=== PATIENT | male | born 1960 | race American Indian/Alaskan Native ===

== ENCOUNTER 2020-04-30 13:56 | Outpatient (REF) | payer MEDICARE, MEDICAID, SELFPAY ==
[2020-04-30 14:54] LABS: MANUAL DIFF FLAG NO
[2020-04-30 14:58] LABS: Basophils Absolute Auto 0.1 X10*3/uL (0.0-0.2); Basophils Percent Auto 0.7 % (0-2); Eosinophils Absolute Auto 0.1 X10*3/uL (0.0-0.4); Eosinophils Percent Auto 1.8 % (0-4); Hemoglobin 14.5 g/dl (14.0-18.0); Imm Gran Abs Auto 0.04 X10*3/uL (0.00-0.03); Imm Gran Pct Auto 0.6 % (0.0-0.4); Lymphocytes Absolute Auto 2.2 X10*3/uL (1.2-4.9); Lymphocytes Percent Auto 32.2 % (20-40); Mean Corpuscular HGB Conc 30.9 g/dl (31.0-36.0); Mean Corpuscular Hemoglobin 26.1 pg (27.0-33.0); Mean Corpuscular Volume 84.5 fL (80-98); Mean Platelet Volume 11.2 fL (9.4-12.4); Monocytes Absolute Auto 0.7 X10*3/uL (0.1-1.2); Monocytes Percent Auto 10.6 % (2-11); Neutrophils Absolute Auto 3.6 X10*3/uL (2.0-8.3); Neutrophils Percent Auto 54.1 % (45-73); Platelet Count 246 X10*3/uL (160-400); Red Blood Count 5.56 X10*6/uL (4.60-5.80); White Blood Count 6.7 X10*3/uL (4.8-10.8)
[2020-04-30 15:28] LABS: Alanine Aminotransferase 32 U/L (0-40); Albumin Level 3.9 g/dL (3.5-5.0); Alkaline Phosphatase 79 U/L (39-117); Anion Gap 10 (12-20); Aspartate Amino Transferase 22 U/L (5-37); Bilirubin Total 0.6 mg/dL (0.0-1.0); Blood Urea Nitrogen 12 mg/dL (9-16); Calcium 8.6 mg/dL (8.4-10.2); Carbon Dioxide 29 mmol/L (22-29); Chloride 106 mmol/L (96-108); Cholesterol 170 mg/dL; Estimated Glomerular Filt Rate > 60; Glucose Fasting 118 mg/dL (60-99); HDL Cholesterol 43 mg/dL; LDL Cholesterol Calculated 68 mg/dl; Potassium 4.2 mmol/L (3.3-5.1); Sodium 141 mmol/L (135-145); Total Protein 7.2 g/dL (6.5-8.0); Triglycerides 298 mg/dL
== END 2020-04-30 13:57 | disposition home or self-care (01) ==
LOC: HO.LAB 13:56
PROVIDERS: PCP Internal Medicine; Visit Provider Internal Medicine
DX: E78.1 Pure hyperglyceridemia (principal); I10 Essential (primary) hypertension
CPT/HCPCS: 36415; 80053; 80061; 85025

== ENCOUNTER → 2020-05-14 12:51 | Outpatient (BNV) | payer MEDICARE, MEDICAID, SELFPAY | PROVIDERS: PCP Internal Medicine; Visit Provider Internal Medicine Medical Oncology | DX: D75.1 Secondary polycythemia (principal) | CPT/HCPCS: 99213; 99214 ==

== ENCOUNTER 2020-08-15 15:15 | Outpatient (REF) | payer MEDICARE, MEDICAID, SELFPAY | END 2020-08-15 15:16 | disposition home or self-care (01) | LOC: HO.BBR 15:15 | PROVIDERS: Visit Provider Internal Medicine Medical Oncology | DX: D75.1 Secondary polycythemia (principal) | CPT/HCPCS: 36415; 85018; 99195 ==

== ENCOUNTER 2021-05-14 07:51 | Emergency (ER) | payer OTHER, MEDICARE, MEDICAID, SELFPAY ==
[2021-05-14 07:53] VITALS: BP 156/81; PULSE 100; RESP 16; TEMP 37.1; O2SAT 99; BMI 31.3
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
== END 2021-05-14 09:45 | disposition home or self-care (01) ==
PROVIDERS: Emergency Provider Emergency Medicine; PCP Internal Medicine
DX: S13.4XXA Sprain of ligaments of cervical spine, initial encounter (principal); S46.912A Strain of unspecified muscle, fascia and tendon at shoulder and upper arm level, left arm, initial encounter; S76.012A Strain of muscle, fascia and tendon of left hip, initial encounter; V43.52XA Car driver injured in collision with other type car in traffic accident, initial encounter; Y93.89 Activity, other specified; Y92.414 Local residential or business street as the place of occurrence of the external cause; Y99.9 Unspecified external cause status
CPT/HCPCS: 99283

== ENCOUNTER 2021-10-29 11:51 | Outpatient (REF) | payer MEDICARE, MEDICAID, SELFPAY ==
[2021-10-29 12:07] LABS: MANUAL DIFF FLAG NO
[2021-10-29 12:26] LABS: Basophils Percent Auto 0.5 % (0-2); Eosinophils Absolute Auto 0.2 X10*3/uL (0.0-0.4); Eosinophils Percent Auto 2.6 % (0-4); Hematocrit 47.2 % (42.0-52.0); Hemoglobin 15.8 g/dl (14.0-18.0); Imm Gran Abs Auto 0.03 X10*3/uL (0.00-0.03); Imm Gran Pct Auto 0.4 % (0.0-0.4); Lymphocytes Absolute Auto 2.4 X10*3/uL (1.2-4.9); Mean Corpuscular HGB Conc 33.5 g/dl (31.0-36.0); Mean Corpuscular Hemoglobin 29.6 pg (27.0-33.0); Mean Corpuscular Volume 88.4 fL (80.0-98.0); Mean Platelet Volume 11.3 fL (9.4-12.4); Monocytes Absolute Auto 0.8 X10*3/uL (0.1-1.2); Monocytes Percent Auto 10.2 % (2-11); Neutrophils Absolute Auto 3.9 x10*3/uL (2.0-8.3); Neutrophils Percent Auto 53.3 % (45-73); Platelet Count 237 X10*3/uL (160-400); Red Blood Count 5.34 X10*6/uL (4.60-5.80); Red Cell Distribution Width 17.2 % (11.0-16.0); White Blood Count 7.3 X10*3/uL (4.8-10.8)
[2021-10-29 12:58] LABS: Alanine Aminotransferase 44 U/L (0-40); Albumin Level 3.8 g/dL (3.5-5.0); Alkaline Phosphatase 84 U/L (39-117); Anion Gap 14 (12-20); Aspartate Amino Transferase 34 U/L (5-37); Bilirubin Total 0.5 mg/dL (0.0-1.0); Blood Urea Nitrogen 10 mg/dL (9-16); Calcium 8.6 mg/dL (8.4-10.2); Carbon Dioxide 28 mmol/L (22-29); Chloride 102 mmol/L (96-108); Cholesterol 157 mg/dL; Estimated Glomerular Filt Rate > 60; Glucose Random 124 mg/dL (60-115); HDL Cholesterol 39 mg/dL; LDL Cholesterol Calculated 83 mg/dl; Potassium 3.9 mmol/L (3.3-5.1); Sodium 140 mmol/L (135-145); Total Protein 7.3 g/dL (6.5-8.0); Triglycerides 176 mg/dL
[2021-10-29 13:19] LABS: Prostate Specific Antigen 1.06 ng/mL (<0.05-4.0)
== END 2021-10-29 11:52 | disposition home or self-care (01) ==
LOC: HO.LAB 11:51
PROVIDERS: PCP Internal Medicine; Visit Provider Internal Medicine
DX: Z12.5 Encounter for screening for malignant neoplasm of prostate (principal); D45 Polycythemia vera; E78.1 Pure hyperglyceridemia; I10 Essential (primary) hypertension; L40.8 Other psoriasis
CPT/HCPCS: 36415; 80053; 80061; 84153; 85025

== ENCOUNTER 2022-01-19 10:26 | Outpatient (REF) | payer MEDICARE, MEDICAID, SELFPAY | END 2022-01-19 10:27 | disposition home or self-care (01) | LOC: HO.BBR 10:26 | PROVIDERS: Visit Provider Internal Medicine Medical Oncology | DX: D75.1 Secondary polycythemia (principal) | CPT/HCPCS: 85018; 99195 ==

== ENCOUNTER 2022-05-06 11:30 | Outpatient (REF) | payer MEDICARE, MEDICAID, SELFPAY ==
[2022-05-06 11:44] LABS: MANUAL DIFF FLAG NO
[2022-05-06 11:59] LABS: Basophils Absolute Auto 0.1 X10*3/uL (0.0-0.2); Basophils Percent Auto 0.8 % (0-2); Eosinophils Absolute Auto 0.2 X10*3/uL (0.0-0.4); Eosinophils Percent Auto 1.9 % (0-4); Hematocrit 46.2 % (42.0-52.0); Imm Gran Abs Auto 0.04 X10*3/uL (0.00-0.03); Imm Gran Pct Auto 0.5 % (0.0-0.4); Lymphocytes Absolute Auto 1.9 X10*3/uL (1.2-4.9); Lymphocytes Percent Auto 23.6 % (20-40); Mean Corpuscular HGB Conc 32.5 g/dl (31.0-36.0); Mean Corpuscular Hemoglobin 27.9 pg (27.0-33.0); Mean Platelet Volume 11.4 fL (9.4-12.4); Monocytes Percent Auto 12.9 % (2-11); Neutrophils Absolute Auto 4.8 x10*3/uL (2.0-8.3); Neutrophils Percent Auto 60.3 % (45-73); Platelet Count 213 X10*3/uL (160-400); Red Blood Count 5.37 X10*6/uL (4.60-5.80)
[2022-05-06 12:14] LABS: Estimated Average Glucose 146 mg/dL; Hemoglobin A1c % 6.7 %
[2022-05-06 12:43] LABS: Alanine Aminotransferase 36 U/L (0-40); Albumin Level 3.7 g/dL (3.5-5.0); Alkaline Phosphatase 74 U/L (39-117); Anion Gap 12 (12-20); Aspartate Amino Transferase 32 U/L (5-37); Bilirubin Total 0.7 mg/dL (0.0-1.0); Blood Urea Nitrogen 13 mg/dL (9-16); Calcium 8.5 mg/dL (8.4-10.2); Carbon Dioxide 27 mmol/L (22-29); Chloride 107 mmol/L (96-108); Cholesterol 170 mg/dL; Estimated Glomerular Filt Rate > 60; Glucose Random 122 mg/dL (60-115); HDL Cholesterol 37 mg/dL; LDL Cholesterol Calculated 95 mg/dl; Potassium 3.8 mmol/L (3.3-5.1); Sodium 142 mmol/L (135-145); Total Protein 6.8 g/dL (6.5-8.0); Triglycerides 192 mg/dL
== END 2022-05-06 11:31 | disposition home or self-care (01) ==
LOC: HO.LAB 11:30
PROVIDERS: PCP Internal Medicine; Visit Provider Internal Medicine
DX: D45 Polycythemia vera (principal); E78.2 Mixed hyperlipidemia; I10 Essential (primary) hypertension; L40.8 Other psoriasis; R73.01 Impaired fasting glucose
CPT/HCPCS: 36415; 80053; 80061; 83036; 85025

== ENCOUNTER 2022-05-20 12:57 | Outpatient (REF) | payer MEDICARE, MEDICAID, SELFPAY | END 2022-05-20 12:58 | disposition home or self-care (01) | LOC: HO.BBR 12:57 | PROVIDERS: Visit Provider Internal Medicine Medical Oncology | DX: D75.1 Secondary polycythemia (principal) | CPT/HCPCS: 85018; 99195 ==

== ENCOUNTER 2022-08-13 09:10 | Outpatient (REF) | payer MEDICARE, SELFPAY ==
[2022-08-13 10:07] LABS: Estimated Average Glucose 143 mg/dL; Hemoglobin A1c % 6.6 %
[2022-08-13 10:32] LABS: Alanine Aminotransferase 35 U/L (0-40); Albumin Level 3.7 g/dL (3.5-5.0); Alkaline Phosphatase 87 U/L (39-117); Anion Gap 13 (12-20); Aspartate Amino Transferase 25 U/L (5-37); Bilirubin Total 0.7 mg/dL (0.0-1.0); Blood Urea Nitrogen 11 mg/dL (9-16); Calcium 8.8 mg/dL (8.4-10.2); Carbon Dioxide 25 mmol/L (22-29); Chloride 104 mmol/L (96-108); Cholesterol 154 mg/dL; Estimated Glomerular Filt Rate > 60; Glucose Random 132 mg/dL (60-115); HDL Cholesterol 32 mg/dL; LDL Cholesterol Calculated 79 mg/dl; Potassium 3.8 mmol/L (3.3-5.1); Sodium 138 mmol/L (135-145); Total Protein 7.3 g/dL (6.5-8.0); Triglycerides 219 mg/dL
[2022-08-13 11:52] LABS: Creatinine Urine 386.25 mg/dL; Microalbum/Creatinine Ratio Ur 5.4 ug/mg cr
== END 2022-08-13 09:11 | disposition home or self-care (01) ==
LOC: HO.LAB 09:10
PROVIDERS: PCP Internal Medicine; Visit Provider Internal Medicine
DX: E11.9 Type 2 diabetes mellitus without complications (principal); E78.2 Mixed hyperlipidemia; I10 Essential (primary) hypertension; L40.8 Other psoriasis
CPT/HCPCS: 36415; 80053; 80061; 82043; 83036

== ENCOUNTER 2022-10-18 21:50 | Emergency (ER) | payer OTHER, MEDICARE, MEDICAID, SELFPAY ==
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
[2022-10-18 22:11] VITALS: BP 131/87; BP 160/92; PULSE 101; PULSE 125; RESP 18; TEMP 36.9; O2SAT 95; BMI 66.2
--- NOTE | 2022-10-18 22:44 | PC.NURSE ---
DAUGHTER MOLINA HUGHES [phone]
[2022-10-18 23:42] VITALS: BP 116/74; PULSE 115; RESP 16; TEMP 36.4; O2SAT 92
--- NOTE | 2022-10-18 23:43 | MHC.EDTECH ---
This tech assumed care of pt at 2300. hourly rounds completed vitals taken and pt's heart rate is 115 and o2sat was 92%,provider Figueroa was made aware. Patient voided 400cc of urine in urinal. Call becerril within reach
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
--- NOTE | 2022-10-19 01:52 | PC.NURSE ---
patient in bed with eyes open patient showing no distress at this time patient have no complaints of pain at this time
== END 2022-10-19 02:45 | disposition home or self-care (01) ==
PROVIDERS: Emergency Provider Internal Medicine
DX: S09.90XA Unspecified injury of head, initial encounter (principal); S13.4XXA Sprain of ligaments of cervical spine, initial encounter; S69.92XA Unspecified injury of left wrist, hand and finger(s), initial encounter; M54.6 Pain in thoracic spine; M79.642 Pain in left hand; R10.2 Pelvic and perineal pain; V43.52XA Car driver injured in collision with other type car in traffic accident, initial encounter; Y93.9 Activity, unspecified; Y92.410 Unspecified street and highway as the place of occurrence of the external cause; Y99.9 Unspecified external cause status; Z79.899 Other long term (current) drug therapy
CPT/HCPCS: 70450; 71250; 72125; 73110; 73130; 73590; 74176; 99284

== ENCOUNTER 2022-12-30 11:00 | Outpatient (REF) | payer MEDICARE, SELFPAY ==
[2022-12-30 12:22] LABS: Estimated Average Glucose 131 mg/dL; Hemoglobin A1C 148.5269 umol/L; Hemoglobin A1c % 6.2 % (<6.0)
[2022-12-30 12:38] LABS: Alanine Aminotransferase 29 U/L (0-40); Alkaline Phosphatase 84 U/L (39-117); Anion Gap 15 (12-20); Aspartate Amino Transferase 25 U/L (5-37); Bilirubin Total 0.4 mg/dL (0.0-1.0); Blood Urea Nitrogen 13 mg/dL (9-16); Calcium 9.1 mg/dL (8.4-10.2); Carbon Dioxide 27 mmol/L (22-29); Chloride 104 mmol/L (96-108); Estimated Glomerular Filt Rate > 60; Glucose Random 111 mg/dL (60-115); Potassium 4.1 mmol/L (3.3-5.1); Sodium 142 mmol/L (135-145); Total Protein 7.9 g/dL (6.5-8.0)
== END 2022-12-30 11:01 | disposition home or self-care (01) ==
LOC: HO.LAB 11:00
PROVIDERS: PCP Internal Medicine; Visit Provider Internal Medicine
DX: E11.65 Type 2 diabetes mellitus with hyperglycemia (principal); I10 Essential (primary) hypertension; L40.8 Other psoriasis; M54.9 Dorsalgia, unspecified
CPT/HCPCS: 36415; 80053; 83036

== ENCOUNTER 2023-02-08 09:06 | Outpatient (REF) | payer MEDICARE, SELFPAY ==
--- NOTE | ~2023-02-08 | XR_ITS ---
EXAMINATION: XR KNEE, RIGHT XR KNEE STANDING, BILATERAL CLINICAL INFORMATION: Pain COMPARISON: None available. TECHNIQUE: Single view of the bilateral standing knees 2 views of the right knee FINDINGS: No acute visible fracture or dislocation. Mild narrowing of the bilateral medial femorotibial compartments. Right knee demonstrates narrowing at the lateral patellofemoral compartment. Enthesopathy at the quadriceps tendon insertion site. Joint spaces and alignment are otherwise maintained. Small right knee joint effusion. Soft tissues are unremarkable. XR/XR knee standing BI IMPRESSION: 1. No acute visible fracture or dislocation. 2. Mild bilateral multicompartment degenerative changes. 3. Small right knee joint effusion.
--- NOTE | ~2023-02-08 | XR_ITS ---
EXAMINATION: XR KNEE, RIGHT XR KNEE STANDING, BILATERAL CLINICAL INFORMATION: Pain COMPARISON: None available. TECHNIQUE: Single view of the bilateral standing knees 2 views of the right knee FINDINGS: No acute visible fracture or dislocation. Mild narrowing of the bilateral medial femorotibial compartments. Right knee demonstrates narrowing at the lateral patellofemoral compartment. Enthesopathy at the quadriceps tendon insertion site. Joint spaces and alignment are otherwise maintained. Small right knee joint effusion. Soft tissues are unremarkable. XR/XR knee RT 2V IMPRESSION: 1. No acute visible fracture or dislocation. 2. Mild bilateral multicompartment degenerative changes. 3. Small right knee joint effusion.
== END 2023-02-08 09:07 | disposition home or self-care (01) ==
LOC: HO.HOSX 09:06
PROVIDERS: Visit Provider Orthopaedic Surgery
DX: M23.91 Unspecified internal derangement of right knee (principal); E11.9 Type 2 diabetes mellitus without complications; Z98.890 Other specified postprocedural states
CPT/HCPCS: 20610; 73560; 73565; 99202; J0665; J1100

== ENCOUNTER 2023-02-08 10:50 | Outpatient (AMB) | payer MEDICARE, SELFPAY ==
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
== END 2023-02-08 12:08 | disposition home or self-care (01) ==
PROVIDERS: PCP Internal Medicine; Visit Provider Orthopaedic Surgery
DX: M23.91 Unspecified internal derangement of right knee (principal)
CPT/HCPCS: 20610; 99204

== ENCOUNTER 2023-04-18 11:20 | Inpatient (IN) | payer MEDICARE, MEDICAID, SELFPAY ==
[2023-04-18] VITALS (20 sets, daily range): BP systolic 78–128; BP diastolic 49–73; PULSE 81–144; RESP 17–49; TEMP 36.1–36.8; O2SAT 89–99; BMI 29.1; BMI 29.9
--- NOTE | ~2023-04-18 | XR_ITS ---
EXAMINATION: XR CHEST CLINICAL INFORMATION: Hypoxia. COMPARISON: Chest 04/18/2023. TECHNIQUE: Frontal view of the chest was obtained. FINDINGS: The lungs are hypoexpanded and clear. The heart size and pulmonary vascularity is normal. There is a right central venous catheter with its tip in the proximal SVC. Tip of enteric tube is in the stomach. There mild prominent small bowel loops in the upper abdomen. XR/XR chest 1V IMPRESSION: 1. Hypoexpanded lungs with no acute process seen. 2. Support lines and catheters are in satisfactory position.
--- NOTE | ~2023-04-18 | XR_ITS ---
EXAMINATION: XR CHEST CLINICAL INFORMATION: Increased work of breathing. COMPARISON: Chest 04/19/2023 TECHNIQUE: Frontal view of the chest was obtained. FINDINGS: The lungs are hypoexpanded with platelike atelectasis in the lingula and left lower lobe. Rest of lungs are expanded and clear. Heart size is enlarged. Pulmonary vascularity is normal. There is interval removal of enteric tube and right subclavian central line. XR/XR chest 1V IMPRESSION: Hypoexpanded lungs with lingular and left lower lobe atelectasis. Support lines and catheters have been removed since 04/19/2023 exam
--- NOTE | ~2023-04-18 | CT_ITS ---
EXAMINATION: CT ABDOMEN AND PELVIS WITHOUT CONTRAST CLINICAL INFORMATION: Diffuse abdominal pain COMPARISON: CT abdomen pelvis 10/19/2022. TECHNIQUE: Multidetector volumetric imaging was performed from the superior aspect of the liver through the pubic symphysis. Sagittal and coronal reformatted images were obtained on the technologist's workstation. This CT examination was performed using dose optimization techniques as appropriate, variously including the following: *Automated exposure control *Adjustment of mA and/or kV according to patient size (this includes techniques or standardized protocols for targeted exams where dose is matched to indication/reason for exam; i.e. extremities or head) *Use of iterative reconstruction technique DLP: 1308 mGy-cm FINDINGS: Evaluation of solid organs, vascular structures, and bowel wall limited in the absence of intravenous contrast. LUNG BASES: Coronary artery calcifications present. Left atrial ventricular enlargement. Dilated main pulmonary artery. Bibasilar atelectasis. LIVER AND BILIARY TREE: Redemonstrated hepatomegaly and diffuse hepatic steatosis with liver spanning 20.4 cm in craniocaudal dimension. GALLBLADDER: Unremarkable. PANCREAS: Unremarkable. SPLEEN: Unremarkable. ADRENAL GLANDS: Redemonstrated bilateral adrenal myelolipomas for which no follow-up imaging is recommended. KIDNEYS AND URETERS: Unremarkable. GASTROINTESTINAL TRACT: Scattered left colonic diverticulosis. Ill-defined thin fluid tracking approximately 9 cm along the anterior serosal surface of the proximal descending colon (series 4, image 270), and extending inferomedially (series 4, image 340), to insinuate around a group of small bowel loops in the left mid abdomen (series 6, image 43). Normal appendix VASCULAR: Mild aortoiliac calcific atherosclerosis again seen. LYMPH NODES: No lymphadenopathy. PERITONEUM: Large volume pneumoperitoneum with numerous small locules of gas throughout the left abdominal peritoneum and fat stranding centered most along the left paracolic gutter extending into the sigmoid mesocolon. BLADDER: Unremarkable. PELVIC VISCERA: Small pelvic free fluid with layering gradient density (series 3, image 82). ABDOMINAL AND PELVIC WALL: Unremarkable. OSSEOUS STRUCTURES: Mild multilevel degenerative thoracolumbar spondylosis again seen. Redemonstrated L5 pars defects bilaterally with grade 1 anterolisthesis of L5 on S1. CT/CT abdomen pelvis wo IV con IMPRESSION: 1. Perforated viscus with large volume pneumoperitoneum, favored to be secondary to perforated diverticulitis.. Numerous smaller locules of gas throughout the left peritoneal fat with ill-defined fluid tracking along the serosal surface of the descending colon and into the left mid abdomen, where it insinuates about a group of small bowel loops, altogether suboptimally delineated without intravenous contrast. 2. Small pelvic free fluid with layering gradient density, which likely represents a small component of layering blood product. Impression [address] Cortes by Major Mcnair MD on 04/18/2023 1:29 PM and it was ascertained that the content of the report was understood at the time of direct communication.
--- NOTE | ~2023-04-18 | XR_ITS ---
EXAMINATION: XR CHEST CLINICAL INFORMATION: Chest pain COMPARISON: Previous CT of the abdomen and pelvis from yesterday TECHNIQUE: Frontal view of the chest was obtained. FINDINGS: The cardiac and mediastinal contours are normal. The lung volumes are low. There is atelectasis at the lung bases, left greater than right. No significant pleural effusion. No new pneumothorax. Free intraperitoneal air. Distended bowel below the diaphragm. XR/XR chest 1V IMPRESSION: Low lung volumes and subsegmental atelectasis at the lung bases. Free intraperitoneal air, probably postoperative. Distended bowel below the diaphragm.
--- NOTE | ~2023-04-18 | XR_ITS ---
EXAMINATION: XR CHEST CLINICAL INFORMATION: TLC insertion. COMPARISON: Chest radiograph earlier today at 1:19 PM to 07/03/2023. TECHNIQUE: Frontal view of the chest was obtained. FINDINGS: Right-sided PICC line tip terminates at the level of the superior cavoatrial junction. Enteric tube courses into the abdomen and terminates at the level of the stomach. Stable prominence of the cardiomediastinal silhouette. Low lung volumes with diffuse bronchovascular crowding and mild bibasilar subsegmental atelectasis. No focal consolidation. No pleural effusion or pneumothorax. Pneumoperitoneum is less apparent/decreased compared to recent prior. No acute osseous findings. XR/XR chest 1V IMPRESSION: 1. Right-sided PICC line tip terminates at the level of the superior cavoatrial junction. 2. No pneumothorax. 3. Decreased pneumoperitoneum. 4. Low lung volumes with bronchovascular crowding and subsegmental atelectasis.
--- NOTE | 2023-04-18 11:22 | ECG_ITS ---
Test Reason : chest pain Blood Pressure : / mmHG Vent. Rate : 139 BPM Atrial Rate : 139 BPM P-R Int : 126 ms QRS Dur : 084 ms QT Int : 296 ms P-R-T Axes : 031 020 -13 degrees QTc Int : 450 ms Sinus tachycardia Possible Left atrial enlargement ST & T wave abnormality, consider inferior ischemia Abnormal ECG When compared to the previous EKG of 07 jul 2001 , increase in ventricular rate; non specific changes in inferior leads Referred By: Generic ED Physician Electronically Signed By:VIRAL VERAS
--- NOTE | 2023-04-18 11:55 | ED_ITS ---
HPI - Chest Pain General Chief Complaint: Chest Pain Stated Complaint: Chest pain Time Seen by Provider: 04/18/23 11:56 Source: patient Mode of arrival: ambulatory History of Present Illness HPI narrative: 62-year-old male with presentation of 3 days of what he initially describes as chest pain but then states he has had pain across his upper abdomen and reports shortness of breath and then states that today he experienced palpitations. Related Data Home Medications Medication Instructions Recorded Confirmed allopurinol 300 mg tablet 1 tab PO DAILY 05/14/20 04/18/23 ibuprofen 200 mg tablet 200 mg PO Q6H PRN Pain 05/14/20 04/18/23 atorvastatin 10 mg tablet 10 mg PO BEDTIME 01/19/23 04/18/23 doxepin 50 mg capsule 50 mg PO BEDTIME 01/19/23 04/18/23 metformin 1,000 mg tablet 1,000 mg PO BID 01/19/23 04/18/23 metoprolol succinate 50 mg 50 mg PO DAILY 01/19/23 04/18/23 tablet,extended release 24 hr omeprazole 20 mg capsule,delayed 20 mg PO DAILY 01/19/23 04/18/23 release lisinopril 20 1 tab PO DAILY 04/18/23 04/18/23 mg-hydrochlorothiazide 12.5 mg tablet Previous Rx's Medication Instructions Recorded naproxen 500 mg tablet 500 mg PO BID PRN pain #14 tabs 05/14/21 Allergies Allergy/AdvReac Type Severity Reaction Status Date / Time No Known Allergies Allergy Verified 04/18/23 13:40 Review of Systems 2 Review of Systems: Pertinent positives and negatives as stated in HPI PMFSH Past Medical History Source: nursing notes reviewed Medical History Diabetes mellitus Internal derangement of right knee Hx of polycythemia vera Surgical History No pertinent past surgical history Family History Family History Father History of head and neck cancer Mother Hx of cancer antigen 125 (CA-125) measurement Social History Social History Household Members: Family Housing: House Are you a primary managed care liaison to a significant other at home: Yes Do you presently have visiting nurse or other home services: No Unable to assess alcohol history related to: Unable to respond Alcohol intake: never Patient Tobacco Use Status: Never used Tobacco service: No Current occupational status: unemployed Physical Exam 2 Vital Signs: Vital Signs: Last Vital Signs Temp 97.8 F 04/20/23 08:00 Pulse 90 04/20/23 12:00 Resp 40 H 04/20/23 12:00 BP 151/81 H 04/20/23 12:00 Pulse Ox 93 04/20/23 12:00 O2 Del Method High Flow Nasal C annula 04/20/23 12:00 O2 Flow Rate 40 04/20/23 12:00 FiO2 65 04/20/23 12:00 BMI result Body Mass Index 29.1 VITAL SIGNS: Reviewed. GENERAL: Well developed, well nourished, in moderate distress. HEAD: Normocephalic/atraumatic EYES: PERRLA, EOMI EARS: Ext canals without abnormality NOSE: Nares patent bilateral OROPHARYNX: no oral lesions noted, posterior pharynx clear NECK: Supple, no adenopathy LUNGS: Normal breath sounds. No adventitious sounds or accessory muscle use. SpO2<95> CARDIOVASCULAR: Regular rate and rhythm without noted murmurs ABDOMEN: Distended, appears to be peritonitic MUSCULOSKELETAL: No tenderness, deformities, or effusions noted on gross inspection. EXTREMITIES: No cyanosis, clubbing or edema. SKIN: Inspection of the skin reveals no rashes NEUROLOGIC: Alert and oriented x 3. Strength and sensation to light touch were grossly intact x 4. Course Course Course Narrative: rme: 62-YEAR-OLD MALE PRESENTS TO ED FOR CHEST PAIN EPIGASTRIC PAIN AND TACHYCARDIA AND SHORTNESS OF BREATH FOR 3 DAYS. PATIENT IS TACHYCARDIC AND O2 SAT 93%. PATIENT CALLED TO BE BROUGHT TO THE ED IMMEDIATELY. EKG SINUS TACH LABS ORDERED. CHEST X-RAY ORDERED. Medications Administered Generic Name Dose Route Start Last Admin Trade Name Freq PRN Reason Stop Dose Admin Hydromorphone HCl 0.5 mg 04/18/23 13:13 04/20/23 08:41 Hydromorphone Hcl 0.5 Mg/0.5 Ml Syringe IVPUSH 0.5 mg Q3H PRN Administration Pain, Severe (Pain Scale 7-10) Protocol Piperacillin Sod/Tazobactam 100 mls @ 200 mls/hr 04/19/23 09:00 04/20/23 09:39 Sod 3.375 gm/ Sodium Chloride IV Infused Q6H SARTIA Infusion Amiodarone HCl 900 mg/ Sodium 518 mls @ 34.533 mls/hr 04/19/23 19:30 04/20/23 11:46 Chloride IVCONT Not Given .Q15H1M SARITA Protocol 1 MG/MIN Potassium Phosphate 15 mmol in 250 mls @ 62.5 mls/hr 04/20/23 06:15 04/20/23 11:12 Kphos IV 04/20/23 14:14 62.5 mls/hr Q4H SARITA Administration Acetaminophen 1,000 mg in 100 mls @ 400 mls/hr 04/20/23 10:15 04/20/23 11:04 Ofirmev IV Infused Q6H SARITA Infusion Insulin Human Lispro 0 unit 04/19/23 12:00 04/20/23 12:27 Insulin Lispro 100 Unit/Ml 3 Ml Vial SUBCUT Not Given Q6H SARITA Protocol Pantoprazole Sodium 40 mg 04/19/23 06:30 04/20/23 05:04 Pantoprazole Sodium 40 Mg/10 Ml Vial IVPUSH 40 mg DAILY@0630 SARITA Administration Discontinued Medications Generic Name Dose Route Start Last Admin Trade Name Freq PRN Reason Stop Dose Admin Calcium Chloride 1 gm 04/18/23 18:36 04/18/23 19:42 Calcium Chloride 1 Gm/10 Ml Syringe IVPUSH 04/18/23 18:37 1 gm STAT STA Administration Furosemide 40 mg 04/19/23 08:50 04/19/23 09:11 Furosemide 40 Mg/4 Ml Vial IVPUSH 04/19/23 08:51 40 mg ONCE ONE Administration Protocol Piperacillin Sod/Tazobactam 100 mls @ 200 mls/hr 04/18/23 12:20 04/18/23 13:51 Sod 4.5 gm/ Sodium Chloride IV 04/18/23 12:49 Infused ONCE ONE Infusion Sodium Chloride 1,000 mls @ 999 mls/hr 04/18/23 12:30 04/18/23 13:55 Ns IV 04/18/23 13:30 Infused .Q1H1M SARITA Infusion Metronidazole 500 mg in 100 mls @ 100 mls/hr 04/18/23 12:44 04/18/23 14:10 Flagyl IV 04/18/23 13:43 Infused ONCE ONE Infusion Sodium Chloride 2,451 mls @ 2,451 mls/hr 04/18/23 12:45 04/18/23 13:55 Ns 30 ml/kg infuse over 1 hr (2451 ml) 04/18/23 13:44 Infused IV Infusion .Q1H STA Cefotetan Disodium 2 gm/ 50 mls @ 100 mls/hr 04/18/23 13:13 04/18/23 17:18 Sodium Chloride IV 04/18/23 13:42 Not Given PREOP ONE Lactated Ringer's 1,000 mls @ 100 mls/hr 04/18/23 13:15 04/19/23 08:39 Lr IVCONT Infused .Q10H SARITA Infusion Norepinephrine Bitartrate 8 mg in 250 mls @ 0 mls/hr 04/18/23 15:00 04/19/23 13:59 Levophed IV Infused .Q0M SARITA Titration Protocol Per Protocol Piperacillin Sod/Tazobactam 100 mls @ 200 mls/hr 04/18/23 19:00 04/19/23 06:49 Sod 4.5 gm/ Sodium Chloride IV Infused Q12H SARITA Infusion Albumin Human 100 mls @ 100 mls/hr 04/18/23 19:00 04/18/23 22:09 Kedbumin 25 % IV 04/18/23 20:59 Not Given Q1H SARITA Albumin Human 50 mls @ 100 mls/hr 04/18/23 20:00 04/18/23 22:38 Kedbumin 25 % IV 04/18/23 21:59 Infused Q30M SARITA Infusion Albumin Human 50 mls @ 100 mls/hr 04/19/23 01:15 04/19/23 04:15 Kedbumin 25 % IV 04/19/23 04:44 Infused Q1H SARITA Infusion Piperacillin Sod/Tazobactam 100 mls @ 200 mls/hr 04/19/23 08:30 04/19/23 08:59 Sod 3.375 gm/ Sodium Chloride IV Not Given Q6H SARITA Albumin Human 100 mls @ 100 mls/hr 04/19/23 09:00 04/20/23 03:27 Kedbumin 25 % IV 04/20/23 03:59 Infused Q6H SARITA Infusion Diltiazem HCl 125 mg/ Sodium 125 mls @ 0 mls/hr 04/19/23 14:00 04/19/23 15:29 Chloride IVCONT Infused .Q0M SARITA Titration Protocol Per Protocol Esmolol HCl 2,500 mg in 250 mls @ 0 mls/hr 04/19/23 15:30 04/20/23 07:14 Brevibloc/Nacl IVCONT Infused .Q0M SARITA Titration Protocol Per Protocol Potassium Chloride 40 meq in 100 mls @ 100 mls/hr 04/19/23 16:00 04/19/23 18:25 Potassium Chloride/H20 IV 04/19/23 17:59 Infused Q1H SARITA Infusion Amiodarone HCl 150 mg in 100 mls @ 600 mls/hr 04/19/23 19:30 04/19/23 20:04 Nexterone IV 04/19/23 19:39 Infused ONCE ONE Infusion Dexmedetomidine HCl 400 mcg in 100 mls @ 0 mls/hr 04/19/23 19:30 04/20/23 08:50 Precedex IVCONT Infused .Q0M SARITA Titration Protocol Per Protocol Metoprolol Tartrate 5 mg 04/19/23 13:21 04/19/23 13:34 Metoprolol Tartrate 5 Mg/5 Ml Vial IVPUSH 04/19/23 13:22 5 mg ONCE ONE Administration Midazolam HCl 1 mg 04/19/23 18:47 04/19/23 18:53 Midazolam Hcl/Pf 2 Mg/2 Ml Vial IVPUSH 04/19/23 18:48 1 mg ONCE ONE Administration Medical Decision Making Medical Decision Making [facility] Narrative: 1206: 62-year-old male with history and clinical presentation, DDX: Bowel perforation, aortic pathology, lower clinical suspicion for ACS or pulmonary issue. Patient received IV fluids and antibiotics. I reviewed all investigations and hematologic indices significant for leukocytosis and patient will receive IV fluids/antibiotics but there is no evidence of anemia or thrombocytopenia. Coagulation studies mildly elevated. Chemistry indices significant for metabolic acidosis secondary to lactic acidosis-5.9, patient also has BINTA. Viral testing negative for COVID- 19/influenza. I immediately ordered noncontrast CT scan of abdomen pelvis for suspected perforation, my preliminary read of the imaging study demonstrates free air within the abdomen, patient remains tachycardic with soft pressures will continue to monitor. 1230: I discussed case with Dr. Haney, general surgery, who accepts patient and is on his way into the hospital. 1235: Additional nursing staff is here from the recovery room and will assist in preop the patient, will add typed and screen. Differential Diagnosis Differential Diagnoses: The differential diagnosis associated with the presentation includes Please see the discussion above Admission/Observation Consideration of admission/observation: Escalation of care including admission/observation considered Please see the discussion above Consult Healthcare Provider Management of the patient was discussed with: Property Consultant Please see the discussion above Lab Data MDM Lab Attestation statement: I reviewed the patient's lab results. Please see the discussion above 04/20/23 05:25 04/20/23 05:25 Labs: Lab Results 04/18/23 04/18/23 Range/Units 11:47 12:13 WBC 15.8 H (4.8-10.8) X10*3/uL RBC 5.62 (4.60-5.80) X10*6/uL Hgb 15.4 (14.0-18.0) g/dl Hct 47.9 (42.0-52.0) % MCV 85.2 (80.0-98.0) fL MCH 27.4 (27.0-33.0) pg MCHC 32.2 (31.0-36.0) g/dl RDW 19.9 H (11.0-16.0) % Plt Count 377 D (160-400) X10*3/uL MPV 11.1 (9.4-12.4) fL Immature Gran % (Auto) Cancelled Neut % (Auto) Cancelled Lymph % (Auto) Cancelled [place] % (Auto) Cancelled Eos % (Auto) Cancelled Baso % (Auto) Cancelled Lymph # (Auto) Cancelled [place] # (Auto) Cancelled Eos # (Auto) Cancelled Baso # (Auto) Cancelled Abs Immat Gran (auto) Cancelled Absolute Neuts (auto) Cancelled Absolute Nucleated RBC 0.000 (0.0-0.012) X10*3/uL Nucleated RBC % (auto) 0.0 (0.0-0.2) /100WBC Neutrophils % (Manual) 75 H (45-73) % Band Neutrophils % 9 H (3-5) % Lymphocytes % (Manual) 11 L (20-40) % Monocytes % (Manual) 4 (2-11) % Metamyelocytes % 1 % Abs Neuts (Manual) 13.3 H (2.0-8.3) X10*3/uL Lymphocytes # (Manual) 1.7 (1.2-4.9) X10*3/uL Monocytes # (Manual) 0.6 (0.1-1.2) X10*3/uL Metamyelocytes # 0.2 X10*3/uL Toxic Granulation PRESENT Dohle Bodies PRESENT Platelet Estimate NORMAL (NORMAL) Large Platelets PRESENT Plt Morphology Comment NOTED RBC Morphology NOTED Polychromasia 1+ (0-2) /OIF PT 15.8 H (11.1-13.3) SEC INR 1.3 H (0.9-1.1) APTT 34.3 (26.0-36.8) SEC Sodium 139 (135-145) mmol/L Potassium 3.9 (3.3-5.1) mmol/L Chloride 95 L (96-108) mmol/L Carbon Dioxide 20 L (22-29) mmol/L Anion Gap 28 H (12-20) BUN 55 H (9-16) mg/dL Creatinine 4.50 H* (0.5-1.4) mg/dL Estim Creat Clear Calc 17.0 Estimated GFR 13 Random Glucose 222 H (60-115) mg/dL Lactic Acid 5.9 H* (0.5-2.0) mmol/L Calcium 9.7 (8.4-10.2) mg/dL Total Bilirubin 3.3 H (0.0-1.0) mg/dL AST 19 (5-37) U/L ALT 18 (0-40) U/L Alkaline Phosphatase 90 (39-117) U/L Troponin I High Sens 5.9 (<3.5-35.0) ng/L B-Natriuretic Peptide 67 (<100) pg/mL Total Protein 8.3 H (6.5-8.0) g/dL Albumin 3.4 L (3.5-5.0) g/dL Lipase 15 (8-78) U/L COVID-19 (LAYNE) Negative (Negative) COVID-19 Clin Com See Note Influenza Type A (ANIA) Negative (Negative) Influenza Type B (ANIA) Negative (Negative) Influenza A & B Note See Note Independent Interpretation I performed an independent interpretation of an: EKG Interpretation: Sinus tachycardia, HR-139, no STEMI, NM/QRS/QTC is within normal limits. Radiology Impression Discussion of test interpretation with radiology: I have reviewed the radiologist's reading. Radiologist Impression: Please see the discussion above Chronic Conditions Patient?s care impacted by: Diabetes Critical Care Time Critical Care Time Critical Care Time: Yes Total Critical Care Time: 60 Attestation: I personally attest to this time spent taking care of the patient. Discharge Plan Discharge Clinical Impression: Bowel perforation, Severe sepsis Patient Disposition: Admitted As Inpatient Interventions: Admission Worksheet (ED) Last Done: 04/18/23 16:18 Discharge Date/Time: 04/18/23 14:00
[2023-04-18 11:57] LABS: Hematocrit 47.9 % (42.0-52.0); Hemoglobin 15.4 g/dl (14.0-18.0); Mean Corpuscular HGB Conc 32.2 g/dl (31.0-36.0); Mean Corpuscular Hemoglobin 27.4 pg (27.0-33.0); Mean Corpuscular Volume 85.2 fL (80.0-98.0); Mean Platelet Volume 11.1 fL (9.4-12.4); Platelet Count 377 X10*3/uL (160-400); Red Blood Count 5.62 X10*6/uL (4.60-5.80); Red Cell Distribution Width 19.9 % (11.0-16.0)
[2023-04-18 11:58] LABS: INTERNATIONAL NORM RATIO 1.3 (0.9-1.1); Prothrombin Time 15.8 SEC (11.1-13.3)
[2023-04-18 12:01] LABS: Partial Thromboplastin Time 34.3 SEC (26.0-36.8); WBC ABN SCTR FOR CBC 1; White Blood Count 15.8 X10*3/uL (4.8-10.8)
[2023-04-18 12:06] LABS: COVID-19 Test Negative (Negative); IDNOW Serial# 08D9AD1C
[2023-04-18 12:14] LABS: IDNOW Serial# 152EDE1D; Influenza A Negative (Negative); Influenza B2 Negative (Negative)
[2023-04-18 12:16] LABS: B Type Natriuretic Peptide 67 pg/mL (<100)
[2023-04-18 12:19] LABS: Troponin-I High Sensitivity 5.9 ng/L (<3.5-35.0)
[2023-04-18 12:20] LABS: Band Neutrophils Percent 9 % (3-5)
[2023-04-18 12:21] LABS: Alanine Aminotransferase 18 U/L (0-40); Albumin Level 3.4 g/dL (3.5-5.0); Alkaline Phosphatase 90 U/L (39-117); Anion Gap 28 (12-20); Aspartate Amino Transferase 19 U/L (5-37); Bilirubin Total 3.3 mg/dL (0.0-1.0); Blood Urea Nitrogen 55 mg/dL (9-16); Calcium 9.7 mg/dL (8.4-10.2); Carbon Dioxide 20 mmol/L (22-29); Chloride 95 mmol/L (96-108); Estimated Glomerular Filt Rate 13; Glucose Random 222 mg/dL (60-115); Lipase 15 U/L (8-78); Potassium 3.9 mmol/L (3.3-5.1); Sodium 139 mmol/L (135-145); Total Protein 8.3 g/dL (6.5-8.0)
[2023-04-18 12:28] LABS: Lymphocytes Absolute Manual 1.7 X10*3/uL (1.2-4.9); Lymphocytes Percent Manual 11 % (20-40); Metamyelocytes Absolute 0.2 X10*3/uL; Metamyelocytes Percent 1 %; Monocytes Absolute Manual 0.6 X10*3/uL (0.1-1.2); Monocytes Percent Manual 4 % (2-11); Neutrophils Absolute Manual 13.3 X10*3/uL (2.0-8.3); Neutrophils Percent Manual 75 % (45-73)
[2023-04-18 12:29] LABS: Dohle Bodies PRESENT; Large Platelet PRESENT; Platelet Estimate NORMAL (NORMAL); Platelet Morphology Comment NOTED; Polychromasia 1+ (0-2) /OIF; RBC Morphology NOTED; Toxic Granulation PRESENT
[2023-04-18 12:39] LABS: Lactic Acid 5.9 mmol/L (0.5-2.0)
[2023-04-18] MEDS: 0.9 % Sodium Chloride 1,000 ML 999 ML IV (12:49)
[2023-04-18] MEDS: Piperacillin Sodium/Tazobactam 4.5 GM in 0.9 % Sodium Chloride 100 ML IV ×2 (12:51→18:36)
[2023-04-18] MEDS: metroNIDAZOLE/NS 500 MG/100 ML PIGGYBACK 100 MG IV (13:11)
--- NOTE | 2023-04-18 13:16 | PM.HPGS ---
History of Present Illness History of Present Illness Date of Service: 04/18/23 Chief complaint: Chest pain Narrative: Rodrick Gaston is a 62 year old male presenting with complaints of 3 day history of chest and abdominal pain which increased in severity and became associated with shortness of breath and palpitations. Patient was subsequently brought to the emergency department further evaluation. In the emergency department was noted to be acutely tender throughout the abdomen. Laboratories revealed an elevated WBC of 15.8, glucose 222, and bilirubin of 3.3. A CT abdomen and pelvis revealed a large collection of free air in the upper abdomen suggestive of a perforated viscus. Surgical consultation was requested for management of the perforated viscus. He denies a prior history of peptic ulcer disease or diverticulitis. He denies previous abdominal surgeries. He does have a history of diabetes, on metformin and Januvia. Review of Systems Review of Systems: Yes Unobtainable due to mental condition PMFSH Past Medical History Medical History Diabetes mellitus Internal derangement of right knee Hx of polycythemia vera Family History Family History Father History of head and neck cancer Mother Hx of cancer antigen 125 (CA-125) measurement Surgical History Surgical History No pertinent past surgical history Social History Social History Household Members: Spouse Housing: House Are you a primary occasional caregiver to a significant other at home: Yes Do you presently have visiting nurse or other home services: No Alcohol intake: never Patient Tobacco Use Status: Never used Tobacco service: Yes Current occupational status: unemployed Meds Allergies Allergy/AdvReac Type Severity Reaction Status Date / Time No Known Allergies Allergy Verified 04/18/23 13:40 Active Medications: Current Medications Sodium Chloride (Ns) 1,000 mls @ 999 mls/hr IV .Q1H1M SARITA Stop: 04/18/23 13:30 Last Admin: 04/18/23 12:49 Dose: 999 mls/hr Metronidazole (Flagyl) 500 mg in 100 mls @ 100 mls/hr IV ONCE ONE Stop: 04/18/23 13:43 Last Admin: 04/18/23 13:11 Dose: 100 mls/hr Sodium Chloride (Ns) 2,451 mls @ 2,451 mls/hr 30 ml/kg infuse over 1 hr (2451 ml) IV .Q1H STA Stop: 04/18/23 13:44 Last Admin: 04/18/23 12:48 Dose: 2,451 mls/hr Home Medications Medication Instructions Recorded Confirmed Last Taken Type allopurinol 300 mg tablet 1 tab PO DAILY 05/14/20 04/18/23 Unknown History ibuprofen 200 mg tablet 200 mg PO Q6H PRN Pain 05/14/20 04/18/23 Unknown History atorvastatin 10 mg tablet 10 mg PO BEDTIME 01/19/23 04/18/23 Unknown History doxepin 50 mg capsule 50 mg PO BEDTIME 01/19/23 04/18/23 Unknown History metformin 1,000 mg tablet 1,000 mg PO BID 01/19/23 04/18/23 Unknown History metoprolol succinate 50 mg 50 mg PO DAILY 01/19/23 04/18/23 Unknown History tablet,extended release 24 hr omeprazole 20 mg capsule,delayed 20 mg PO DAILY 01/19/23 04/18/23 Unknown History release lisinopril 20 1 tab PO DAILY 04/18/23 04/18/23 Unknown History mg-hydrochlorothiazide 12.5 mg tablet Physical Exam Vital Signs: Vital Signs: Last Vital Signs Pulse 138 H 04/18/23 12:48 Resp 38 H 04/18/23 12:48 BP 109/59 L 04/18/23 12:48 Pulse Ox 90 L 04/18/23 12:48 O2 Del Method Room Air 04/18/23 12:48 BMI result Body Mass Index 29.1 Const: General: cooperative, acute distress, ill appearing and tired appearing Nutritional Appearance: well nourished Orientation/consciousness: patient oriented x3 Limitations: no limitations HEENT: Head: Yes normocephalic and Yes atraumatic Ears: hearing grossly normal bilaterally Resp: Effort & Inspection: no audible wheezes, no cough, no respiratory distress and tachypneic Auscultation: clear to auscultation bilaterally Cardio: Jugular venous distension: no JVD Rate: tachycardic GI: Inspection: Yes normal to inspection, Yes distended and No incision Palpation (GI): Firmness to palpation present (GI), Tenderness to palpation present (GI) in the LLQ, in the RLQ, in the LUQ, in the RUQ and with rebound tenderness, Guarding due to palpation present (GI), Rigid due to palpation and No hepatosplenomegaly present Percussion: Yes dullness to percussion Auscultation: Absent bowel sounds Rectal Exam - Male: Yes deferred Skin: Other: Warm, dry, no rash General skin exam: no erythema Neuro: General: patient oriented x3 Extrem: General: Yes capillary refill normal and Yes no clubbing, cyanosis or edema Results Results Labs: Short CBC 04/18/23 Range/Units 11:47 WBC 15.8 H (4.8-10.8) X10*3/uL Hgb 15.4 (14.0-18.0) g/dl Hct 47.9 (42.0-52.0) % Plt Count 377 D (160-400) X10*3/uL BMP 04/18/23 11:47 Sodium 139 Potassium 3.9 Chloride 95 L Carbon Dioxide 20 L BUN 55 H Creatinine 4.50 H* Calcium 9.7 Liver Function 04/18/23 Range/Units 11:47 Total Bilirubin 3.3 H (0.0-1.0) mg/dL AST 19 (5-37) U/L ALT 18 (0-40) U/L Alkaline Phosphatase 90 (39-117) U/L Albumin 3.4 L (3.5-5.0) g/dL Abdomen CT scan report/results: image reviewed (Large collection of free air under the diaphragm, no definite diverticulitis) Assessment and Plan (1) Free intraperitoneal air: Status: Acute Plan 62-year-old male patient with a 3 day history of abdominal pain extending into the chest found on workup to have an elevated WBC 15.[address] findings of free air under the diaphragm suggestive of a perforated viscus. Possibilities include perforated gastric ulcer verses perforated sigmoid colon. I reviewed the findings in detail with the patient and recommended an exploratory laparotomy. Surgical procedure would be based on operative findings but could include repair of a gastric ulcer ([place] patch, partial gastrectomy), sigmoid colectomy and colostomy (John procedure). After discussion of the procedure, risks, and alternatives, he consents to the exploratory laparotomy. He has been added on to the OR schedule. He was given a dose of antibiotics the ED, IV fluid boluses, and blood cultures obtained. A focused sepsis examination was performed as well. Quality Stroke Does the patient have a stroke diagnosis?: No VTE Prior VTE?: No VTE Risk Level:: Surgical - moderate VTE Device Contraindication: N/A - Device Ordered VTE Drug Contraindication: Treatment Not Indicated Procedures Date of Service Date of Service: 04/18/23
[2023-04-18 13:24] LABS: Appearance Urine Cloudy; Color Urine Orange; Glucose Urine UA Negative (Negative); Leukocyte Esterase Urine Negative (Negative); Specific Gravity - Urine >= 1.030 (1.005-1.025); UMIC TRIGGER UACC YES; Urine Blood Small (1+) (Negative); Urine Ketones Trace mg/dL (Negative)
--- NOTE | 2023-04-18 13:25 | HO.ANESPROP2 ---
HPI - Anesthesia Eval Consult details Narrative: Viscus perforation PMFSH Active Problems Active Problems: All Active Problems (Updated 04/18/23 @ 13:24 by Walter Haney MD) Free intraperitoneal air (Acute) Internal derangement of right knee (Acute) Diabetes mellitus (Acute) Severe sepsis (Acute) Bowel perforation (Acute) History of arthroscopy of right knee (Acute) Polycythemia (Acute) Past Medical History Medical History Diabetes mellitus Internal derangement of right knee Hx of polycythemia vera Family History Family History Father History of head and neck cancer Mother Hx of cancer antigen 125 (CA-125) measurement Family history of problems with anesthesia: No Surgical History Surgical History No pertinent past surgical history History of Problems with Anesthesia: No Social History Social History Household Members: Spouse Housing: House Are you a primary veterinarian laboratory animal care to a significant other at home: Yes Do you presently have visiting nurse or other home services: No Alcohol intake: never Patient Tobacco Use Status: Never used Tobacco Smoked in Last 30 Days: No Use of substances other than those prescribed or required for medical reasons: No Advance Directives: No Advance Directives Information Provided: Yes service: Yes Current occupational status: unemployed Meds Allergies Allergy/AdvReac Type Severity Reaction Status Date / Time No Known Allergies Allergy Verified 04/18/23 11:54 Active Medications: Current Medications Hydromorphone HCl (Hydromorphone Hcl 0.5 Mg/0.5 Ml Syringe) 0.5 mg IVPUSH Q3H PRN; Protocol PRN Reason: Pain, Severe (Pain Scale 7-10) Sodium Chloride (Ns) 1,000 mls @ 999 mls/hr IV .Q1H1M SARITA Stop: 04/18/23 13:30 Last Admin: 04/18/23 12:49 Dose: 999 mls/hr Metronidazole (Flagyl) 500 mg in 100 mls @ 100 mls/hr IV ONCE ONE Stop: 04/18/23 13:43 Last Admin: 04/18/23 13:11 Dose: 100 mls/hr Sodium Chloride (Ns) 2,451 mls @ 2,451 mls/hr 30 ml/kg infuse over 1 hr (2451 ml) IV .Q1H STA Stop: 04/18/23 13:44 Last Admin: 04/18/23 12:48 Dose: 2,451 mls/hr Cefotetan Disodium 2 gm/ (Sodium Chloride) 50 mls @ 100 mls/hr IV PREOP ONE Stop: 04/18/23 13:42 Lactated Ringer's (Lr) 1,000 mls @ 100 mls/hr IVCONT .Q10H SARITA Ondansetron HCl (Ondansetron Hcl 4 Mg/2 Ml Vial) 4 mg IVPUSH QID PRN PRN Reason: Nausea Home Medications Medication Instructions Recorded Confirmed Last Taken Type allopurinol 300 mg tablet 1 tab PO DAILY 05/14/20 01/19/23 Unknown History ibuprofen 200 mg tablet 200 mg PO Q6H PRN Pain 05/14/20 01/19/23 Unknown History atorvastatin 10 mg tablet 10 mg PO BEDTIME 01/19/23 01/19/23 Unknown History doxepin 50 mg capsule 50 mg PO BEDTIME 01/19/23 01/19/23 Unknown History metformin 1,000 mg tablet 1,000 mg PO BID 01/19/23 01/19/23 Unknown History metoprolol succinate 50 mg 50 mg PO DAILY 01/19/23 01/19/23 Unknown History tablet,extended release 24 hr omeprazole 20 mg capsule,delayed 20 mg PO DAILY 01/19/23 01/19/23 Unknown History release lisinopril 20 1 tab PO DAILY 04/18/23 04/18/23 Unknown History mg-hydrochlorothiazide 12.5 mg tablet Exam Height,Weight and Vital Signs: Height 5 ft 6 in Weight 81.7 kg Last Vital Signs Pulse 138 H 04/18/23 12:48 Resp 38 H 04/18/23 12:48 BP 109/59 L 04/18/23 12:48 Pulse Ox 90 L 04/18/23 12:48 O2 Del Method Room Air 04/18/23 12:48 Pertinent Lab Results Pertinent Lab Results: Laboratory Tests 04/18/23 04/18/23 11:47 12:13 WBC 15.8 H RBC 5.62 Hgb 15.4 Hct 47.9 MCV 85.2 MCH 27.4 MCHC 32.2 RDW 19.9 H Plt Count 377 D MPV 11.1 Immature Gran % (Auto) Cancelled Neut % (Auto) Cancelled Lymph % (Auto) Cancelled [place] % (Auto) Cancelled Eos % (Auto) Cancelled Baso % (Auto) Cancelled Lymph # (Auto) Cancelled [place] # (Auto) Cancelled Eos # (Auto) Cancelled Baso # (Auto) Cancelled Abs Immat Gran (auto) Cancelled Absolute Neuts (auto) Cancelled Absolute Nucleated RBC 0.000 Nucleated RBC % (auto) 0.0 Neutrophils % (Manual) 75 H Band Neutrophils % 9 H Lymphocytes % (Manual) 11 L Monocytes % (Manual) 4 Metamyelocytes % 1 Abs Neuts (Manual) 13.3 H Lymphocytes # (Manual) 1.7 Monocytes # (Manual) 0.6 Metamyelocytes # 0.2 Toxic Granulation PRESENT Dohle Bodies PRESENT Platelet Estimate NORMAL Large Platelets PRESENT Plt Morphology Comment NOTED RBC Morphology NOTED Polychromasia 1+ (0-2) PT 15.8 H INR 1.3 H APTT 34.3 Sodium 139 Potassium 3.9 Chloride 95 L Carbon Dioxide 20 L Anion Gap 28 H BUN 55 H Creatinine 4.50 H* Estim Creat Clear Calc 17.0 Estimated GFR 13 Random Glucose 222 H Lactic Acid 5.9 H* Calcium 9.7 Total Bilirubin 3.3 H AST 19 ALT 18 Alkaline Phosphatase 90 Troponin I High Sens 5.9 B-Natriuretic Peptide 67 Total Protein 8.3 H Albumin 3.4 L Lipase 15 COVID-19 (LAYNE) Negative COVID-19 Clin Com See Note Influenza Type A (ANIA) Negative Influenza Type B (ANIA) Negative Influenza A & B Note See Note Airway Mallampati Class: II TM Dist: >3cm Neck ROM: Full Loose/Missing/Broken Teeth: No Heart: RRR Lungs: CTA Assessment and Plan Assessment Anesthesia Assessment: Anesthesia Plan Discussed and Chart Reviewed Final Anesthetic Review Family History of Problems with Anesthesia: No History of Problems with Anesthesia: No NPO: No ASA Class: III and Emergency Final Preanesthetic Review: No Changes in Pt Med Stat, Meds/Allgs Chart Reviewed, Consent Obtained/Reviewed and Anes Risks/Benef Reviewed Patient Risk: High Procedure Risk: High Anesthetic Plan Anesthetic Plan: GA
--- NOTE | 2023-04-18 13:26 | PHA.MEDREC ---
Pharmacy Consult ? Medication Reconciliation Pharmacy has completed the medication reconciliation. spoke with patient to confirm medications. Reports that he is no longer taking januvia
[2023-04-18 13:31] LABS: Bacteria Urine Trace (None Seen); WBC Urine 0-5 /HPF (0-5)
[2023-04-18 13:32] LABS: Hyaline Casts Urine 0-2 /LPF (0-2)
[2023-04-18 14:15] LABS: Reflex Lactate? Lactic Acid Added
--- NOTE | 2023-04-18 14:25 | PC.NURSE ---
Patient alert and oriented x 3. luxembourgish and bangladeshi speaking patient. Patient c/o 8/10 abd pain. tele; sinus tachycardia 120-140's Patient has 2 iv's 20g in both antecubitals. farrell placed by this RN. Patient going for surgery soon for perforated bowel. Will continue with plan of care.
--- NOTE | 2023-04-18 14:59 | PM.EVENT ---
Event Note Date of Service: 04/18/23 Event Note: Patient is a 62 Y M with hypertension, diabetes mellitus, polycythemia vera, presenting with epigastric pain, found to have CT abdomen/pelvis c/f perforated diverticulitis c/b large volume pneumoperitoneum, severe sepsis, c/b acute renal insufficiency; case discussed with anesthesia for possible ICU admission following surgery; patient to be accepted to ICU post-operatively for further management w/ plan to continue empiric antibiotics, vasopressors as needed, and close monitoring of renal insufficiency Time Spent With Patient Time: Total time managing care of this patient today ____ minutes.
[2023-04-18] MEDS: Norepinephrine Bitartrate/D5W 8 MG/250 ML PLAST..BAG 7.87 MG IV (17:32)
[2023-04-18] MEDS: Lactated Ringers 1,000 ML 100 ML IVCONT ×2 (17:35→22:11)
--- NOTE | 2023-04-18 17:37 | W.PM.OPN ---
Operative Note Operative Note Date of Service: 04/18/23 Narrative: Preoperative diagnosis: Perforated viscus Postoperative diagnosis: Perforated sigmoid diverticulitis with abscess, phlegmon, peritonitis Procedure: Exploratory laparotomy, sigmoid colectomy, end colostomy (John procedure); placement of triple-lumen catheter right subclavian Surgeon: Walter Haney MD Radiotelegraph Operator: None Anesthesia: General ET Indications for procedure: 62-year-old male patient presenting with complaints of severe abdominal pain of several days' duration located in the epigastrium and into the chest. Patient was found to have free air under the diaphragm on x-ray and CT abdomen and pelvis confirmed a large amount of extraperitoneal air suggestive of a perforated viscus possibly perforated left colon. Operative findings: Small area of perforation located in the proximal sigmoid colon with surrounding phlegmon. Large intra-abdominal abscess involving multiple loops of bowel, pelvis, and left upper quadrant. Areas of peritonitis noted throughout the abdomen. Specimen: Sigmoid colon Estimated blood loss: 20 mL Complications: None Procedure details: Patient was brought to the OR and placed in a supine position. After administering general anesthesia the patient's abdomen was prepped with ChloraPrep and draped in a sterile fashion. A surgical time-out was called the consent confirmed. Patient received preoperative antibiotics and Venodyne boots were in place. A generous midline incision was created with a scalpel and carried out through subcutaneous tissue, through linea alba into the abdominal cavity. The abdominal cavity was explored and the above findings noted. A Bookwalter retractor was then placed. A nasogastric tube was also placed. A large abscess cavity noted throughout the abdomen and was drained. Wound cultures were obtained at this time. Once the interloop abscess collections were drained, attention was directed to the area of perforation in the proximal sigmoid colon. Left colon and sigmoid colon were then mobilized along the white line of Toldt using electrocautery. An area of the distal sigmoid colon was found to be of normal texture without inflammation. The mesentery was divided using a right inguinal clamp and a SIOMARA stapler used to divide bowel at this level. LigaSure was then used to divide the mesentery going proximally to mobilize the entire descending colon. An area of the distal descending colon was identified as having a normal texture without inflammation. The SIOMARA stapler was then used to divide the bowel at this level. The specimen was then passed off the table sent to pathology for further examination. The descending colon was further mobilized along the white line of Toldt to assure of length to allow colostomy formation in the right upper quadrant. The patient was noted to have a fairly thick pannus therefore a larger segment of colon was required. A circular incision was then made just lateral to the umbilicus and carried out through subcutaneous tissue down to the fascia. A cruciate incision was then made with electrocautery in the rectus muscle using a Tita clamp. The posterior fascia and peritoneum were there were then divided and the abdominal cavity entered. The segment of descending colon was then brought up through the incision and held in place with a [place] clamp. The abdomen was then thoroughly irrigated with IrriSept followed by saline solution. Midline incision was then closed using a running 0 PDS looped suture. It was sutured from top and bottom and tied in the center. Dermis and subcutaneous tissue was then reapproximated using interrupted 3-0 Polysorb sutures. Skin was closed using skin maximilian. The ostomy was then matured using interrupted 4-0 Polysorb suture to create a [place] at the colostomy site. Sterile dressings consisting of 4 x 4 gauze and Tegaderm were applied to the midline incision. An ostomy appliance was then applied. Finding completion of the procedure, at the request of the ICU team, a triple-lumen catheter was placed in the right subclavian vein. The skin was prepped with ChloraPrep and draped in a sterile fashion. Gown and gloves were used during the procedure. Local anesthesia was infiltrated in a subcostal location. The insertion needle was then directed superiorly and medially below the clavicle subclavian vein immediately accessed. Initially the wire would not thread correctly. The arm was then retracted downward which allowed easy passage of the wire. The needle was removed and a 11 blade used to create a small skin incision. This was then dilated with the plastic dilator. The triple-lumen catheter was then threaded over the guidewire and easily passed. This was but placed at approximately 20 cm. The 3 ports were then flushed with saline solution. Good flashback and flushing was noted. The catheter was then secured using a silk suture. Sterile dressings were then applied. Postprocedure chest x-ray confirmed good placement of the triple-lumen and no pneumothorax. The patient tolerated the procedure well was transferred to the ICU stable condition. Sponge, instrument, and needle counts reported as correct.
[2023-04-18 17:40] LABS: Mean Platelet Volume 11.2 fL (9.4-12.4)
[2023-04-18 17:41] LABS: Venous Blood Gas Refer to POC result
[2023-04-18 17:42] LABS: VBG HCO3 15 mmol/L (22-26); VBG pCO2 25 mmHg; VBG pH 7.37 (7.32-7.43); VBG pO2 80 mmHg
[2023-04-18 17:54] LABS: Lactic Acid 4.5 mmol/L (0.5-2.0)
[2023-04-18 17:57] LABS: Alanine Aminotransferase 15 U/L (0-40); Albumin Level 2.3 g/dL (3.5-5.0); Alkaline Phosphatase 59 U/L (39-117); Anion Gap 18 (12-20); Aspartate Amino Transferase 24 U/L (5-37); Bilirubin Total 2.6 mg/dL (0.0-1.0); Blood Urea Nitrogen 50 mg/dL (9-16); Calcium 7.6 mg/dL (8.4-10.2); Carbon Dioxide 18 mmol/L (22-29); Chloride 107 mmol/L (96-108); Creatinine Clr Calc Pharmacy 27.8; Estimated Glomerular Filt Rate 23; Glucose Random 142 mg/dL (60-115); Magnesium 1.7 mg/dL (1.6-2.6); Phosphorus 5.2 mg/dL (2.7-4.5); Sodium 139 mmol/L (135-145); Total Protein 5.8 g/dL (6.5-8.0)
[2023-04-18 18:08] LABS: Hematocrit 40.5 % (42.0-52.0); Hemoglobin 13.4 g/dl (14.0-18.0); Mean Corpuscular HGB Conc 33.1 g/dl (31.0-36.0); Mean Corpuscular Hemoglobin 28.2 pg (27.0-33.0); Mean Corpuscular Volume 85.1 fL (80.0-98.0); Platelet Count 271 X10*3/uL (160-400); Red Blood Count 4.76 X10*6/uL (4.60-5.80); Red Cell Distribution Width 19.4 % (11.0-16.0)
[2023-04-18 18:09] LABS: WBC ABN SCTR FOR CBC 1
[2023-04-18 18:10] LABS: White Blood Count 12.7 X10*3/uL (4.8-10.8)
[2023-04-18 18:21] LABS: Band Neutrophils Percent 13 % (3-5); Lymphocytes Absolute Manual 1.1 X10*3/uL (1.2-4.9); Lymphocytes Percent Manual 9 % (20-40); Metamyelocytes Absolute 0.5 X10*3/uL; Metamyelocytes Percent 4 %; Monocytes Absolute Manual 0.5 X10*3/uL (0.1-1.2); Monocytes Percent Manual 4 % (2-11); Neutrophils Absolute Manual 10.4 X10*3/uL (2.0-8.3); Neutrophils Percent Manual 69 % (45-73); Promyelocytes Absolute 0.1 X10*3/uL; Promyelocytes Percent 1 %
[2023-04-18 18:22] LABS: RBC Morphology NOTED
[2023-04-18 18:23] LABS: Acanthocytes 1+ (0-2) /OIF; Large Platelet PRESENT; Platelet Estimate NORMAL (NORMAL); Platelet Morphology Comment NOTED; Polychromasia 1+ (0-2) /OIF; Toxic Granulation PRESENT
[2023-04-18 18:24] LABS: Dohle Bodies PRESENT; Target Cells 1+ (5-14) /OIF
[2023-04-18 19:35] LABS: Reflex Lactate? Lactic Acid Added
[2023-04-18] MEDS: Calcium Chloride 1 GM/10 ML SYRINGE IVPUSH (19:42)
[2023-04-18] MEDS: Albumin Human 25 % 50 ML 100 ML IV ×4 (20:27→22:06)
[2023-04-18 20:44] LABS: ~Lactic Acid-LAB USE ONLY 3.7 mmol/L (0.5-2.0)
[2023-04-18 22:26] LABS: Reflex Lactate? 2 Y
[2023-04-18 23:46] LABS: ~Lactic Acid-LAB USE ONLY 2.8 mmol/L (0.5-2.0)
[2023-04-18 23:59] LABS: Hematocrit 36.4 % (42.0-52.0); Mean Corpuscular Hemoglobin 28.2 pg (27.0-33.0); Mean Corpuscular Volume 85.4 fL (80.0-98.0); Mean Platelet Volume 11.2 fL (9.4-12.4); Platelet Count 269 X10*3/uL (160-400); Red Blood Count 4.26 X10*6/uL (4.60-5.80); White Blood Count 12.3 X10*3/uL (4.8-10.8)
[2023-04-19] VITALS (42 sets, daily range): BP systolic 93–142; BP diastolic 60–92; PULSE 82–152; RESP 19–50; TEMP 36.5–37.3; O2SAT 89–98; BMI 32.7
[2023-04-19 00:13] LABS: Alanine Aminotransferase 15 U/L (0-40); Albumin Level 3.1 g/dL (3.5-5.0); Alkaline Phosphatase 52 U/L (39-117); Anion Gap 17 (12-20); Aspartate Amino Transferase 23 U/L (5-37); Bilirubin Total 3.5 mg/dL (0.0-1.0); Blood Urea Nitrogen 42 mg/dL (9-16); Calcium 8.1 mg/dL (8.4-10.2); Carbon Dioxide 22 mmol/L (22-29); Chloride 105 mmol/L (96-108); Creatinine Clr Calc Pharmacy 39.5; Estimated Glomerular Filt Rate 35; Glucose Random 187 mg/dL (60-115); Magnesium 1.8 mg/dL (1.6-2.6); Phosphorus 3.8 mg/dL (2.7-4.5); Potassium 3.6 mmol/L (3.3-5.1); Sodium 140 mmol/L (135-145); Total Protein 6.1 g/dL (6.5-8.0)
[2023-04-19] MEDS: Norepinephrine Bitartrate/D5W 8 MG/250 ML PLAST..BAG 18.88 MG IV (01:40)
[2023-04-19] MEDS: Albumin Human 25 % 50 ML 100 ML IV ×4 (01:45→03:45)
[2023-04-19] MEDS: HYDROmorphone HCl 0.5 MG/0.5 ML SYRINGE IVPUSH ×4 (02:01→19:04)
--- NOTE | 2023-04-19 03:47 | PC.NURSE ---
CARE ASSUMED 7PM...ALERT..ORIENTED X3...GARAY SPONTANEOUSLY AND TO COMMAND...COLOSTOMY STOMA PINK..NO DRAINAGE...ABDOMINAL DRESSING DRY/INTACT..ABDOMEN SILENT...NG-TUBE CLAMPED...ASPIRATED FOR SMALL AMOUNT BILIOUS DRAINAGE...RR 28-34...100% NRB REMAINED IN PLACE..ATTEMPTED TO WEAN O2 TO 6 L/M CANNULA BUT SAO2 89-90% AND C/O MILD SOB..RETURNED TO 100% NRB MASK WITH SAO2 97%....LEVOPHED DRIP TITRATED PER MAY...ALBUMEN INFUSED PER MAY AND LR 100 CC/HR...DICKENS >100 CC/HR...VERY FINE DIFFUSE CRACKLES PRESENT....ICU PA AWARE...TO TREND AM KIDNEY FUNCTION AND ASSESS IF ABLE TO AUTO-DIURESE...DENIED SOB...C/O ABDOMINAL/SURGICAL PAIN X1 OVERNIGHT...RELIEF WITH PRN DILAUDID...
[2023-04-19] MEDS: Pantoprazole Sodium 40 MG/10 ML VIAL IVPUSH (05:34)
[2023-04-19 05:36] LABS: Hematocrit 32.8 % (42.0-52.0); Mean Corpuscular HGB Conc 33.5 g/dl (31.0-36.0); Mean Corpuscular Hemoglobin 28.3 pg (27.0-33.0); Mean Corpuscular Volume 84.3 fL (80.0-98.0); Mean Platelet Volume 11.2 fL (9.4-12.4); Platelet Count 239 X10*3/uL (160-400); Red Blood Count 3.89 X10*6/uL (4.60-5.80); Red Cell Distribution Width 18.6 % (11.0-16.0); WBC ABN SCTR FOR CBC 1
[2023-04-19 05:39] LABS: White Blood Count 8.3 X10*3/uL (4.8-10.8)
[2023-04-19 05:49] LABS: Anion Gap 16 (12-20); Blood Urea Nitrogen 34 mg/dL (9-16); Calcium 8.5 mg/dL (8.4-10.2); Carbon Dioxide 23 mmol/L (22-29); Chloride 104 mmol/L (96-108); Creatinine Clr Calc Pharmacy 49.8; Estimated Glomerular Filt Rate 43; Glucose Random 163 mg/dL (60-115); Potassium 3.3 mmol/L (3.3-5.1); Sodium 140 mmol/L (135-145)
[2023-04-19 06:08] LABS: Atypical Lymph Absolute Manual 0.1 x10*3/uL; Atypical Lymphs Percent Manual 1 % (0-6); Band Neutrophils Percent 37 % (3-5); Eosinophils Absolute Manual 0.2 X10*3/uL (0.0-0.4); Eosinophils Percent Manual 2 % (0-4); Lymphocytes Percent Manual 12 % (20-40); Metamyelocytes Absolute 0.2 X10*3/uL; Metamyelocytes Percent 3 %; Monocytes Absolute Manual 0.7 X10*3/uL (0.1-1.2); Monocytes Percent Manual 9 % (2-11); Myelocytes Absolute 0.1 X10*/uL; Myelocytes Percent 1 %; Neutrophils Percent Manual 35 % (45-73)
[2023-04-19 06:09] LABS: Acanthocytes 1+ (0-2) /OIF; Basophilic Stippling 1+ (0-2) /OIF; Dohle Bodies PRESENT; Hypochromasia 1+ (5-14) /OIF; Platelet Estimate NORMAL (NORMAL); Platelet Morphology Comment NORMAL; Polychromasia 2+ (3-5) /OIF; RBC Morphology NORMAL; Target Cells 1+ (5-14) /OIF
[2023-04-19 06:10] LABS: Toxic Granulation PRESENT; Toxic Vacuolation PRESENT
[2023-04-19] MEDS: Piperacillin Sodium/Tazobactam 4.5 GM in 0.9 % Sodium Chloride 100 ML IV (06:18)
[2023-04-19] MEDS: Lactated Ringers 1,000 ML 100 ML IVCONT (07:23)
--- NOTE | 2023-04-19 08:11 | P.PNGS_ITS ---
Subjective Subjective Date of Service: 04/19/23 Interval history: Pod 1 following John procedure. Patient awake and alert reporting some incisional pain. Patient remains in the ICU on facemask. Physical Exam 2 Vital Signs: Vital Signs: Last Vital Signs Temp 98.0 F 04/19/23 06:00 Pulse 110 H 04/19/23 07:38 Resp 37 H 04/19/23 07:00 BP 142/68 H 04/19/23 07:38 Pulse Ox 97 04/19/23 07:00 O2 Del Method Non-Rebreather Ma sk 04/19/23 07:00 O2 Flow Rate 15 04/19/23 07:00 FiO2 100 04/18/23 22:00 BMI result Body Mass Index 32.7 Const: General: no acute distress Nutritional Appearance: well nourished Orientation/consciousness: patient oriented x3 Resp: Effort & Inspection: no audible wheezes, no cough and no respiratory distress GI: Other: Midline incision is clean, dry, and intact. Ostomy in the left upper quadrant is clean, pink and viable. Mainly serous fluid in ostomy bag. No stool or gas. Neuro: General: patient oriented x3 Extrem: General: Yes no clubbing, cyanosis or edema Objective Data Active Medications Hydromorphone HCl (Hydromorphone Hcl 0.5 Mg/0.5 Ml Syringe) 0.5 mg IVPUSH Q3H PRN; Protocol PRN Reason: Pain, Severe (Pain Scale 7-10) Last Admin: 04/19/23 06:09 Dose: 0.5 mg Documented By: KSENIA Lactated Ringer's (Lr) 1,000 mls @ 100 mls/hr IVCONT .Q10H ON LICENSE OF [facility] Last Admin: 04/19/23 07:23 Dose: Not Given Documented By: KORI Non-Admin Reason: IV Running Norepinephrine Bitartrate (Levophed) 8 mg in 250 mls @ 0 mls/hr IV .Q0M ON LICENSE OF [facility]; Protocol Last Titration: 04/19/23 07:38 Dose: 0.08 mcg/kg/min, 12.59 mls/hr Documented By: KORI Piperacillin Sod/Tazobactam (Sod 4.5 gm/ Sodium Chloride) 100 mls @ 200 mls/hr IV Q12H ON LICENSE OF [facility] Last Infusion: 04/19/23 06:49 Dose: Infused Documented By: KORI Ondansetron HCl (Ondansetron Hcl 4 Mg/2 Ml Vial) 4 mg IVPUSH QID PRN PRN Reason: Nausea Pantoprazole Sodium (Pantoprazole Sodium 40 Mg/10 Ml Vial) 40 mg IVPUSH DAILY@0630 ON LICENSE OF [facility] Last Admin: 04/19/23 05:34 Dose: 40 mg Documented By: KSENIA Labs 04/19/23 05:07 04/19/23 05:07 Labs: Laboratory Results - last 24 hr 04/18/23 04/18/23 04/18/23 11:47 12:13 13:14 MCV 85.2 MCH 27.4 MCHC 32.2 RDW 19.9 H Plt Count 377 D MPV 11.1 Immature Gran % (Auto) Cancelled Neut % (Auto) Cancelled Lymph % (Auto) Cancelled [place] % (Auto) Cancelled Eos % (Auto) Cancelled Baso % (Auto) Cancelled Lymph # (Auto) Cancelled [place] # (Auto) Cancelled Eos # (Auto) Cancelled Baso # (Auto) Cancelled Abs Immat Gran (auto) Cancelled Absolute Neuts (auto) Cancelled Absolute Nucleated RBC 0.000 Nucleated RBC % (auto) 0.0 Neutrophils % (Manual) 75 H Band Neutrophils % 9 H Lymphocytes % (Manual) 11 L Atypical Lymphs % (Man) Monocytes % (Manual) 4 Eosinophils % (Manual) Metamyelocytes % 1 Myelocytes % Promyelocytes % Abs Neuts (Manual) 13.3 H Lymphocytes # (Manual) 1.7 Atyp Lymphs # (Manual) Monocytes # (Manual) 0.6 Eosinophils # (Manual) Metamyelocytes # 0.2 Myelocytes # Promyelocytes # Toxic Granulation PRESENT Toxic Vacuolation Dohle Bodies PRESENT Platelet Estimate NORMAL Large Platelets PRESENT Plt Morphology Comment NOTED RBC Morphology NOTED Polychromasia 1+ (0-2) Hypochromasia Basophilic Stippling Target Cells Acanthocytes (Spur) PT 15.8 H INR 1.3 H APTT 34.3 VBG pH VBG pCO2 VBG pO2 VBG HCO3 VBG O2 Saturation VBG Base Excess Anion Gap 28 H Estim Creat Clear Calc 17.0 Estimated GFR 13 Random Glucose 222 H Lactic Acid 5.9 H* Lactic Acid F/U @ 2Hr Lactic Acid F/U @ 4Hr Calcium 9.7 Phosphorus Magnesium Total Bilirubin 3.3 H AST 19 ALT 18 Alkaline Phosphatase 90 B-Natriuretic Peptide 67 Total Protein 8.3 H Albumin 3.4 L Lipase 15 Urine Color Urine Appearance Urine pH Ur Specific [place] Urine Protein Urine Glucose (UA) Urine Ketones Urine Blood Urine Nitrite Ur Leukocyte Esterase Urine RBC Urine WBC Ur Squamous Epith Cells Urine Bacteria Hyaline Casts COVID-19 (LAYNE) Negative COVID-19 Clin Com See Note Influenza Type A (ANIA) Negative Influenza Type B (ANIA) Negative Influenza A & B Note See Note Blood Type O Positive Antibody Screen NEGATIVE 04/18/23 04/18/23 04/18/23 17:30 17:32 17:34 MCV 85.1 MCH 28.2 MCHC 33.1 RDW 19.4 H Plt Count 271 D MPV 11.2 Immature Gran % (Auto) Cancelled Neut % (Auto) Cancelled Lymph % (Auto) Cancelled [place] % (Auto) Cancelled Eos % (Auto) Cancelled Baso % (Auto) Cancelled Lymph # (Auto) Cancelled [place] # (Auto) Cancelled Eos # (Auto) Cancelled Baso # (Auto) Cancelled Abs Immat Gran (auto) Cancelled Absolute Neuts (auto) Cancelled Absolute Nucleated RBC 0.000 Nucleated RBC % (auto) 0.0 Neutrophils % (Manual) 69 Band Neutrophils % 13 H Lymphocytes % (Manual) 9 L Atypical Lymphs % (Man) Monocytes % (Manual) 4 Eosinophils % (Manual) Metamyelocytes % 4 Myelocytes % Promyelocytes % 1 Abs Neuts (Manual) 10.4 H Lymphocytes # (Manual) 1.1 L Atyp Lymphs # (Manual) Monocytes # (Manual) 0.5 Eosinophils # (Manual) Metamyelocytes # 0.5 Myelocytes # Promyelocytes # 0.1 Toxic Granulation PRESENT Toxic Vacuolation Dohle Bodies PRESENT Platelet Estimate NORMAL Large Platelets PRESENT Plt Morphology Comment NOTED RBC Morphology NOTED Polychromasia 1+ (0-2) Hypochromasia Basophilic Stippling Target Cells 1+ (5-14) Acanthocytes (Spur) 1+ (0-2) PT INR APTT VBG pH 7.37 VBG pCO2 25 VBG pO2 80 VBG HCO3 15 L VBG O2 Saturation 97.0 VBG Base Excess -8.0 Anion Gap 18 Estim Creat Clear Calc 27.8 Estimated GFR 23 Random Glucose 142 H Lactic Acid 4.5 H* Lactic Acid F/U @ 2Hr Lactic Acid F/U @ 4Hr Calcium 7.6 L D Phosphorus 5.2 H Magnesium 1.7 Total Bilirubin 2.6 H AST 24 ALT 15 Alkaline Phosphatase 59 B-Natriuretic Peptide Total Protein 5.8 L Albumin 2.3 L Lipase Urine Color Urine Appearance Urine pH Ur Specific [place] Urine Protein Urine Glucose (UA) Urine Ketones Urine Blood Urine Nitrite Ur Leukocyte Esterase Urine RBC Urine WBC Ur Squamous Epith Cells Urine Bacteria Hyaline Casts COVID-19 (LAYNE) COVID-19 Clin Com Influenza Type A (ANIA) Influenza Type B (ANIA) Influenza A & B Note Blood Type Antibody Screen 04/18/23 04/18/23 04/18/23 20:22 23:10 23:40 MCV 85.4 MCH 28.2 MCHC 33.0 RDW 19.0 H Plt Count 269 MPV 11.2 Immature Gran % (Auto) Neut % (Auto) Lymph % (Auto) [place] % (Auto) Eos % (Auto) Baso % (Auto) Lymph # (Auto) [place] # (Auto) Eos # (Auto) Baso # (Auto) Abs Immat Gran (auto) Absolute Neuts (auto) Absolute Nucleated RBC 0.000 Nucleated RBC % (auto) 0.0 Neutrophils % (Manual) Band Neutrophils % Lymphocytes % (Manual) Atypical Lymphs % (Man) Monocytes % (Manual) Eosinophils % (Manual) Metamyelocytes % Myelocytes % Promyelocytes % Abs Neuts (Manual) Lymphocytes # (Manual) Atyp Lymphs # (Manual) Monocytes # (Manual) Eosinophils # (Manual) Metamyelocytes # Myelocytes # Promyelocytes # Toxic Granulation Toxic Vacuolation Dohle Bodies Platelet Estimate Large Platelets Plt Morphology Comment RBC Morphology Polychromasia Hypochromasia Basophilic Stippling Target Cells Acanthocytes (Spur) PT INR APTT VBG pH VBG pCO2 VBG pO2 VBG HCO3 VBG O2 Saturation VBG Base Excess Anion Gap 17 Estim Creat Clear Calc 39.5 Estimated GFR 35 Random Glucose 187 H Lactic Acid Lactic Acid F/U @ 2Hr 3.7 H* Lactic Acid F/U @ 4Hr 2.8 H* Calcium 8.1 L D Phosphorus 3.8 Magnesium 1.8 Total Bilirubin 3.5 H AST 23 ALT 15 Alkaline Phosphatase 52 B-Natriuretic Peptide Total Protein 6.1 L Albumin 3.1 L Lipase Urine Color Urine Appearance Urine pH Ur Specific [place] Urine Protein Urine Glucose (UA) Urine Ketones Urine Blood Urine Nitrite Ur Leukocyte Esterase Urine RBC Urine WBC Ur Squamous Epith Cells Urine Bacteria Hyaline Casts COVID-19 (LAYNE) COVID-19 Clin Com Influenza Type A (ANIA) Influenza Type B (ANIA) Influenza A & B Note Blood Type Antibody Screen 04/18/23 04/19/23 Unknown 05:07 MCV 84.3 MCH 28.3 MCHC 33.5 RDW 18.6 H Plt Count 239 MPV 11.2 Immature Gran % (Auto) Cancelled Neut % (Auto) Cancelled Lymph % (Auto) Cancelled [place] % (Auto) Cancelled Eos % (Auto) Cancelled Baso % (Auto) Cancelled Lymph # (Auto) Cancelled [place] # (Auto) Cancelled Eos # (Auto) Cancelled Baso # (Auto) Cancelled Abs Immat Gran (auto) Cancelled Absolute Neuts (auto) Cancelled Absolute Nucleated RBC 0.000 Nucleated RBC % (auto) 0.0 Neutrophils % (Manual) 35 L Band Neutrophils % 37 H Lymphocytes % (Manual) 12 L Atypical Lymphs % (Man) 1 Monocytes % (Manual) 9 Eosinophils % (Manual) 2 Metamyelocytes % 3 Myelocytes % 1 Promyelocytes % Abs Neuts (Manual) 6.0 Lymphocytes # (Manual) 1.0 L Atyp Lymphs # (Manual) 0.1 Monocytes # (Manual) 0.7 Eosinophils # (Manual) 0.2 Metamyelocytes # 0.2 Myelocytes # 0.1 Promyelocytes # Toxic Granulation PRESENT Toxic Vacuolation PRESENT Dohle Bodies PRESENT Platelet Estimate NORMAL Large Platelets Plt Morphology Comment NORMAL RBC Morphology NORMAL Polychromasia 2+ (3-5) Hypochromasia 1+ (5-14) Basophilic Stippling 1+ (0-2) Target Cells 1+ (5-14) Acanthocytes (Spur) 1+ (0-2) PT INR APTT VBG pH VBG pCO2 VBG pO2 VBG HCO3 VBG O2 Saturation VBG Base Excess Anion Gap 16 Estim Creat Clear Calc 49.8 Estimated GFR 43 Random Glucose 163 H Lactic Acid Lactic Acid F/U @ 2Hr Lactic Acid F/U @ 4Hr Calcium 8.5 Phosphorus Magnesium Total Bilirubin AST ALT Alkaline Phosphatase B-Natriuretic Peptide Total Protein Albumin Lipase Urine Color [place] Urine Appearance Cloudy Urine pH 5.0 Ur Specific [place] >= 1.030 H Urine Protein See Note Urine Glucose (UA) Negative Urine Ketones Trace Urine Blood Small (1+) H Urine Nitrite See Note Ur Leukocyte Esterase Negative Urine RBC 3-5 H Urine WBC 0-5 Ur Squamous Epith Cells 3-5 Urine Bacteria Trace Hyaline Casts 0-2 COVID-19 (LAYNE) COVID-19 Clin Com Influenza Type A (ANIA) Influenza Type B (ANIA) Influenza A & B Note Blood Type Antibody Screen Microbiology Microbiology Results: Microbiology 04/18/23 Unknown Routine Culture - Preliminary Peritoneal Fluid Anaerobic Culture - Preliminary Culture in progress. Procedures Date of Service Date of Service: 04/19/23 Progress Note: A&P Assessment and plan (1) Bowel perforation: Status: Acute Plan 62-year-old male status post John procedure for perforated sigmoid colon pod 1. ICU care appreciated. Patient now making urine. Laboratories reveal improving WBC. Continue IV antibiotics for large intra-abdominal abscess. Renal function appears to be improving. Further care per ICU team. Time Spent With Patient Time: Total time managing care of this patient today ____ minutes. Quality Stroke Does the patient have a stroke diagnosis?: No VTE Prior VTE?: No VTE Risk Level:: Surgical - moderate VTE Device Contraindication: N/A - Device Ordered VTE Drug Contraindication: Treatment Not Indicated
[2023-04-19] MEDS: Furosemide 40 MG/4 ML VIAL IVPUSH (09:11)
[2023-04-19] MEDS: Albumin Human 25 % 100 ML IV ×3 (09:11→21:10)
--- NOTE | 2023-04-19 09:31 | PM.CCPN ---
Subjective Subjective Date of Service: 04/19/23 Interval History: 62-year-old gentleman with underlying history of diabetes mellitus and polycythemic admitted on 04/18/2023 with perforated sigmoid diverticulitis, now postop day 1 after sigmoid colectomy with end-colostomy further complicated by Gram-negative bacteremia, acute kidney injury, and acute hypoxic respiratory failure. No events overnight. Pressor requirements, urine output, and renal indices are improving. Critical Care Time (minutes): 60 Physical Exam Vital Signs: Vital Signs: Last Vital Signs Temp 98.0 F 04/19/23 08:00 Pulse 116 H 04/19/23 09:21 Resp 29 H 04/19/23 09:00 BP 119/74 04/19/23 09:21 Pulse Ox 92 04/19/23 09:00 O2 Del Method Nasal Cannula 04/19/23 09:00 O2 Flow Rate 9 04/19/23 09:00 FiO2 100 04/18/23 22:00 BMI result Body Mass Index 32.7 Const: General: no acute distress and alert Nutritional Appearance: not obese Orientation/consciousness: Other orientation findings ( oriented) HEENT: Head: Yes atraumatic Eyes: General: appearance normal, both eyes and all related structures Sclerae: sclerae normal EOM: EOMs intact bilaterally Neck: Neck: Yes supple Lymphatic: no lymphadenopathy noted Resp: Effort & Inspection: normal respiratory effort and no use of accessory muscles Auscultation: clear to auscultation bilaterally Cardio: Rate: tachycardic Rhythm: regular rhythm Heart sounds: no gallops, no murmurs and no rubs GI: Inspection: Yes other (Colostomy, surgical incision with no hematoma) Palpation (GI): Soft to palpation, Tenderness to palpation present (GI) (Mild diffuse), not rigid, No Rebound tenderness present and Other GI palpation findings present Auscultation: normal bowel sounds Skin: General skin exam: other ( warm) Extrem: General: No clubbing, No cyanosis and Yes edema (1+ bilateral) Objective Data Labs 04/19/23 05:07 04/19/23 05:07 Labs: Laboratory Results - last 24 hr 04/18/23 04/18/23 04/18/23 11:47 12:13 13:14 WBC 15.8 H RBC 5.62 Hgb 15.4 Hct 47.9 MCV 85.2 MCH 27.4 MCHC 32.2 RDW 19.9 H Plt Count 377 D MPV 11.1 Immature Gran % (Auto) Cancelled Neut % (Auto) Cancelled Lymph % (Auto) Cancelled [place] % (Auto) Cancelled Eos % (Auto) Cancelled Baso % (Auto) Cancelled Lymph # (Auto) Cancelled [place] # (Auto) Cancelled Eos # (Auto) Cancelled Baso # (Auto) Cancelled Abs Immat Gran (auto) Cancelled Absolute Neuts (auto) Cancelled Absolute Nucleated RBC 0.000 Nucleated RBC % (auto) 0.0 Neutrophils % (Manual) 75 H Band Neutrophils % 9 H Lymphocytes % (Manual) 11 L Atypical Lymphs % (Man) Monocytes % (Manual) 4 Eosinophils % (Manual) Metamyelocytes % 1 Myelocytes % Promyelocytes % Abs Neuts (Manual) 13.3 H Lymphocytes # (Manual) 1.7 Atyp Lymphs # (Manual) Monocytes # (Manual) 0.6 Eosinophils # (Manual) Metamyelocytes # 0.2 Myelocytes # Promyelocytes # Toxic Granulation PRESENT Toxic Vacuolation Dohle Bodies PRESENT Platelet Estimate NORMAL Large Platelets PRESENT Plt Morphology Comment NOTED RBC Morphology NOTED Polychromasia 1+ (0-2) Hypochromasia Basophilic Stippling Target Cells Acanthocytes (Spur) PT 15.8 H INR 1.3 H APTT 34.3 VBG pH VBG pCO2 VBG pO2 VBG HCO3 VBG O2 Saturation VBG Base Excess Sodium 139 Potassium 3.9 Chloride 95 L Carbon Dioxide 20 L Anion Gap 28 H BUN 55 H Creatinine 4.50 H* Estim Creat Clear Calc 17.0 Estimated GFR 13 Random Glucose 222 H Lactic Acid 5.9 H* Lactic Acid F/U @ 2Hr Lactic Acid F/U @ 4Hr Calcium 9.7 Phosphorus Magnesium Total Bilirubin 3.3 H AST 19 ALT 18 Alkaline Phosphatase 90 Troponin I High Sens 5.9 B-Natriuretic Peptide 67 Total Protein 8.3 H Albumin 3.4 L Lipase 15 Urine Color Urine Appearance Urine pH Ur Specific [place] Urine Protein Urine Glucose (UA) Urine Ketones Urine Blood Urine Nitrite Ur Leukocyte Esterase Urine RBC Urine WBC Ur Squamous Epith Cells Urine Bacteria Hyaline Casts COVID-19 (LAYNE) Negative COVID-19 Clin Com See Note Influenza Type A (ANIA) Negative Influenza Type B (ANIA) Negative Influenza A & B Note See Note Blood Type O Positive Antibody Screen NEGATIVE 04/18/23 04/18/23 04/18/23 17:30 17:32 17:34 WBC 12.7 H RBC 4.76 Hgb 13.4 L Hct 40.5 L MCV 85.1 MCH 28.2 MCHC 33.1 RDW 19.4 H Plt Count 271 D MPV 11.2 Immature Gran % (Auto) Cancelled Neut % (Auto) Cancelled Lymph % (Auto) Cancelled [place] % (Auto) Cancelled Eos % (Auto) Cancelled Baso % (Auto) Cancelled Lymph # (Auto) Cancelled [place] # (Auto) Cancelled Eos # (Auto) Cancelled Baso # (Auto) Cancelled Abs Immat Gran (auto) Cancelled Absolute Neuts (auto) Cancelled Absolute Nucleated RBC 0.000 Nucleated RBC % (auto) 0.0 Neutrophils % (Manual) 69 Band Neutrophils % 13 H Lymphocytes % (Manual) 9 L Atypical Lymphs % (Man) Monocytes % (Manual) 4 Eosinophils % (Manual) Metamyelocytes % 4 Myelocytes % Promyelocytes % 1 Abs Neuts (Manual) 10.4 H Lymphocytes # (Manual) 1.1 L Atyp Lymphs # (Manual) Monocytes # (Manual) 0.5 Eosinophils # (Manual) Metamyelocytes # 0.5 Myelocytes # Promyelocytes # 0.1 Toxic Granulation PRESENT Toxic Vacuolation Dohle Bodies PRESENT Platelet Estimate NORMAL Large Platelets PRESENT Plt Morphology Comment NOTED RBC Morphology NOTED Polychromasia 1+ (0-2) Hypochromasia Basophilic Stippling Target Cells 1+ (5-14) Acanthocytes (Spur) 1+ (0-2) PT INR APTT VBG pH 7.37 VBG pCO2 25 VBG pO2 80 VBG HCO3 15 L VBG O2 Saturation 97.0 VBG Base Excess -8.0 Sodium 139 Potassium 4.0 Chloride 107 Carbon Dioxide 18 L Anion Gap 18 BUN 50 H Creatinine 2.79 H Estim Creat Clear Calc 27.8 Estimated GFR 23 Random Glucose 142 H Lactic Acid 4.5 H* Lactic Acid F/U @ 2Hr Lactic Acid F/U @ 4Hr Calcium 7.6 L D Phosphorus 5.2 H Magnesium 1.7 Total Bilirubin 2.6 H AST 24 ALT 15 Alkaline Phosphatase 59 Troponin I High Sens B-Natriuretic Peptide Total Protein 5.8 L Albumin 2.3 L Lipase Urine Color Urine Appearance Urine pH Ur Specific [place] Urine Protein Urine Glucose (UA) Urine Ketones Urine Blood Urine Nitrite Ur Leukocyte Esterase Urine RBC Urine WBC Ur Squamous Epith Cells Urine Bacteria Hyaline Casts COVID-19 (LAYNE) COVID-19 Clin Com Influenza Type A (ANIA) Influenza Type B (ANIA) Influenza A & B Note Blood Type Antibody Screen 04/18/23 04/18/23 04/18/23 20:22 23:10 23:40 WBC 12.3 H RBC 4.26 L Hgb 12.0 L Hct 36.4 L MCV 85.4 MCH 28.2 MCHC 33.0 RDW 19.0 H Plt Count 269 MPV 11.2 Immature Gran % (Auto) Neut % (Auto) Lymph % (Auto) [place] % (Auto) Eos % (Auto) Baso % (Auto) Lymph # (Auto) [place] # (Auto) Eos # (Auto) Baso # (Auto) Abs Immat Gran (auto) Absolute Neuts (auto) Absolute Nucleated RBC 0.000 Nucleated RBC % (auto) 0.0 Neutrophils % (Manual) Band Neutrophils % Lymphocytes % (Manual) Atypical Lymphs % (Man) Monocytes % (Manual) Eosinophils % (Manual) Metamyelocytes % Myelocytes % Promyelocytes % Abs Neuts (Manual) Lymphocytes # (Manual) Atyp Lymphs # (Manual) Monocytes # (Manual) Eosinophils # (Manual) Metamyelocytes # Myelocytes # Promyelocytes # Toxic Granulation Toxic Vacuolation Dohle Bodies Platelet Estimate Large Platelets Plt Morphology Comment RBC Morphology Polychromasia Hypochromasia Basophilic Stippling Target Cells Acanthocytes (Spur) PT INR APTT VBG pH VBG pCO2 VBG pO2 VBG HCO3 VBG O2 Saturation VBG Base Excess Sodium 140 Potassium 3.6 Chloride 105 Carbon Dioxide 22 Anion Gap 17 BUN 42 H Creatinine 1.97 H Estim Creat Clear Calc 39.5 Estimated GFR 35 Random Glucose 187 H Lactic Acid Lactic Acid F/U @ 2Hr 3.7 H* Lactic Acid F/U @ 4Hr 2.8 H* Calcium 8.1 L D Phosphorus 3.8 Magnesium 1.8 Total Bilirubin 3.5 H AST 23 ALT 15 Alkaline Phosphatase 52 Troponin I High Sens B-Natriuretic Peptide Total Protein 6.1 L Albumin 3.1 L Lipase Urine Color Urine Appearance Urine pH Ur Specific [place] Urine Protein Urine Glucose (UA) Urine Ketones Urine Blood Urine Nitrite Ur Leukocyte Esterase Urine RBC Urine WBC Ur Squamous Epith Cells Urine Bacteria Hyaline Casts COVID-19 (LAYNE) COVID-19 Clin Com Influenza Type A (ANIA) Influenza Type B (ANIA) Influenza A & B Note Blood Type Antibody Screen 04/18/23 04/19/23 Unknown 05:07 WBC 8.3 RBC 3.89 L Hgb 11.0 L Hct 32.8 L MCV 84.3 MCH 28.3 MCHC 33.5 RDW 18.6 H Plt Count 239 MPV 11.2 Immature Gran % (Auto) Cancelled Neut % (Auto) Cancelled Lymph % (Auto) Cancelled [place] % (Auto) Cancelled Eos % (Auto) Cancelled Baso % (Auto) Cancelled Lymph # (Auto) Cancelled [place] # (Auto) Cancelled Eos # (Auto) Cancelled Baso # (Auto) Cancelled Abs Immat Gran (auto) Cancelled Absolute Neuts (auto) Cancelled Absolute Nucleated RBC 0.000 Nucleated RBC % (auto) 0.0 Neutrophils % (Manual) 35 L Band Neutrophils % 37 H Lymphocytes % (Manual) 12 L Atypical Lymphs % (Man) 1 Monocytes % (Manual) 9 Eosinophils % (Manual) 2 Metamyelocytes % 3 Myelocytes % 1 Promyelocytes % Abs Neuts (Manual) 6.0 Lymphocytes # (Manual) 1.0 L Atyp Lymphs # (Manual) 0.1 Monocytes # (Manual) 0.7 Eosinophils # (Manual) 0.2 Metamyelocytes # 0.2 Myelocytes # 0.1 Promyelocytes # Toxic Granulation PRESENT Toxic Vacuolation PRESENT Dohle Bodies PRESENT Platelet Estimate NORMAL Large Platelets Plt Morphology Comment NORMAL RBC Morphology NORMAL Polychromasia 2+ (3-5) Hypochromasia 1+ (5-14) Basophilic Stippling 1+ (0-2) Target Cells 1+ (5-14) Acanthocytes (Spur) 1+ (0-2) PT INR APTT VBG pH VBG pCO2 VBG pO2 VBG HCO3 VBG O2 Saturation VBG Base Excess Sodium 140 Potassium 3.3 Chloride 104 Carbon Dioxide 23 Anion Gap 16 BUN 34 H Creatinine 1.63 H Estim Creat Clear Calc 49.8 Estimated GFR 43 Random Glucose 163 H Lactic Acid Lactic Acid F/U @ 2Hr Lactic Acid F/U @ 4Hr Calcium 8.5 Phosphorus Magnesium Total Bilirubin AST ALT Alkaline Phosphatase Troponin I High Sens B-Natriuretic Peptide Total Protein Albumin Lipase Urine Color [place] Urine Appearance Cloudy Urine pH 5.0 Ur Specific [place] >= 1.030 H Urine Protein See Note Urine Glucose (UA) Negative Urine Ketones Trace Urine Blood Small (1+) H Urine Nitrite See Note Ur Leukocyte Esterase Negative Urine RBC 3-5 H Urine WBC 0-5 Ur Squamous Epith Cells 3-5 Urine Bacteria Trace Hyaline Casts 0-2 COVID-19 (LAYNE) COVID-19 Clin Com Influenza Type A (ANIA) Influenza Type B (ANIA) Influenza A & B Note Blood Type Antibody Screen Microbiology Microbiology Results: Microbiology 04/18/23 12:36 Blood - Venous Blood Culture - Preliminary Prelim: GNR Gram Stain only 04/18/23 Unknown Peritoneal Fluid Routine Culture - Preliminary 04/18/23 Unknown Peritoneal Fluid Anaerobic Culture - Preliminary Culture in progress. Progress Note: A&P Assessment and plan (1) Acute kidney injury: Status: Acute (2) Acute respiratory failure with hypoxia: Status: Acute (3) Gram-negative bacteremia: Status: Acute (4) Septic shock: Status: Acute (5) Bowel perforation: Status: Acute (6) Diabetes mellitus: Status: Acute Plan Assessment: 62-year-old gentleman admitted with perforated sigmoid diverticulitis, now postoperative day 1 after sigmoid colectomy with end colostomy further complicated by acute kidney injury, hypoxic respiratory failure, and Gram-negative bacteremia. Plan: Neuro: No acute issues. Cardiac: Septic shock, continue to titrate off pressors as tolerated. Pulmonary: Acute hypoxic respiratory failure secondary to IV fluid resuscitation of underlying septic shock, improving, continue to titrate off supplemental oxygen as tolerated. Renal: Acute kidney injury secondary to septic shock with sigmoid perforation, improving. Non oliguric. Continue to monitor renal indices and urine output. Endo: No acute issues. Underlying diabetes mellitus on sliding scale protocol. GI: Perforated sigmoid diverticulitis status post sigmoidectomy with end colostomy. General surgery service care appreciated. ID: Gram-negative bacteremia, continue on Zosyn. Heme/Onc: No acute issues. Psych: No acute issues. Miscellaneous: No acute issues. Prophylaxis: Heparin Diet: NPO Critical care time spent: 60 minutes Quality Stroke Does the patient have a stroke diagnosis?: No VTE Prior VTE?: No VTE Risk Level:: Surgical - moderate VTE Device Contraindication: N/A - Device Ordered VTE Drug Contraindication: Treatment Not Indicated
[2023-04-19 09:49] LABS: Glucose, Whole Blood 145 mg/dL (60-115)
--- NOTE | 2023-04-19 10:12 | P.CDIM_ITS ---
PROVIDER RESPONSE TEXT: To clarify, the appropriate diagnosis supported by the clinical indicators: Acute QUERY TEXT: PHYSICIAN'S DOCUMENTATION REQUEST Date of Query: 04/19/2023 09:58 AM EST Patient Name: Rodrick Alexander Admit Date: 04/18/2023 Dear Nils Morales, A review of the medical record indicates additional documentation may be needed. Please review below and update the documentation accordingly. Clinical Indicators: Ed 2/4 - Chemistry indices significant for metabolic acidosis secondary to lactic acidosis-5.9. Clarify which of the following accurately represents the acuity of the Lactic acidosis Acute Acute on chronic Other (explain) Clinically unable to determine (explain) Thank you, Shannon Zayas, CCS, CDIS Use of terms such as suspected, likely, concern for, or probable (associated with a specific diagnosi s that is being evaluated, monitored, or treated as if it exists) are acceptable and can be coded in the inpatient se tting, when documented at the time of discharge. Please use your independent medical judgment in providing your response. THIS QUERY IS PART OF THE PERMANENT MEDICAL RECORD
[2023-04-19 11:57] LABS: Glucose, Whole Blood 152 mg/dL (60-115)
[2023-04-19] MEDS: Insulin Lispro 100 UNIT/ML 3 ML VIAL SUBCUT (12:22)
--- NOTE | 2023-04-19 13:20 | ECG_ITS ---
Test Reason : TACHYCARDIA Blood Pressure : / mmHG Vent. Rate : 149 BPM Atrial Rate : 000 BPM P-R Int : 000 ms QRS Dur : 088 ms QT Int : 314 ms P-R-T Axes : 000 000 -45 degrees QTc Int : 494 ms Normal sinus rhythm with frequent PACs; can't exclude atrial fibrillation in some areas Possible Inferior infarct , age undetermined Abnormal ECG When compared to the previous EKG of 18 apr 2023, rhythm change Referred By: Nlis Morales Electronically Signed By:VIRAL VERAS
[2023-04-19] MEDS: Metoprolol Tartrate 5 MG/5 ML VIAL IVPUSH (13:34)
[2023-04-19] MEDS: dilTIAZem HCL 125 MG in 0.9 % Sodium Chloride 100 ML 10 MG IVCONT (14:08)
--- NOTE | 2023-04-19 14:19 | HO.POSTANES ---
Post Anesthesia Evaluation Post Anesthesia Evaluation Date of Service: 04/19/23 Vital Signs: Vital Signs Temp Pulse Resp BP Pulse Ox O2 Del Method O2 Flow Rate 04/19/23 13:59 147 H 122/92 H 04/19/23 13:00 152 H 48 H 116/77 91 L Nasal Cannula 9 04/19/23 12:00 123 H 42 H 112/73 93 Nasal Cannula 9 04/19/23 11:00 128 H 24 H 115/70 90 L Nasal Cannula 9 04/19/23 10:00 125 H 39 H 120/66 92 Nasal Cannula 9 04/19/23 09:21 116 H 119/74 04/19/23 09:13 108 H 133/74 04/19/23 09:00 112 H 29 H 138/78 92 Nasal Cannula 9 04/19/23 08:46 112 H 135/82 04/19/23 08:29 118 H 140/82 H 04/19/23 08:00 98.0 F 112 H 36 H 132/77 94 Non-Rebreather Mask 15 04/19/23 07:38 110 H 142/68 H 04/19/23 07:22 108 H 135/78 04/19/23 07:00 103 H 37 H 131/78 97 Non-Rebreather Mask 15 04/19/23 06:00 98.0 F 110 H 36 H 137/83 95 Non-Rebreather Mask 04/19/23 05:00 104 H 37 H 138/87 96 Non-Rebreather Mask 15 04/19/23 04:00 103 H 31 H 128/80 97 Non-Rebreather Mask 15 04/19/23 03:00 97.7 F 94 31 H 132/76 98 Non-Rebreather Mask 15 04/19/23 02:58 97.8 F Anesthesia: General Endotracheal-GETA Mental Status: Awake Pain Control: Satisfactory Nausea/Vomiting: Mild Hydration: Adequate Anesthesia-Related Issues: No Anes. Related Issues
[2023-04-19 14:32] LABS: Glucose, Whole Blood 141 mg/dL (60-115)
--- NOTE | 2023-04-19 15:12 | PC.NURSE ---
Addendum entered by Camryn Puckett RN 04/19/23 19:05: 1845 - patient restless, ripping off NRB saying I cant breath . Dr Morales and RT notified - Versed 1mg IVP ordered and administered. Patient switched back to High Flow 60% 40L by RT. HR maintaining 140, RR low 40's, 90% on High flow, MAP maintaining >65. Handoff given to Daniel JACKSON. Cari LOVELACE at bedside. Addendum entered by Camryn Puckett RN 04/19/23 18:31: Patient c/o of worsening respiratory distress on w/ NGT & high flow 60% 40L sating 90-91%, RR mid 40's, HR 140's. Patient switched to NRB 100% - patient reports feeling better with NRB sating 95%, RR down to mid 30's, HR maintaining 140's, BP 132/78. MD and RT notified. No new orders at this time. Handoff to be given to Daniel JACKSON. Addendum entered by Camryn Puckett RN 04/19/23 17:10: Maxed out on Esmolol gtt - HR maintaining 140's, MAP maintaining >65. MD aware. Patient have no complaints of pain. C/o of mild SOB, RR mid 20's - mid 40's w/ activity. O2 sat maintaining 90-91% on HF 60% 40L. K 3.0 - KCL 40meq IV x2 ordered and administering. No new orders at this time. Original Note: 1230 HR maintaining 140-160's - MD notified - EKG ordered and obtained confirming afib rvr - Dr Morales notified - Lopressor 5mg IVP ordered and administered with minimal effect - Cardizem gtt ordered and administered per EMAR. 1445 Increased O2 requirements, tachypnic high 30-mid 40's - Sat maintaining 88-90% on 15L Jj. MD at bedside. Abdomen round, firm, tender to touch, no output from colostomy, positive bowel sounds, not passing gas. NGT draining total 200cc bilious output since 0700. Patient c/o of palpitations and increased WOB. No complaints of pain at this time. RT at bedside to switch to highflow 60% 40 L . Labs ordered and obtained. >2L urine o/p after am lasix administration. Current vitals HR 153, RR 45, BP 121/74 MAP 87, 88%. Cardizem gtt to be switched to esmolol gtt per MD. Labs pending.
--- NOTE | 2023-04-19 15:20 | MHC.CM.PN ---
Met w/pt, dtr and spouse to discuss d/c planning: Pt is independent w/all care needs, has no services and uses a cane on occassion. Discussed new colostomy and need for assessments/teaching. Pt receptive to VNA and would like [facility] - referral made. Spouse will transport to home. IMM in chart, HCP declined. CM to follow for any changes.
[2023-04-19 15:26] LABS: Hematocrit 35.1 % (42.0-52.0); Hemoglobin 11.7 g/dl (14.0-18.0); Mean Corpuscular HGB Conc 33.3 g/dl (31.0-36.0); Mean Corpuscular Hemoglobin 27.8 pg (27.0-33.0); Mean Corpuscular Volume 83.4 fL (80.0-98.0); Mean Platelet Volume 10.4 fL (9.4-12.4); NRBC Pct Auto 0.2 /100WBC (0.0-0.2); Platelet Count 254 X10*3/uL (160-400); Red Blood Count 4.21 X10*6/uL (4.60-5.80); Red Cell Distribution Width 18.8 % (11.0-16.0)
[2023-04-19] MEDS: Esmolol HCl/NaCl Iso 2,500 MG/250 ML IV.SOLN 27.54 MG IVCONT (15:28)
[2023-04-19 15:30] LABS: WBC ABN SCTR FOR CBC 1
[2023-04-19 15:38] LABS: Anion Gap 19 (12-20); Blood Urea Nitrogen 28 mg/dL (9-16); Calcium 9.2 mg/dL (8.4-10.2); Carbon Dioxide 27 mmol/L (22-29); Chloride 102 mmol/L (96-108); Estimated Glomerular Filt Rate 51; Glucose Random 142 mg/dL (60-115); Sodium 145 mmol/L (135-145)
[2023-04-19 15:42] LABS: VBG Base Excess 5.9 mmol/L; VBG HCO3 29 mmol/L (22-26); VBG pCO2 39 mmHg; VBG pH 7.48 (7.32-7.43); VBG pO2 38 mmHg
[2023-04-19 15:54] LABS: Band Neutrophils Percent 0 % (3-5); Dohle Bodies PRESENT; Eosinophils Percent Manual 3 % (0-4); Lymphocytes Percent Manual 8 % (20-40); Macrocytosis 1+ (5-14) /OIF; Microcytosis 2+ (15-30) /OIF; Monocytes Percent Manual 7 % (2-11); Neutrophils Percent Manual 82 % (45-73); Platelet Estimate NORMAL (NORMAL); Platelet Morphology Comment NORMAL; Polychromasia 1+ (0-2) /OIF; RBC Morphology NOTED; Target Cells 1+ (5-14) /OIF; Toxic Vacuolation PRESENT
[2023-04-19 15:55] LABS: Eosinophils Absolute Manual 0.3 X10*3/uL (0.0-0.4); Lymphocytes Absolute Manual 0.8 X10*3/uL (1.2-4.9); Monocytes Absolute Manual 0.7 X10*3/uL (0.1-1.2); Neutrophils Absolute Manual 8.1 X10*3/uL (2.0-8.3); White Blood Count 9.9 X10*3/uL (4.8-10.8)
[2023-04-19] MEDS: Potassium Chloride/H20 40 MEQ/100 ML PIGGYBACK 100 MEQ IV ×2 (16:17→17:21)
[2023-04-19 17:12] LABS: Glucose, Whole Blood 133 mg/dL (60-115)
[2023-04-19 18:16] LABS: Venous Blood Gas Refer to POC result
[2023-04-19] MEDS: Esmolol HCl/NaCl Iso 2,500 MG/250 ML IV.SOLN 110.16 MG IVCONT (18:24)
[2023-04-19] MEDS: Midazolam HCl/PF 2 MG/2 ML VIAL 1 MG IVPUSH (18:53)
[2023-04-19] MEDS: dexmedeTOMIDidine HCL/NS 400 MCG/100 ML INFUS..BTL 18.36 MCG IVCONT (19:38)
[2023-04-19] MEDS: Amiodarone/Dextrose 150 MG/100 ML PLAST..BAG 600 MG IV (19:52)
[2023-04-19] MEDS: Amiodarone HCL 900 MG in 0.9 % Sodium Chloride 500 ML 34.53 MG IVCONT (20:02)
--- NOTE | 2023-04-19 20:50 | PC.NURSE ---
Addendum entered by Gumaro Baugh RN 04/20/23 05:33: NG-TUBE DRAINED 300ml BILIOUS DRAINAGE 6PM TO NOW..PRECIDEX WEANED OVERNIGHT TO 0.2 MCG/KG/HR..REMAINS RESTFUL/AWAKE AND CALM Addendum entered by Gumaro Baugh RN 04/19/23 22:42: CONVERTED TO NSR HR 80'S...RESPIRATIONS EASY AT PRESENT..DOZING Original Note: CARE ASSUMED 7PM...PATIENT AWAKE...SEVERELY ANXIOUS...DIAPHORETIC..RR 50-56 AND LABOURED...ATRIAL FIB HR 150'S..BP ELEVATED..LUNGS DIMINISHED WITH SOFT EXPIRATORY WHEEZES..SAO2 89-90%...HI-CATHERINE O2 TITRATED TO 95% AND MAINTAINED 40 L/M..PATIENT DOES NOT TOLERATE HIGHER FLOW RATE...ESMOLOL DRIP 200 MCG/KG/MIN..HR REMAINS 150'S AND SEVERELY ANXIOUS...STAT CXR DONE AND REVIEWED BY ICU POUNDMASTER PRESENT ON UNIT...PRECIDEX DRIP STARTED 0.8 MCG/KG/HR...ESMOLOL DRIP D/C'D PER POUNDMASTER...AMIODARONE 150MG IV BOLUS OVER 10 AND THEN AMIODARONE INFUSION 1 MG/MIN X6 HOURS STARTED AT 8PM...PLAN 2AM TO DECREASE DRIP TO 0.5 MG/MIN PER PROTOCOL...DILAUDID 0.5 MG IV APPROX 7PM FOR WORK OF BREATHING PER ICU POUNDMASTER......CURRENTLY ATRIAL FIB HR 120'S-130'S...RR 34-38 AND DECREASED WORK OF BREATHING..SAO2 96%...AWAKE..VAGUE RESPONSES BUT CALMER AT PRESENT AND MORE DIRECTABLE
[2023-04-19] MEDS: dexmedeTOMIDidine HCL/NS 400 MCG/100 ML INFUS..BTL 16.07 MCG IVCONT (22:54)
[2023-04-19 23:53] LABS: Glucose, Whole Blood 181 mg/dL (60-115)
[2023-04-20] VITALS (28 sets, daily range): BP systolic 97–151; BP diastolic 62–89; PULSE 80–95; RESP 18–45; TEMP 36–37.2; O2SAT 90–98; BMI 32.4
[2023-04-20] MEDS: Insulin Lispro 100 UNIT/ML 3 ML VIAL SUBCUT (00:07)
[2023-04-20] MEDS: Albumin Human 25 % 100 ML IV (02:24)
[2023-04-20] MEDS: HYDROmorphone HCl 0.5 MG/0.5 ML SYRINGE IVPUSH ×3 (02:33→15:40)
[2023-04-20] MEDS: Pantoprazole Sodium 40 MG/10 ML VIAL IVPUSH (05:04)
[2023-04-20 05:35] LABS: Hematocrit 29.3 % (42.0-52.0); Hemoglobin 9.8 g/dl (14.0-18.0); Mean Corpuscular HGB Conc 33.4 g/dl (31.0-36.0); Mean Corpuscular Volume 83.7 fL (80.0-98.0); Platelet Count 236 X10*3/uL (160-400); Red Cell Distribution Width 18.6 % (11.0-16.0); White Blood Count 9.5 X10*3/uL (4.8-10.8)
[2023-04-20 05:43] LABS: VBG Base Excess 8.6 mmol/L; VBG HCO3 32 mmol/L (22-26); VBG pCO2 41 mmHg; VBG pO2 45 mmHg
[2023-04-20 06:00] LABS: Alanine Aminotransferase 14 U/L (0-40); Alkaline Phosphatase 40 U/L (39-117); Anion Gap 16 (12-20); Aspartate Amino Transferase 23 U/L (5-37); Bilirubin Total 3.2 mg/dL (0.0-1.0); Blood Urea Nitrogen 37 mg/dL (9-16); Calcium 8.5 mg/dL (8.4-10.2); Carbon Dioxide 28 mmol/L (22-29); Chloride 107 mmol/L (96-108); Creatinine Clr Calc Pharmacy 62.3; Estimated Glomerular Filt Rate 56; Glucose Random 134 mg/dL (60-115); Magnesium 2.6 mg/dL (1.6-2.6); Phosphorus 1.6 mg/dL (2.7-4.5); Potassium 3.3 mmol/L (3.3-5.1); Sodium 148 mmol/L (135-145); Total Protein 6.7 g/dL (6.5-8.0)
[2023-04-20 06:02] LABS: Band Neutrophils Percent 15 % (3-5); Lymphocytes Absolute Manual 1.6 X10*3/uL (1.2-4.9); Lymphocytes Percent Manual 17 % (20-40); Monocytes Absolute Manual 0.6 X10*3/uL (0.1-1.2); Monocytes Percent Manual 6 % (2-11); Myelocytes Absolute 0.2 X10*/uL; Myelocytes Percent 2 %; Neutrophils Absolute Manual 7.1 X10*3/uL (2.0-8.3); Neutrophils Percent Manual 60 % (45-73)
[2023-04-20 06:03] LABS: Dohle Bodies PRESENT; RBC Morphology NOTED
[2023-04-20 06:04] LABS: Glucose, Whole Blood 143 mg/dL (60-115)
[2023-04-20 06:04] LABS: Large Platelet PRESENT; Platelet Estimate NORMAL (NORMAL); Toxic Granulation PRESENT; Toxic Vacuolation PRESENT
[2023-04-20 06:05] LABS: Hypochromasia 1+ (5-14) /OIF; Macrocytosis 1+ (5-14) /OIF; Microcytosis 1+ (5-14) /OIF; Polychromasia 1+ (0-2) /OIF; Target Cells 1+ (5-14) /OIF
[2023-04-20 06:07] LABS: Platelet Morphology Comment NOTE
[2023-04-20 06:31] LABS: Venous Blood Gas Refer to POC result
[2023-04-20] MEDS: Potassium Phosphate/NS 15 MMOL/250 ML PLAST..BAG 62.5 MMOL IV ×2 (06:43→11:12)
--- NOTE | 2023-04-20 07:38 | PM.PNGS ---
Subjective Subjective Date of Service: 04/20/23 Interval history: Overall patient feels improved but still has some abdominal discomfort. Ostomy producing gas but no stool. Patient requiring supplemental O2. Physical Exam Vital Signs: Vital Signs: Last Vital Signs Temp 98.8 F 04/20/23 03:00 Pulse 87 04/20/23 07:14 Resp 29 H 04/20/23 07:00 BP 116/69 04/20/23 07:14 Pulse Ox 95 04/20/23 07:00 O2 Del Method High Flow Nasal C annula 04/20/23 07:00 O2 Flow Rate 40 04/20/23 07:00 FiO2 100 04/20/23 07:00 BMI result Body Mass Index 32.4 Const: General: alert Nutritional Appearance: well nourished Orientation/consciousness: patient oriented x3 Resp: Other: On high-flow O2, breathing comfortably. GI: Other: Midline incision is clean, dry, and intact. Ostomy in the left upper quadrant is pink and viable. Small amount of gas within the bag. No stool noted. Minimal serous fluid. Skin: Other: Warm and dry. Neuro: General: patient oriented x3 Objective Data Active Medications Hydromorphone HCl (Hydromorphone Hcl 0.5 Mg/0.5 Ml Syringe) 0.5 mg IVPUSH Q3H PRN; Protocol PRN Reason: Pain, Severe (Pain Scale 7-10) Last Admin: 04/20/23 02:33 Dose: 0.5 mg Documented By: KSENIA Norepinephrine Bitartrate (Levophed) 8 mg in 250 mls @ 0 mls/hr IV .Q0M [facility]; Protocol Last Titration: 04/19/23 13:59 Dose: Infused Documented By: KORI Piperacillin Sod/Tazobactam (Sod 3.375 gm/ Sodium Chloride) 100 mls @ 200 mls/hr IV Q6H [facility] Last Infusion: 04/20/23 03:03 Dose: Infused Documented By: KSENIA Amiodarone HCl 900 mg/ Sodium (Chloride) 518 mls @ 34.533 mls/hr IVCONT .Q15H1M [facility]; Protocol Last Infusion: 04/20/23 02:10 Dose: 0.5 mg/min, 17.27 mls/hr Documented By: KSENIA Dexmedetomidine HCl (Precedex) 400 mcg in 100 mls @ 0 mls/hr IVCONT .Q0M [facility]; Protocol Last Titration: 04/20/23 05:30 Dose: 0.2 mcg/kg/hr, 4.59 mls/hr Documented By: KSENIA Potassium Phosphate (Kphos) 15 mmol in 250 mls @ 62.5 mls/hr IV Q4H [facility] Stop: 04/20/23 14:14 Last Admin: 04/20/23 06:43 Dose: 62.5 mls/hr Documented By: KSENIA Insulin Human Lispro (Insulin Lispro 100 Unit/Ml 3 Ml Vial) 0 unit SUBCUT Q6H [facility]; Protocol Last Admin: 04/20/23 06:29 Dose: Not Given Documented By: KSENIA Non-Admin Reason: No Insulin Coverage Ondansetron HCl (Ondansetron Hcl 4 Mg/2 Ml Vial) 4 mg IVPUSH QID PRN PRN Reason: Nausea Pantoprazole Sodium (Pantoprazole Sodium 40 Mg/10 Ml Vial) 40 mg IVPUSH DAILY@0630 [facility] Last Admin: 04/20/23 05:04 Dose: 40 mg Documented By: KSENIA Labs 04/20/23 05:25 04/20/23 05:25 Labs: Laboratory Results - last 24 hr 04/19/23 04/19/23 04/19/23 09:46 11:53 14:29 MCV MCH MCHC RDW Plt Count MPV Immature Gran % (Auto) Neut % (Auto) Lymph % (Auto) Mchenry % (Auto) Eos % (Auto) Baso % (Auto) Lymph # (Auto) Mchenry # (Auto) Eos # (Auto) Baso # (Auto) Abs Immat Gran (auto) Absolute Neuts (auto) Absolute Nucleated RBC Nucleated RBC % (auto) Neutrophils % (Manual) Band Neutrophils % Lymphocytes % (Manual) Monocytes % (Manual) Eosinophils % (Manual) Myelocytes % Abs Neuts (Manual) Lymphocytes # (Manual) Monocytes # (Manual) Eosinophils # (Manual) Myelocytes # Toxic Granulation Toxic Vacuolation Dohle Bodies Platelet Estimate Large Platelets Plt Morphology Comment RBC Morphology Polychromasia Hypochromasia Microcytosis Macrocytosis Target Cells VBG pH VBG pCO2 VBG pO2 VBG HCO3 VBG O2 Saturation VBG Base Excess Anion Gap Estim Creat Clear Calc Estimated GFR POC Glucose 145 H 152 H 141 H Random Glucose Calcium Phosphorus Magnesium Total Bilirubin AST ALT Alkaline Phosphatase Total Protein Albumin 04/19/23 04/19/23 04/19/23 15:19 15:35 17:00 MCV 83.4 MCH 27.8 MCHC 33.3 RDW 18.8 H Plt Count 254 MPV 10.4 Immature Gran % (Auto) Cancelled Neut % (Auto) Cancelled Lymph % (Auto) Cancelled Mchenry % (Auto) Cancelled Eos % (Auto) Cancelled Baso % (Auto) Cancelled Lymph # (Auto) Cancelled Mchenry # (Auto) Cancelled Eos # (Auto) Cancelled Baso # (Auto) Cancelled Abs Immat Gran (auto) Cancelled Absolute Neuts (auto) Cancelled Absolute Nucleated RBC 0.020 H Nucleated RBC % (auto) 0.2 Neutrophils % (Manual) 82 H Band Neutrophils % 0 L Lymphocytes % (Manual) 8 L Monocytes % (Manual) 7 Eosinophils % (Manual) 3 Myelocytes % Abs Neuts (Manual) 8.1 Lymphocytes # (Manual) 0.8 L Monocytes # (Manual) 0.7 Eosinophils # (Manual) 0.3 Myelocytes # Toxic Granulation Toxic Vacuolation PRESENT Dohle Bodies PRESENT Platelet Estimate NORMAL Large Platelets Plt Morphology Comment NORMAL RBC Morphology NOTED Polychromasia 1+ (0-2) Hypochromasia Microcytosis 2+ (15-30) Macrocytosis 1+ (5-14) Target Cells 1+ (5-14) VBG pH 7.48 H VBG pCO2 39 VBG pO2 38 VBG HCO3 29 H VBG O2 Saturation 65.0 VBG Base Excess 5.9 Anion Gap 19 Estim Creat Clear Calc 58.0 Estimated GFR 51 POC Glucose 133 H Random Glucose 142 H Calcium 9.2 D Phosphorus Magnesium Total Bilirubin AST ALT Alkaline Phosphatase Total Protein Albumin 04/19/23 04/20/23 04/20/23 23:47 05:25 05:25 MCV Cancelled 83.7 MCH Cancelled MCHC RDW Plt Count MPV Immature Gran % (Auto) Neut % (Auto) Lymph % (Auto) Mchenry % (Auto) Eos % (Auto) Baso % (Auto) Lymph # (Auto) Mchenry # (Auto) Eos # (Auto) Baso # (Auto) Abs Immat Gran (auto) Absolute Neuts (auto) Absolute Nucleated RBC Nucleated RBC % (auto) Neutrophils % (Manual) Band Neutrophils % Lymphocytes % (Manual) Monocytes % (Manual) Eosinophils % (Manual) Myelocytes % Abs Neuts (Manual) Lymphocytes # (Manual) Monocytes # (Manual) Eosinophils # (Manual) Myelocytes # Toxic Granulation Toxic Vacuolation Dohle Bodies Platelet Estimate Large Platelets Plt Morphology Comment RBC Morphology Polychromasia Hypochromasia Microcytosis Macrocytosis Target Cells VBG pH VBG pCO2 VBG pO2 VBG HCO3 VBG O2 Saturation VBG Base Excess Anion Gap Estim Creat Clear Calc Estimated GFR POC Glucose 181 H Random Glucose Calcium Phosphorus Magnesium Total Bilirubin AST ALT Alkaline Phosphatase Total Protein Albumin 04/20/23 04/20/23 04/20/23 05:25 05:25 05:25 MCV MCH 28.0 MCHC Cancelled 33.4 RDW Cancelled 18.6 H Plt Count Cancelled MPV Immature Gran % (Auto) Neut % (Auto) Lymph % (Auto) Mchenry % (Auto) Eos % (Auto) Baso % (Auto) Lymph # (Auto) Mchenry # (Auto) Eos # (Auto) Baso # (Auto) Abs Immat Gran (auto) Absolute Neuts (auto) Absolute Nucleated RBC Nucleated RBC % (auto) Neutrophils % (Manual) Band Neutrophils % Lymphocytes % (Manual) Monocytes % (Manual) Eosinophils % (Manual) Myelocytes % Abs Neuts (Manual) Lymphocytes # (Manual) Monocytes # (Manual) Eosinophils # (Manual) Myelocytes # Toxic Granulation Toxic Vacuolation Dohle Bodies Platelet Estimate Large Platelets Plt Morphology Comment RBC Morphology Polychromasia Hypochromasia Microcytosis Macrocytosis Target Cells VBG pH VBG pCO2 VBG pO2 VBG HCO3 VBG O2 Saturation VBG Base Excess Anion Gap Estim Creat Clear Calc Estimated GFR POC Glucose Random Glucose Calcium Phosphorus Magnesium Total Bilirubin AST ALT Alkaline Phosphatase Total Protein Albumin 04/20/23 04/20/23 04/20/23 05:25 05:25 05:25 MCV MCH MCHC RDW Plt Count 236 MPV Cancelled 11.0 Immature Gran % (Auto) Cancelled Cancelled Neut % (Auto) Cancelled Lymph % (Auto) Mchenry % (Auto) Eos % (Auto) Baso % (Auto) Lymph # (Auto) Mchenry # (Auto) Eos # (Auto) Baso # (Auto) Abs Immat Gran (auto) Absolute Neuts (auto) Absolute Nucleated RBC Nucleated RBC % (auto) Neutrophils % (Manual) Band Neutrophils % Lymphocytes % (Manual) Monocytes % (Manual) Eosinophils % (Manual) Myelocytes % Abs Neuts (Manual) Lymphocytes # (Manual) Monocytes # (Manual) Eosinophils # (Manual) Myelocytes # Toxic Granulation Toxic Vacuolation Dohle Bodies Platelet Estimate Large Platelets Plt Morphology Comment RBC Morphology Polychromasia Hypochromasia Microcytosis Macrocytosis Target Cells VBG pH VBG pCO2 VBG pO2 VBG HCO3 VBG O2 Saturation VBG Base Excess Anion Gap Estim Creat Clear Calc Estimated GFR POC Glucose Random Glucose Calcium Phosphorus Magnesium Total Bilirubin AST ALT Alkaline Phosphatase Total Protein Albumin 04/20/23 04/20/23 04/20/23 05:25 05:25 05:25 MCV MCH MCHC RDW Plt Count MPV Immature Gran % (Auto) Neut % (Auto) Cancelled Lymph % (Auto) Cancelled Cancelled Mchenry % (Auto) Cancelled Cancelled Eos % (Auto) Cancelled Baso % (Auto) Lymph # (Auto) Mchenry # (Auto) Eos # (Auto) Baso # (Auto) Abs Immat Gran (auto) Absolute Neuts (auto) Absolute Nucleated RBC Nucleated RBC % (auto) Neutrophils % (Manual) Band Neutrophils % Lymphocytes % (Manual) Monocytes % (Manual) Eosinophils % (Manual) Myelocytes % Abs Neuts (Manual) Lymphocytes # (Manual) Monocytes # (Manual) Eosinophils # (Manual) Myelocytes # Toxic Granulation Toxic Vacuolation Dohle Bodies Platelet Estimate Large Platelets Plt Morphology Comment RBC Morphology Polychromasia Hypochromasia Microcytosis Macrocytosis Target Cells VBG pH VBG pCO2 VBG pO2 VBG HCO3 VBG O2 Saturation VBG Base Excess Anion Gap Estim Creat Clear Calc Estimated GFR POC Glucose Random Glucose Calcium Phosphorus Magnesium Total Bilirubin AST ALT Alkaline Phosphatase Total Protein Albumin 04/20/23 04/20/23 04/20/23 05:25 05:25 05:25 MCV MCH MCHC RDW Plt Count MPV Immature Gran % (Auto) Neut % (Auto) Lymph % (Auto) Mchenry % (Auto) Eos % (Auto) Cancelled Baso % (Auto) Cancelled Cancelled Lymph # (Auto) Cancelled Cancelled Mchenry # (Auto) Cancelled Eos # (Auto) Baso # (Auto) Abs Immat Gran (auto) Absolute Neuts (auto) Absolute Nucleated RBC Nucleated RBC % (auto) Neutrophils % (Manual) Band Neutrophils % Lymphocytes % (Manual) Monocytes % (Manual) Eosinophils % (Manual) Myelocytes % Abs Neuts (Manual) Lymphocytes # (Manual) Monocytes # (Manual) Eosinophils # (Manual) Myelocytes # Toxic Granulation Toxic Vacuolation Dohle Bodies Platelet Estimate Large Platelets Plt Morphology Comment RBC Morphology Polychromasia Hypochromasia Microcytosis Macrocytosis Target Cells VBG pH VBG pCO2 VBG pO2 VBG HCO3 VBG O2 Saturation VBG Base Excess Anion Gap Estim Creat Clear Calc Estimated GFR POC Glucose Random Glucose Calcium Phosphorus Magnesium Total Bilirubin AST ALT Alkaline Phosphatase Total Protein Albumin 04/20/23 04/20/23 04/20/23 05:25 05:25 05:25 MCV MCH MCHC RDW Plt Count MPV Immature Gran % (Auto) Neut % (Auto) Lymph % (Auto) Mchenry % (Auto) Eos % (Auto) Baso % (Auto) Lymph # (Auto) Mchenry # (Auto) Cancelled Eos # (Auto) Cancelled Cancelled Baso # (Auto) Cancelled Cancelled Abs Immat Gran (auto) Cancelled Absolute Neuts (auto) Absolute Nucleated RBC Nucleated RBC % (auto) Neutrophils % (Manual) Band Neutrophils % Lymphocytes % (Manual) Monocytes % (Manual) Eosinophils % (Manual) Myelocytes % Abs Neuts (Manual) Lymphocytes # (Manual) Monocytes # (Manual) Eosinophils # (Manual) Myelocytes # Toxic Granulation Toxic Vacuolation Dohle Bodies Platelet Estimate Large Platelets Plt Morphology Comment RBC Morphology Polychromasia Hypochromasia Microcytosis Macrocytosis Target Cells VBG pH VBG pCO2 VBG pO2 VBG HCO3 VBG O2 Saturation VBG Base Excess Anion Gap Estim Creat Clear Calc Estimated GFR POC Glucose Random Glucose Calcium Phosphorus Magnesium Total Bilirubin AST ALT Alkaline Phosphatase Total Protein Albumin 04/20/23 04/20/23 04/20/23 05:25 05:25 05:25 MCV MCH MCHC RDW Plt Count MPV Immature Gran % (Auto) Neut % (Auto) Lymph % (Auto) Mchenry % (Auto) Eos % (Auto) Baso % (Auto) Lymph # (Auto) Mchenry # (Auto) Eos # (Auto) Baso # (Auto) Abs Immat Gran (auto) Cancelled Absolute Neuts (auto) Cancelled Cancelled Absolute Nucleated RBC Cancelled 0.000 Nucleated RBC % (auto) Cancelled Neutrophils % (Manual) Band Neutrophils % Lymphocytes % (Manual) Monocytes % (Manual) Eosinophils % (Manual) Myelocytes % Abs Neuts (Manual) Lymphocytes # (Manual) Monocytes # (Manual) Eosinophils # (Manual) Myelocytes # Toxic Granulation Toxic Vacuolation Dohle Bodies Platelet Estimate Large Platelets Plt Morphology Comment RBC Morphology Polychromasia Hypochromasia Microcytosis Macrocytosis Target Cells VBG pH VBG pCO2 VBG pO2 VBG HCO3 VBG O2 Saturation VBG Base Excess Anion Gap Estim Creat Clear Calc Estimated GFR POC Glucose Random Glucose Calcium Phosphorus Magnesium Total Bilirubin AST ALT Alkaline Phosphatase Total Protein Albumin 04/20/23 04/20/23 04/20/23 05:25 05:36 05:59 MCV MCH MCHC RDW Plt Count MPV Immature Gran % (Auto) Neut % (Auto) Lymph % (Auto) Mchenry % (Auto) Eos % (Auto) Baso % (Auto) Lymph # (Auto) Mchenry # (Auto) Eos # (Auto) Baso # (Auto) Abs Immat Gran (auto) Absolute Neuts (auto) Absolute Nucleated RBC Nucleated RBC % (auto) 0.0 Neutrophils % (Manual) 60 Band Neutrophils % 15 H Lymphocytes % (Manual) 17 L Monocytes % (Manual) 6 Eosinophils % (Manual) Myelocytes % 2 Abs Neuts (Manual) 7.1 Lymphocytes # (Manual) 1.6 Monocytes # (Manual) 0.6 Eosinophils # (Manual) Myelocytes # 0.2 Toxic Granulation PRESENT Toxic Vacuolation PRESENT Dohle Bodies PRESENT Platelet Estimate NORMAL Large Platelets PRESENT Plt Morphology Comment NOTE RBC Morphology NOTED Polychromasia 1+ (0-2) Hypochromasia 1+ (5-14) Microcytosis 1+ (5-14) Macrocytosis 1+ (5-14) Target Cells 1+ (5-14) VBG pH 7.50 H VBG pCO2 41 VBG pO2 45 VBG HCO3 32 H VBG O2 Saturation 76.0 VBG Base Excess 8.6 Anion Gap 16 Estim Creat Clear Calc 62.3 Estimated GFR 56 POC Glucose 143 H Random Glucose 134 H Calcium 8.5 D Phosphorus 1.6 L Magnesium 2.6 Total Bilirubin 3.2 H AST 23 ALT 14 Alkaline Phosphatase 40 Total Protein 6.7 Albumin 4.0 Microbiology Microbiology Results: Microbiology 04/18/23 12:44 Blood Culture - Preliminary Blood - Venous No growth after 24 hours. 04/18/23 Unknown Gram Stain - Final Peritoneal Fluid Anaerobic Culture - Preliminary Culture in progress. 04/18/23 12:36 Blood Culture - Preliminary Blood - Venous Prelim: GNR Gram Stain only Procedures Date of Service Date of Service: 04/20/23 Progress Note: A&P Assessment and plan (1) Bowel perforation: Status: Acute Plan Pod 2 following exploratory laparotomy, John procedure with drainage of abscess. Overall the patient is improving with improved renal function. Continues to require high O2. Incisions are clean and intact. Ostomy patent but no stool. NG tube with minimal output. Will do a clamping trial today, if tolerated will DC NG tube. Time Spent With Patient Time: Total time managing care of this patient today ____ minutes. Quality Stroke Does the patient have a stroke diagnosis?: No VTE Prior VTE?: No VTE Risk Level:: Surgical - moderate VTE Device Contraindication: N/A - Device Ordered VTE Drug Contraindication: Treatment Not Indicated
--- NOTE | 2023-04-20 09:34 | MHC.CM.PN ---
Pt POD 2 s/p John procedure: new colostomy: continues on High flow O2: NGT to be clamped today. D/C plan is for a return to home w/family and new [facility] support. Spouse to transport. CM to follow for any changes to d/c plan.
[2023-04-20] MEDS: Acetaminophen 1,000 MG/100 ML PIGGYBACK 400 MG IV ×3 (10:20→22:05)
--- NOTE | 2023-04-20 11:04 | P.CDIM_ITS ---
PROVIDER RESPONSE TEXT: To clarify, the appropriate diagnosis supported by the clinical indicators: Hypernatremia QUERY TEXT: PHYSICIAN'S DOCUMENTATION REQUEST Date of Query: 04/20/2023 10:11 AM EST Patient Name: Rodrick Alexander Admit Date: 04/18/2023 Dear Nils Morales, A review of the medical record indicates additional documentation may be needed. Please review below and update the documentation accordingly. Clinical Indicators: LAB FINDINGS: sodium 148 H Based on the above, is there a diagnosis that correlates with these lab findings: Hypernatremia Labs indicate a diagnosis of (please specify) Other (explain) Clinically unable to determine (explain) Thank you, Shannon Zayas, CCS, CDIS Use of terms such as suspected, likely, concern for, or probable (associated with a specific diagnosi s that is being evaluated, monitored, or treated as if it exists) are acceptable and can be coded in the inpatient se tting, when documented at the time of discharge. Please use your independent medical judgment in providing your response. THIS QUERY IS PART OF THE PERMANENT MEDICAL RECORD
--- NOTE | 2023-04-20 11:08 | PM.CCPN ---
Subjective Subjective Date of Service: 04/20/23 Interval History: 62-year-old gentleman with underlying history of diabetes mellitus and polycythemic admitted on 04/18/2023 with perforated sigmoid diverticulitis, now postop day 1 after sigmoid colectomy with end-colostomy further complicated by Gram-negative bacteremia, acute kidney injury, and acute hypoxic respiratory failure. Patient with development of AFib with RVR on 04/19/2023 requiring amiodarone drip, now rate controlled. No events overnight. Critical Care Time (minutes): 0 Physical Exam Vital Signs: Vital Signs: Last Vital Signs Temp 97.8 F 04/20/23 08:00 Pulse 94 04/20/23 11:00 Resp 43 H 04/20/23 11:00 BP 145/82 H 04/20/23 11:00 Pulse Ox 94 04/20/23 11:00 O2 Del Method High Flow Nasal C annula 04/20/23 11:00 O2 Flow Rate 40 04/20/23 11:00 FiO2 75 04/20/23 11:00 BMI result Body Mass Index 32.4 Const: General: no acute distress, alert and awake Eyes: Sclerae: sclerae normal EOM: EOMs intact bilaterally Neck: Neck: Yes no lymphadenopathy, Yes trachea midline and Yes supple Resp: Effort & Inspection: normal respiratory effort and no respiratory distress Auscultation: clear to auscultation bilaterally Cardio: Rate: regular rate Rhythm: regular rhythm Heart sounds: no gallops, no murmurs and no rubs GI: Inspection: Yes other (Colostomy with serous output) Palpation (GI): Soft to palpation, not rigid and Other GI palpation findings present (Mild general tenderness) Auscultation: normal bowel sounds Extrem: General: Yes no pedal edema, No clubbing and No cyanosis Objective Data Labs 04/20/23 05:25 04/20/23 05:25 Labs: Laboratory Results - last 24 hr 04/19/23 04/19/23 04/19/23 11:53 14:29 15:19 WBC 9.9 RBC 4.21 L Hgb 11.7 L Hct 35.1 L MCV 83.4 MCH 27.8 MCHC 33.3 RDW 18.8 H Plt Count 254 MPV 10.4 Immature Gran % (Auto) Cancelled Neut % (Auto) Cancelled Lymph % (Auto) Cancelled Mccreary % (Auto) Cancelled Eos % (Auto) Cancelled Baso % (Auto) Cancelled Lymph # (Auto) Cancelled Mccreary # (Auto) Cancelled Eos # (Auto) Cancelled Baso # (Auto) Cancelled Abs Immat Gran (auto) Cancelled Absolute Neuts (auto) Cancelled Absolute Nucleated RBC 0.020 H Nucleated RBC % (auto) 0.2 Neutrophils % (Manual) 82 H Band Neutrophils % 0 L Lymphocytes % (Manual) 8 L Monocytes % (Manual) 7 Eosinophils % (Manual) 3 Myelocytes % Abs Neuts (Manual) 8.1 Lymphocytes # (Manual) 0.8 L Monocytes # (Manual) 0.7 Eosinophils # (Manual) 0.3 Myelocytes # Toxic Granulation Toxic Vacuolation PRESENT Dohle Bodies PRESENT Platelet Estimate NORMAL Large Platelets Plt Morphology Comment NORMAL RBC Morphology NOTED Polychromasia 1+ (0-2) Hypochromasia Microcytosis 2+ (15-30) Macrocytosis 1+ (5-14) Target Cells 1+ (5-14) VBG pH VBG pCO2 VBG pO2 VBG HCO3 VBG O2 Saturation VBG Base Excess Sodium 145 Potassium 3.0 L Chloride 102 Carbon Dioxide 27 Anion Gap 19 BUN 28 H Creatinine 1.40 Estim Creat Clear Calc 58.0 Estimated GFR 51 POC Glucose 152 H 141 H Random Glucose 142 H Calcium 9.2 D Phosphorus Magnesium Total Bilirubin AST ALT Alkaline Phosphatase Total Protein Albumin 04/19/23 04/19/23 04/19/23 15:35 17:00 23:47 WBC RBC Hgb Hct MCV MCH MCHC RDW Plt Count MPV Immature Gran % (Auto) Neut % (Auto) Lymph % (Auto) Mccreary % (Auto) Eos % (Auto) Baso % (Auto) Lymph # (Auto) Mccreary # (Auto) Eos # (Auto) Baso # (Auto) Abs Immat Gran (auto) Absolute Neuts (auto) Absolute Nucleated RBC Nucleated RBC % (auto) Neutrophils % (Manual) Band Neutrophils % Lymphocytes % (Manual) Monocytes % (Manual) Eosinophils % (Manual) Myelocytes % Abs Neuts (Manual) Lymphocytes # (Manual) Monocytes # (Manual) Eosinophils # (Manual) Myelocytes # Toxic Granulation Toxic Vacuolation Dohle Bodies Platelet Estimate Large Platelets Plt Morphology Comment RBC Morphology Polychromasia Hypochromasia Microcytosis Macrocytosis Target Cells VBG pH 7.48 H VBG pCO2 39 VBG pO2 38 VBG HCO3 29 H VBG O2 Saturation 65.0 VBG Base Excess 5.9 Sodium Potassium Chloride Carbon Dioxide Anion Gap BUN Creatinine Estim Creat Clear Calc Estimated GFR POC Glucose 133 H 181 H Random Glucose Calcium Phosphorus Magnesium Total Bilirubin AST ALT Alkaline Phosphatase Total Protein Albumin 04/20/23 04/20/23 04/20/23 05:25 05:25 05:25 WBC Cancelled 9.5 RBC Cancelled 3.50 L Hgb Cancelled Hct MCV MCH MCHC RDW Plt Count MPV Immature Gran % (Auto) Neut % (Auto) Lymph % (Auto) Mccreary % (Auto) Eos % (Auto) Baso % (Auto) Lymph # (Auto) Mccreary # (Auto) Eos # (Auto) Baso # (Auto) Abs Immat Gran (auto) Absolute Neuts (auto) Absolute Nucleated RBC Nucleated RBC % (auto) Neutrophils % (Manual) Band Neutrophils % Lymphocytes % (Manual) Monocytes % (Manual) Eosinophils % (Manual) Myelocytes % Abs Neuts (Manual) Lymphocytes # (Manual) Monocytes # (Manual) Eosinophils # (Manual) Myelocytes # Toxic Granulation Toxic Vacuolation Dohle Bodies Platelet Estimate Large Platelets Plt Morphology Comment RBC Morphology Polychromasia Hypochromasia Microcytosis Macrocytosis Target Cells VBG pH VBG pCO2 VBG pO2 VBG HCO3 VBG O2 Saturation VBG Base Excess Sodium Potassium Chloride Carbon Dioxide Anion Gap BUN Creatinine Estim Creat Clear Calc Estimated GFR POC Glucose Random Glucose Calcium Phosphorus Magnesium Total Bilirubin AST ALT Alkaline Phosphatase Total Protein Albumin 04/20/23 04/20/23 04/20/23 05:25 05:25 05:25 WBC RBC Hgb 9.8 L Hct Cancelled 29.3 L MCV Cancelled 83.7 MCH Cancelled MCHC RDW Plt Count MPV Immature Gran % (Auto) Neut % (Auto) Lymph % (Auto) Mccreary % (Auto) Eos % (Auto) Baso % (Auto) Lymph # (Auto) Mccreary # (Auto) Eos # (Auto) Baso # (Auto) Abs Immat Gran (auto) Absolute Neuts (auto) Absolute Nucleated RBC Nucleated RBC % (auto) Neutrophils % (Manual) Band Neutrophils % Lymphocytes % (Manual) Monocytes % (Manual) Eosinophils % (Manual) Myelocytes % Abs Neuts (Manual) Lymphocytes # (Manual) Monocytes # (Manual) Eosinophils # (Manual) Myelocytes # Toxic Granulation Toxic Vacuolation Dohle Bodies Platelet Estimate Large Platelets Plt Morphology Comment RBC Morphology Polychromasia Hypochromasia Microcytosis Macrocytosis Target Cells VBG pH VBG pCO2 VBG pO2 VBG HCO3 VBG O2 Saturation VBG Base Excess Sodium Potassium Chloride Carbon Dioxide Anion Gap BUN Creatinine Estim Creat Clear Calc Estimated GFR POC Glucose Random Glucose Calcium Phosphorus Magnesium Total Bilirubin AST ALT Alkaline Phosphatase Total Protein Albumin 04/20/23 04/20/23 04/20/23 05:25 05:25 05:25 WBC RBC Hgb Hct MCV MCH 28.0 MCHC Cancelled 33.4 RDW Cancelled 18.6 H Plt Count Cancelled MPV Immature Gran % (Auto) Neut % (Auto) Lymph % (Auto) Mccreary % (Auto) Eos % (Auto) Baso % (Auto) Lymph # (Auto) Mccreary # (Auto) Eos # (Auto) Baso # (Auto) Abs Immat Gran (auto) Absolute Neuts (auto) Absolute Nucleated RBC Nucleated RBC % (auto) Neutrophils % (Manual) Band Neutrophils % Lymphocytes % (Manual) Monocytes % (Manual) Eosinophils % (Manual) Myelocytes % Abs Neuts (Manual) Lymphocytes # (Manual) Monocytes # (Manual) Eosinophils # (Manual) Myelocytes # Toxic Granulation Toxic Vacuolation Dohle Bodies Platelet Estimate Large Platelets Plt Morphology Comment RBC Morphology Polychromasia Hypochromasia Microcytosis Macrocytosis Target Cells VBG pH VBG pCO2 VBG pO2 VBG HCO3 VBG O2 Saturation VBG Base Excess Sodium Potassium Chloride Carbon Dioxide Anion Gap BUN Creatinine Estim Creat Clear Calc Estimated GFR POC Glucose Random Glucose Calcium Phosphorus Magnesium Total Bilirubin AST ALT Alkaline Phosphatase Total Protein Albumin 04/20/23 04/20/23 04/20/23 05:25 05:25 05:25 WBC RBC Hgb Hct MCV MCH MCHC RDW Plt Count 236 MPV Cancelled 11.0 Immature Gran % (Auto) Cancelled Cancelled Neut % (Auto) Cancelled Lymph % (Auto) Mccreary % (Auto) Eos % (Auto) Baso % (Auto) Lymph # (Auto) Mccreary # (Auto) Eos # (Auto) Baso # (Auto) Abs Immat Gran (auto) Absolute Neuts (auto) Absolute Nucleated RBC Nucleated RBC % (auto) Neutrophils % (Manual) Band Neutrophils % Lymphocytes % (Manual) Monocytes % (Manual) Eosinophils % (Manual) Myelocytes % Abs Neuts (Manual) Lymphocytes # (Manual) Monocytes # (Manual) Eosinophils # (Manual) Myelocytes # Toxic Granulation Toxic Vacuolation Dohle Bodies Platelet Estimate Large Platelets Plt Morphology Comment RBC Morphology Polychromasia Hypochromasia Microcytosis Macrocytosis Target Cells VBG pH VBG pCO2 VBG pO2 VBG HCO3 VBG O2 Saturation VBG Base Excess Sodium Potassium Chloride Carbon Dioxide Anion Gap BUN Creatinine Estim Creat Clear Calc Estimated GFR POC Glucose Random Glucose Calcium Phosphorus Magnesium Total Bilirubin AST ALT Alkaline Phosphatase Total Protein Albumin 04/20/23 04/20/23 04/20/23 05:25 05:25 05:25 WBC RBC Hgb Hct MCV MCH MCHC RDW Plt Count MPV Immature Gran % (Auto) Neut % (Auto) Cancelled Lymph % (Auto) Cancelled Cancelled Mccreary % (Auto) Cancelled Cancelled Eos % (Auto) Cancelled Baso % (Auto) Lymph # (Auto) Mccreary # (Auto) Eos # (Auto) Baso # (Auto) Abs Immat Gran (auto) Absolute Neuts (auto) Absolute Nucleated RBC Nucleated RBC % (auto) Neutrophils % (Manual) Band Neutrophils % Lymphocytes % (Manual) Monocytes % (Manual) Eosinophils % (Manual) Myelocytes % Abs Neuts (Manual) Lymphocytes # (Manual) Monocytes # (Manual) Eosinophils # (Manual) Myelocytes # Toxic Granulation Toxic Vacuolation Dohle Bodies Platelet Estimate Large Platelets Plt Morphology Comment RBC Morphology Polychromasia Hypochromasia Microcytosis Macrocytosis Target Cells VBG pH VBG pCO2 VBG pO2 VBG HCO3 VBG O2 Saturation VBG Base Excess Sodium Potassium Chloride Carbon Dioxide Anion Gap BUN Creatinine Estim Creat Clear Calc Estimated GFR POC Glucose Random Glucose Calcium Phosphorus Magnesium Total Bilirubin AST ALT Alkaline Phosphatase Total Protein Albumin 04/20/23 04/20/23 04/20/23 05:25 05:25 05:25 WBC RBC Hgb Hct MCV MCH MCHC RDW Plt Count MPV Immature Gran % (Auto) Neut % (Auto) Lymph % (Auto) Mccreary % (Auto) Eos % (Auto) Cancelled Baso % (Auto) Cancelled Cancelled Lymph # (Auto) Cancelled Cancelled Mccreary # (Auto) Cancelled Eos # (Auto) Baso # (Auto) Abs Immat Gran (auto) Absolute Neuts (auto) Absolute Nucleated RBC Nucleated RBC % (auto) Neutrophils % (Manual) Band Neutrophils % Lymphocytes % (Manual) Monocytes % (Manual) Eosinophils % (Manual) Myelocytes % Abs Neuts (Manual) Lymphocytes # (Manual) Monocytes # (Manual) Eosinophils # (Manual) Myelocytes # Toxic Granulation Toxic Vacuolation Dohle Bodies Platelet Estimate Large Platelets Plt Morphology Comment RBC Morphology Polychromasia Hypochromasia Microcytosis Macrocytosis Target Cells VBG pH VBG pCO2 VBG pO2 VBG HCO3 VBG O2 Saturation VBG Base Excess Sodium Potassium Chloride Carbon Dioxide Anion Gap BUN Creatinine Estim Creat Clear Calc Estimated GFR POC Glucose Random Glucose Calcium Phosphorus Magnesium Total Bilirubin AST ALT Alkaline Phosphatase Total Protein Albumin 04/20/23 04/20/23 04/20/23 05:25 05:25 05:25 WBC RBC Hgb Hct MCV MCH MCHC RDW Plt Count MPV Immature Gran % (Auto) Neut % (Auto) Lymph % (Auto) Mccreary % (Auto) Eos % (Auto) Baso % (Auto) Lymph # (Auto) Mccreary # (Auto) Cancelled Eos # (Auto) Cancelled Cancelled Baso # (Auto) Cancelled Cancelled Abs Immat Gran (auto) Cancelled Absolute Neuts (auto) Absolute Nucleated RBC Nucleated RBC % (auto) Neutrophils % (Manual) Band Neutrophils % Lymphocytes % (Manual) Monocytes % (Manual) Eosinophils % (Manual) Myelocytes % Abs Neuts (Manual) Lymphocytes # (Manual) Monocytes # (Manual) Eosinophils # (Manual) Myelocytes # Toxic Granulation Toxic Vacuolation Dohle Bodies Platelet Estimate Large Platelets Plt Morphology Comment RBC Morphology Polychromasia Hypochromasia Microcytosis Macrocytosis Target Cells VBG pH VBG pCO2 VBG pO2 VBG HCO3 VBG O2 Saturation VBG Base Excess Sodium Potassium Chloride Carbon Dioxide Anion Gap BUN Creatinine Estim Creat Clear Calc Estimated GFR POC Glucose Random Glucose Calcium Phosphorus Magnesium Total Bilirubin AST ALT Alkaline Phosphatase Total Protein Albumin 04/20/23 04/20/23 04/20/23 05:25 05:25 05:25 WBC RBC Hgb Hct MCV MCH MCHC RDW Plt Count MPV Immature Gran % (Auto) Neut % (Auto) Lymph % (Auto) Mccreary % (Auto) Eos % (Auto) Baso % (Auto) Lymph # (Auto) Mccreary # (Auto) Eos # (Auto) Baso # (Auto) Abs Immat Gran (auto) Cancelled Absolute Neuts (auto) Cancelled Cancelled Absolute Nucleated RBC Cancelled 0.000 Nucleated RBC % (auto) Cancelled Neutrophils % (Manual) Band Neutrophils % Lymphocytes % (Manual) Monocytes % (Manual) Eosinophils % (Manual) Myelocytes % Abs Neuts (Manual) Lymphocytes # (Manual) Monocytes # (Manual) Eosinophils # (Manual) Myelocytes # Toxic Granulation Toxic Vacuolation Dohle Bodies Platelet Estimate Large Platelets Plt Morphology Comment RBC Morphology Polychromasia Hypochromasia Microcytosis Macrocytosis Target Cells VBG pH VBG pCO2 VBG pO2 VBG HCO3 VBG O2 Saturation VBG Base Excess Sodium Potassium Chloride Carbon Dioxide Anion Gap BUN Creatinine Estim Creat Clear Calc Estimated GFR POC Glucose Random Glucose Calcium Phosphorus Magnesium Total Bilirubin AST ALT Alkaline Phosphatase Total Protein Albumin 04/20/23 04/20/23 04/20/23 05:25 05:36 05:59 WBC RBC Hgb Hct MCV MCH MCHC RDW Plt Count MPV Immature Gran % (Auto) Neut % (Auto) Lymph % (Auto) Mccreary % (Auto) Eos % (Auto) Baso % (Auto) Lymph # (Auto) Mccreary # (Auto) Eos # (Auto) Baso # (Auto) Abs Immat Gran (auto) Absolute Neuts (auto) Absolute Nucleated RBC Nucleated RBC % (auto) 0.0 Neutrophils % (Manual) 60 Band Neutrophils % 15 H Lymphocytes % (Manual) 17 L Monocytes % (Manual) 6 Eosinophils % (Manual) Myelocytes % 2 Abs Neuts (Manual) 7.1 Lymphocytes # (Manual) 1.6 Monocytes # (Manual) 0.6 Eosinophils # (Manual) Myelocytes # 0.2 Toxic Granulation PRESENT Toxic Vacuolation PRESENT Dohle Bodies PRESENT Platelet Estimate NORMAL Large Platelets PRESENT Plt Morphology Comment NOTE RBC Morphology NOTED Polychromasia 1+ (0-2) Hypochromasia 1+ (5-14) Microcytosis 1+ (5-14) Macrocytosis 1+ (5-14) Target Cells 1+ (5-14) VBG pH 7.50 H VBG pCO2 41 VBG pO2 45 VBG HCO3 32 H VBG O2 Saturation 76.0 VBG Base Excess 8.6 Sodium 148 H Potassium 3.3 Chloride 107 Carbon Dioxide 28 Anion Gap 16 BUN 37 H Creatinine 1.30 Estim Creat Clear Calc 62.3 Estimated GFR 56 POC Glucose 143 H Random Glucose 134 H Calcium 8.5 D Phosphorus 1.6 L Magnesium 2.6 Total Bilirubin 3.2 H AST 23 ALT 14 Alkaline Phosphatase 40 Total Protein 6.7 Albumin 4.0 Microbiology Microbiology Results: Microbiology 04/18/23 Unknown Peritoneal Fluid Gram Stain - Final 04/18/23 Unknown Peritoneal Fluid Routine Culture - Preliminary Gram negative mario 04/18/23 Unknown Peritoneal Fluid Anaerobic Culture - Preliminary Culture in progress. 04/18/23 12:36 Blood - Venous Blood Culture - Preliminary Gram negative mario 04/18/23 12:44 Blood - Venous Blood Culture - Preliminary No growth after 24 hours. Progress Note: A&P Assessment and plan (1) Afib: Status: Acute (2) Acute respiratory failure with hypoxia: Status: Acute (3) Acute kidney injury: Status: Acute (4) Bowel perforation: Status: Acute (5) Diabetes mellitus: Status: Acute Plan Assessment: 62-year-old gentleman admitted with perforated sigmoid diverticulitis, now postoperative day 1 after sigmoid colectomy with end colostomy further complicated by acute kidney injury, hypoxic respiratory failure, and Gram-negative bacteremia. Plan: Neuro: No acute issues. Cardiac: Septic shock, resolved, titrated off pressors as tolerated. AFib with RVR, controlled with amiodarone, continue on the drip until able to take p.o.. Pulmonary: Acute hypoxic respiratory failure secondary to IV fluid resuscitation of underlying septic shock, improving, continue to titrate off supplemental oxygen as tolerated. Renal: Acute kidney injury secondary to septic shock with sigmoid perforation, improving. Non oliguric. Continue to monitor renal indices and urine output. Endo: No acute issues. Underlying diabetes mellitus on sliding scale protocol. GI: Perforated sigmoid diverticulitis status post sigmoidectomy with end colostomy. General surgery service care appreciated. ID: Gram-negative bacteremia, continue on Zosyn. Heme/Onc: No acute issues. Psych: No acute issues. Miscellaneous: No acute issues. Prophylaxis: Heparin Diet: NPO Quality Stroke Does the patient have a stroke diagnosis?: No VTE Prior VTE?: No VTE Risk Level:: Surgical - moderate VTE Device Contraindication: N/A - Device Ordered VTE Drug Contraindication: Treatment Not Indicated
[2023-04-20 12:15] LABS: Glucose, Whole Blood 119 mg/dL (60-115)
[2023-04-20 15:47] LABS: Glucose, Whole Blood 125 mg/dL (60-115)
--- NOTE | 2023-04-20 17:03 | P.EN_ITS ---
Event Note Date of Service: 04/20/23 Event Note: 62-year-old gentleman with underlying history of diabetes mellitus and polycythemia vera admitted on 04/18/2023 with perforated sigmoid diverticulitis, now postop day 1 after sigmoid colectomy with end-colostomy further complicated by Gram-negative bacteremia, acute kidney injury, and acute hypoxic respiratory failure. Patient with development of AFib with RVR on 04/19/2023 requiring amiodarone drip, now rate controlled. Transferred to [facility] [place] Complaining of abdominal discomfort Alert oriented x3 Abdomen Ostomy left upper quadrant with no stool 62-year-old gentleman admitted with perforated sigmoid diverticulitis, now postoperative day 1 after sigmoid colectomy with end colostomy further complicated by acute kidney injury, hypoxic respiratory failure, Gram-negative bacteremia and AFib with RVR. Perforated sigmoid diverticulitis status post sigmoidectomy with end colostomy pod #2 Being managed by General surgery Continue IV Protonix Gram-negative bacteremia, continue iv Zosyn, peritoneal fluid culture positive for Gram-negative mario. Normal CBC follow final blood cultures AFib with RVR, controlled with iv amiodarone drip , will obtain echocardiogram, cardiology consult Acute hypoxic respiratory failure secondary to IV fluid resuscitation of underlying septic shock, improving, continue to titrate off supplemental oxygen as tolerated. Acute kidney injury secondary to septic shock with sigmoid perforation, improving. Non oliguric. Continue to monitor bmp and urine output. Hold lisinopril/hydrochlorothiazide, hold NSAIDs, follow BMP. Diabetes mellitus type 2 NPO, on sliding scale protocol. Hold home dose of metformin. History of gout on allopurinol 300 mg daily currently on hold Hyperlipidemia will hold Lipitor patient NPO Hypertension lisinopril/hydrochlorothiazide and metoprolol on hold. DVT prophylaxis compression therapy Time Spent With Patient Time: Total time managing care of this patient today ____ minutes.
[2023-04-20] MEDS: KCl 20 mEq in 5 % Dex/Lact Rin 20 MEQ/1,000 ML IV.SOLN 80 MEQ IVCONT (18:22)
[2023-04-20] MEDS: Amiodarone HCL 900 MG in 0.9 % Sodium Chloride 500 ML 17.27 MG IVCONT (21:30)
[2023-04-21] VITALS (15 sets, daily range): BP systolic 129–144; BP diastolic 72–86; PULSE 71–85; RESP 18–24; TEMP 36.1–37.7; O2SAT 93–96
[2023-04-21 00:18] LABS: Glucose, Whole Blood 136 mg/dL (60-115)
[2023-04-21] MEDS: diphenhydrAMINE HCL 50 MG/ML VIAL 12.5 MG IVPUSH (00:57)
[2023-04-21] MEDS: Acetaminophen 1,000 MG/100 ML PIGGYBACK 400 MG IV ×3 (05:09→20:32)
[2023-04-21 06:37] LABS: Glucose, Whole Blood 110 mg/dL (60-115)
--- NOTE | 2023-04-21 07:00 | CA_ITS ---
Transthoracic Echocardiogram Patient (Last, First, Middle): Rodrick Alexander, Gender: Male Date of : 1960 Age: 62 Procedure Date: 04/21/2023 Procedure Type: Transthoracic Echocardiogram Location: [facility] [place] Height: 167.64 cm Weight: 91.17 kg BSA: 2.00 m2 Heart Rate: bpm BP: 139 / 96 mmHg House Nurse: Referring MD: Brennan Mccloud MD Symptoms: afib Study Quality: Fair ECG Rhythm: Sinus with extra beats Conclusions: - The left ventricular systolic function is normal. The calculated ejection fraction is 66% by biplane method. - No obvious valvular pathology seen on this study. Findings Procedure Information Contrast agent, definity, is being given per protocol without apparent complications. Left Ventricle Normal left ventricular cavity size. There is moderately increased left ventricular wall thickness. The left ventricular systolic function is normal. The calculated ejection fraction is 66% by biplane method. There is no evidence of regional wall motion abnormalities. Diastolic function is normal for age. Right Ventricle Normal right ventricular cavity size and systolic function. Atria The left atrium is mildly dilated. The right atrium is normal in size. Aortic Valve There is mild calcification of the aortic valve. There is no aortic valve stenosis. There is no aortic valve regurgitation. Mitral Valve The mitral valve appears normal. There is no mitral valve regurgitation. There is no mitral valve stenosis. Pulmonic Valve The pulmonic valve is likely normal. Tricuspid Valve Normal tricuspid valve structure. There is trace tricuspid valve regurgitation. There is no evidence of pulmonary hypertension. Great Vessels The aorta was not well visualized. Venous The inferior vena cava is normal in size and collapses greater than 50% with inspiration. Pericardium/Pleural There is no evidence of pericardial effusion. Prior Study Comparison No significant change compared to prior study dated: 05/30/2018. Recommendations, Care & Conclusions No obvious valvular pathology seen on this study. Measurements 2D Linear Measurements IVSd: 1.41 0.6-0.9/0.6-1.0 cm LVIDd: 2.99 3.9-5.3/4.2-5.9 cm LVIDd Index: 1.50 2.4-3.2/2.2-3.1 cm/m2 LVIDs: 1.95 2.0-3.6 cm LVPWd: 1.44 0.7-1.1 cm Ao Root: 3.40 2.1-3.5 cm LA Diam: 4.20 2.7-3.8/3.0-4.0 cm LAIDs Index: 2.10 1.5-2.3 cm/m2 LV Mass: 179.34 67-162/88-224 g LV Mass Index: 89.67 43-95/49-115 g/m2 LVOT Diam: 2.20 3.0+(-)1.3 cm 2D Systolic Function EF 4C: 62.10 >55% EF 2C: 70.30 >55% EF BiP: 66.10 >55% Mitral Valve MV Pk E: 0.78 MV PK A: 0.65 MV Decel Time: 174.00 E/A: 1.20 E'Lateral: 12.40 E'Medial: 7.07 E/E' Med: 11.00 E/E' Lat: 6.30 PHT: 51.00 MVA PHT: 4.31 Decel [place]: 4.45 Aortic Valve AoV Pk Dewayne: 1.59 AoV Mn Dewayne: 1.11 AoV VTI: 0.31 AoV Pk Grad: 10.00 Aov Mn Grad: 6.00 OTF Cont.VTI: 3.76 LVOT LVOT Pk Dewayne: 1.47 LVOT Mn Dewayne: 1.00 LVOT VTI: 0.31 LVOT Pk Grad: 9.00 LVOT Mn Grad: 5.00 LVOT Diam: 2.20 LVOT Area: 3.80 Diastolic Function MV Pk E: 0.78 MV Pk A: 0.65 E/A: 1.20 E'Medial: 7.07 E/E' Med: 11.00 E' Laterial: 12.40 E/E' Lat: 6.30 Right Ventricle TAPSE (mm): 24.00 TVS' Dewayne: 8.00 Tricuspid Valve TR Pk Dewayne: 2.25 TR Pk Grad: 20.00 RA Press: 3.00 RVSP: 23.00 Great Vessels Aorta Ao Root-2D: 3.40 2.0-3.7 cm Pulmonary Valve PV Pk Dewayne: 1.39 Peak PV Grad: 8.00 Updated in Other Vendor System with Status of Final Mika Lea MD electronically signed on 04/21/2023 10:09:24 AM with status of Final
[2023-04-21 07:27] LABS: Hematocrit 31.5 % (42.0-52.0); Hemoglobin 10.6 g/dl (14.0-18.0); Mean Corpuscular HGB Conc 33.7 g/dl (31.0-36.0); Mean Corpuscular Hemoglobin 28.3 pg (27.0-33.0); Mean Platelet Volume 11.5 fL (9.4-12.4); Platelet Count 295 X10*3/uL (160-400); Red Blood Count 3.75 X10*6/uL (4.60-5.80); Red Cell Distribution Width 19.1 % (11.0-16.0); White Blood Count 14.6 X10*3/uL (4.8-10.8)
[2023-04-21] MEDS: Pantoprazole Sodium 40 MG/10 ML VIAL IVPUSH (07:41)
[2023-04-21 07:43] LABS: Alanine Aminotransferase 18 U/L (0-40); Albumin Level 3.7 g/dL (3.5-5.0); Alkaline Phosphatase 57 U/L (39-117); Anion Gap 15 (12-20); Aspartate Amino Transferase 35 U/L (5-37); Bilirubin Total 2.5 mg/dL (0.0-1.0); Blood Urea Nitrogen 28 mg/dL (9-16); Calcium 8.5 mg/dL (8.4-10.2); Carbon Dioxide 25 mmol/L (22-29); Chloride 114 mmol/L (96-108); Creatinine Clr Calc Pharmacy 81.8; Estimated Glomerular Filt Rate > 60; Glucose Random 122 mg/dL (60-115); Magnesium 2.7 mg/dL (1.6-2.6); Potassium 3.4 mmol/L (3.3-5.1); Sodium 151 mmol/L (135-145); Total Protein 6.8 g/dL (6.5-8.0)
--- NOTE | 2023-04-21 08:18 | PM.PNGS ---
Subjective Subjective Date of Service: 04/21/23 Interval history: Transferred to med/tele from ICU yesterday. Feeling better, less abdominal pain. Wants the NGT out and to drink. Passing flatus via ostomy. Denies bloating. Has not been OOB yet. Physical Exam Vital Signs: Vital Signs: Last Vital Signs Temp 97.1 F 04/21/23 07:36 Pulse 79 04/21/23 07:36 Resp 18 04/21/23 07:59 BP 141/82 H 04/21/23 07:36 Pulse Ox 95 04/21/23 07:36 O2 Del Method High Flow Nasal C annula 04/21/23 07:36 O2 Flow Rate 40 04/21/23 07:36 FiO2 65 04/21/23 07:36 BMI result Body Mass Index 32.4 Const: General: comfortable, no acute distress and alert Orientation/consciousness: patient oriented x3 Resp: Effort & Inspection: able to speak in complete sentences and no respiratory distress GI: Other: incision clean ostomy pink, viable appearing, gas in appliance Inspection: Yes distended (mildly, abd protuberant at baseline ) Palpation (GI): Soft to palpation, Tenderness to palpation present (GI) (mild incisional), no guarding and not rigid Skin: General skin exam: no rashes or lesions noted Neuro: General: patient oriented x3 and moves all extremities Objective Data Active Medications Hydromorphone HCl (Hydromorphone Hcl 0.5 Mg/0.5 Ml Syringe) 0.5 mg IVPUSH Q3H PRN; Protocol PRN Reason: Pain, Severe (Pain Scale 7-10) Last Admin: 04/20/23 15:40 Dose: 0.5 mg Documented By: BRAD Piperacillin Sod/Tazobactam (Sod 3.375 gm/ Sodium Chloride) 100 mls @ 200 mls/hr IV Q6H [facility] Last Infusion: 04/21/23 05:16 Dose: Infused Documented By: BRAD Amiodarone HCl 900 mg/ Sodium (Chloride) 518 mls @ 34.533 mls/hr IVCONT .Q15H1M [facility]; Protocol Last Admin: 04/20/23 21:30 Dose: 0.5 mg/min, 17.27 mls/hr Documented By: RAGHUDEJori Acetaminophen (Ofirmev) 1,000 mg in 100 mls @ 400 mls/hr IV Q6H [facility] Last Infusion: 04/21/23 05:49 Dose: Infused Documented By: BRAD Potassium Cl/Dextrose/Lact Ringer's (Kcl 20 Meq In 5 % Dex/Lact Rin) 20 meq in 1,000 mls @ 80 mls/hr IVCONT .[id number] [facility] Last Infusion: 04/21/23 07:43 Dose: 80 mls/hr Documented By: BRAD Insulin Human Lispro (Insulin Lispro 100 Unit/Ml 3 Ml Vial) 0 unit SUBCUT Q6H [facility]; Protocol Last Admin: 04/21/23 06:42 Dose: Not Given Documented By: BRAD Non-Admin Reason: No Insulin Coverage Ondansetron HCl (Ondansetron Hcl 4 Mg/2 Ml Vial) 4 mg IVPUSH QID PRN PRN Reason: Nausea Pantoprazole Sodium (Pantoprazole Sodium 40 Mg/10 Ml Vial) 40 mg IVPUSH DAILY@0630 [facility] Last Admin: 04/21/23 07:41 Dose: 40 mg Documented By: BRAD Labs 04/21/23 07:09 04/21/23 07:09 Labs: Laboratory Results - last 24 hr 04/20/23 04/20/23 04/21/23 12:10 15:41 00:14 MCV MCH MCHC RDW Plt Count MPV Immature Gran % (Auto) Neut % (Auto) Lymph % (Auto) [place] % (Auto) Eos % (Auto) Baso % (Auto) Lymph # (Auto) [place] # (Auto) Eos # (Auto) Baso # (Auto) Abs Immat Gran (auto) Absolute Neuts (auto) Absolute Nucleated RBC Nucleated RBC % (auto) Anion Gap Estim Creat Clear Calc Estimated GFR POC Glucose 119 H 125 H 136 H Random Glucose Calcium Phosphorus Magnesium Total Bilirubin AST ALT Alkaline Phosphatase Total Protein Albumin 04/21/23 04/21/23 04/21/23 06:32 07:09 07:09 MCV 84.0 Cancelled MCH 28.3 MCHC RDW Plt Count MPV Immature Gran % (Auto) Neut % (Auto) Lymph % (Auto) [place] % (Auto) Eos % (Auto) Baso % (Auto) Lymph # (Auto) [place] # (Auto) Eos # (Auto) Baso # (Auto) Abs Immat Gran (auto) Absolute Neuts (auto) Absolute Nucleated RBC Nucleated RBC % (auto) Anion Gap Estim Creat Clear Calc Estimated GFR POC Glucose 110 Random Glucose Calcium Phosphorus Magnesium Total Bilirubin AST ALT Alkaline Phosphatase Total Protein Albumin 04/21/23 04/21/23 04/21/23 07:09 07:09 07:09 MCV MCH Cancelled MCHC 33.7 Cancelled RDW 19.1 H Cancelled Plt Count 295 MPV Immature Gran % (Auto) Neut % (Auto) Lymph % (Auto) [place] % (Auto) Eos % (Auto) Baso % (Auto) Lymph # (Auto) [place] # (Auto) Eos # (Auto) Baso # (Auto) Abs Immat Gran (auto) Absolute Neuts (auto) Absolute Nucleated RBC Nucleated RBC % (auto) Anion Gap Estim Creat Clear Calc Estimated GFR POC Glucose Random Glucose Calcium Phosphorus Magnesium Total Bilirubin AST ALT Alkaline Phosphatase Total Protein Albumin 04/21/23 04/21/23 04/21/23 07:09 07:09 07:09 MCV MCH MCHC RDW Plt Count Cancelled MPV 11.5 Cancelled Immature Gran % (Auto) Cancelled Cancelled Neut % (Auto) Cancelled Lymph % (Auto) [place] % (Auto) Eos % (Auto) Baso % (Auto) Lymph # (Auto) [place] # (Auto) Eos # (Auto) Baso # (Auto) Abs Immat Gran (auto) Absolute Neuts (auto) Absolute Nucleated RBC Nucleated RBC % (auto) Anion Gap Estim Creat Clear Calc Estimated GFR POC Glucose Random Glucose Calcium Phosphorus Magnesium Total Bilirubin AST ALT Alkaline Phosphatase Total Protein Albumin 04/21/23 04/21/23 04/21/23 07:09 07:09 07:09 MCV MCH MCHC RDW Plt Count MPV Immature Gran % (Auto) Neut % (Auto) Cancelled Lymph % (Auto) Cancelled Cancelled [place] % (Auto) Cancelled Cancelled Eos % (Auto) Cancelled Baso % (Auto) Lymph # (Auto) [place] # (Auto) Eos # (Auto) Baso # (Auto) Abs Immat Gran (auto) Absolute Neuts (auto) Absolute Nucleated RBC Nucleated RBC % (auto) Anion Gap Estim Creat Clear Calc Estimated GFR POC Glucose Random Glucose Calcium Phosphorus Magnesium Total Bilirubin AST ALT Alkaline Phosphatase Total Protein Albumin 04/21/23 04/21/23 04/21/23 07:09 07:09 07:09 MCV MCH MCHC RDW Plt Count MPV Immature Gran % (Auto) Neut % (Auto) Lymph % (Auto) [place] % (Auto) Eos % (Auto) Cancelled Baso % (Auto) Cancelled Cancelled Lymph # (Auto) Cancelled Cancelled [place] # (Auto) Cancelled Eos # (Auto) Baso # (Auto) Abs Immat Gran (auto) Absolute Neuts (auto) Absolute Nucleated RBC Nucleated RBC % (auto) Anion Gap Estim Creat Clear Calc Estimated GFR POC Glucose Random Glucose Calcium Phosphorus Magnesium Total Bilirubin AST ALT Alkaline Phosphatase Total Protein Albumin 04/21/23 04/21/23 04/21/23 07:09 07:09 07:09 MCV MCH MCHC RDW Plt Count MPV Immature Gran % (Auto) Neut % (Auto) Lymph % (Auto) [place] % (Auto) Eos % (Auto) Baso % (Auto) Lymph # (Auto) [place] # (Auto) Cancelled Eos # (Auto) Cancelled Cancelled Baso # (Auto) Cancelled Cancelled Abs Immat Gran (auto) Cancelled Absolute Neuts (auto) Absolute Nucleated RBC Nucleated RBC % (auto) Anion Gap Estim Creat Clear Calc Estimated GFR POC Glucose Random Glucose Calcium Phosphorus Magnesium Total Bilirubin AST ALT Alkaline Phosphatase Total Protein Albumin 04/21/23 04/21/23 04/21/23 07:09 07:09 07:09 MCV MCH MCHC RDW Plt Count MPV Immature Gran % (Auto) Neut % (Auto) Lymph % (Auto) [place] % (Auto) Eos % (Auto) Baso % (Auto) Lymph # (Auto) [place] # (Auto) Eos # (Auto) Baso # (Auto) Abs Immat Gran (auto) Cancelled Absolute Neuts (auto) Cancelled Cancelled Absolute Nucleated RBC 0.000 Cancelled Nucleated RBC % (auto) 0.0 Anion Gap Estim Creat Clear Calc Estimated GFR POC Glucose Random Glucose Calcium Phosphorus Magnesium Total Bilirubin AST ALT Alkaline Phosphatase Total Protein Albumin 04/21/23 07:09 MCV MCH MCHC RDW Plt Count MPV Immature Gran % (Auto) Neut % (Auto) Lymph % (Auto) [place] % (Auto) Eos % (Auto) Baso % (Auto) Lymph # (Auto) [place] # (Auto) Eos # (Auto) Baso # (Auto) Abs Immat Gran (auto) Absolute Neuts (auto) Absolute Nucleated RBC Nucleated RBC % (auto) Cancelled Anion Gap 15 Estim Creat Clear Calc 81.8 Estimated GFR > 60 POC Glucose Random Glucose 122 H Calcium 8.5 Phosphorus 2.0 L Magnesium 2.7 H Total Bilirubin 2.5 H AST 35 ALT 18 Alkaline Phosphatase 57 Total Protein 6.8 Albumin 3.7 Microbiology Microbiology Results: Microbiology 04/18/23 Unknown Gram Stain - Final Peritoneal Fluid Routine Culture - Final Proteus mirabilis Anaerobic Culture - Preliminary Culture in progress. 04/18/23 12:36 Blood Culture - Final Blood - Venous Proteus mirabilis 04/18/23 12:44 Blood Culture - Preliminary Blood - Venous No growth after 48 hours. Procedures Date of Service Date of Service: 04/21/23 Progress Note: A&P Assessment and plan (1) Afib: Status: Acute (2) Gram-negative bacteremia: Status: Acute (3) Acute respiratory failure with hypoxia: Status: Acute (4) Acute kidney injury: Status: Acute (5) Perforation of sigmoid colon due to diverticulitis: Status: Acute Plan POD #3 following exploratory laparotomy, John procedure with drainage of abscess. Patient continues to improve overall from surgical and medical standpoint. Abd benign, incision is clean. Ostomy with flatus but no stool output. Dc NGT, begin clears. Cont IV abx. PT consult, OOB/ambulation and IS use encouraged. Hospitalists following for management of medical comorbidities. Time Spent With Patient Time: Total time managing care of this patient today ____ minutes. Quality Stroke Does the patient have a stroke diagnosis?: No VTE Prior VTE?: No VTE Risk Level:: Surgical - moderate VTE Device Contraindication: N/A - Device Ordered VTE Drug Contraindication: Treatment Not Indicated
[2023-04-21 08:21] LABS: Atypical Lymph Absolute Manual 0.3 x10*3/uL; Atypical Lymphs Percent Manual 2 % (0-6); Band Neutrophils Percent 5 % (3-5); Eosinophils Absolute Manual 0.3 X10*3/uL (0.0-0.4); Eosinophils Percent Manual 2 % (0-4); Lymphocytes Absolute Manual 1.2 X10*3/uL (1.2-4.9); Lymphocytes Percent Manual 8 % (20-40); Metamyelocytes Absolute 0.1 X10*3/uL; Metamyelocytes Percent 1 %; Monocytes Absolute Manual 0.1 X10*3/uL (0.1-1.2); Monocytes Percent Manual 1 % (2-11); Myelocytes Absolute 0.1 X10*/uL; Myelocytes Percent 1 %; Neutrophils Absolute Manual 12.3 X10*3/uL (2.0-8.3); Neutrophils Percent Manual 79 % (45-73); Promyelocytes Absolute 0.1 X10*3/uL; Promyelocytes Percent 1 %
[2023-04-21 08:24] LABS: Hypochromasia 1+ (5-14) /OIF; Platelet Estimate NORMAL (NORMAL); Platelet Morphology Comment NORMAL; RBC Morphology NOTED; Target Cells 1+ (5-14) /OIF
--- NOTE | 2023-04-21 08:52 | PC.NURSE ---
Per order, NG tube discontinued at 0850. Patient tolerated procedure well
[2023-04-21 09:57] LABS: VBG Base Excess 2.4 mmol/L; VBG HCO3 25 mmol/L (22-26); VBG pCO2 34 mmHg; VBG pH 7.47 (7.32-7.43); VBG pO2 88 mmHg
[2023-04-21] MEDS: HYDROmorphone HCl 0.5 MG/0.5 ML SYRINGE IVPUSH ×2 (09:58→20:31)
[2023-04-21 10:20] LABS: Venous Blood Gas Refer to POC result
--- NOTE | 2023-04-21 10:38 | PM.CNCAR ---
History of Present Illness History of Present Illness Date of Service: 04/21/23 Chief complaint: Chest pain Narrative: This is a cardiology consultation regarding atrial flutter. Per notes, it seems that patient has history of diabetes and polycythemia. It was admitted for perforated sigmoid diverticulitis. It seems that he underwent sigmoid colectomy, end colostomy. That was complicated by Gram-negative bacteremia. He also had renal failure as well as hypoxic respiratory failure. Then it seems he developed atrial flutter with rapid rate. He was put on amiodarone in ICU. Subsequently, converted back to sinus rhythm. Then transferred back to the floor. Currently, we are asked to see him. Patient denies any prior history of cardiac issues although he is somewhat vague in his description. Currently, not having any clear-cut chest pains or in fact any cardiac symptoms. Review of Systems Review of Systems: Yes all other systems are reviewed and are negative Constitutional: Constitutional: Reports as per HPI and Reports no additional constitutional complaints Eyes: Eyes: Reports as per HPI and Denies no additional eye complaints ENT: Denies system reviewed and no additional complaints, except as documented and Reports as per HPI Cardiovascular: Cardiovascular: Reports as per HPI, Reports no additional cardiovascular complaints, Denies acrocyanosis, Denies cool extremities, Denies chest pain, Denies leg edema, Denies lightheadedness, Denies palpitations and Denies dyspnea Respiratory: Respiratory: Reports as per HPI, Denies no additional respiratory complaints and Denies dyspnea Gastrointestinal: Gastrointestinal: Reports as per HPI and Denies no additional gastrointestinal complaints Genitourinary: Genitourinary: Reports no additional male genitourinary complaints and Reports as per HPI Musculoskeletal: Musculoskeletal: Reports no additional musculoskeletal complaints and Reports as per HPI Integumentary/Breasts: Skin/Breast: Reports system reviewed and no additional complaints, except as docu Neurologic: Reports system reviewed and no additional complaints, except as documented and Reports as per HPI Psychiatric: Psychiatric: Reports no additional psychiatric complaints and Reports as per HPI Endocrine: Endocrine: Reports no additional endocrine complaints, Reports as per HPI and Denies palpitations Hematologic/Lymphatic: Hematologic/Lymphatic: Reports no additional hematologic/lymphatic complaints and Reports as per HPI Allergic/Immunologic: Allergic/Immunologic: Reports no additional allergic/immunologic complaints and Reports as per HPI [facility] Past Medical History Medical History Diabetes mellitus Internal derangement of right knee Hx of polycythemia vera Family History Family History Father History of head and neck cancer Mother Hx of cancer antigen 125 (CA-125) measurement Surgical History Surgical History No pertinent past surgical history Social History Social History Household Members: Family Housing: House Are you a primary managed care liaison to a significant other at home: Yes Do you presently have visiting nurse or other home services: No Unable to assess alcohol history related to: Unable to respond Alcohol intake: never Patient Tobacco Use Status: Never used Tobacco service: No Current occupational status: unemployed Meds Allergies Allergy/AdvReac Type Severity Reaction Status Date / Time No Known Allergies Allergy Verified 04/18/23 13:40 Active Medications: Current Medications Hydromorphone HCl (Hydromorphone Hcl 0.5 Mg/0.5 Ml Syringe) 0.5 mg IVPUSH Q3H PRN; Protocol PRN Reason: Pain, Severe (Pain Scale 7-10) Last Admin: 04/21/23 09:58 Dose: 0.5 mg Piperacillin Sod/Tazobactam (Sod 3.375 gm/ Sodium Chloride) 100 mls @ 200 mls/hr IV Q6H SARITA Last Infusion: 04/21/23 05:16 Dose: Infused Amiodarone HCl 900 mg/ Sodium (Chloride) 518 mls @ 34.533 mls/hr IVCONT .Q15H1M SARITA; Protocol Last Infusion: 04/21/23 09:13 Dose: 0 mg/min, 0 mls/hr Acetaminophen (Ofirmev) 1,000 mg in 100 mls @ 400 mls/hr IV Q6H SARITA Last Infusion: 04/21/23 05:49 Dose: Infused Potassium Chloride/Dextrose (Kcl 20 Meq In 5 % Dextrose) 20 meq in 1,000 mls @ 100 mls/hr IVCONT .Q10H SARITA Insulin Human Lispro (Insulin Lispro 100 Unit/Ml 3 Ml Vial) 0 unit SUBCUT Q6H SARITA; Protocol Last Admin: 04/21/23 06:42 Dose: Not Given Ondansetron HCl (Ondansetron Hcl 4 Mg/2 Ml Vial) 4 mg IVPUSH QID PRN PRN Reason: Nausea Pantoprazole Sodium (Pantoprazole Sodium 40 Mg/10 Ml Vial) 40 mg IVPUSH DAILY@0630 [facility] Last Admin: 04/21/23 07:41 Dose: 40 mg Home Medications Medication Instructions Recorded Confirmed Last Taken Type allopurinol 300 mg tablet 1 tab PO DAILY 05/14/20 04/18/23 Unknown History ibuprofen 200 mg tablet 200 mg PO Q6H PRN Pain 05/14/20 04/18/23 Unknown History atorvastatin 10 mg tablet 10 mg PO BEDTIME 01/19/23 04/18/23 Unknown History doxepin 50 mg capsule 50 mg PO BEDTIME 01/19/23 04/18/23 Unknown History metformin 1,000 mg tablet 1,000 mg PO BID 01/19/23 04/18/23 Unknown History metoprolol succinate 50 mg 50 mg PO DAILY 01/19/23 04/18/23 Unknown History tablet,extended release 24 hr omeprazole 20 mg capsule,delayed 20 mg PO DAILY 01/19/23 04/18/23 Unknown History release lisinopril 20 1 tab PO DAILY 04/18/23 04/18/23 Unknown History mg-hydrochlorothiazide 12.5 mg tablet Physical Exam Vital Signs: Vital Signs: Last Vital Signs Temp 97.1 F 04/21/23 07:36 Pulse 79 04/21/23 09:57 Resp 18 04/21/23 07:59 BP 141/82 H 04/21/23 09:57 Pulse Ox 95 04/21/23 09:57 O2 Del Method High Flow Nasal C annula 04/21/23 07:36 O2 Flow Rate 40 04/21/23 07:36 FiO2 65 04/21/23 07:36 BMI result Body Mass Index 32.4 Const: General: comfortable and no acute distress Orientation/consciousness: patient oriented x3 HEENT: Other: Unremarkable Head: Yes normal to inspection Neck: Neck: Yes normal visual inspection Chest: Chest palpation & inspection: normal inspection of the chest Resp: Auscultation: clear to auscultation bilaterally Cardio: Palpation: normal PMI Heart sounds: S1 normal heart sound present, S2 normal heart sound present, no gallops, no murmurs and no rubs GI: Palpation (GI): Soft to palpation Back/Spine/Pelvis: Other: unremarkable Skin: General skin exam: no rashes or lesions noted Neuro: General: patient oriented x3 Extrem: General: Yes normal to inspection Psych: Mental Status: mental status grossly normal Objective Labs and Meds 04/21/23 07:09 04/21/23 07:09 Lab results: Laboratory Results - last 24 hr 04/20/23 04/20/23 04/21/23 12:10 15:41 00:14 WBC RBC Hgb Hct MCV MCH MCHC RDW Plt Count MPV Immature Gran % (Auto) Neut % (Auto) Lymph % (Auto) Mcpherson % (Auto) Eos % (Auto) Baso % (Auto) Lymph # (Auto) Mcpherson # (Auto) Eos # (Auto) Baso # (Auto) Abs Immat Gran (auto) Absolute Neuts (auto) Absolute Nucleated RBC Nucleated RBC % (auto) Neutrophils % (Manual) Band Neutrophils % Lymphocytes % (Manual) Atypical Lymphs % (Man) Monocytes % (Manual) Eosinophils % (Manual) Metamyelocytes % Myelocytes % Promyelocytes % Abs Neuts (Manual) Lymphocytes # (Manual) Atyp Lymphs # (Manual) Monocytes # (Manual) Eosinophils # (Manual) Metamyelocytes # Myelocytes # Promyelocytes # Platelet Estimate Plt Morphology Comment RBC Morphology Hypochromasia Target Cells VBG pH VBG pCO2 VBG pO2 VBG HCO3 VBG O2 Saturation VBG Base Excess Sodium Potassium Chloride Carbon Dioxide Anion Gap BUN Creatinine Estim Creat Clear Calc Estimated GFR POC Glucose 119 H 125 H 136 H Random Glucose Calcium Phosphorus Magnesium Total Bilirubin AST ALT Alkaline Phosphatase Total Protein Albumin 04/21/23 04/21/23 04/21/23 06:32 07:09 07:09 WBC 14.6 H Cancelled RBC 3.75 L Hgb Hct MCV MCH MCHC RDW Plt Count MPV Immature Gran % (Auto) Neut % (Auto) Lymph % (Auto) Mcpherson % (Auto) Eos % (Auto) Baso % (Auto) Lymph # (Auto) Mcpherson # (Auto) Eos # (Auto) Baso # (Auto) Abs Immat Gran (auto) Absolute Neuts (auto) Absolute Nucleated RBC Nucleated RBC % (auto) Neutrophils % (Manual) Band Neutrophils % Lymphocytes % (Manual) Atypical Lymphs % (Man) Monocytes % (Manual) Eosinophils % (Manual) Metamyelocytes % Myelocytes % Promyelocytes % Abs Neuts (Manual) Lymphocytes # (Manual) Atyp Lymphs # (Manual) Monocytes # (Manual) Eosinophils # (Manual) Metamyelocytes # Myelocytes # Promyelocytes # Platelet Estimate Plt Morphology Comment RBC Morphology Hypochromasia Target Cells VBG pH VBG pCO2 VBG pO2 VBG HCO3 VBG O2 Saturation VBG Base Excess Sodium Potassium Chloride Carbon Dioxide Anion Gap BUN Creatinine Estim Creat Clear Calc Estimated GFR POC Glucose 110 Random Glucose Calcium Phosphorus Magnesium Total Bilirubin AST ALT Alkaline Phosphatase Total Protein Albumin 04/21/23 04/21/23 04/21/23 07:09 07:09 07:09 WBC RBC Cancelled Hgb 10.6 L Cancelled Hct 31.5 L Cancelled MCV 84.0 MCH MCHC RDW Plt Count MPV Immature Gran % (Auto) Neut % (Auto) Lymph % (Auto) Mcpherson % (Auto) Eos % (Auto) Baso % (Auto) Lymph # (Auto) Mcpherson # (Auto) Eos # (Auto) Baso # (Auto) Abs Immat Gran (auto) Absolute Neuts (auto) Absolute Nucleated RBC Nucleated RBC % (auto) Neutrophils % (Manual) Band Neutrophils % Lymphocytes % (Manual) Atypical Lymphs % (Man) Monocytes % (Manual) Eosinophils % (Manual) Metamyelocytes % Myelocytes % Promyelocytes % Abs Neuts (Manual) Lymphocytes # (Manual) Atyp Lymphs # (Manual) Monocytes # (Manual) Eosinophils # (Manual) Metamyelocytes # Myelocytes # Promyelocytes # Platelet Estimate Plt Morphology Comment RBC Morphology Hypochromasia Target Cells VBG pH VBG pCO2 VBG pO2 VBG HCO3 VBG O2 Saturation VBG Base Excess Sodium Potassium Chloride Carbon Dioxide Anion Gap BUN Creatinine Estim Creat Clear Calc Estimated GFR POC Glucose Random Glucose Calcium Phosphorus Magnesium Total Bilirubin AST ALT Alkaline Phosphatase Total Protein Albumin 04/21/23 04/21/23 04/21/23 07:09 07:09 07:09 WBC RBC Hgb Hct MCV Cancelled MCH 28.3 Cancelled MCHC 33.7 Cancelled RDW 19.1 H Plt Count MPV Immature Gran % (Auto) Neut % (Auto) Lymph % (Auto) Mcpherson % (Auto) Eos % (Auto) Baso % (Auto) Lymph # (Auto) Mcpherson # (Auto) Eos # (Auto) Baso # (Auto) Abs Immat Gran (auto) Absolute Neuts (auto) Absolute Nucleated RBC Nucleated RBC % (auto) Neutrophils % (Manual) Band Neutrophils % Lymphocytes % (Manual) Atypical Lymphs % (Man) Monocytes % (Manual) Eosinophils % (Manual) Metamyelocytes % Myelocytes % Promyelocytes % Abs Neuts (Manual) Lymphocytes # (Manual) Atyp Lymphs # (Manual) Monocytes # (Manual) Eosinophils # (Manual) Metamyelocytes # Myelocytes # Promyelocytes # Platelet Estimate Plt Morphology Comment RBC Morphology Hypochromasia Target Cells VBG pH VBG pCO2 VBG pO2 VBG HCO3 VBG O2 Saturation VBG Base Excess Sodium Potassium Chloride Carbon Dioxide Anion Gap BUN Creatinine Estim Creat Clear Calc Estimated GFR POC Glucose Random Glucose Calcium Phosphorus Magnesium Total Bilirubin AST ALT Alkaline Phosphatase Total Protein Albumin 04/21/23 04/21/23 04/21/23 07:09 07:09 07:09 WBC RBC Hgb Hct MCV MCH MCHC RDW Cancelled Plt Count 295 Cancelled MPV 11.5 Cancelled Immature Gran % (Auto) Cancelled Neut % (Auto) Lymph % (Auto) Mcpherson % (Auto) Eos % (Auto) Baso % (Auto) Lymph # (Auto) Mcpherson # (Auto) Eos # (Auto) Baso # (Auto) Abs Immat Gran (auto) Absolute Neuts (auto) Absolute Nucleated RBC Nucleated RBC % (auto) Neutrophils % (Manual) Band Neutrophils % Lymphocytes % (Manual) Atypical Lymphs % (Man) Monocytes % (Manual) Eosinophils % (Manual) Metamyelocytes % Myelocytes % Promyelocytes % Abs Neuts (Manual) Lymphocytes # (Manual) Atyp Lymphs # (Manual) Monocytes # (Manual) Eosinophils # (Manual) Metamyelocytes # Myelocytes # Promyelocytes # Platelet Estimate Plt Morphology Comment RBC Morphology Hypochromasia Target Cells VBG pH VBG pCO2 VBG pO2 VBG HCO3 VBG O2 Saturation VBG Base Excess Sodium Potassium Chloride Carbon Dioxide Anion Gap BUN Creatinine Estim Creat Clear Calc Estimated GFR POC Glucose Random Glucose Calcium Phosphorus Magnesium Total Bilirubin AST ALT Alkaline Phosphatase Total Protein Albumin 04/21/23 04/21/23 04/21/23 07:09 07:09 07:09 WBC RBC Hgb Hct MCV MCH MCHC RDW Plt Count MPV Immature Gran % (Auto) Cancelled Neut % (Auto) Cancelled Cancelled Lymph % (Auto) Cancelled Cancelled Mcpherson % (Auto) Cancelled Eos % (Auto) Baso % (Auto) Lymph # (Auto) Mcpherson # (Auto) Eos # (Auto) Baso # (Auto) Abs Immat Gran (auto) Absolute Neuts (auto) Absolute Nucleated RBC Nucleated RBC % (auto) Neutrophils % (Manual) Band Neutrophils % Lymphocytes % (Manual) Atypical Lymphs % (Man) Monocytes % (Manual) Eosinophils % (Manual) Metamyelocytes % Myelocytes % Promyelocytes % Abs Neuts (Manual) Lymphocytes # (Manual) Atyp Lymphs # (Manual) Monocytes # (Manual) Eosinophils # (Manual) Metamyelocytes # Myelocytes # Promyelocytes # Platelet Estimate Plt Morphology Comment RBC Morphology Hypochromasia Target Cells VBG pH VBG pCO2 VBG pO2 VBG HCO3 VBG O2 Saturation VBG Base Excess Sodium Potassium Chloride Carbon Dioxide Anion Gap BUN Creatinine Estim Creat Clear Calc Estimated GFR POC Glucose Random Glucose Calcium Phosphorus Magnesium Total Bilirubin AST ALT Alkaline Phosphatase Total Protein Albumin 04/21/23 04/21/23 04/21/23 07:09 07:09 07:09 WBC RBC Hgb Hct MCV MCH MCHC RDW Plt Count MPV Immature Gran % (Auto) Neut % (Auto) Lymph % (Auto) Mcpherson % (Auto) Cancelled Eos % (Auto) Cancelled Cancelled Baso % (Auto) Cancelled Cancelled Lymph # (Auto) Cancelled Mcpherson # (Auto) Eos # (Auto) Baso # (Auto) Abs Immat Gran (auto) Absolute Neuts (auto) Absolute Nucleated RBC Nucleated RBC % (auto) Neutrophils % (Manual) Band Neutrophils % Lymphocytes % (Manual) Atypical Lymphs % (Man) Monocytes % (Manual) Eosinophils % (Manual) Metamyelocytes % Myelocytes % Promyelocytes % Abs Neuts (Manual) Lymphocytes # (Manual) Atyp Lymphs # (Manual) Monocytes # (Manual) Eosinophils # (Manual) Metamyelocytes # Myelocytes # Promyelocytes # Platelet Estimate Plt Morphology Comment RBC Morphology Hypochromasia Target Cells VBG pH VBG pCO2 VBG pO2 VBG HCO3 VBG O2 Saturation VBG Base Excess Sodium Potassium Chloride Carbon Dioxide Anion Gap BUN Creatinine Estim Creat Clear Calc Estimated GFR POC Glucose Random Glucose Calcium Phosphorus Magnesium Total Bilirubin AST ALT Alkaline Phosphatase Total Protein Albumin 04/21/23 04/21/23 04/21/23 07:09 07:09 07:09 WBC RBC Hgb Hct MCV MCH MCHC RDW Plt Count MPV Immature Gran % (Auto) Neut % (Auto) Lymph % (Auto) Mcpherson % (Auto) Eos % (Auto) Baso % (Auto) Lymph # (Auto) Cancelled Mcpherson # (Auto) Cancelled Cancelled Eos # (Auto) Cancelled Cancelled Baso # (Auto) Cancelled Abs Immat Gran (auto) Absolute Neuts (auto) Absolute Nucleated RBC Nucleated RBC % (auto) Neutrophils % (Manual) Band Neutrophils % Lymphocytes % (Manual) Atypical Lymphs % (Man) Monocytes % (Manual) Eosinophils % (Manual) Metamyelocytes % Myelocytes % Promyelocytes % Abs Neuts (Manual) Lymphocytes # (Manual) Atyp Lymphs # (Manual) Monocytes # (Manual) Eosinophils # (Manual) Metamyelocytes # Myelocytes # Promyelocytes # Platelet Estimate Plt Morphology Comment RBC Morphology Hypochromasia Target Cells VBG pH VBG pCO2 VBG pO2 VBG HCO3 VBG O2 Saturation VBG Base Excess Sodium Potassium Chloride Carbon Dioxide Anion Gap BUN Creatinine Estim Creat Clear Calc Estimated GFR POC Glucose Random Glucose Calcium Phosphorus Magnesium Total Bilirubin AST ALT Alkaline Phosphatase Total Protein Albumin 04/21/23 04/21/23 04/21/23 07:09 07:09 07:09 WBC RBC Hgb Hct MCV MCH MCHC RDW Plt Count MPV Immature Gran % (Auto) Neut % (Auto) Lymph % (Auto) Mcpherson % (Auto) Eos % (Auto) Baso % (Auto) Lymph # (Auto) Mcpherson # (Auto) Eos # (Auto) Baso # (Auto) Cancelled Abs Immat Gran (auto) Cancelled Cancelled Absolute Neuts (auto) Cancelled Cancelled Absolute Nucleated RBC 0.000 Nucleated RBC % (auto) Neutrophils % (Manual) Band Neutrophils % Lymphocytes % (Manual) Atypical Lymphs % (Man) Monocytes % (Manual) Eosinophils % (Manual) Metamyelocytes % Myelocytes % Promyelocytes % Abs Neuts (Manual) Lymphocytes # (Manual) Atyp Lymphs # (Manual) Monocytes # (Manual) Eosinophils # (Manual) Metamyelocytes # Myelocytes # Promyelocytes # Platelet Estimate Plt Morphology Comment RBC Morphology Hypochromasia Target Cells VBG pH VBG pCO2 VBG pO2 VBG HCO3 VBG O2 Saturation VBG Base Excess Sodium Potassium Chloride Carbon Dioxide Anion Gap BUN Creatinine Estim Creat Clear Calc Estimated GFR POC Glucose Random Glucose Calcium Phosphorus Magnesium Total Bilirubin AST ALT Alkaline Phosphatase Total Protein Albumin 04/21/23 04/21/23 04/21/23 07:09 07:09 09:51 WBC RBC Hgb Hct MCV MCH MCHC RDW Plt Count MPV Immature Gran % (Auto) Neut % (Auto) Lymph % (Auto) Mcpherson % (Auto) Eos % (Auto) Baso % (Auto) Lymph # (Auto) Mcpherson # (Auto) Eos # (Auto) Baso # (Auto) Abs Immat Gran (auto) Absolute Neuts (auto) Absolute Nucleated RBC Cancelled Nucleated RBC % (auto) 0.0 Cancelled Neutrophils % (Manual) 79 H Band Neutrophils % 5 Lymphocytes % (Manual) 8 L Atypical Lymphs % (Man) 2 Monocytes % (Manual) 1 L Eosinophils % (Manual) 2 Metamyelocytes % 1 Myelocytes % 1 Promyelocytes % 1 Abs Neuts (Manual) 12.3 H Lymphocytes # (Manual) 1.2 Atyp Lymphs # (Manual) 0.3 Monocytes # (Manual) 0.1 Eosinophils # (Manual) 0.3 Metamyelocytes # 0.1 Myelocytes # 0.1 Promyelocytes # 0.1 Platelet Estimate NORMAL Plt Morphology Comment NORMAL RBC Morphology NOTED Hypochromasia 1+ (5-14) Target Cells 1+ (5-14) VBG pH 7.47 H VBG pCO2 34 VBG pO2 88 VBG HCO3 25 VBG O2 Saturation 97.0 VBG Base Excess 2.4 Sodium 151 H Potassium 3.4 Chloride 114 H Carbon Dioxide 25 Anion Gap 15 BUN 28 H Creatinine 0.99 Estim Creat Clear Calc 81.8 Estimated GFR > 60 POC Glucose Random Glucose 122 H Calcium 8.5 Phosphorus 2.0 L Magnesium 2.7 H Total Bilirubin 2.5 H AST 35 ALT 18 Alkaline Phosphatase 57 Total Protein 6.8 Albumin 3.7 ECG Interpretation: In the EKG from 19 of April, part of the EKGs sinus rhythm and elsewhere it is either frequent PACs plus/minus atrial flutter/fibrillation. On telemetry, there is clear evidence of atrial flutter with rapid rate. Total duration is about 9 hours. Assessment and Plan (1) Atrial flutter with rapid ventricular response: Status: Acute (2) Gram-negative bacteremia: Status: Acute (3) Septic shock: Status: Acute Plan Troponin level was within normal limits. Total duration of atrial flutter was around 9 hours. However, he was quite ill in the ICU at that time. He is currently on amiodarone drip and we can stop that. Use amiodarone 400 mg b.i.d. for a short time. Actual duration to be decided, possibly 3-4 weeks. Resume his home dose of beta-blockers. No absolute any anticoagulation at this time. Obtain echocardiogram. Check TSH. Will follow-up with you. Discussed with Dr. Paredes. Procedures Date of Service Date of Service: 04/21/23
[2023-04-21] MEDS: KCl 20 mEq in 5 % Dextrose 20 MEQ/1,000 ML IV.SOLN 100 MEQ IVCONT ×2 (11:29→20:28)
[2023-04-21 11:51] LABS: Glucose, Whole Blood 173 mg/dL (60-115)
[2023-04-21] MEDS: Metoprolol Succinate ER 50 MG TAB.ER.24H PO (13:10)
[2023-04-21] MEDS: Insulin Lispro 100 UNIT/ML 3 ML VIAL SUBCUT (13:13)
--- NOTE | 2023-04-21 15:11 | MHC.CM.PN ---
EMR REVIEWED, PT ICU STEPDOWN S/P ARGUETA PROCEDURE, P.T. RECOMMENDING STR, CM TO MEET W/PT TO DISCUSS PREFERENCES, NO PLAN FOR DC AT THIS TIME, CM WILL CONT TO FOLLOW DC NEEDS.
[2023-04-21 16:25] LABS: Glucose, Whole Blood 149 mg/dL (60-115)
--- NOTE | 2023-04-21 16:52 | P.PNIM_ITS ---
Subjective Subjective Date of Service: 04/21/23 Interval History: Complaining of abdominal pain, shortness on breath with transfers, NG tube removed this morning passing flatus via ostomy, denies fever, no chills, on high-flow oxygen. Review of Systems All other system reviewed and negative Physical Exam 2 Vital Signs: Vital Signs: Last Vital Signs Temp 98.1 F 04/21/23 15:27 Pulse 77 04/21/23 15:27 Resp 18 04/21/23 15:51 BP 140/86 H 04/21/23 15:27 Pulse Ox 94 04/21/23 15:27 O2 Del Method High Flow Nasal C annula 04/21/23 15:27 O2 Flow Rate 40 04/21/23 15:27 FiO2 51.5 04/21/23 15:27 BMI result Body Mass Index 32.4 Const: Other: General awake alert x3, in mild distress due to pain and shortness of breath Neck supple no JVD. CVS regular rate rhythm, Respiratory lungs clear to auscultation, no respiratory distress, no wheeze, no rhonchi. Gastrointestinal abdomen mildly distended, bowel sounds audible, ostomy pink, gas and appliance ,no guarding , no rigidity. Extremities no edema. Neuro nonfocal Skin no rash Psych appropriate affect Objective Data Active Medications Amiodarone HCl (Amiodarone Hcl 200 Mg Tablet) 400 mg PO BID [facility] Hydromorphone HCl (Hydromorphone Hcl 0.5 Mg/0.5 Ml Syringe) 0.5 mg IVPUSH Q3H PRN; Protocol PRN Reason: Pain, Severe (Pain Scale 7-10) Last Admin: 04/21/23 09:58 Dose: 0.5 mg Documented By: BRAD Piperacillin Sod/Tazobactam (Sod 3.375 gm/ Sodium Chloride) 100 mls @ 200 mls/hr IV Q6H [facility] Last Infusion: 04/21/23 16:18 Dose: Infused Documented By: SANCHEZ Acetaminophen (Ofirmev) 1,000 mg in 100 mls @ 400 mls/hr IV Q6H [facility] Last Admin: 04/21/23 16:44 Dose: Not Given Documented By: SANCHEZ Non-Admin Reason: Patient Refused Potassium Chloride/Dextrose (Kcl 20 Meq In 5 % Dextrose) 20 meq in 1,000 mls @ 100 mls/hr IVCONT .Q10H [facility] Last Admin: 04/21/23 11:29 Dose: 100 mls/hr Documented By: BRAD Insulin Human Lispro (Insulin Lispro 100 Unit/Ml 3 Ml Vial) 0 unit SUBCUT Q6H [facility]; Protocol Last Admin: 04/21/23 16:43 Dose: Not Given Documented By: SANCHEZ Non-Admin Reason: No Insulin Coverage Metoprolol Succinate (Metoprolol Succinate Er 50 Mg Tab.Er.24h) 50 mg PO DAILY [facility]; Protocol Last Admin: 04/21/23 13:10 Dose: 50 mg Documented By: BRAD Ondansetron HCl (Ondansetron Hcl 4 Mg/2 Ml Vial) 4 mg IVPUSH QID PRN PRN Reason: Nausea Pantoprazole Sodium (Pantoprazole Sodium 40 Mg/10 Ml Vial) 40 mg IVPUSH DAILY@0630 [facility] Last Admin: 04/21/23 07:41 Dose: 40 mg Documented By: BRAD Labs 04/21/23 07:09 04/21/23 07:09 Labs: Laboratory Results - last 24 hr 04/21/23 04/21/23 04/21/23 00:14 06:32 07:09 MCV 84.0 MCH MCHC RDW Plt Count MPV Immature Gran % (Auto) Neut % (Auto) Lymph % (Auto) [place] % (Auto) Eos % (Auto) Baso % (Auto) Lymph # (Auto) [place] # (Auto) Eos # (Auto) Baso # (Auto) Abs Immat Gran (auto) Absolute Neuts (auto) Absolute Nucleated RBC Nucleated RBC % (auto) Neutrophils % (Manual) Band Neutrophils % Lymphocytes % (Manual) Atypical Lymphs % (Man) Monocytes % (Manual) Eosinophils % (Manual) Metamyelocytes % Myelocytes % Promyelocytes % Abs Neuts (Manual) Lymphocytes # (Manual) Atyp Lymphs # (Manual) Monocytes # (Manual) Eosinophils # (Manual) Metamyelocytes # Myelocytes # Promyelocytes # Platelet Estimate Plt Morphology Comment RBC Morphology Hypochromasia Target Cells VBG pH VBG pCO2 VBG pO2 VBG HCO3 VBG O2 Saturation VBG Base Excess Anion Gap Estim Creat Clear Calc Estimated GFR POC Glucose 136 H 110 Random Glucose Calcium Phosphorus Magnesium Total Bilirubin AST ALT Alkaline Phosphatase Total Protein Albumin 04/21/23 04/21/23 04/21/23 07:09 07:09 07:09 MCV Cancelled MCH 28.3 Cancelled MCHC 33.7 Cancelled RDW 19.1 H Plt Count MPV Immature Gran % (Auto) Neut % (Auto) Lymph % (Auto) [place] % (Auto) Eos % (Auto) Baso % (Auto) Lymph # (Auto) [place] # (Auto) Eos # (Auto) Baso # (Auto) Abs Immat Gran (auto) Absolute Neuts (auto) Absolute Nucleated RBC Nucleated RBC % (auto) Neutrophils % (Manual) Band Neutrophils % Lymphocytes % (Manual) Atypical Lymphs % (Man) Monocytes % (Manual) Eosinophils % (Manual) Metamyelocytes % Myelocytes % Promyelocytes % Abs Neuts (Manual) Lymphocytes # (Manual) Atyp Lymphs # (Manual) Monocytes # (Manual) Eosinophils # (Manual) Metamyelocytes # Myelocytes # Promyelocytes # Platelet Estimate Plt Morphology Comment RBC Morphology Hypochromasia Target Cells VBG pH VBG pCO2 VBG pO2 VBG HCO3 VBG O2 Saturation VBG Base Excess Anion Gap Estim Creat Clear Calc Estimated GFR POC Glucose Random Glucose Calcium Phosphorus Magnesium Total Bilirubin AST ALT Alkaline Phosphatase Total Protein Albumin 04/21/23 04/21/23 04/21/23 07:09 07:09 07:09 MCV MCH MCHC RDW Cancelled Plt Count 295 Cancelled MPV 11.5 Cancelled Immature Gran % (Auto) Cancelled Neut % (Auto) Lymph % (Auto) [place] % (Auto) Eos % (Auto) Baso % (Auto) Lymph # (Auto) [place] # (Auto) Eos # (Auto) Baso # (Auto) Abs Immat Gran (auto) Absolute Neuts (auto) Absolute Nucleated RBC Nucleated RBC % (auto) Neutrophils % (Manual) Band Neutrophils % Lymphocytes % (Manual) Atypical Lymphs % (Man) Monocytes % (Manual) Eosinophils % (Manual) Metamyelocytes % Myelocytes % Promyelocytes % Abs Neuts (Manual) Lymphocytes # (Manual) Atyp Lymphs # (Manual) Monocytes # (Manual) Eosinophils # (Manual) Metamyelocytes # Myelocytes # Promyelocytes # Platelet Estimate Plt Morphology Comment RBC Morphology Hypochromasia Target Cells VBG pH VBG pCO2 VBG pO2 VBG HCO3 VBG O2 Saturation VBG Base Excess Anion Gap Estim Creat Clear Calc Estimated GFR POC Glucose Random Glucose Calcium Phosphorus Magnesium Total Bilirubin AST ALT Alkaline Phosphatase Total Protein Albumin 04/21/23 04/21/23 04/21/23 07:09 07:09 07:09 MCV MCH MCHC RDW Plt Count MPV Immature Gran % (Auto) Cancelled Neut % (Auto) Cancelled Cancelled Lymph % (Auto) Cancelled Cancelled [place] % (Auto) Cancelled Eos % (Auto) Baso % (Auto) Lymph # (Auto) [place] # (Auto) Eos # (Auto) Baso # (Auto) Abs Immat Gran (auto) Absolute Neuts (auto) Absolute Nucleated RBC Nucleated RBC % (auto) Neutrophils % (Manual) Band Neutrophils % Lymphocytes % (Manual) Atypical Lymphs % (Man) Monocytes % (Manual) Eosinophils % (Manual) Metamyelocytes % Myelocytes % Promyelocytes % Abs Neuts (Manual) Lymphocytes # (Manual) Atyp Lymphs # (Manual) Monocytes # (Manual) Eosinophils # (Manual) Metamyelocytes # Myelocytes # Promyelocytes # Platelet Estimate Plt Morphology Comment RBC Morphology Hypochromasia Target Cells VBG pH VBG pCO2 VBG pO2 VBG HCO3 VBG O2 Saturation VBG Base Excess Anion Gap Estim Creat Clear Calc Estimated GFR POC Glucose Random Glucose Calcium Phosphorus Magnesium Total Bilirubin AST ALT Alkaline Phosphatase Total Protein Albumin 04/21/23 04/21/23 04/21/23 07:09 07:09 07:09 MCV MCH MCHC RDW Plt Count MPV Immature Gran % (Auto) Neut % (Auto) Lymph % (Auto) [place] % (Auto) Cancelled Eos % (Auto) Cancelled Cancelled Baso % (Auto) Cancelled Cancelled Lymph # (Auto) Cancelled [place] # (Auto) Eos # (Auto) Baso # (Auto) Abs Immat Gran (auto) Absolute Neuts (auto) Absolute Nucleated RBC Nucleated RBC % (auto) Neutrophils % (Manual) Band Neutrophils % Lymphocytes % (Manual) Atypical Lymphs % (Man) Monocytes % (Manual) Eosinophils % (Manual) Metamyelocytes % Myelocytes % Promyelocytes % Abs Neuts (Manual) Lymphocytes # (Manual) Atyp Lymphs # (Manual) Monocytes # (Manual) Eosinophils # (Manual) Metamyelocytes # Myelocytes # Promyelocytes # Platelet Estimate Plt Morphology Comment RBC Morphology Hypochromasia Target Cells VBG pH VBG pCO2 VBG pO2 VBG HCO3 VBG O2 Saturation VBG Base Excess Anion Gap Estim Creat Clear Calc Estimated GFR POC Glucose Random Glucose Calcium Phosphorus Magnesium Total Bilirubin AST ALT Alkaline Phosphatase Total Protein Albumin 04/21/23 04/21/23 04/21/23 07:09 07:09 07:09 MCV MCH MCHC RDW Plt Count MPV Immature Gran % (Auto) Neut % (Auto) Lymph % (Auto) [place] % (Auto) Eos % (Auto) Baso % (Auto) Lymph # (Auto) Cancelled [place] # (Auto) Cancelled Cancelled Eos # (Auto) Cancelled Cancelled Baso # (Auto) Cancelled Abs Immat Gran (auto) Absolute Neuts (auto) Absolute Nucleated RBC Nucleated RBC % (auto) Neutrophils % (Manual) Band Neutrophils % Lymphocytes % (Manual) Atypical Lymphs % (Man) Monocytes % (Manual) Eosinophils % (Manual) Metamyelocytes % Myelocytes % Promyelocytes % Abs Neuts (Manual) Lymphocytes # (Manual) Atyp Lymphs # (Manual) Monocytes # (Manual) Eosinophils # (Manual) Metamyelocytes # Myelocytes # Promyelocytes # Platelet Estimate Plt Morphology Comment RBC Morphology Hypochromasia Target Cells VBG pH VBG pCO2 VBG pO2 VBG HCO3 VBG O2 Saturation VBG Base Excess Anion Gap Estim Creat Clear Calc Estimated GFR POC Glucose Random Glucose Calcium Phosphorus Magnesium Total Bilirubin AST ALT Alkaline Phosphatase Total Protein Albumin 04/21/23 04/21/23 04/21/23 07:09 07:09 07:09 MCV MCH MCHC RDW Plt Count MPV Immature Gran % (Auto) Neut % (Auto) Lymph % (Auto) [place] % (Auto) Eos % (Auto) Baso % (Auto) Lymph # (Auto) [place] # (Auto) Eos # (Auto) Baso # (Auto) Cancelled Abs Immat Gran (auto) Cancelled Cancelled Absolute Neuts (auto) Cancelled Cancelled Absolute Nucleated RBC 0.000 Nucleated RBC % (auto) Neutrophils % (Manual) Band Neutrophils % Lymphocytes % (Manual) Atypical Lymphs % (Man) Monocytes % (Manual) Eosinophils % (Manual) Metamyelocytes % Myelocytes % Promyelocytes % Abs Neuts (Manual) Lymphocytes # (Manual) Atyp Lymphs # (Manual) Monocytes # (Manual) Eosinophils # (Manual) Metamyelocytes # Myelocytes # Promyelocytes # Platelet Estimate Plt Morphology Comment RBC Morphology Hypochromasia Target Cells VBG pH VBG pCO2 VBG pO2 VBG HCO3 VBG O2 Saturation VBG Base Excess Anion Gap Estim Creat Clear Calc Estimated GFR POC Glucose Random Glucose Calcium Phosphorus Magnesium Total Bilirubin AST ALT Alkaline Phosphatase Total Protein Albumin 04/21/23 04/21/23 04/21/23 07:09 07:09 09:51 MCV MCH MCHC RDW Plt Count MPV Immature Gran % (Auto) Neut % (Auto) Lymph % (Auto) [place] % (Auto) Eos % (Auto) Baso % (Auto) Lymph # (Auto) [place] # (Auto) Eos # (Auto) Baso # (Auto) Abs Immat Gran (auto) Absolute Neuts (auto) Absolute Nucleated RBC Cancelled Nucleated RBC % (auto) 0.0 Cancelled Neutrophils % (Manual) 79 H Band Neutrophils % 5 Lymphocytes % (Manual) 8 L Atypical Lymphs % (Man) 2 Monocytes % (Manual) 1 L Eosinophils % (Manual) 2 Metamyelocytes % 1 Myelocytes % 1 Promyelocytes % 1 Abs Neuts (Manual) 12.3 H Lymphocytes # (Manual) 1.2 Atyp Lymphs # (Manual) 0.3 Monocytes # (Manual) 0.1 Eosinophils # (Manual) 0.3 Metamyelocytes # 0.1 Myelocytes # 0.1 Promyelocytes # 0.1 Platelet Estimate NORMAL Plt Morphology Comment NORMAL RBC Morphology NOTED Hypochromasia 1+ (5-14) Target Cells 1+ (5-14) VBG pH 7.47 H VBG pCO2 34 VBG pO2 88 VBG HCO3 25 VBG O2 Saturation 97.0 VBG Base Excess 2.4 Anion Gap 15 Estim Creat Clear Calc 81.8 Estimated GFR > 60 POC Glucose Random Glucose 122 H Calcium 8.5 Phosphorus 2.0 L Magnesium 2.7 H Total Bilirubin 2.5 H AST 35 ALT 18 Alkaline Phosphatase 57 Total Protein 6.8 Albumin 3.7 04/21/23 04/21/23 11:48 16:17 MCV MCH MCHC RDW Plt Count MPV Immature Gran % (Auto) Neut % (Auto) Lymph % (Auto) [place] % (Auto) Eos % (Auto) Baso % (Auto) Lymph # (Auto) [place] # (Auto) Eos # (Auto) Baso # (Auto) Abs Immat Gran (auto) Absolute Neuts (auto) Absolute Nucleated RBC Nucleated RBC % (auto) Neutrophils % (Manual) Band Neutrophils % Lymphocytes % (Manual) Atypical Lymphs % (Man) Monocytes % (Manual) Eosinophils % (Manual) Metamyelocytes % Myelocytes % Promyelocytes % Abs Neuts (Manual) Lymphocytes # (Manual) Atyp Lymphs # (Manual) Monocytes # (Manual) Eosinophils # (Manual) Metamyelocytes # Myelocytes # Promyelocytes # Platelet Estimate Plt Morphology Comment RBC Morphology Hypochromasia Target Cells VBG pH VBG pCO2 VBG pO2 VBG HCO3 VBG O2 Saturation VBG Base Excess Anion Gap Estim Creat Clear Calc Estimated GFR POC Glucose 173 H 149 H Random Glucose Calcium Phosphorus Magnesium Total Bilirubin AST ALT Alkaline Phosphatase Total Protein Albumin Microbiology Microbiology Results: Microbiology 04/18/23 Unknown Gram Stain - Final Peritoneal Fluid Routine Culture - Final Proteus mirabilis Anaerobic Culture - Preliminary Culture in progress. 04/18/23 12:36 Blood Culture - Final Blood - Venous Proteus mirabilis 04/18/23 12:44 Blood Culture - Preliminary Blood - Venous No growth after 48 hours. Assessment and Plan (1) Atrial flutter with rapid ventricular response: Status: Acute (2) Perforation of sigmoid colon due to diverticulitis: Status: Acute (3) Gram-negative bacteremia: Status: Acute (4) Acute respiratory failure with hypoxia: Status: Acute Plan 62-year-old gentleman with underlying history of diabetes mellitus and polycythemia vera admitted on 04/18/2023 with perforated sigmoid diverticulitis, now postop day 1 after sigmoid colectomy with end-colostomy further complicated by Gram-negative bacteremia, acute kidney injury, and acute hypoxic respiratory failure.developed AFib with RVR on 04/19/2023 requiring amiodarone drip, now rate controlled. Transferred to [facility] 04/[place]/23 Perforated sigmoid diverticulitis status post sigmoidectomy with end colostomy pod #3 Being managed by General surgery Continue IV Protonix Gram-negative bacteremia Blood culture and peritoneal fluid culture grew Proteus mirabilis, continue iv Zosyn, Elevated WBC, afebrile, follow clinical course. Acute hypernatremia will place on D5W follow BMP AFib with RVR, converted to normal sinus rhythm case discussed with Cardiology will DC iv amiodarone drip , transitioned to by mouth amiodarone 400 mg b.i.d. Follow echocardiogram, check TSH, resume beta-blockers, due to brief duration of atrial fibrillation cardio recommends to hold anticoagulation. Acute hypoxic respiratory failure Likely due to fluid overload, atelectasis, on high-flow oxygen, encourage incentive spirometry, gradually wean oxygen Acute kidney injury secondary to septic shock with sigmoid perforation, improving. Non oliguric. Continue to monitor bmp and urine output. Hold lisinopril/hydrochlorothiazide, hold NSAIDs, follow BMP. Diabetes mellitus type 2 started on clear liquid diet, stable blood sugars, continue insulin sliding scale protocol, Hold home dose of metformin. History of gout on allopurinol 300 mg daily, currently on hold. Hyperlipidemia will hold Lipitor Hypertension BP trending up resume metoprolol, continue to hold lisinopril/hydrochlorothiazide. DVT prophylaxis compression therapy Disposition as per surgery Quality Stroke Does the patient have a stroke diagnosis?: No VTE Prior VTE?: No VTE Risk Level:: Surgical - moderate VTE Device Contraindication: N/A - Device Ordered VTE Drug Contraindication: Treatment Not Indicated
[2023-04-21] MEDS: Amiodarone HCL 200 MG TABLET 400 MG PO (20:36)
[2023-04-22] VITALS (10 sets, daily range): BP systolic 105–164; BP diastolic 66–100; PULSE 61–87; RESP 18–26; TEMP 36–36.3; O2SAT 92–98
[2023-04-22 00:04] LABS: Glucose, Whole Blood 115 mg/dL (60-115)
[2023-04-22] MEDS: Acetaminophen 1,000 MG/100 ML PIGGYBACK 400 MG IV ×4 (04:46→23:52)
[2023-04-22] MEDS: Pantoprazole Sodium 40 MG/10 ML VIAL IVPUSH (05:06)
[2023-04-22 05:55] LABS: Glucose, Whole Blood 114 mg/dL (60-115)
[2023-04-22] MEDS: KCl 20 mEq in 5 % Dextrose 20 MEQ/1,000 ML IV.SOLN 100 MEQ IVCONT (06:53)
[2023-04-22] MEDS: Amiodarone HCL 200 MG TABLET 400 MG PO ×2 (08:52→20:31)
[2023-04-22] MEDS: Metoprolol Succinate ER 50 MG TAB.ER.24H PO (08:53)
[2023-04-22] MEDS: HYDROmorphone HCl 0.5 MG/0.5 ML SYRINGE IVPUSH (09:16)
[2023-04-22 09:26] LABS: Anion Gap 12 (12-20); Blood Urea Nitrogen 17 mg/dL (9-16); Calcium 8.5 mg/dL (8.4-10.2); Carbon Dioxide 27 mmol/L (22-29); Chloride 107 mmol/L (96-108); Creatinine Clr Calc Pharmacy 94.1; Estimated Glomerular Filt Rate > 60; Glucose Random 134 mg/dL (60-115); Potassium 3.5 mmol/L (3.3-5.1); Sodium 142 mmol/L (135-145)
[2023-04-22 09:28] LABS: Hemoglobin 11.9 g/dl (14.0-18.0); Mean Corpuscular HGB Conc 33.1 g/dl (31.0-36.0); Mean Corpuscular Hemoglobin 27.9 pg (27.0-33.0); Mean Corpuscular Volume 84.5 fL (80.0-98.0); Mean Platelet Volume 11.8 fL (9.4-12.4); NRBC Pct Auto 0.1 /100WBC (0.0-0.2); Platelet Count 367 X10*3/uL (160-400); Red Blood Count 4.26 X10*6/uL (4.60-5.80); Red Cell Distribution Width 19.8 % (11.0-16.0); White Blood Count 18.3 X10*3/uL (4.8-10.8)
[2023-04-22 09:42] LABS: Thyroid Stimulating Hormone 1.44 uIU/mL (0.32-4.0)
[2023-04-22 09:54] LABS: Atypical Lymph Absolute Manual 0.2 x10*3/uL; Atypical Lymphs Percent Manual 1 % (0-6); Band Neutrophils Percent 10 % (3-5); Eosinophils Absolute Manual 0.5 X10*3/uL (0.0-0.4); Eosinophils Percent Manual 3 % (0-4); Lymphocytes Absolute Manual 1.8 X10*3/uL (1.2-4.9); Lymphocytes Percent Manual 10 % (20-40); Monocytes Absolute Manual 0.5 X10*3/uL (0.1-1.2); Monocytes Percent Manual 3 % (2-11); Myelocytes Absolute 0.2 X10*/uL; Myelocytes Percent 1 %; Neutrophils Percent Manual 72 % (45-73)
[2023-04-22 09:58] LABS: Hypochromasia 1+ (5-14) /OIF; Platelet Estimate NORMAL (NORMAL); Platelet Morphology Comment NORMAL; RBC Morphology NOTED; Target Cells 1+ (5-14) /OIF
--- NOTE | 2023-04-22 11:26 | P.PNGS_ITS ---
Subjective Subjective Date of Service: 04/22/23 <Sarah Bill PA-C - Last Filed: 04/22/23 11:29> 04/22/23 <Walter Haney MD - Last Filed: 04/22/23 13:11> Interval history: Feels better this morning. Tolerating clear liquids. Continues to pass flatus via ostomy but no output yet. Was OOB to recliner yesterday and ambulated a few steps with PT. <Sarah Bill PA-C - Last Filed: 04/22/23 11:29> Physical Exam 2 Vital Signs: Vital Signs: Last Vital Signs Temp 97.1 F 04/22/23 07:08 Pulse 70 04/22/23 07:08 Resp 20 04/22/23 07:08 BP 126/72 04/22/23 07:08 Pulse Ox 97 04/22/23 07:08 O2 Del Method High Flow Nasal C annula 04/22/23 07:08 O2 Flow Rate 40 04/22/23 07:08 FiO2 42 04/22/23 07:08 BMI result Body Mass Index 32.4 <Sarah Bill PA-C - Last Filed: 04/22/23 11:29> Const: General: comfortable and alert <LONNIE Martins Last Filed: 04/22/23 11:29> Orientation/consciousness: patient oriented x3 <Sarah Bill PA-C - Last Filed: 04/22/23 11:29> GI: Other: ostomy pink, no output in appliance <Sarah Bill PA-C - Last Filed: 04/22/23 11:29> Inspection: Yes incision (clean) <Sarah Bill PA-C - Last Filed: 04/22/23 11:29> Palpation (GI): Soft to palpation, Tenderness to palpation present (GI) (very mild incisional ), no guarding and not rigid <LONNIE Martins Last Filed: 04/22/23 11:29> Percussion: Yes normal to percussion <Sarah Bill PA-C - Last Filed: 04/22/23 11:29> Skin: General skin exam: no rashes or lesions noted <Sarah Bill PA-C - Last Filed: 04/22/23 11:29> Neuro: General: patient oriented x3 and moves all extremities <Sarah Bill PA-C - Last Filed: 04/22/23 11:29> Objective Data Active Medications Amiodarone HCl (Amiodarone Hcl 200 Mg Tablet) 400 mg PO BID [facility] Last Admin: 04/22/23 08:52 Dose: 400 mg Documented By: LEW Hydromorphone HCl (Hydromorphone Hcl 0.5 Mg/0.5 Ml Syringe) 0.5 mg IVPUSH Q3H PRN; Protocol PRN Reason: Pain, Severe (Pain Scale 7-10) Last Admin: 04/22/23 09:16 Dose: 0.5 mg Documented By: LEW Piperacillin Sod/Tazobactam (Sod 3.375 gm/ Sodium Chloride) 100 mls @ 200 mls/hr IV Q6H [facility] Last Infusion: 04/22/23 09:30 Dose: Infused Documented By: LEW Acetaminophen (Ofirmev) 1,000 mg in 100 mls @ 400 mls/hr IV Q6H [facility] Last Infusion: 04/22/23 11:09 Dose: Infused Documented By: LEW Potassium Chloride/Dextrose (Kcl 20 Meq In 5 % Dextrose) 20 meq in 1,000 mls @ 100 mls/hr IVCONT .Q10H [facility] Last Admin: 04/22/23 06:53 Dose: 100 mls/hr Documented By: BECKI Insulin Human Lispro (Insulin Lispro 100 Unit/Ml 3 Ml Vial) 0 unit SUBCUT Q6H [facility]; Protocol Last Admin: 04/22/23 06:00 Dose: Not Given Documented By: BECKI Non-Admin Reason: No Insulin Coverage Comments: POC 114 Metoprolol Succinate (Metoprolol Succinate Er 50 Mg Tab.Er.24h) 50 mg PO DAILY [facility]; Protocol Last Admin: 04/22/23 08:53 Dose: 50 mg Documented By: LEW Ondansetron HCl (Ondansetron Hcl 4 Mg/2 Ml Vial) 4 mg IVPUSH QID PRN PRN Reason: Nausea Pantoprazole Sodium (Pantoprazole Sodium 40 Mg/10 Ml Vial) 40 mg IVPUSH DAILY@0630 [facility] Last Admin: 04/22/23 05:06 Dose: 40 mg Documented By: BECKI <Sarah Bill PA-C - Last Filed: 04/22/23 11:29> Labs CBC & Chem 7: 04/22/23 08:56 04/22/23 08:56 <Sarah Bill PA-C - Last Filed: 04/22/23 11:29> Labs: Laboratory Results - last 24 hr 04/21/23 04/21/23 04/21/23 11:48 16:17 23:52 MCV MCH MCHC RDW Plt Count MPV Immature Gran % (Auto) Neut % (Auto) Lymph % (Auto) [place] % (Auto) Eos % (Auto) Baso % (Auto) Lymph # (Auto) [place] # (Auto) Eos # (Auto) Baso # (Auto) Abs Immat Gran (auto) Absolute Neuts (auto) Absolute Nucleated RBC Nucleated RBC % (auto) Neutrophils % (Manual) Band Neutrophils % Lymphocytes % (Manual) Atypical Lymphs % (Man) Monocytes % (Manual) Eosinophils % (Manual) Myelocytes % Abs Neuts (Manual) Lymphocytes # (Manual) Atyp Lymphs # (Manual) Monocytes # (Manual) Eosinophils # (Manual) Myelocytes # Platelet Estimate Plt Morphology Comment RBC Morphology Hypochromasia Target Cells Anion Gap Estim Creat Clear Calc Estimated GFR POC Glucose 173 H 149 H 115 Random Glucose Calcium TSH 04/22/23 04/22/23 05:49 08:56 MCV 84.5 MCH 27.9 MCHC 33.1 RDW 19.8 H Plt Count 367 MPV 11.8 Immature Gran % (Auto) Cancelled Neut % (Auto) Cancelled Lymph % (Auto) Cancelled [place] % (Auto) Cancelled Eos % (Auto) Cancelled Baso % (Auto) Cancelled Lymph # (Auto) Cancelled [place] # (Auto) Cancelled Eos # (Auto) Cancelled Baso # (Auto) Cancelled Abs Immat Gran (auto) Cancelled Absolute Neuts (auto) Cancelled Absolute Nucleated RBC 0.020 H Nucleated RBC % (auto) 0.1 Neutrophils % (Manual) 72 Band Neutrophils % 10 H Lymphocytes % (Manual) 10 L Atypical Lymphs % (Man) 1 Monocytes % (Manual) 3 Eosinophils % (Manual) 3 Myelocytes % 1 Abs Neuts (Manual) 15.0 H Lymphocytes # (Manual) 1.8 Atyp Lymphs # (Manual) 0.2 Monocytes # (Manual) 0.5 Eosinophils # (Manual) 0.5 H Myelocytes # 0.2 Platelet Estimate NORMAL Plt Morphology Comment NORMAL RBC Morphology NOTED Hypochromasia 1+ (5-14) Target Cells 1+ (5-14) Anion Gap 12 Estim Creat Clear Calc 94.1 Estimated GFR > 60 POC Glucose 114 Random Glucose 134 H Calcium 8.5 TSH 1.44 <Sarah Bill PA-C - Last Filed: 04/22/23 11:29> Microbiology Microbiology Results: Microbiology 04/18/23 Unknown Gram Stain - Final Peritoneal Fluid Routine Culture - Final Proteus mirabilis Anaerobic Culture - Preliminary Culture in progress. 04/18/23 12:36 Blood Culture - Final Blood - Venous Proteus mirabilis <LONNIE Martins Last Filed: 04/22/23 11:29> Procedures Date of Service Date of Service: 04/22/23 <Sarah Bill PA-C - Last Filed: 04/22/23 11:29> 04/22/23 <Walter Haney MD - Last Filed: 04/22/23 13:11> Progress Note: A&P Assessment and plan (1) Perforation of sigmoid colon due to diverticulitis: Status: Acute <Sarah Bill PA-C - Last Filed: 04/22/23 11:29> Assessment and Plan: POD #4 following exploratory laparotomy, John procedure with drainage of abscess. Patient continues to improve overall from surgical and medical standpoint. Abd benign, incision is clean. Ostomy remains viable appearing without stool output. Can advance to solid diet. Cont IV abx. PT consult, OOB/ambulation and IS use encouraged. Hospitalists following for management of medical comorbidities. <Sarah Bill PA-C - Last Filed: 04/22/23 11:29> POD #4 following exploratory laparotomy, John procedure with drainage of abscess. Patient continues to improve overall from surgical and medical standpoint. Abd benign, incision is clean. Ostomy remains viable appearing without stool output. Can advance to solid diet. Cont IV abx. PT consult, OOB/ambulation and IS use encouraged. Hospitalists following for management of medical comorbidities. Agree with the above assessment and plan. Overall the patient is much improved. Awaiting return of bowel function. Encouraged out of bed and IS. <Walter Haney MD - Last Filed: 04/22/23 13:11> Time Spent With Patient Time: Total time managing care of this patient today ____ minutes. <Sarah Bill PA-C - Last Filed: 04/22/23 11:29> Quality Stroke Does the patient have a stroke diagnosis?: No <Sarah Bill PA-C - Last Filed: 04/22/23 11:29> VTE Prior VTE?: No <Sarah Bill PA-C - Last Filed: 04/22/23 11:29> VTE Risk Level:: Surgical - moderate <Sarah Bill PA-C - Last Filed: 04/22/23 11:29> VTE Device Contraindication: N/A - Device Ordered <Sarah Bill PA-C - Last Filed: 04/22/23 11:29> VTE Drug Contraindication: Treatment Not Indicated <Sarah Bill PA-C - Last Filed: 04/22/23 11:29>
[2023-04-22 11:48] LABS: Glucose, Whole Blood 140 mg/dL (60-115)
--- NOTE | 2023-04-22 14:51 | MHC.CM.PN ---
CM MET W/PT TO DISCUSS DISPO, PT AGREEABLE TO STR AND REPORTS HE DOEN'T HAVE ANY PREFERENCES BUT WOULD LIKE FACILITY CLOSE TO HOME, REF TO BE PLACED TO LOCAL SNF'S TO START, CM WILL CONT TO FOLLOW DC NEEDS.
--- NOTE | 2023-04-22 15:46 | P.PNIM_ITS ---
Subjective Subjective Date of Service: 04/22/23 Interval History: Feeling better this morning sitting on recliner, less abdominal pain, tolerating clear liquid diet, denies nausea vomiting, no fevers, no chills, denies shortness of breath, no other acute issues overnight. Review of Systems All other system reviewed and negative. Physical Exam 2 Vital Signs: Vital Signs: Last Vital Signs Temp 97.4 F 04/22/23 11:30 Pulse 66 04/22/23 11:30 Resp 18 04/22/23 11:36 BP 120/80 04/22/23 11:30 Pulse Ox 98 04/22/23 11:30 O2 Del Method High Flow Nasal C annula 04/22/23 11:30 O2 Flow Rate 40 04/22/23 11:30 FiO2 42 04/22/23 11:30 BMI result Body Mass Index 32.4 Const: Other: General awake alert x3, in no acute distress Neck supple no JVD. CVS regular rate rhythm, Respiratory lungs clear to auscultation, no respiratory distress, no wheeze, no rhonchi. Gastrointestinal abdomen mild incisional tenderness, bowel sounds audible, ostomy pink, no stools in back ,no guarding , no rigidity. Extremities no edema. Neuro non focal Skin no rash Psych appropriate affect Objective Data Active Medications Amiodarone HCl (Amiodarone Hcl 200 Mg Tablet) 400 mg PO BID [facility] Last Admin: 04/22/23 08:52 Dose: 400 mg Documented By: LEW Hydromorphone HCl (Hydromorphone Hcl 0.5 Mg/0.5 Ml Syringe) 0.5 mg IVPUSH Q3H PRN; Protocol PRN Reason: Pain, Severe (Pain Scale 7-10) Last Admin: 04/22/23 09:16 Dose: 0.5 mg Documented By: LEW Piperacillin Sod/Tazobactam (Sod 3.375 gm/ Sodium Chloride) 100 mls @ 200 mls/hr IV Q6H [facility] Last Admin: 04/22/23 15:14 Dose: 200 mls/hr Documented By: LEW Acetaminophen (Ofirmev) 1,000 mg in 100 mls @ 400 mls/hr IV Q6H [facility] Last Infusion: 04/22/23 11:09 Dose: Infused Documented By: LEW Potassium Chloride/Dextrose (Kcl 20 Meq In 5 % Dextrose) 20 meq in 1,000 mls @ 100 mls/hr IVCONT .Q10H [facility] Last Admin: 04/22/23 06:53 Dose: 100 mls/hr Documented By: BECKI Insulin Human Lispro (Insulin Lispro 100 Unit/Ml 3 Ml Vial) 0 unit SUBCUT Q6H [facility]; Protocol Last Admin: 04/22/23 11:40 Dose: Not Given Documented By: LEW Non-Admin Reason: No Insulin Coverage Metoprolol Succinate (Metoprolol Succinate Er 50 Mg Tab.Er.24h) 50 mg PO DAILY [facility]; Protocol Last Admin: 04/22/23 08:53 Dose: 50 mg Documented By: LEW Ondansetron HCl (Ondansetron Hcl 4 Mg/2 Ml Vial) 4 mg IVPUSH QID PRN PRN Reason: Nausea Pantoprazole Sodium (Pantoprazole Sodium 40 Mg/10 Ml Vial) 40 mg IVPUSH DAILY@0630 [facility] Last Admin: 04/22/23 05:06 Dose: 40 mg Documented By: BECKI Labs 04/22/23 08:56 04/22/23 08:56 Labs: Laboratory Results - last 24 hr 04/21/23 04/21/23 04/22/23 16:17 23:52 05:49 MCV MCH MCHC RDW Plt Count MPV Immature Gran % (Auto) Neut % (Auto) Lymph % (Auto) [place] % (Auto) Eos % (Auto) Baso % (Auto) Lymph # (Auto) [place] # (Auto) Eos # (Auto) Baso # (Auto) Abs Immat Gran (auto) Absolute Neuts (auto) Absolute Nucleated RBC Nucleated RBC % (auto) Neutrophils % (Manual) Band Neutrophils % Lymphocytes % (Manual) Atypical Lymphs % (Man) Monocytes % (Manual) Eosinophils % (Manual) Myelocytes % Abs Neuts (Manual) Lymphocytes # (Manual) Atyp Lymphs # (Manual) Monocytes # (Manual) Eosinophils # (Manual) Myelocytes # Platelet Estimate Plt Morphology Comment RBC Morphology Hypochromasia Target Cells Anion Gap Estim Creat Clear Calc Estimated GFR POC Glucose 149 H 115 114 Random Glucose Calcium TSH 04/22/23 04/22/23 08:56 11:29 MCV 84.5 MCH 27.9 MCHC 33.1 RDW 19.8 H Plt Count 367 MPV 11.8 Immature Gran % (Auto) Cancelled Neut % (Auto) Cancelled Lymph % (Auto) Cancelled [place] % (Auto) Cancelled Eos % (Auto) Cancelled Baso % (Auto) Cancelled Lymph # (Auto) Cancelled [place] # (Auto) Cancelled Eos # (Auto) Cancelled Baso # (Auto) Cancelled Abs Immat Gran (auto) Cancelled Absolute Neuts (auto) Cancelled Absolute Nucleated RBC 0.020 H Nucleated RBC % (auto) 0.1 Neutrophils % (Manual) 72 Band Neutrophils % 10 H Lymphocytes % (Manual) 10 L Atypical Lymphs % (Man) 1 Monocytes % (Manual) 3 Eosinophils % (Manual) 3 Myelocytes % 1 Abs Neuts (Manual) 15.0 H Lymphocytes # (Manual) 1.8 Atyp Lymphs # (Manual) 0.2 Monocytes # (Manual) 0.5 Eosinophils # (Manual) 0.5 H Myelocytes # 0.2 Platelet Estimate NORMAL Plt Morphology Comment NORMAL RBC Morphology NOTED Hypochromasia 1+ (5-14) Target Cells 1+ (5-14) Anion Gap 12 Estim Creat Clear Calc 94.1 Estimated GFR > 60 POC Glucose 140 H Random Glucose 134 H Calcium 8.5 TSH 1.44 Assessment and Plan (1) Atrial flutter with rapid ventricular response: Status: Acute (2) Perforation of sigmoid colon due to diverticulitis: Status: Acute (3) Gram-negative bacteremia: Status: Acute (4) Acute respiratory failure with hypoxia: Status: Acute Plan 62-year-old gentleman with underlying history of diabetes mellitus and polycythemia vera admitted on 04/18/2023 with perforated sigmoid diverticulitis, now postop day 1 after sigmoid colectomy with end-colostomy further complicated by Gram-negative bacteremia, acute kidney injury, and acute hypoxic respiratory failure.developed AFib with RVR on 04/19/2023 requiring amiodarone drip, now rate controlled. Transferred to [facility] on 04/20/23 Perforated sigmoid diverticulitis status post sigmoidectomy with end colostomy pod #4 Being managed by General surgery on IV Protonix , will transition to by mouth PPI Encourage incentive spirometry Continue PT Proteus mirabilis bacteremia Blood culture and peritoneal fluid culture grew Proteus mirabilis, continue iv Zosyn since 04/19,need total 14 days Elevated WBC likely reactive, afebrile, follow clinical course. Acute hypernatremia resolved , will DC IV fluids AFib with RVR, converted to normal sinus rhythm case discussed with Cardiology s/p iv amiodarone drip , transitioned to by mouth amiodarone 400 mg b.i.d.on 04/21 echocardiogram showed EF 66%, no obvious valvular pathology, diastolic function is normal, TSH 1.44, cont. Continue beta-blockers, due to brief duration of atrial fibrillation cardio recommends to hold anticoagulation. Acute hypoxic respiratory failure Likely due to fluid overload, atelectasis, on high-flow oxygen, encourage incentive spirometry, gradually wean oxygen . Acute kidney injury secondary to septic shock with sigmoid perforation, improving. Non oliguric. Continue to monitor bmp and urine output. Hold lisinopril/hydrochlorothiazide, hold NSAIDs, follow BMP. Diabetes mellitus type 2 place on diabetic diet, stable blood sugars, continue insulin sliding scale , Hold home dose of metformin. History of gout on allopurinol 300 mg daily, currently on hold. Hyperlipidemia Lipitor on hold Hypertension continue metoprolol, continue to hold lisinopril/hydrochlorothiazide and follow BP. DVT prophylaxis compression therapy Disposition as per surgery Quality Stroke Does the patient have a stroke diagnosis?: No VTE Prior VTE?: No VTE Risk Level:: Surgical - moderate VTE Device Contraindication: N/A - Device Ordered VTE Drug Contraindication: Treatment Not Indicated
[2023-04-22 16:15] LABS: Glucose, Whole Blood 108 mg/dL (60-115)
[2023-04-22 20:43] LABS: Glucose, Whole Blood 112 mg/dL (60-115)
[2023-04-22] MEDS: Piperacillin Sodium/Tazobactam 3.375 GM in 0.9 % Sodium Chloride 50 ML IV (20:54)
[2023-04-22] MEDS: methylPREDNISolone Sod Succ 125 MG/2 ML VIAL 80 MG IVPUSH (21:16)
[2023-04-22] MEDS: levalbuterol HCL 1.25 MG/3 ML VIAL.NEB INHALE (21:24)
[2023-04-23] VITALS (7 sets, daily range): BP systolic 138–163; BP diastolic 79–96; PULSE 67–70; RESP 17–20; TEMP 36.1–36.5; O2SAT 94–98
[2023-04-23] MEDS: Piperacillin Sodium/Tazobactam 3.375 GM in 0.9 % Sodium Chloride 50 ML IV ×4 (04:27→20:28)
[2023-04-23] MEDS: Acetaminophen 1,000 MG/100 ML PIGGYBACK 400 MG IV (04:30)
[2023-04-23] MEDS: Omeprazole 40 MG CAPSULE.DR PO (06:41)
[2023-04-23 07:41] LABS: Glucose, Whole Blood 164 mg/dL (60-115)
--- NOTE | 2023-04-23 08:19 | P.PNGS_ITS ---
Subjective Subjective Date of Service: 04/23/23 Interval history: Patient feels well, tolerating diet without nausea or vomiting. No BM per ostomy noted. Patient weaned down to 1.5 L nasal cannula. Physical Exam 2 Vital Signs: Vital Signs: Last Vital Signs Temp 97.7 F 04/23/23 07:30 Pulse 69 04/23/23 07:30 Resp 20 04/23/23 07:30 BP 139/80 04/23/23 07:30 Pulse Ox 98 04/23/23 07:30 O2 Del Method Nasal Cannula 04/23/23 07:30 O2 Flow Rate 1.5 04/23/23 07:30 FiO2 42 04/22/23 11:30 BMI result Body Mass Index 32.4 Const: General: no acute distress Nutritional Appearance: well nourished Orientation/consciousness: patient oriented x3 Resp: Effort & Inspection: normal respiratory effort, no cough and no respiratory distress GI: Other: Midline incision is clean, dry, and intact. Ostomy pink and patent but no stool identified. Neuro: General: patient oriented x3 Objective Data Active Medications Amiodarone HCl (Amiodarone Hcl 200 Mg Tablet) 400 mg PO BID [facility] Last Admin: 04/22/23 20:31 Dose: 400 mg Documented By: KELLEE Hydromorphone HCl (Hydromorphone Hcl 0.5 Mg/0.5 Ml Syringe) 0.5 mg IVPUSH Q3H PRN; Protocol PRN Reason: Pain, Severe (Pain Scale 7-10) Last Admin: 04/22/23 09:16 Dose: 0.5 mg Documented By: LEW Acetaminophen (Ofirmev) 1,000 mg in 100 mls @ 400 mls/hr IV Q6H [facility] Last Infusion: 04/23/23 05:09 Dose: Infused Documented By: KELLEE Piperacillin Sod/Tazobactam (Sod 3.375 gm/ Sodium Chloride) 50 mls @ 100 mls/hr IV Q6H [facility] Last Infusion: 04/23/23 05:00 Dose: Infused Documented By: KELLEE Insulin Human Lispro (Insulin Lispro 100 Unit/Ml 3 Ml Vial) 0 unit SUBCUT QIDACHS [facility]; Protocol Last Admin: 04/22/23 20:32 Dose: Not Given Documented By: KELLEE Non-Admin Reason: No Insulin Coverage Levalbuterol HCl (Levalbuterol Hcl 1.25 Mg/3 Ml Vial.eTvin) 1.25 mg INHALE Q4H PRN PRN Reason: Shortness of Breath/Wheezing Last Admin: 04/22/23 21:24 Dose: 1.25 mg Documented By: ROBERT Metoprolol Succinate (Metoprolol Succinate Er 50 Mg Tab.Er.24h) 50 mg PO DAILY [facility]; Protocol Last Admin: 04/22/23 08:53 Dose: 50 mg Documented By: LEW Omeprazole (Omeprazole 40 Mg Capsule.Dr) 40 mg PO DAILY@0630 [facility] Last Admin: 04/23/23 06:41 Dose: 40 mg Documented By: KELLEE Ondansetron HCl (Ondansetron Hcl 4 Mg/2 Ml Vial) 4 mg IVPUSH QID PRN PRN Reason: Nausea Labs 04/22/23 08:56 04/22/23 08:56 Labs: Laboratory Results - last 24 hr 04/22/23 04/22/23 04/22/23 08:56 11:29 16:11 MCV 84.5 MCH 27.9 MCHC 33.1 RDW 19.8 H Plt Count 367 MPV 11.8 Immature Gran % (Auto) Cancelled Neut % (Auto) Cancelled Lymph % (Auto) Cancelled [place] % (Auto) Cancelled Eos % (Auto) Cancelled Baso % (Auto) Cancelled Lymph # (Auto) Cancelled [place] # (Auto) Cancelled Eos # (Auto) Cancelled Baso # (Auto) Cancelled Abs Immat Gran (auto) Cancelled Absolute Neuts (auto) Cancelled Absolute Nucleated RBC 0.020 H Nucleated RBC % (auto) 0.1 Neutrophils % (Manual) 72 Band Neutrophils % 10 H Lymphocytes % (Manual) 10 L Atypical Lymphs % (Man) 1 Monocytes % (Manual) 3 Eosinophils % (Manual) 3 Myelocytes % 1 Abs Neuts (Manual) 15.0 H Lymphocytes # (Manual) 1.8 Atyp Lymphs # (Manual) 0.2 Monocytes # (Manual) 0.5 Eosinophils # (Manual) 0.5 H Myelocytes # 0.2 Platelet Estimate NORMAL Plt Morphology Comment NORMAL RBC Morphology NOTED Hypochromasia 1+ (5-14) Target Cells 1+ (5-14) Anion Gap 12 Estim Creat Clear Calc 94.1 Estimated GFR > 60 POC Glucose 140 H 108 Random Glucose 134 H Calcium 8.5 TSH 1.44 04/22/23 04/23/23 20:24 07:33 MCV MCH MCHC RDW Plt Count MPV Immature Gran % (Auto) Neut % (Auto) Lymph % (Auto) [place] % (Auto) Eos % (Auto) Baso % (Auto) Lymph # (Auto) [place] # (Auto) Eos # (Auto) Baso # (Auto) Abs Immat Gran (auto) Absolute Neuts (auto) Absolute Nucleated RBC Nucleated RBC % (auto) Neutrophils % (Manual) Band Neutrophils % Lymphocytes % (Manual) Atypical Lymphs % (Man) Monocytes % (Manual) Eosinophils % (Manual) Myelocytes % Abs Neuts (Manual) Lymphocytes # (Manual) Atyp Lymphs # (Manual) Monocytes # (Manual) Eosinophils # (Manual) Myelocytes # Platelet Estimate Plt Morphology Comment RBC Morphology Hypochromasia Target Cells Anion Gap Estim Creat Clear Calc Estimated GFR POC Glucose 112 164 H Random Glucose Calcium TSH Microbiology Microbiology Results: Microbiology 04/18/23 Unknown Gram Stain - Final Peritoneal Fluid Routine Culture - Final Proteus mirabilis Anaerobic Culture - Preliminary Culture in progress. Procedures Date of Service Date of Service: 04/23/23 Progress Note: A&P Assessment and plan (1) Perforation of sigmoid colon due to diverticulitis: Status: Acute Plan Pod 5 following John procedure for perforated sigmoid diverticulitis. Patient is wounds are clean and intact. Ostomy is pink and patent but no stool noted. Will await return of bowel function. Encouraged out of bed and ambulation. Time Spent With Patient Time: Total time managing care of this patient today ____ minutes. Quality Stroke Does the patient have a stroke diagnosis?: No VTE Prior VTE?: No VTE Risk Level:: Surgical - moderate VTE Device Contraindication: N/A - Device Ordered VTE Drug Contraindication: Treatment Not Indicated
[2023-04-23] MEDS: Amiodarone HCL 200 MG TABLET 400 MG PO ×2 (08:43→20:38)
[2023-04-23] MEDS: Metoprolol Succinate ER 50 MG TAB.ER.24H PO (08:43)
[2023-04-23] MEDS: Insulin Lispro 100 UNIT/ML 3 ML VIAL SUBCUT ×2 (08:43→11:51)
[2023-04-23 10:15] LABS: Hematocrit 37.8 % (42.0-52.0); Hemoglobin 12.5 g/dl (14.0-18.0); Mean Corpuscular HGB Conc 33.1 g/dl (31.0-36.0); Mean Corpuscular Volume 84.8 fL (80.0-98.0); Mean Platelet Volume 11.9 fL (9.4-12.4); NRBC Pct Auto 0.1 /100WBC (0.0-0.2); Platelet Count 454 X10*3/uL (160-400); Red Blood Count 4.46 X10*6/uL (4.60-5.80); Red Cell Distribution Width 19.9 % (11.0-16.0)
[2023-04-23 10:30] LABS: Anion Gap 16 (12-20); Blood Urea Nitrogen 20 mg/dL (9-16); Calcium 8.8 mg/dL (8.4-10.2); Carbon Dioxide 25 mmol/L (22-29); Chloride 105 mmol/L (96-108); Creatinine Clr Calc Pharmacy 103.8; Estimated Glomerular Filt Rate > 60; Glucose Random 180 mg/dL (60-115); Potassium 4.7 mmol/L (3.3-5.1); Sodium 141 mmol/L (135-145)
[2023-04-23 10:51] LABS: Band Neutrophils Percent 1 % (3-5); Lymphocytes Absolute Manual 1.3 X10*3/uL (1.2-4.9); Lymphocytes Percent Manual 8 % (20-40); Monocytes Absolute Manual 0.3 X10*3/uL (0.1-1.2); Monocytes Percent Manual 2 % (2-11); Neutrophils Absolute Manual 14.4 X10*3/uL (2.0-8.3); Neutrophils Percent Manual 89 % (45-73)
[2023-04-23 10:54] LABS: Hypochromasia 1+ (5-14) /OIF; Platelet Estimate SLIGHTLY INCREASED (NORMAL); RBC Morphology NOTED; Target Cells 1+ (5-14) /OIF
[2023-04-23 10:55] LABS: Polychromasia 1+ (0-2) /OIF
[2023-04-23 11:20] LABS: Glucose, Whole Blood 173 mg/dL (60-115)
[2023-04-23] MEDS: Acetaminophen 1,000 MG/100 ML PIGGYBACK 100 MG IV ×2 (11:51→16:52)
--- NOTE | 2023-04-23 12:22 | MHC.CM.PN ---
Addendum entered by Chata Gaona RN 04/23/23 12:50: [facility] FOLLOWING Original Note: EMR REVIEWED, PER SURGICAL PT STILL AWAITING RETURN OF BOWEL FXM PER HOSPITALIST PT W/BACTEREMIA AND WILL ALSO NEED 14DAYS IV ABX VIA MIDLINE ON DC, SNF REFERRAL UPDATED AND SENT TO LOCAL SNF'S PER PT PREFERENCE, ANTIC PT WILL BE READY FOR DC BY EARLY NEXT WEEK, CM WILL CONT TO FOLLOW DC NEEDS.
[2023-04-23 12:45] LABS: Platelet Morphology Comment NORMAL
[2023-04-23 16:15] LABS: Glucose, Whole Blood 134 mg/dL (60-115)
--- NOTE | 2023-04-23 16:48 | P.PNIM_ITS ---
Subjective Subjective Date of Service: 04/23/23 Interval History: seen and examined this morning follow up for medical consultation s/p John procedure for perforated sigmoid diverticulitis sitting up in recliner, pain controlled. no specific complaints Review of Systems Review of Systems: Yes all other systems are reviewed and are negative Constitutional Constitutional: Denies chills and Denies fever(s) Cardiovascular Cardiovascular: Denies chest pain, Denies palpitations and Denies dyspnea Respiratory Respiratory: Denies cough and Denies dyspnea Endocrine Endocrine: Denies palpitations Physical Exam 2 Vital Signs: Vital Signs: Last Vital Signs Temp 97.3 F 04/23/23 16:00 Pulse 68 04/23/23 16:00 Resp 17 04/23/23 16:00 BP 161/96 H 04/23/23 16:00 Pulse Ox 96 04/23/23 16:00 O2 Del Method Room Air 04/23/23 16:00 O2 Flow Rate 1.5 04/23/23 07:30 FiO2 42 04/22/23 11:30 BMI result Body Mass Index 32.4 Const: General: cooperative, comfortable, no acute distress, alert and awake Nutritional Appearance: average body habitus Orientation/consciousness: p atient oriented x3 Resp: Effort & Inspection: normal respiratory effort, able to speak in complete sentences, no respiratory distress and no use of accessory muscles Cardio: Rate: regular rate GI: Other: midline incision clean; ostomy no output at this time Palpation (GI): Soft to palpation Neuro: General: patient oriented x3, moves all extremities and CN's II-XI intact bilaterally Extrem: General: Yes no pedal edema Objective Data Active Medications Amiodarone HCl (Amiodarone Hcl 200 Mg Tablet) 400 mg PO BID [facility] Last Admin: 04/23/23 08:43 Dose: 400 mg Documented By: LAKHWINDER Hydromorphone HCl (Hydromorphone Hcl 0.5 Mg/0.5 Ml Syringe) 0.5 mg IVPUSH Q3H PRN; Protocol PRN Reason: Pain, Severe (Pain Scale 7-10) Last Admin: 04/22/23 09:16 Dose: 0.5 mg Documented By: LEW Acetaminophen (Ofirmev) 1,000 mg in 100 mls @ 400 mls/hr IV Q6H [facility] Last Infusion: 04/23/23 13:03 Dose: Infused Documented By: LAKHWINDER Piperacillin Sod/Tazobactam (Sod 3.375 gm/ Sodium Chloride) 50 mls @ 100 mls/hr IV Q6H [facility] Last Infusion: 04/23/23 15:05 Dose: Infused Documented By: LAKHWINDER Insulin Human Lispro (Insulin Lispro 100 Unit/Ml 3 Ml Vial) 0 unit SUBCUT QIDACHS [facility]; Protocol Last Admin: 04/23/23 16:21 Dose: Not Given Documented By: LAKHWINDER Non-Admin Reason: No Insulin Coverage Levalbuterol HCl (Levalbuterol Hcl 1.25 Mg/3 Ml Vial.Neb) 1.25 mg INHALE Q4H PRN PRN Reason: Shortness of Breath/Wheezing Last Admin: 04/22/23 21:24 Dose: 1.25 mg Documented By: ROBERT Metoprolol Succinate (Metoprolol Succinate Er 50 Mg Tab.Er.24h) 50 mg PO DAILY [facility]; Protocol Last Admin: 04/23/23 08:43 Dose: 50 mg Documented By: LAKHWINDER Omeprazole (Omeprazole 40 Mg Capsule.Dr) 40 mg PO DAILY@0630 [facility] Last Admin: 04/23/23 06:41 Dose: 40 mg Documented By: KELLEE Ondansetron HCl (Ondansetron Hcl 4 Mg/2 Ml Vial) 4 mg IVPUSH QID PRN PRN Reason: Nausea Labs 04/23/23 09:27 04/23/23 09:27 Labs: Laboratory Results - last 24 hr 04/22/23 04/23/23 04/23/23 20:24 07:33 09:27 MCV 84.8 MCH 28.0 MCHC 33.1 RDW 19.9 H Plt Count 454 H MPV 11.9 Immature Gran % (Auto) Cancelled Neut % (Auto) Cancelled Lymph % (Auto) Cancelled [place] % (Auto) Cancelled Eos % (Auto) Cancelled Baso % (Auto) Cancelled Lymph # (Auto) Cancelled [place] # (Auto) Cancelled Eos # (Auto) Cancelled Baso # (Auto) Cancelled Abs Immat Gran (auto) Cancelled Absolute Neuts (auto) Cancelled Absolute Nucleated RBC 0.020 H Nucleated RBC % (auto) 0.1 Neutrophils % (Manual) 89 H Band Neutrophils % 1 L Lymphocytes % (Manual) 8 L Monocytes % (Manual) 2 Abs Neuts (Manual) 14.4 H Lymphocytes # (Manual) 1.3 Monocytes # (Manual) 0.3 Platelet Estimate SLIGHTLY INCREASED Plt Morphology Comment NORMAL RBC Morphology NOTED Polychromasia 1+ (0-2) Hypochromasia 1+ (5-14) Target Cells 1+ (5-14) Anion Gap 16 Estim Creat Clear Calc 103.8 Estimated GFR > 60 POC Glucose 112 164 H Random Glucose 180 H Calcium 8.8 04/23/23 04/23/23 11:16 16:08 MCV MCH MCHC RDW Plt Count MPV Immature Gran % (Auto) Neut % (Auto) Lymph % (Auto) [place] % (Auto) Eos % (Auto) Baso % (Auto) Lymph # (Auto) [place] # (Auto) Eos # (Auto) Baso # (Auto) Abs Immat Gran (auto) Absolute Neuts (auto) Absolute Nucleated RBC Nucleated RBC % (auto) Neutrophils % (Manual) Band Neutrophils % Lymphocytes % (Manual) Monocytes % (Manual) Abs Neuts (Manual) Lymphocytes # (Manual) Monocytes # (Manual) Platelet Estimate Plt Morphology Comment RBC Morphology Polychromasia Hypochromasia Target Cells Anion Gap Estim Creat Clear Calc Estimated GFR POC Glucose 173 H 134 H Random Glucose Calcium Microbiology Microbiology Results: Microbiology 04/18/23 12:44 Blood Culture - Final Blood - Venous No growth after 5 days. 04/18/23 Unknown Gram Stain - Final Peritoneal Fluid Routine Culture - Final Proteus mirabilis Anaerobic Culture - Preliminary Streptococcus group c Assessment and Plan (1) Gram-negative bacteremia: Status: Acute Plan 62-year-old gentleman with underlying history of diabetes mellitus and polycythemia vera admitted on 04/18/2023 with perforated sigmoid diverticulitis s/p sigmoid colectomy with end-colostomy further complicated by Gram-negative bacteremia, acute kidney injury, and acute hypoxic respiratory failure.developed AFib with RVR on 04/19/2023 requiring amiodarone drip, now rate controlled. [place] [facility] [place]23 Perforated sigmoid diverticulitis status post sigmoidectomy with end colostomy pod #5 management per General surgery Encourage incentive spirometry Continue PT Proteus mirabilis bacteremia Blood culture and peritoneal fluid culture grew Proteus mirabilis, and peritoneal fluid also growing group c strep; continue iv Zosyn since 04/19,need total 14 days, can transition to po ceftin on discharge to complete course Acute hypernatremia resolved AFib with RVR, converted to normal sinus rhythm case discussed with Cardiology s/p iv amiodarone drip , transitioned to by mouth amiodarone 400 mg b.i.d.on 04/21 - duration TBD per cardiology echocardiogram showed EF 66%, no obvious valvular pathology, diastolic function is normal, TSH 1.44, cont. cardio recommends to hold anticoagulation. Acute hypoxic respiratory failure Likely due to fluid overload, atelectasis now on room air Acute kidney injury secondary to septic shock with sigmoid perforation. Resolved, renal function back to baseline Hold hydrochlorothiazide, hold NSAIDs Diabetes mellitus type 2 diabetic diet, stable blood sugars continue insulin sliding scale, Hold home dose of metformin. History of gout on allopurinol 300 mg daily, currently on hold. Hyperlipidemia Lipitor on hold Hypertension continue metoprolol lisinopril/hydrochlorothiazide has been on hold bp starting to trend up, will start low dose lisinopril and titrate prn DVT prophylaxis compression therapy Disposition as per surgery Quality Stroke Does the patient have a stroke diagnosis?: No VTE Prior VTE?: No VTE Risk Level:: Surgical - moderate VTE Device Contraindication: N/A - Device Ordered VTE Drug Contraindication: Treatment Not Indicated
[2023-04-23] MEDS: HYDROmorphone HCl 0.5 MG/0.5 ML SYRINGE IVPUSH (20:29)
[2023-04-23 20:52] LABS: Glucose, Whole Blood 132 mg/dL (60-115)
[2023-04-24] MEDS: Piperacillin Sodium/Tazobactam 3.375 GM in 0.9 % Sodium Chloride 50 ML IV ×4 (02:54→21:15)
[2023-04-24 03:04] VITALS: BP 146/80; PULSE 65; RESP 20; TEMP 36; O2SAT 95
[2023-04-24] MEDS: Acetaminophen 1,000 MG/100 ML PIGGYBACK 100 MG IV (03:10)
[2023-04-24] MEDS: Omeprazole 40 MG CAPSULE.DR PO (05:37)
[2023-04-24 06:36] LABS: Hemoglobin 11.8 g/dl (14.0-18.0); Mean Corpuscular HGB Conc 32.8 g/dl (31.0-36.0); Mean Corpuscular Hemoglobin 27.8 pg (27.0-33.0); Mean Corpuscular Volume 84.9 fL (80.0-98.0); Platelet Count 443 X10*3/uL (160-400); Red Blood Count 4.24 X10*6/uL (4.60-5.80); White Blood Count 16.9 X10*3/uL (4.8-10.8)
[2023-04-24 06:49] LABS: Anion Gap 13 (12-20); Blood Urea Nitrogen 22 mg/dL (9-16); Calcium 8.7 mg/dL (8.4-10.2); Carbon Dioxide 24 mmol/L (22-29); Chloride 107 mmol/L (96-108); Creatinine Clr Calc Pharmacy 94.1; Estimated Glomerular Filt Rate > 60; Glucose Random 112 mg/dL (60-115); Potassium 4.3 mmol/L (3.3-5.1); Sodium 140 mmol/L (135-145)
[2023-04-24 07:12] LABS: Band Neutrophils Percent 2 % (3-5); Eosinophils Absolute Manual 0.5 X10*3/uL (0.0-0.4); Eosinophils Percent Manual 3 % (0-4); Lymphocytes Percent Manual 18 % (20-40); Metamyelocytes Absolute 0.3 X10*3/uL; Metamyelocytes Percent 2 %; Monocytes Absolute Manual 0.3 X10*3/uL (0.1-1.2); Monocytes Percent Manual 2 % (2-11); Neutrophils Absolute Manual 12.7 X10*3/uL (2.0-8.3); Neutrophils Percent Manual 73 % (45-73)
[2023-04-24 07:15] LABS: Hypochromasia 1+ (5-14) /OIF; Polychromasia 1+ (0-2) /OIF; RBC Morphology NOTED; Target Cells 1+ (5-14) /OIF
[2023-04-24 07:16] LABS: Large Platelet PRESENT; Platelet Estimate SLIGHTLY INCREASED (NORMAL); Platelet Morphology Comment NOTED
[2023-04-24 07:17] VITALS: BP 156/80; PULSE 69; RESP 20; TEMP 36.1; O2SAT 97
[2023-04-24 07:26] LABS: Glucose, Whole Blood 107 mg/dL (60-115)
[2023-04-24] MEDS: lisinopriL 5 MG TABLET PO (08:34)
[2023-04-24] MEDS: Amiodarone HCL 200 MG TABLET 400 MG PO ×2 (08:34→21:14)
[2023-04-24] MEDS: Metoprolol Succinate ER 50 MG TAB.ER.24H PO (08:34)
[2023-04-24] MEDS: Acetaminophen 1,000 MG/100 ML PIGGYBACK 400 MG IV ×3 (10:39→22:18)
[2023-04-24 11:06] VITALS: BP 135/72; PULSE 61; RESP 20; TEMP 36.1; O2SAT 98
[2023-04-24 11:11] LABS: Glucose, Whole Blood 128 mg/dL (60-115)
--- NOTE | 2023-04-24 14:52 | HO.PM.IMPN ---
Subjective Subjective Date of Service: 04/24/23 Interval History: seen and examined this morning follow up for medical consultation; perforated sigmoid colon due to diverticulitis no significant abdominal pain, some stool output, tolerating diet no sob, on room air no complaints Review of Systems Review of Systems: Yes all other systems are reviewed and are negative Constitutional Constitutional: Denies chills and Denies fever(s) Cardiovascular Cardiovascular: Denies chest pain and Denies dyspnea Respiratory Respiratory: Denies cough and Denies dyspnea Gastrointestinal Gastrointestinal: Denies abdominal pain Physical Exam Vital Signs: Vital Signs: Last Vital Signs Temp 97.0 F 04/24/23 11:06 Pulse 61 04/24/23 11:06 Resp 20 04/24/23 11:06 BP 135/72 04/24/23 11:06 Pulse Ox 98 04/24/23 11:06 O2 Del Method Room Air 04/24/23 11:06 O2 Flow Rate 1.5 04/23/23 07:30 FiO2 42 04/22/23 11:30 BMI result Body Mass Index 32.4 Const: General: cooperative, comfortable, no acute distress, alert and awake Nutritional Appearance: average body habitus Orientation/consciousness: patient oriented x3 Resp: Effort & Inspection: normal respiratory effort, able to speak in complete sentences, no respiratory distress and no use of accessory muscles Cardio: Rate: regular rate GI: Other: midline incision clean; ostomy with small amount of brown stool abdomen softly distended, +BS Palpation (GI): Soft to palpation Neuro: General: patient oriented x3, moves all extremities and CN's II-XI intact bilaterally Extrem: General: Yes no pedal edema Objective Data Active Medications Amiodarone HCl (Amiodarone Hcl 200 Mg Tablet) 400 mg PO BID [facility] Last Admin: 04/24/23 08:34 Dose: 400 mg Documented By: SHAHEED Hydromorphone HCl (Hydromorphone Hcl 0.5 Mg/0.5 Ml Syringe) 0.5 mg IVPUSH Q3H PRN; Protocol PRN Reason: Pain, Severe (Pain Scale 7-10) Last Admin: 04/23/23 20:29 Dose: 0.5 mg Documented By: YUMI Acetaminophen (Ofirmev) 1,000 mg in 100 mls @ 400 mls/hr IV Q6H [facility] Last Infusion: 04/24/23 10:59 Dose: Infused Documented By: SHAHEED Piperacillin Sod/Tazobactam (Sod 3.375 gm/ Sodium Chloride) 50 mls @ 100 mls/hr IV Q6H [facility] Last Infusion: 04/24/23 09:17 Dose: Infused Documented By: SHAHEED Insulin Human Lispro (Insulin Lispro 100 Unit/Ml 3 Ml Vial) 0 unit SUBCUT QIDACHS [facility]; Protocol Last Admin: 04/24/23 11:13 Dose: Not Given Documented By: SHAHEED Non-Admin Reason: No Insulin Coverage Comments: per sliding scale Levalbuterol HCl (Levalbuterol Hcl 1.25 Mg/3 Ml Vial.Neb) 1.25 mg INHALE Q4H PRN PRN Reason: Shortness of Breath/Wheezing Last Admin: 04/22/23 21:24 Dose: 1.25 mg Documented By: ROBERT Lisinopril (Lisinopril 5 Mg Tablet) 5 mg PO DAILY [facility]; Protocol Last Admin: 04/24/23 08:34 Dose: 5 mg Documented By: SHAHEED Metoprolol Succinate (Metoprolol Succinate Er 50 Mg Tab.Er.24h) 50 mg PO DAILY [facility]; Protocol Last Admin: 04/24/23 08:34 Dose: 50 mg Documented By: SHAHEED Omeprazole (Omeprazole 40 Mg Capsule.Dr) 40 mg PO DAILY@0630 [facility] Last Admin: 04/24/23 05:37 Dose: 40 mg Documented By: YUMI Ondansetron HCl (Ondansetron Hcl 4 Mg/2 Ml Vial) 4 mg IVPUSH QID PRN PRN Reason: Nausea Labs 04/24/23 05:25 04/24/23 05:25 Labs: Laboratory Results - last 24 hr 04/23/23 04/23/23 04/24/23 16:08 20:46 05:25 MCV 84.9 MCH 27.8 MCHC 32.8 RDW 20.0 H Plt Count 443 H MPV 12.0 Immature Gran % (Auto) Cancelled Neut % (Auto) Cancelled Lymph % (Auto) Cancelled [place] % (Auto) Cancelled Eos % (Auto) Cancelled Baso % (Auto) Cancelled Lymph # (Auto) Cancelled [place] # (Auto) Cancelled Eos # (Auto) Cancelled Baso # (Auto) Cancelled Abs Immat Gran (auto) Cancelled Absolute Neuts (auto) Cancelled Absolute Nucleated RBC 0.000 Nucleated RBC % (auto) 0.0 Neutrophils % (Manual) 73 Band Neutrophils % 2 L Lymphocytes % (Manual) 18 L Monocytes % (Manual) 2 Eosinophils % (Manual) 3 Metamyelocytes % 2 Abs Neuts (Manual) 12.7 H Lymphocytes # (Manual) 3.0 Monocytes # (Manual) 0.3 Eosinophils # (Manual) 0.5 H Metamyelocytes # 0.3 Platelet Estimate SLIGHTLY INCREASED Large Platelets PRESENT Plt Morphology Comment NOTED RBC Morphology NOTED Polychromasia 1+ (0-2) Hypochromasia 1+ (5-14) Target Cells 1+ (5-14) Anion Gap 13 Estim Creat Clear Calc 94.1 Estimated GFR > 60 POC Glucose 134 H 132 H Random Glucose 112 Calcium 8.7 04/24/23 04/24/23 07:18 11:08 MCV MCH MCHC RDW Plt Count MPV Immature Gran % (Auto) Neut % (Auto) Lymph % (Auto) [place] % (Auto) Eos % (Auto) Baso % (Auto) Lymph # (Auto) [place] # (Auto) Eos # (Auto) Baso # (Auto) Abs Immat Gran (auto) Absolute Neuts (auto) Absolute Nucleated RBC Nucleated RBC % (auto) Neutrophils % (Manual) Band Neutrophils % Lymphocytes % (Manual) Monocytes % (Manual) Eosinophils % (Manual) Metamyelocytes % Abs Neuts (Manual) Lymphocytes # (Manual) Monocytes # (Manual) Eosinophils # (Manual) Metamyelocytes # Platelet Estimate Large Platelets Plt Morphology Comment RBC Morphology Polychromasia Hypochromasia Target Cells Anion Gap Estim Creat Clear Calc Estimated GFR POC Glucose 107 128 H Random Glucose Calcium Microbiology Microbiology Results: Microbiology 04/18/23 Unknown Gram Stain - Final Peritoneal Fluid Routine Culture - Final Proteus mirabilis Anaerobic Culture - Preliminary Culture in progress. 04/18/23 12:44 Blood Culture - Final Blood - Venous No growth after 5 days. Assessment and Plan (1) Atrial flutter with rapid ventricular response: Status: Acute (2) Gram-negative bacteremia: Status: Acute Plan 62-year-old gentleman with underlying history of diabetes mellitus and polycythemia vera admitted on 04/18/2023 with perforated sigmoid diverticulitis s/p sigmoid colectomy with end-colostomy further complicated by Gram-negative bacteremia, acute kidney injury, and acute hypoxic respiratory failure.developed AFib with RVR on 04/19/2023 requiring amiodarone drip, now rate controlled. [place] [facility] [place] Perforated sigmoid diverticulitis status post sigmoidectomy with end colostomy pod #6 management per General surgery Encourage incentive spirometry Continue PT Proteus mirabilis bacteremia Blood culture and peritoneal fluid culture grew Proteus mirabilis, and peritoneal fluid also growing group c strep; continue iv Zosyn since 04/19, need total 14 days, can transition to po ceftin on discharge to complete course Acute hypernatremia resolved AFib with RVR, converted to normal sinus rhythm case discussed with Cardiology s/p iv amiodarone drip , transitioned to by mouth amiodarone 400 mg b.i.d.on 04/21 - duration TBD per cardiology echocardiogram showed EF 66%, no obvious valvular pathology, diastolic function is normal, TSH 1.44, cont. cardio recommends to hold anticoagulation. Acute hypoxic respiratory failure Likely due to fluid overload, atelectasis now on room air Acute kidney injury secondary to septic shock with sigmoid perforation. Resolved, renal function back to baseline Hold hydrochlorothiazide, hold NSAIDs Diabetes mellitus type 2 diabetic diet, stable blood sugars continue insulin sliding scale, Hold home dose of metformin. History of gout on allopurinol 300 mg daily, currently on hold. Hyperlipidemia Lipitor on hold Hypertension continue metoprolol lisinopril/hydrochlorothiazide has been on hold bp starting to trend up, will start low dose lisinopril and titrate prn DVT prophylaxis compression therapy Disposition as per surgery Quality Stroke Does the patient have a stroke diagnosis?: No VTE Prior VTE?: No VTE Risk Level:: Surgical - moderate VTE Device Contraindication: N/A - Device Ordered VTE Drug Contraindication: Treatment Not Indicated
[2023-04-24 16:00] VITALS: BP 176/86; PULSE 62; RESP 18; TEMP 36.3; O2SAT 98
[2023-04-24 16:45] LABS: Glucose, Whole Blood 112 mg/dL (60-115)
[2023-04-24 17:12] VITALS: BP 163/83; PULSE 61; RESP 18; TEMP 36.8; O2SAT 98
[2023-04-24 19:39] VITALS: BP 162/75; PULSE 61; RESP 16; TEMP 36.8; O2SAT 99
--- NOTE | 2023-04-24 20:06 | P.PNGS_ITS ---
Subjective Subjective Date of Service: 04/24/23 Interval history: pt feeling well, eating fine and having bowel movements into ostomy bag Physical Exam 2 Vital Signs: Vital Signs: Last Vital Signs Temp 98.2 F 04/24/23 19:39 Pulse 61 04/24/23 19:39 Resp 16 04/24/23 19:39 BP 162/75 H 04/24/23 19:39 Pulse Ox 99 04/24/23 19:39 O2 Del Method Room Air 04/24/23 19:39 O2 Flow Rate 1.5 04/23/23 07:30 FiO2 42 04/22/23 11:30 BMI result Body Mass Index 32.4 GI: Other: abdomen soft nontender and ostomy bag working with gas and much stool Objective Data Active Medications Amiodarone HCl (Amiodarone Hcl 200 Mg Tablet) 400 mg PO BID [facility] Last Admin: 04/24/23 08:34 Dose: 400 mg Documented By: SHAHEED Hydromorphone HCl (Hydromorphone Hcl 0.5 Mg/0.5 Ml Syringe) 0.5 mg IVPUSH Q3H PRN; Protocol PRN Reason: Pain, Severe (Pain Scale 7-10) Last Admin: 04/23/23 20:29 Dose: 0.5 mg Documented By: YUMI Acetaminophen (Ofirmev) 1,000 mg in 100 mls @ 400 mls/hr IV Q6H [facility] Last Infusion: 04/24/23 17:51 Dose: Infused Documented By: SHAHEED Piperacillin Sod/Tazobactam (Sod 3.375 gm/ Sodium Chloride) 50 mls @ 100 mls/hr IV Q6H [facility] Last Infusion: 04/24/23 15:52 Dose: Infused Documented By: SHAHEED Insulin Human Lispro (Insulin Lispro 100 Unit/Ml 3 Ml Vial) 0 unit SUBCUT QIDACHS [facility]; Protocol Last Admin: 04/24/23 16:54 Dose: Not Given Documented By: SHAHEED Non-Admin Reason: No Insulin Coverage Comments: per sliding scale Levalbuterol HCl (Levalbuterol Hcl 1.25 Mg/3 Ml Vial.Neb) 1.25 mg INHALE Q4H PRN PRN Reason: Shortness of Breath/Wheezing Last Admin: 04/22/23 21:24 Dose: 1.25 mg Documented By: ROBERT Lisinopril (Lisinopril 5 Mg Tablet) 5 mg PO DAILY [facility]; Protocol Last Admin: 04/24/23 08:34 Dose: 5 mg Documented By: SHAHEED Metoprolol Succinate (Metoprolol Succinate Er 50 Mg Tab.Er.24h) 50 mg PO DAILY [facility]; Protocol Last Admin: 04/24/23 08:34 Dose: 50 mg Documented By: SHAHEED Omeprazole (Omeprazole 40 Mg Capsule.Dr) 40 mg PO DAILY@0630 [facility] Last Admin: 04/24/23 05:37 Dose: 40 mg Documented By: YUMI Ondansetron HCl (Ondansetron Hcl 4 Mg/2 Ml Vial) 4 mg IVPUSH QID PRN PRN Reason: Nausea Labs 04/24/23 05:25 04/24/23 05:25 Labs: Laboratory Results - last 24 hr 04/23/23 04/24/23 04/24/23 20:46 05:25 07:18 MCV 84.9 MCH 27.8 MCHC 32.8 RDW 20.0 H Plt Count 443 H MPV 12.0 Immature Gran % (Auto) Cancelled Neut % (Auto) Cancelled Lymph % (Auto) Cancelled [place] % (Auto) Cancelled Eos % (Auto) Cancelled Baso % (Auto) Cancelled Lymph # (Auto) Cancelled [place] # (Auto) Cancelled Eos # (Auto) Cancelled Baso # (Auto) Cancelled Abs Immat Gran (auto) Cancelled Absolute Neuts (auto) Cancelled Absolute Nucleated RBC 0.000 Nucleated RBC % (auto) 0.0 Neutrophils % (Manual) 73 Band Neutrophils % 2 L Lymphocytes % (Manual) 18 L Monocytes % (Manual) 2 Eosinophils % (Manual) 3 Metamyelocytes % 2 Abs Neuts (Manual) 12.7 H Lymphocytes # (Manual) 3.0 Monocytes # (Manual) 0.3 Eosinophils # (Manual) 0.5 H Metamyelocytes # 0.3 Platelet Estimate SLIGHTLY INCREASED Large Platelets PRESENT Plt Morphology Comment NOTED RBC Morphology NOTED Polychromasia 1+ (0-2) Hypochromasia 1+ (5-14) Target Cells 1+ (5-14) Anion Gap 13 Estim Creat Clear Calc 94.1 Estimated GFR > 60 POC Glucose 132 H 107 Random Glucose 112 Calcium 8.7 04/24/23 04/24/23 11:08 16:34 MCV MCH MCHC RDW Plt Count MPV Immature Gran % (Auto) Neut % (Auto) Lymph % (Auto) [place] % (Auto) Eos % (Auto) Baso % (Auto) Lymph # (Auto) [place] # (Auto) Eos # (Auto) Baso # (Auto) Abs Immat Gran (auto) Absolute Neuts (auto) Absolute Nucleated RBC Nucleated RBC % (auto) Neutrophils % (Manual) Band Neutrophils % Lymphocytes % (Manual) Monocytes % (Manual) Eosinophils % (Manual) Metamyelocytes % Abs Neuts (Manual) Lymphocytes # (Manual) Monocytes # (Manual) Eosinophils # (Manual) Metamyelocytes # Platelet Estimate Large Platelets Plt Morphology Comment RBC Morphology Polychromasia Hypochromasia Target Cells Anion Gap Estim Creat Clear Calc Estimated GFR POC Glucose 128 H 112 Random Glucose Calcium Microbiology Microbiology Results: Microbiology 04/18/23 Unknown Gram Stain - Final Peritoneal Fluid Routine Culture - Final Proteus mirabilis Anaerobic Culture - Preliminary Culture in progress. Procedures Date of Service Date of Service: 04/24/23 Progress Note: A&P Assessment and plan (1) Perforation of sigmoid colon due to diverticulitis: Status: Acute Assessment and Plan: ptPOD#6 sp John procedure for perf sig tic - doing very well with stool output today and moving around and tolerating po well will plan dc home tomorrow Time Spent With Patient Time: Total time managing care of this patient today ____ minutes. Quality Stroke Does the patient have a stroke diagnosis?: No VTE Prior VTE?: No VTE Risk Level:: Surgical - moderate VTE Device Contraindication: N/A - Device Ordered VTE Drug Contraindication: Treatment Not Indicated
[2023-04-24 20:44] LABS: Glucose, Whole Blood 114 mg/dL (60-115)
[2023-04-24] MEDS: HYDROmorphone HCl 0.5 MG/0.5 ML SYRINGE IVPUSH (21:17)
[2023-04-25 02:00] VITALS: BP 165/70; PULSE 60; RESP 14; TEMP 36.6; O2SAT 97
[2023-04-25] MEDS: Piperacillin Sodium/Tazobactam 3.375 GM in 0.9 % Sodium Chloride 50 ML IV ×2 (03:13→07:59)
[2023-04-25 04:00] VITALS: BP 157/83; PULSE 58; RESP 16; TEMP 36.9; O2SAT 96
[2023-04-25] MEDS: Omeprazole 40 MG CAPSULE.DR PO (05:21)
[2023-04-25 06:26] LABS: Hematocrit 35.6 % (42.0-52.0); Hemoglobin 11.9 g/dl (14.0-18.0); Mean Corpuscular HGB Conc 33.4 g/dl (31.0-36.0); Mean Corpuscular Hemoglobin 28.3 pg (27.0-33.0); Mean Corpuscular Volume 84.6 fL (80.0-98.0); Mean Platelet Volume 11.8 fL (9.4-12.4); Platelet Count 488 X10*3/uL (160-400); Red Blood Count 4.21 X10*6/uL (4.60-5.80); Red Cell Distribution Width 20.3 % (11.0-16.0)
[2023-04-25 06:35] LABS: Anion Gap 14 (12-20); Blood Urea Nitrogen 17 mg/dL (9-16); Calcium 8.4 mg/dL (8.4-10.2); Carbon Dioxide 22 mmol/L (22-29); Chloride 108 mmol/L (96-108); Creatinine Clr Calc Pharmacy 101.2; Estimated Glomerular Filt Rate > 60; Glucose Random 98 mg/dL (60-115); Potassium 3.7 mmol/L (3.3-5.1); Sodium 140 mmol/L (135-145)
[2023-04-25 07:16] LABS: Band Neutrophils Percent 2 % (3-5); Eosinophils Absolute Manual 0.3 X10*3/uL (0.0-0.4); Eosinophils Percent Manual 2 % (0-4); Lymphocytes Percent Manual 14 % (20-40); Metamyelocytes Absolute 0.1 X10*3/uL; Metamyelocytes Percent 1 %; Monocytes Absolute Manual 0.3 X10*3/uL (0.1-1.2); Monocytes Percent Manual 2 % (2-11); Neutrophils Absolute Manual 11.3 X10*3/uL (2.0-8.3); Neutrophils Percent Manual 79 % (45-73); RBC Morphology NOTED
[2023-04-25 07:17] LABS: Large Platelet PRESENT; Platelet Estimate SLIGHTLY INCREASED (NORMAL); Platelet Morphology Comment NOTED
[2023-04-25 07:18] LABS: Polychromasia 1+ (0-2) /OIF; Target Cells 1+ (5-14) /OIF
[2023-04-25 07:55] VITALS: BP 158/81; PULSE 65; RESP 20; TEMP 36.1; O2SAT 98
[2023-04-25 08:02] LABS: Glucose, Whole Blood 101 mg/dL (60-115)
[2023-04-25] MEDS: lisinopriL 5 MG TABLET PO ×2 (08:04→11:06)
[2023-04-25] MEDS: Amiodarone HCL 200 MG TABLET 400 MG PO (08:04)
[2023-04-25] MEDS: Metoprolol Succinate ER 50 MG TAB.ER.24H PO (08:04)
--- NOTE | 2023-04-25 10:25 | HO.PM.IMPN ---
Subjective Subjective Date of Service: 04/25/23 Interval History: seen and examined this morning follow up for medical consultation no overnight events doing well, no abdominal pain, output in ostomy. tolerating diet. no sob Review of Systems Review of Systems: Yes all other systems are reviewed and are negative Constitutional Constitutional: Denies chills and Denies fever(s) Cardiovascular Cardiovascular: Denies chest pain, Denies palpitations and Denies dyspnea Respiratory Respiratory: Denies cough and Denies dyspnea Endocrine Endocrine: Denies palpitations Physical Exam Vital Signs: Vital Signs: Last Vital Signs Temp 97.0 F 04/25/23 07:55 Pulse 65 04/25/23 07:55 Resp 20 04/25/23 07:55 BP 158/81 H 04/25/23 07:55 Pulse Ox 98 04/25/23 07:55 O2 Del Method Room Air 04/25/23 07:55 O2 Flow Rate 1.5 04/23/23 07:30 FiO2 42 04/22/23 11:30 BMI result Body Mass Index 32.4 Const: General: cooperative, comfortable, no acute distress, alert and awake Nutritional Appearance: average body habitus Orientation/consciousness: patient oriented x3 Resp: Effort & Inspection: normal respiratory effort, able to speak in complete sentences, no respiratory distress and no use of accessory muscles Auscultation: clear to auscultation bilaterally Cardio: Rate: regular rate GI: Other: midline incision clean; ostomy with brown stool abdomen softly distended, +BS Palpation (GI): Soft to palpation Neuro: General: patient oriented x3, moves all extremities and CN's II-XI intact bilaterally Extrem: General: Yes no pedal edema Objective Data Active Medications Hydromorphone HCl (Hydromorphone Hcl 0.5 Mg/0.5 Ml Syringe) 0.5 mg IVPUSH Q3H PRN; Protocol PRN Reason: Pain, Severe (Pain Scale 7-10) Last Admin: 04/24/23 21:17 Dose: 0.5 mg Documented By: YUMI Acetaminophen (Ofirmev) 1,000 mg in 100 mls @ 400 mls/hr IV Q6H [facility] Last Admin: 04/25/23 04:10 Dose: Not Given Documented By: YUMI Non-Admin Reason: pt. refused Piperacillin Sod/Tazobactam (Sod 3.375 gm/ Sodium Chloride) 50 mls @ 100 mls/hr IV Q6H [facility] Last Infusion: 04/25/23 08:52 Dose: Infused Documented By: SHAHEED Insulin Human Lispro (Insulin Lispro 100 Unit/Ml 3 Ml Vial) 0 unit SUBCUT QIDACHS [facility]; Protocol Last Admin: 04/25/23 08:08 Dose: Not Given Documented By: SHAHEED Non-Admin Reason: No Insulin Coverage Comments: per sliding scale Levalbuterol HCl (Levalbuterol Hcl 1.25 Mg/3 Ml Vial.Neb) 1.25 mg INHALE Q4H PRN PRN Reason: Shortness of Breath/Wheezing Last Admin: 04/22/23 21:24 Dose: 1.25 mg Documented By: ROBERT Lisinopril (Lisinopril 5 Mg Tablet) 5 mg PO DAILY [facility]; Protocol Last Admin: 04/25/23 08:04 Dose: 5 mg Documented By: SHAHEED Metoprolol Succinate (Metoprolol Succinate Er 50 Mg Tab.Er.24h) 50 mg PO DAILY [facility]; Protocol Last Admin: 04/25/23 08:04 Dose: 50 mg Documented By: SHAHEED Omeprazole (Omeprazole 40 Mg Capsule.Dr) 40 mg PO DAILY@0630 [facility] Last Admin: 04/25/23 05:21 Dose: 40 mg Documented By: YUMI Ondansetron HCl (Ondansetron Hcl 4 Mg/2 Ml Vial) 4 mg IVPUSH QID PRN PRN Reason: Nausea Labs 04/25/23 05:37 04/25/23 05:37 Labs: Laboratory Results - last 24 hr 04/24/23 04/24/23 04/24/23 11:08 16:34 20:12 MCV MCH MCHC RDW Plt Count MPV Immature Gran % (Auto) Neut % (Auto) Lymph % (Auto) [place] % (Auto) Eos % (Auto) Baso % (Auto) Lymph # (Auto) [place] # (Auto) Eos # (Auto) Baso # (Auto) Abs Immat Gran (auto) Absolute Neuts (auto) Absolute Nucleated RBC Nucleated RBC % (auto) Neutrophils % (Manual) Band Neutrophils % Lymphocytes % (Manual) Monocytes % (Manual) Eosinophils % (Manual) Metamyelocytes % Abs Neuts (Manual) Lymphocytes # (Manual) Monocytes # (Manual) Eosinophils # (Manual) Metamyelocytes # Platelet Estimate Large Platelets Plt Morphology Comment RBC Morphology Polychromasia Target Cells Anion Gap Estim Creat Clear Calc Estimated GFR POC Glucose 128 H 112 114 Random Glucose Calcium 04/25/23 04/25/23 05:37 07:58 MCV 84.6 MCH 28.3 MCHC 33.4 RDW 20.3 H Plt Count 488 H MPV 11.8 Immature Gran % (Auto) Cancelled Neut % (Auto) Cancelled Lymph % (Auto) Cancelled [place] % (Auto) Cancelled Eos % (Auto) Cancelled Baso % (Auto) Cancelled Lymph # (Auto) Cancelled [place] # (Auto) Cancelled Eos # (Auto) Cancelled Baso # (Auto) Cancelled Abs Immat Gran (auto) Cancelled Absolute Neuts (auto) Cancelled Absolute Nucleated RBC 0.000 Nucleated RBC % (auto) 0.0 Neutrophils % (Manual) 79 H Band Neutrophils % 2 L Lymphocytes % (Manual) 14 L Monocytes % (Manual) 2 Eosinophils % (Manual) 2 Metamyelocytes % 1 Abs Neuts (Manual) 11.3 H Lymphocytes # (Manual) 2.0 Monocytes # (Manual) 0.3 Eosinophils # (Manual) 0.3 Metamyelocytes # 0.1 Platelet Estimate SLIGHTLY INCREASED Large Platelets PRESENT Plt Morphology Comment NOTED RBC Morphology NOTED Polychromasia 1+ (0-2) Target Cells 1+ (5-14) Anion Gap 14 Estim Creat Clear Calc 101.2 Estimated GFR > 60 POC Glucose 101 Random Glucose 98 Calcium 8.4 Microbiology Microbiology Results: Microbiology 04/18/23 Unknown Gram Stain - Final Peritoneal Fluid Routine Culture - Final Proteus mirabilis Anaerobic Culture - Preliminary Culture in progress. Assessment and Plan (1) Atrial flutter with rapid ventricular response: Status: Acute (2) Perforation of sigmoid colon due to diverticulitis: Status: Acute (3) Gram-negative bacteremia: Status: Acute Plan 62-year-old gentleman with underlying history of diabetes mellitus and polycythemia vera admitted on 04/18/2023 with perforated sigmoid diverticulitis s/p sigmoid colectomy with end-colostomy further complicated by Gram-negative bacteremia, acute kidney injury, and acute hypoxic respiratory failure.developed AFib with RVR on 04/19/2023 requiring amiodarone drip, now rate controlled. Transferred to [facility] [place] on 04/20/23 Perforated sigmoid diverticulitis status post sigmoidectomy with end colostomy pod #7 management per General surgery Encourage incentive spirometry PT following, rec STR Proteus mirabilis bacteremia Blood culture and peritoneal fluid culture grew Proteus mirabilis, and peritoneal fluid also growing group c strep; continue iv Zosyn since 04/19, need total 14 days, can transition to po ceftin 500 BID on discharge to complete course, end date 04/28 Acute hypernatremia resolved [place] AFib with RVR converted to normal sinus rhythm case discussed with Cardiology s/p iv amiodarone drip, transitioned to by mouth amiodarone 400 mg b.i.d.on 04/21. Discussed with cardiology, due to short duration of afib during acute illness, plan to d/c amiodorone continue baseline dose of metoprolol no need for anticoagulation echocardiogram showed EF 66%, no obvious valvular pathology, diastolic function is normal, TSH 1.44, cont. outpatient follow up with cardiology Acute hypoxic respiratory failure Likely due to fluid overload, atelectasis now on room air Acute kidney injury secondary to septic shock with sigmoid perforation. Resolved, renal function back to baseline Hold hydrochlorothiazide, hold NSAIDs Diabetes mellitus type 2 diabetic diet, stable blood sugars continue insulin sliding scale, Hold home dose of metformin, can resume upon discharge History of gout on allopurinol 300 mg daily, currently on hold. Hyperlipidemia Lipitor on hold Hypertension continue metoprolol lisinopril/hydrochlorothiazide has been on hold- lisinopril resumed at lower dose, can likely resume home dose on discharge DVT prophylaxis compression therapy Disposition as per surgery Quality Stroke Does the patient have a stroke diagnosis?: No VTE Prior VTE?: No VTE Risk Level:: Surgical - moderate VTE Device Contraindication: N/A - Device Ordered VTE Drug Contraindication: Treatment Not Indicated
--- NOTE | 2023-04-25 10:28 | P.PNCA_ITS ---
Subjective Subjective Date of Service: 04/25/23 Interval history: He states he feels fine. No cardiac symptoms. Review of Systems Review of Systems Yes all other systems are reviewed and are negative Constitutional: Reports as per HPI and Reports no additional constitutional complaints Eyes: Reports as per HPI and Denies no additional eye complaints Denies system reviewed and no additional complaints, except as documented and Reports as per HPI Cardiovascular: Reports as per HPI, Reports no additional cardiovascular complaints, Denies acrocyanosis, Denies cool extremities, Denies chest pain, Denies leg edema, Denies lightheadedness, Denies palpitations and Denies dyspnea Respiratory: Reports as per HPI, Denies no additional respiratory complaints and Denies dyspnea Gastrointestinal: Reports as per HPI and Denies no additional gastrointestinal complaints Genitourinary: Reports no additional male genitourinary complaints and Reports as per HPI Musculoskeletal: Reports no additional musculoskeletal complaints and Reports as per HPI Skin/Breast: Reports system reviewed and no additional complaints, except as docu Reports system reviewed and no additional complaints, except as documented and Reports as per HPI Psychiatric: Reports no additional psychiatric complaints and Reports as per HPI Endocrine: Reports no additional endocrine complaints, Reports as per HPI and Denies palpitations Hematologic/Lymphatic: Reports no additional hematologic/lymphatic complaints and Reports as per HPI Allergic/Immunologic: Reports no additional allergic/immunologic complaints and Reports as per HPI Physical Exam Vital Signs: Last Vital Signs Temp 97.0 F 04/25/23 07:55 Pulse 65 04/25/23 07:55 Resp 20 04/25/23 07:55 BP 158/81 H 04/25/23 07:55 Pulse Ox 98 04/25/23 07:55 O2 Del Method Room Air 04/25/23 07:55 O2 Flow Rate 1.5 04/23/23 07:30 FiO2 42 04/22/23 11:30 BMI result Body Mass Index 32.4 Const General: comfortable and no acute distress Orientation/consciousness: patient oriented x3 HEENT Other: Unremarkable Head: Yes normal to inspection Neck Neck: Yes normal visual inspection Chest Chest palpation & inspection: normal inspection of the chest Resp Auscultation: clear to auscultation bilaterally Cardio Palpation: normal PMI Heart sounds: S1 normal heart sound present, S2 normal heart sound present, no gallops, no murmurs and no rubs GI Palpation (GI): Soft to palpation Back/Spine/Pelvis Other: unremarkable Skin General skin exam: no rashes or lesions noted Neuro General: patient oriented x3 Extrem General: Yes normal to inspection Psych Mental Status: mental status grossly normal Objective Labs and Meds 04/25/23 05:37 04/25/23 05:37 Lab results: Laboratory Results - last 24 hr 04/24/23 04/24/23 04/24/23 11:08 16:34 20:12 WBC RBC Hgb Hct MCV MCH MCHC RDW Plt Count MPV Immature Gran % (Auto) Neut % (Auto) Lymph % (Auto) White % (Auto) Eos % (Auto) Baso % (Auto) Lymph # (Auto) White # (Auto) Eos # (Auto) Baso # (Auto) Abs Immat Gran (auto) Absolute Neuts (auto) Absolute Nucleated RBC Nucleated RBC % (auto) Neutrophils % (Manual) Band Neutrophils % Lymphocytes % (Manual) Monocytes % (Manual) Eosinophils % (Manual) Metamyelocytes % Abs Neuts (Manual) Lymphocytes # (Manual) Monocytes # (Manual) Eosinophils # (Manual) Metamyelocytes # Platelet Estimate Large Platelets Plt Morphology Comment RBC Morphology Polychromasia Target Cells Sodium Potassium Chloride Carbon Dioxide Anion Gap BUN Creatinine Estim Creat Clear Calc Estimated GFR POC Glucose 128 H 112 114 Random Glucose Calcium 04/25/23 04/25/23 05:37 07:58 WBC 14.0 H RBC 4.21 L Hgb 11.9 L Hct 35.6 L MCV 84.6 MCH 28.3 MCHC 33.4 RDW 20.3 H Plt Count 488 H MPV 11.8 Immature Gran % (Auto) Cancelled Neut % (Auto) Cancelled Lymph % (Auto) Cancelled White % (Auto) Cancelled Eos % (Auto) Cancelled Baso % (Auto) Cancelled Lymph # (Auto) Cancelled White # (Auto) Cancelled Eos # (Auto) Cancelled Baso # (Auto) Cancelled Abs Immat Gran (auto) Cancelled Absolute Neuts (auto) Cancelled Absolute Nucleated RBC 0.000 Nucleated RBC % (auto) 0.0 Neutrophils % (Manual) 79 H Band Neutrophils % 2 L Lymphocytes % (Manual) 14 L Monocytes % (Manual) 2 Eosinophils % (Manual) 2 Metamyelocytes % 1 Abs Neuts (Manual) 11.3 H Lymphocytes # (Manual) 2.0 Monocytes # (Manual) 0.3 Eosinophils # (Manual) 0.3 Metamyelocytes # 0.1 Platelet Estimate SLIGHTLY INCREASED Large Platelets PRESENT Plt Morphology Comment NOTED RBC Morphology NOTED Polychromasia 1+ (0-2) Target Cells 1+ (5-14) Sodium 140 Potassium 3.7 Chloride 108 Carbon Dioxide 22 Anion Gap 14 BUN 17 H Creatinine 0.80 Estim Creat Clear Calc 101.2 Estimated GFR > 60 POC Glucose 101 Random Glucose 98 Calcium 8.4 Progress Note: A&P Assessment and plan (1) Atrial flutter with rapid ventricular response: Status: Acute (2) Gram-negative bacteremia: Status: Acute (3) Septic shock: Status: Acute Plan Troponin level was within normal limits. Echocardiogram with LVEF of 66%. No wall motion abnormalities and otherwise unremarkable. Total duration of atrial flutter was around 9 hours. However, he was quite ill in the ICU at that time. He is off the amiodarone drip and is on p.o. amiodarone. As there is no further evidence of atrial flutter fibrillation, we can stop amiodarone completely. Maintain home dose of beta-blockers. No clear indication for anticoagulation at this time. Can arrange follow-up in the clinic. Discussed with Vero Viera. Time Spent With Patient Time: Total time managing care of this patient today ____ minutes. Progress Note: Quality Stroke Does the patient have a stroke diagnosis?: No Procedures Date of Service Date of Service: 04/25/23
--- NOTE | 2023-04-25 10:49 | MHC.CM.PN ---
Second IMM given 04/25. Pt is medically cleared for D/C home with new [facility]. This CM met with pt to discuss and he no longer wants to go to [facility]. Pts will transport him home.
[2023-04-25 10:58] LABS: Glucose, Whole Blood 153 mg/dL (60-115)
[2023-04-25] MEDS: Acetaminophen 1,000 MG/100 ML PIGGYBACK 400 MG IV (11:06)
[2023-04-25 11:14] VITALS: BP 156/76; PULSE 62; RESP 20; TEMP 36.6; O2SAT 98
[2023-04-25] MEDS: Insulin Lispro 100 UNIT/ML 3 ML VIAL SUBCUT (11:45)
--- NOTE | 2023-04-25 12:24 | W.MHC.F2F ---
Service Date Service Date: 04/25/23 Encounter Date of encounter: 04/25/23 Reasons for Services Signs and symptoms assessed: new ostomy, ambulation, blood pressure monitoring Reason for care home: wound care Reason for physical therapy: home safety and mobility and therapeutic exercises Overseeing Care: Pia Avila Homebound: Leaving the home is medically contraindicated at this time without the asist of a device and/or another person due th the listed conditions above and below. Reason homebound: unsteady gait / fall risk and weakness related to hospital stay Certification: Based on the above findings, I certify that this patient is confined to the home and needs intermittent care home care, physical therapy and/or speech therapy, or continues to need occupational therapy. The patient is under my care, and I have initiated the establishment of the plan of care. The patient will be followed by a physician who will periodically review the plan of care. Time Spent With Patient Time: Total time managing care of this patient today ____ minutes.
--- NOTE | 2023-04-26 11:22 | PM.DS ---
DS: Providers Provider Date of Service: 04/25/23 Date of admission: 04/18/23 13:13 Date of discharge: 04/25/23 Primary care physician: Pia Avila MD Admitting clinician: Walter Haney Consults: 04/20/23 12:21 Consult to Hospitalist Routine Comment: Consulting Provider: Hospitalist Reason For Exam: Comanagement with surgical team 04/20/23 15:38 Consult to Cardiology Routine [place] [facility] [place] [facility] [facility] Reason for consultation: New AFIB Has provider been notified: Yes Attending physician on discharge: Va Alaniz DS: Diagnosis Discharge Diagnosis (1) Atrial flutter with rapid ventricular response: Start date: 04/17/23 Status: Acute (2) Perforation of sigmoid colon due to diverticulitis: Status: Acute (3) Gram-negative bacteremia: Start date: 04/25/23 Status: Acute (4) Septic shock: Status: Acute DS: Summary Hospital Course Hospital Course: The patient is a 62-year-old male who presented to the emergency room with abdominal pain and workup revealed significant free air. Patient was diagnosed with perforated diverticulitis and underwent Tyler procedure on 04/18 2023 and postoperatively did well. By the time of discharge on 04/25 23 he was tolerating p.o. diet has colostomy was working pain was controlled with p.o. pain meds and his vitals were all fine. Plan will be to discharge him home on p.o. Augmentin and follow up in the office later this week Status at Discharge Functional status at discharge: independent ambulation Overall status at discharge: patient is progressing back to baseline Time Attestation Discharge coordination time: Less than 30 minutes Quality: Safe Use of Opioids Does Pt have an Active Cancer Diagnosis on the Problem List?: No Quality: Stroke Does the patient have a stroke diagnosis?: No Physical Exam Vital Signs: Vital Signs: Last Vital Signs Temp 98 F 04/25/23 11:14 Pulse 62 04/25/23 11:14 Resp 20 04/25/23 11:14 BP 156/76 H 04/25/23 11:14 Pulse Ox 98 04/25/23 11:14 O2 Del Method Room Air 04/25/23 11:14 O2 Flow Rate 1.5 04/23/23 07:30 FiO2 42 04/22/23 11:30 BMI result Body Mass Index 32.4 Const: General: cooperative, healthy appearing, comfortable and no acute distress Orientation/consciousness: patient oriented x3 GI: Other: Abdomen is soft nondistended nontender. Midline incision looks well healed. Colostomy is working and there is stool in his bag as well as gas. Neuro: General: patient oriented x3 Extrem: General: Yes normal to inspection Psych: Appearance: grossly normal Mental Status: mental status grossly normal Speech and movement: Normal speech and movement present Affect: normal affect Attitude: cooperative Thought process: Normal thought process present Thought content: Normal thought content present DS: Data Data Completed and Pending Completed studies during hospitalization [Text1]: Pending at discharge 04/18/23 15:56 Surgical [PTH] Routine Discharge Plan Discharge Anticipated Discharge Date/Time: 04/25/23 16:25 Patient Disposition: Home Health Service Discharge Diagnosis: perforated diverticulitis, bacteremia Referrals: Tommy WARREN [Outside] - 1 Week Pia Avila MD [Primary Care Provider] - 1 Week Walter Haney MD [Physician] - 1 Week Discharge Medications: New cefuroxime axetil 500 mg tablet 500 mg PO BID Qty: 10 0RF Continued ibuprofen 200 mg Tablet 200 mg PO Q6H PRN (Reason: Pain) allopurinol 300 mg tablet 1 tab PO DAILY doxepin 50 mg capsule 50 mg PO BEDTIME atorvastatin 10 mg tablet 10 mg PO BEDTIME metoprolol succinate 50 mg tablet extended release 24 hr 50 mg PO DAILY metformin 1,000 mg tablet 1,000 mg PO BID omeprazole 20 mg capsule,delayed release(DR/EC) 20 mg PO DAILY naproxen 500 mg tablet 500 mg PO BID PRN (Reason: pain) Qty: 14 0RF lisinopril-hydrochlorothiazide 20-12.5 mg tablet 1 tab PO DAILY Discharge Orders: Discharge Order (Routine); Ordered 04/25/23 Ordered By: Va Alaniz Diet: Advance to usual diet Activity on Discharge: No heavy lifting Stand Alone Forms: Patient Portal Discharge page Activity Restrictions/Additional Instructions: If the incision area is tender, you may apply an ice pack for short intervals (No more than 20 minutes on, followed by at least 20 minutes off). Do not apply heat. Do not use creams, lotions, or topical antibiotics. These can cause infection or allergic reaction. Ok to shower. You have maximilian closing your incision and these will be removed approximately 10-14 days after surgery. NO HEAVY LIFTING (>10lbs) or strenuous activity. Follow up in office. ([phone]) Coloplast #[id number]: apply to ostomy q3-4 days and as needed. Call Your Doctor If: -Your temperature exceeds 101.5? F -You experience excessive pain or swelling -You have an unexpected reaction to medication -You have excessive bleeding -You experience continued vomiting/nausea -Your incision begins to separate -Your incision shows signs of infection such as increased redness, swelling, excessive pain, drainage (light blood or clear fluid is normal) or heat Care Plan Goals: Return to baseline health and resume normal activities following recovery period. Health Concerns: Perforated diverticulitis bacteremia acute respiratory failure Plan of Treatment: s/p tyler procedure, drainage of intraabdominal abscess IV transitioned to PO abx VNA services for colostomy care Assessment: Improved Discharge Date/Time: 04/25/23 14:00
== END 2023-04-25 14:00 | disposition home or self-care (01) | DRG 853 ==
LOC: HO.ED 12:43 → HO.SSS 13:08 → HO.S3 13:40 → HO.ICU 14:48 → HO.IMC 04-20 13:49
PROVIDERS: Internal Medicine Critical Care Medicine; Internal Medicine Pulmonary Disease; Physician Assistant; Physician Assistant Medical; Admitting Provider Surgery; Emergency Provider Student in an Organized Health Care Education/Training Program; PCP Internal Medicine; Visit Provider Surgery
PROC: 0D1M0Z4 Bypass Descending Colon to Cutaneous, Open Approach (ICD-10-PCS; CPT 49000; principal; 2023-04-18 14:00)
DX: A41.9 Sepsis, unspecified organism (principal); J96.01 Acute respiratory failure with hypoxia; K65.0 Generalized (acute) peritonitis; R65.21 Severe sepsis with septic shock; E87.0 Hyperosmolality and hypernatremia; K57.20 Diverticulitis of large intestine with perforation and abscess without bleeding; E87.21 Acute metabolic acidosis; N17.9 Acute kidney failure, unspecified; I48.92 Unspecified atrial flutter; I48.91 Unspecified atrial fibrillation; G89.18 Other acute postprocedural pain; E78.5 Hyperlipidemia, unspecified; M10.9 Gout, unspecified; B96.4 Proteus (mirabilis) (morganii) as the cause of diseases classified elsewhere; K66.8 Other specified disorders of peritoneum; I10 Essential (primary) hypertension; E11.9 Type 2 diabetes mellitus without complications; Z20.822 Contact with and (suspected) exposure to COVID-19; Z79.84 Long term (current) use of oral hypoglycemic drugs; Z79.899 Other long term (current) drug therapy
CPT/HCPCS: 36415; 71045; 74176; 80048; 80053; 81001; 82803; 82947; 83605; 83690; 83735; 83880; 84100; 84443; 84484; 85007; 85025; 85027; 85610; 85730; 86850; 86900; 86901; 87040; 87070; 87073; 87076; 87077; 87185; 87186; 87205; 87502; 87635; 88305; 88307; 93005; 93306; 94640; 97110; 97116; 97162; 99285; C1758; C9113; J0131; J0282; J0283; J0330; J0665; J1170; J1200; J1805; J1940; J2250; J2371; J2405; J2543; J2704; J2795; J2930; J3480; J7120; P9047; Q9957

== ENCOUNTER → 2023-04-18 11:22 | Outpatient (BNV) | payer MEDICARE, MEDICAID, SELFPAY | PROVIDERS: Admitting Provider Surgery; Emergency Provider Student in an Organized Health Care Education/Training Program; PCP Internal Medicine; Visit Provider Internal Medicine | DX: R07.9 Chest pain, unspecified (principal); R00.0 Tachycardia, unspecified | CPT/HCPCS: 93010 ==

== ENCOUNTER 2023-04-18 13:13 | Outpatient (BNV) | payer MEDICARE, MEDICAID, SELFPAY | END 2023-04-21 07:00 | PROVIDERS: Admitting Provider Surgery; Emergency Provider Student in an Organized Health Care Education/Training Program; PCP Internal Medicine; Visit Provider Internal Medicine | DX: I35.8 Other nonrheumatic aortic valve disorders (principal); I48.91 Unspecified atrial fibrillation | CPT/HCPCS: 93306 ==

== ENCOUNTER 2023-04-18 13:13 | Outpatient (BNV) | payer MEDICARE, MEDICAID, SELFPAY | END 2023-04-19 13:20 | PROVIDERS: Admitting Provider Surgery; Emergency Provider Student in an Organized Health Care Education/Training Program; PCP Internal Medicine; Visit Provider Internal Medicine | DX: R00.0 Tachycardia, unspecified (principal) | CPT/HCPCS: 93010 ==

== ENCOUNTER → 2023-04-18 13:13 | Outpatient (BNV) | payer MEDICARE, MEDICAID, SELFPAY | PROVIDERS: Admitting Provider Surgery; Emergency Provider Student in an Organized Health Care Education/Training Program; PCP Internal Medicine; Visit Provider Internal Medicine | DX: I48.92 Unspecified atrial flutter (principal); R78.81 Bacteremia; A41.9 Sepsis, unspecified organism; R65.21 Severe sepsis with septic shock | CPT/HCPCS: 99223; 99232 ==

== ENCOUNTER → 2023-04-18 13:13 | Outpatient (BNV) | payer MEDICARE, SELFPAY | PROVIDERS: Admitting Provider Surgery; Emergency Provider Student in an Organized Health Care Education/Training Program; PCP Internal Medicine; Visit Provider Surgery | DX: I48.92 Unspecified atrial flutter (principal); K57.20 Diverticulitis of large intestine with perforation and abscess without bleeding; R78.81 Bacteremia; A41.9 Sepsis, unspecified organism; R65.21 Severe sepsis with septic shock | CPT/HCPCS: 36556; 36558; 44143; 99024; 99212; 99222; G0180 ==

== ENCOUNTER → 2023-04-18 13:13 | Outpatient (BNV) | payer MEDICARE, MEDICAID, SELFPAY | PROVIDERS: Admitting Provider Surgery; Emergency Provider Student in an Organized Health Care Education/Training Program; PCP Internal Medicine; Visit Provider Hospitalist | DX: I48.92 Unspecified atrial flutter (principal); K57.20 Diverticulitis of large intestine with perforation and abscess without bleeding; R78.81 Bacteremia; E11.65 Type 2 diabetes mellitus with hyperglycemia | CPT/HCPCS: 99232; 99233; 99499 ==

== ENCOUNTER → 2023-04-18 13:13 | Outpatient (BNV) | payer MEDICARE, SELFPAY | PROVIDERS: Admitting Provider Surgery; Emergency Provider Student in an Organized Health Care Education/Training Program; PCP Internal Medicine; Visit Provider Internal Medicine Pulmonary Disease | DX: J96.01 Acute respiratory failure with hypoxia (principal); K63.1 Perforation of intestine (nontraumatic); I48.91 Unspecified atrial fibrillation; N17.9 Acute kidney failure, unspecified; E11.9 Type 2 diabetes mellitus without complications | CPT/HCPCS: 99233; 99291 ==

== ENCOUNTER 2023-04-27 19:48 | Emergency (ER) | payer MEDICARE, MEDICAID, SELFPAY ==
--- NOTE | ~2023-04-27 | XR_ITS ---
EXAMINATION: XR CHEST CLINICAL INFORMATION: Cough. COMPARISON: 04/22/2023. TECHNIQUE: 2 views of the chest were obtained. FINDINGS: The cardiomediastinal silhouette is within normal limits and stable. There is no focal lung consolidation or pleural effusion. The bony structures and soft tissues are unremarkable. XR/XR chest 2V IMPRESSION: No acute cardiopulmonary process.
[2023-04-27 19:53] VITALS: BP 132/61; PULSE 81; RESP 18; TEMP 37.3; O2SAT 97; BMI 29.9
[2023-04-27 20:26] LABS: Hematocrit 39.9 % (42.0-52.0); Hemoglobin 13.5 g/dl (14.0-18.0); Mean Corpuscular HGB Conc 33.8 g/dl (31.0-36.0); Mean Corpuscular Hemoglobin 28.7 pg (27.0-33.0); Mean Corpuscular Volume 84.7 fL (80.0-98.0); Mean Platelet Volume 10.9 fL (9.4-12.4); Platelet Count 623 X10*3/uL (160-400); Red Blood Count 4.71 X10*6/uL (4.60-5.80); Red Cell Distribution Width 20.8 % (11.0-16.0); White Blood Count 15.1 X10*3/uL (4.8-10.8)
[2023-04-27 20:39] LABS: Alanine Aminotransferase 30 U/L (0-40); Albumin Level 3.8 g/dL (3.5-5.0); Alkaline Phosphatase 119 U/L (39-117); Anion Gap 14 (12-20); Aspartate Amino Transferase 29 U/L (5-37); Bilirubin Total 0.8 mg/dL (0.0-1.0); Blood Urea Nitrogen 16 mg/dL (9-16); Calcium 8.9 mg/dL (8.4-10.2); Carbon Dioxide 24 mmol/L (22-29); Chloride 102 mmol/L (96-108); Estimated Glomerular Filt Rate > 60; Glucose Random 112 mg/dL (60-115); Potassium 4.3 mmol/L (3.3-5.1); Sodium 136 mmol/L (135-145); Total Protein 7.6 g/dL (6.5-8.0)
[2023-04-27 21:23] LABS: Atypical Lymph Absolute Manual 0.2 x10*3/uL; Atypical Lymphs Percent Manual 1 % (0-6); Band Neutrophils Percent 0 % (3-5); Lymphocytes Absolute Manual 1.4 X10*3/uL (1.2-4.9); Lymphocytes Percent Manual 9 % (20-40); Monocytes Absolute Manual 1.1 X10*3/uL (0.1-1.2); Monocytes Percent Manual 7 % (2-11); Myelocytes Absolute 0.6 X10*/uL; Myelocytes Percent 4 %; Neutrophils Absolute Manual 11.9 X10*3/uL (2.0-8.3); Neutrophils Percent Manual 79 % (45-73)
[2023-04-27 21:24] LABS: Large Platelet PRESENT; Macrocytosis 1+ (5-14) /OIF; Microcytosis 2+ (15-30) /OIF; Platelet Estimate INCREASED (NORMAL); Platelet Morphology Comment NORMAL; Polychromasia 1+ (0-2) /OIF; RBC Morphology NOTED; Smudge Cells PRESENT; Spherocytes 1+ (0-2) /OIF; Toxic Granulation PRESENT; Toxic Vacuolation PRESENT
[2023-04-27 23:57] VITALS: BP 115/70; PULSE 82; RESP 18; TEMP 36.6; O2SAT 97
[2023-04-28 01:43] VITALS: BP 125/71; PULSE 78; RESP 24; TEMP 37.3; O2SAT 96
--- NOTE | 2023-04-28 01:47 | PC.NURSE ---
Pt aox4 resting with family at the bedside. No apparent distress noted. Pt had John procedure done on 04/18 2023 and reports having an oral temp of 101.4F. earlier in the day. Pt then took Tylenol around 1800 with relief. Pt was advised to come into the ED to be evaluated for an infection following a surgical procedure. Oral temp at this time is 99.4F Pt denies chest pain, sob, N/V/D. Colostomy bag in place. Stoma WNL. No sign of infection or dehiscence at the surgical site. Protem in place. Pending physician evaluation. Pt placed on the nuclear monitoring technician, NSR HR 80's. Call becerril placed within reach.
--- NOTE | 2023-04-28 02:43 | MHC.EDTECH ---
Covid,and Flu swabs obtained and sent to lab.
[2023-04-28 03:00] LABS: IDNOW Serial# 9DB6401D; Influenza A Positive (Negative); Influenza B2 Negative (Negative)
[2023-04-28 03:00] LABS: COVID-19 Test Negative (Negative); IDNOW Serial# 6674DD1D
--- NOTE | 2023-04-28 03:01 | ED.FEVER ---
HPI - Fever General Chief Complaint: Abdominal Pain Stated Complaint: abcess Time Seen by Provider: 04/28/23 02:15 Source: patient and family Mode of arrival: ambulatory History of Present Illness HPI Narrative: 62-year-old male who presents with fevers, cough and increased sputum production but otherwise denies any nausea/vomiting/abdominal pain patient is noted to be postop day 10 Related Data Home Medications Medication Instructions Recorded Confirmed allopurinol 300 mg tablet 1 tab PO DAILY 05/14/20 04/18/23 ibuprofen 200 mg tablet 200 mg PO Q6H PRN Pain 05/14/20 04/18/23 atorvastatin 10 mg tablet 10 mg PO BEDTIME 01/19/23 04/18/23 doxepin 50 mg capsule 50 mg PO BEDTIME 01/19/23 04/18/23 metformin 1,000 mg tablet 1,000 mg PO BID 01/19/23 04/18/23 metoprolol succinate 50 mg 50 mg PO DAILY 01/19/23 04/18/23 tablet,extended release 24 hr omeprazole 20 mg capsule,delayed 20 mg PO DAILY 01/19/23 04/18/23 release lisinopril 20 1 tab PO DAILY 04/18/23 04/18/23 mg-hydrochlorothiazide 12.5 mg tablet Previous Rx's Medication Instructions Recorded naproxen 500 mg tablet 500 mg PO BID PRN pain #14 tabs 05/14/21 cefuroxime axetil 500 mg tablet 500 mg PO BID #10 tabs 04/25/23 oseltamivir 75 mg capsule (Tamiflu) 75 mg PO Q12H 5 days #10 caps 04/28/23 Allergies Allergy/AdvReac Type Severity Reaction Status Date / Time No Known Allergies Allergy Verified 04/27/23 19:57 Review of Systems Review of Systems: Pertinent positives and negatives as stated in HPI PMFSH Past Medical History Source: nursing notes reviewed Medical History Diabetes mellitus Internal derangement of right knee Hx of polycythemia vera Surgical History No pertinent past surgical history Family History Family History Father History of head and neck cancer Mother Hx of cancer antigen 125 (CA-125) measurement Social History Social History Household Members: Family Housing: House Are you a primary post acute care nurse to a significant other at home: Yes Do you presently have visiting nurse or other home services: No Unable to assess alcohol history related to: Unable to respond Alcohol intake: never Patient Tobacco Use Status: Never used Tobacco Advance Directives: No Advance Directives Information Provided: No service: No Current occupational status: unemployed Physical Exam Vital Signs: Vital Signs: Last Vital Signs Temp 98.8 F 04/28/23 04:13 Pulse 77 04/28/23 04:13 Resp 20 04/28/23 04:13 BP 129/79 04/28/23 04:13 Pulse Ox 96 04/28/23 04:13 O2 Del Method Room Air 04/28/23 04:13 BMI result Body Mass Index 29.9 VITAL SIGNS: Reviewed. GENERAL: Well developed, well nourished, in no acute distress. HEAD: Normocephalic/atraumatic EYES: PERRLA, EOMI EARS: Ext canals without abnormality, TMs non-bulging and non-erythematous NOSE: Nares patent bilateral OROPHARYNX: no oral lesions noted, posterior pharynx clear and non-erythematous without noted tonsillar enlargement/erythema/exudates NECK: Supple, no adenopathy LUNGS: Normal breath sounds. No adventitious sounds or accessory muscle use. SpO2<96> CARDIOVASCULAR: Regular rate and rhythm without noted murmurs ABDOMEN: Soft, non-tender, non-distended with bowel sounds. Midline incision is well approximated, there is no significant erythema/induration, typical postop changes noted, ostomy is producing gas and soft brown stool MUSCULOSKELETAL: No tenderness, deformities, or effusions noted on gross inspection. EXTREMITIES: No cyanosis, clubbing or edema. SKIN: Inspection of the skin reveals no rashes NEUROLOGIC: Alert and oriented x 4. Strength and sensation to light touch were grossly intact x 4. Medications Administered Discontinued Medications Generic Name Dose Route Start Last Admin Trade Name Freq PRN Reason Stop Dose Admin Ibuprofen 400 mg 04/28/23 03:03 04/28/23 03:24 Ibuprofen 400 Mg Tablet PO 04/28/23 03:04 400 mg ONCE ONE Administration Medical Decision Making Medical Decision Making MDM Narrative: 62-year-old male with history and clinical presentation, DDX: Viral illness, possibly pneumonia but otherwise no clinical suspicion for intra-abdominal infection or complication at this time. I reviewed all investigations and hematologic indices does demonstrate a leukocytosis although feel that this is likely secondary to recent postop, there is a stable normocytic anemia and a slight increase in thrombocytopenia. Patient's abdomen is a benign exam, no obvious areas femur induration noted and patient's viral testing is significant for influenza a positivity. Chemistry indices are grossly within normal limits and there is no evidence of BINTA or electrolyte/liver enzyme derangements. Chest x-ray negative for infiltrate or evidence of venous congestion. Differential Diagnosis Differential Diagnoses: The differential diagnosis associated with the presentation includes Please see the discussion above Admission/Observation Consideration of admission/observation: Escalation of care including admission/observation considered Please see the discussion above Lab Data MDM Lab Attestation statement: I reviewed the patient's lab results. Please see the discussion above 04/27/23 20:15 04/27/23 20:15 Labs: Lab Results 04/27/23 04/28/23 04/28/23 Range/Units 20:15 02:40 02:41 WBC 15.1 H (4.8-10.8) X10*3/uL RBC 4.71 (4.60-5.80) X10*6/uL Hgb 13.5 L (14.0-18.0) g/dl Hct 39.9 L (42.0-52.0) % MCV 84.7 (80.0-98.0) fL MCH 28.7 (27.0-33.0) pg MCHC 33.8 (31.0-36.0) g/dl RDW 20.8 H (11.0-16.0) % Plt Count 623 H D (160-400) X10*3/uL MPV 10.9 (9.4-12.4) fL Immature Gran % (Auto) Cancelled Neut % (Auto) Cancelled Lymph % (Auto) Cancelled [place] % (Auto) Cancelled Eos % (Auto) Cancelled Baso % (Auto) Cancelled Lymph # (Auto) Cancelled [place] # (Auto) Cancelled Eos # (Auto) Cancelled Baso # (Auto) Cancelled Abs Immat Gran (auto) Cancelled Absolute Neuts (auto) Cancelled Absolute Nucleated RBC 0.000 (0.0-0.012) X10*3/uL Nucleated RBC % (auto) 0.0 (0.0-0.2) /100WBC Neutrophils % (Manual) 79 H (45-73) % Band Neutrophils % 0 L (3-5) % Lymphocytes % (Manual) 9 L (20-40) % Atypical Lymphs % (Man) 1 (0-6) % Monocytes % (Manual) 7 (2-11) % Myelocytes % 4 % Abs Neuts (Manual) 11.9 H (2.0-8.3) X10*3/uL Lymphocytes # (Manual) 1.4 (1.2-4.9) X10*3/uL Atyp Lymphs # (Manual) 0.2 x10*3/uL Monocytes # (Manual) 1.1 (0.1-1.2) X10*3/uL Myelocytes # 0.6 X10*/uL Smudge Cells PRESENT Toxic Granulation PRESENT Toxic Vacuolation PRESENT Platelet Estimate INCREASED (NORMAL) Large Platelets PRESENT Plt Morphology Comment NORMAL RBC Morphology NOTED Polychromasia 1+ (0-2) /OIF Microcytosis 2+ (15-30) /OIF Macrocytosis 1+ (5-14) /OIF Spherocytes 1+ (0-2) /OIF Sodium 136 (135-145) mmol/L Potassium 4.3 (3.3-5.1) mmol/L Chloride 102 (96-108) mmol/L Carbon Dioxide 24 (22-29) mmol/L Anion Gap 14 (12-20) BUN 16 (9-16) mg/dL Creatinine 1.01 (0.5-1.4) mg/dL Estim Creat Clear Calc 77.0 Estimated GFR > 60 Random Glucose 112 (60-115) mg/dL Calcium 8.9 (8.4-10.2) mg/dL Total Bilirubin 0.8 (0.0-1.0) mg/dL AST 29 (5-37) U/L ALT 30 (0-40) U/L Alkaline Phosphatase 119 H (39-117) U/L Total Protein 7.6 (6.5-8.0) g/dL Albumin 3.8 (3.5-5.0) g/dL COVID-19 (LAYNE) Negative (Negative) COVID-19 Clin Com See Note Influenza Type A (ANIA) Positive A (Negative) Influenza Type B (ANIA) Negative (Negative) Influenza A & B Note See Note Radiology Impression Discussion of test interpretation with radiology: I have reviewed the radiologist's reading. Radiologist Impression: Please see the discussion above External Record Review External record reviewed: Outpatient record, Prior outpatient labs and Prior outpatient radiology Critical Care Time Critical Care Time Critical Care Time: Yes Total Critical Care Time: 45 Attestation: I personally attest to this time spent taking care of the patient. Discharge Plan Discharge Clinical Impression: Viral syndrome, Influenza A Patient Disposition: Home, Self-Care Instructions: Influenza (ED), Viral Syndrome (ED) Additional Instructions: 1. Recomendar la continuaci?n de los antibi?ticos y todos los dem?s medicamentos caseros. 2. Le iniciar? el tratamiento con medicamentos para la gripe. 3. Oscar un seguimiento con clarke m?dico de atenci?n primaria en los pr?ximos 1 o 2 d?as y comun?quese con clarke cirujano. Regrese a la jeremias de emergencias si los s?ntomas empeoran. 1. Recommend continuation of antibiotics and all other home medications. 2. Will start you on medication for the flu. 3. Please follow-up with your primary care doctor in the next 1-2 days as well as reaching out to your surgeon. Return to the ER for any worsening symptoms. Prescriptions: New oseltamivir [Tamiflu] 75 mg capsule 75 mg PO Q12H 5 Days Qty: 10 0RF No Action ibuprofen 200 mg Tablet 200 mg PO Q6H PRN (Reason: Pain) allopurinol 300 mg tablet 1 tab PO DAILY doxepin 50 mg capsule 50 mg PO BEDTIME atorvastatin 10 mg tablet 10 mg PO BEDTIME metoprolol succinate 50 mg tablet extended release 24 hr 50 mg PO DAILY metformin 1,000 mg tablet 1,000 mg PO BID omeprazole 20 mg capsule,delayed release(DR/EC) 20 mg PO DAILY naproxen 500 mg tablet 500 mg PO BID PRN (Reason: pain) Qty: 14 0RF lisinopril-hydrochlorothiazide 20-12.5 mg tablet 1 tab PO DAILY cefuroxime axetil 500 mg tablet 500 mg PO BID Qty: 10 0RF Referrals: Adlakha,Pia, MD [Primary Care Provider] - Walter Haney MD [Physician] - Print Language: Sammarinese
[2023-04-28] MEDS: Ibuprofen 400 MG TABLET PO (03:24)
[2023-04-28 04:13] VITALS: BP 129/79; PULSE 77; RESP 20; TEMP 37.1; O2SAT 96
--- NOTE | 2023-04-28 04:14 | MHC.EDTECH ---
Hourly rounds and vitals completed,patient is resting at this time,family at bedside and call becerril in reach
[2023-04-28] MEDS: Oseltamivir Phosphate 75 MG CAPSULE PO (04:38)
== END 2023-04-28 04:46 | disposition home or self-care (01) ==
PROVIDERS: Emergency Provider Student in an Organized Health Care Education/Training Program; PCP Internal Medicine
DX: B34.9 Viral infection, unspecified (principal); J10.1 Influenza due to other identified influenza virus with other respiratory manifestations; R05.9 Cough, unspecified; Z11.52 Encounter for screening for COVID-19; Z79.899 Other long term (current) drug therapy
CPT/HCPCS: 36415; 71046; 80053; 85007; 85027; 87502; 87635; 99284

== ENCOUNTER → 2023-05-04 11:14 | Outpatient (BNVA) | payer MEDICARE, MEDICAID, SELFPAY | PROVIDERS: PCP Internal Medicine; Visit Provider Surgery | DX: K57.20 Diverticulitis of large intestine with perforation and abscess without bleeding (principal) | CPT/HCPCS: 99212 ==

== ENCOUNTER 2023-05-04 11:17 | Outpatient (AMB) | payer MEDICARE, MEDICAID, SELFPAY ==
--- NOTE | 2023-05-04 11:21 | A.OFFVIS_ITS ---
Intake Vital Signs 3 05/04/23 11:28 Height 5 ft 6 in Weight 167 lb BMI 27.0 BP 124/77 Blood Pressure Location Rt brachial Position Sitting Pulse 86 Intake Visit Reasons: S/P colectomy/colostomy Intake Note: This patient presents for a post-op assessment status post Exploratory laparotomy, sigmoid colectomy, end colostomy (John procedure). Patient c/o; reports pain surgical site. 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 Accompanied by: Other Relationship Allergies No Known Allergies Allergy (Verified 05/04/23 11:30) Medication List - Last Reconciled 05/04/23 by Walter Haney MD allopurinol 1 tab PO DAILY atorvastatin 10 mg PO BEDTIME cefuroxime axetil 500 mg PO BID doxepin 50 mg PO BEDTIME ibuprofen 200 mg PO Q6H PRN lisinopril-hydrochlorothiazide 20-12.5 mg 1 tab PO DAILY metformin 1,000 mg PO BID metoprolol succinate ER 50 mg PO DAILY naproxen 500 mg PO BID PRN omeprazole 20 mg PO DAILY oseltamivir (Tamiflu) 75 mg PO Q12H 5 days HPI HPI Comments 2 History of Present Illness0 Details 62-year-old male patient returning following recent hospitalization for perforated sigmoid diverticulitis. He underwent a John's procedure on 04/18/2023 and was noted to have a large abscess with surrounding phlegmon upon exploration. He returns today following discharge from the hospital for wound check, staple removal. He reports some pain in the left lower quadrant. He did have a fever last week and was evaluated in the emergency department. This was determined to be due to a flu. This has improved and today he denies fever or chills. He is tolerating the ostomy well and is able to manage the appliance. His family member did note some blood yesterday but this did not continue. [facility] Medical History Diabetes mellitus Internal derangement of right knee Hx of polycythemia vera Surgical History H/O exploratory laparotomy (04/18/23) Family History Father History of head and neck cancer Mother Hx of cancer antigen 125 (CA-125) measurement Social History Household Members: Family Housing: House Are you a primary animal daycare provider to a significant other at home: Yes Do you presently have visiting nurse or other home services: No Unable to assess alcohol history related to: Unable to respond Alcohol intake: never Patient Tobacco Use Status: Never used Tobacco service: No Current occupational status: unemployed Physical Exam Const General: no acute distress Nutritional Appearance: well nourished Orientation/consciousness: patient oriented x3 Limitations: no limitations HEENT Head: Yes normocephalic and Yes atraumatic Resp Effort & Inspection: normal respiratory effort, no audible wheezes, no cough and no respiratory distress GI Other: Soft, nondistended, nontender except the left lower quadrant without rebound, guarding or rigidity. Ostomy is pink and viable with stool in the bag. Midline incision is clean and intact without erythema. Jose removed and wounds found to be well healed. No hernia noted with Valsalva maneuvers. Abdomen image: 2 1. Ostomy left abdomen Skin General skin exam: no rashes or lesions noted Neuro General: patient oriented x3 Assessment & Plan Assessment & Plan (1) Perforation of sigmoid colon due to diverticulitis: Code(s): K57.20 - Diverticulitis of large intestine with perforation and abscess without bleeding Plan 62-year-old male patient returning following a recent discharge from the hospital after a John procedure. His wounds are clean, dry, and intact. [place] were removed and wounds well healed. He should continue to avoid lifting greater than 10 lb and return in 1 month for follow-up examination. I recommended waiting approximately 3 months for closure of colostomy. Coding Level of Care Code Global (40981) Diagnoses Perforation of sigmoid colon due to diverticulitis K57.20
[2023-05-04 11:28] VITALS: BP 124/77; PULSE 86; BMI 27.0
== END 2023-05-04 11:40 | disposition home or self-care (01) ==
PROVIDERS: PCP Internal Medicine; Visit Provider Surgery
DX: K57.20 Diverticulitis of large intestine with perforation and abscess without bleeding (principal)
CPT/HCPCS: 99024

== ENCOUNTER 2023-05-25 13:05 | Outpatient (AMB) | payer MEDICARE, MEDICAID, SELFPAY ==
--- NOTE | 2023-05-25 13:07 | A.OFFVIS_ITS ---
Intake Vital Signs 05/25/23 13:08 Height 5 ft 6 in Weight 155 lb 3.287 oz BMI 25.0 BP 110/70 Blood Pressure Location Lt brachial Pulse 82 Intake Visit Reasons: 4 wk f/up HS Intake Note: follow up PT feels good Allergies No Known Allergies Allergy (Verified 05/04/23 11:30) Medication List - Last Reconciled 05/25/23 by Juliana De La Torre NP allopurinol 1 tab PO DAILY atorvastatin 10 mg PO BEDTIME doxepin 50 mg PO BEDTIME ibuprofen 200 mg PO Q6H PRN lisinopril-hydrochlorothiazide 20-12.5 mg 1 tab PO DAILY metformin 1,000 mg PO BID metoprolol succinate ER 50 mg PO DAILY omeprazole 20 mg PO DAILY oseltamivir (Tamiflu) 75 mg PO Q12H HPI HPI Comments History of Present Illness Details 62-year-old male presents today for a fo llow-up. He was admitted into the hospital related to GI issues. He was found to be in atrial fibrillation with RVR. He denies chest pain, shortness of breath, or dizziness. He reports some palpitations mostly at night and feels like his heart is racing. [facility] Medical History Palpitations Diabetes mellitus Internal derangement of right knee Hx of polycythemia vera Surgical History H/O exploratory laparotomy (04/18/23) Family History Father History of head and neck cancer Mother Hx of cancer antigen 125 (CA-125) measurement Social History Household Members: Family Housing: House Are you a primary pharmacy customer care specialist to a significant other at home: Yes Do you presently have visiting nurse or other home services: No Unable to assess alcohol history related to: Unable to respond Alcohol intake: never Patient Tobacco Use Status: Never used Tobacco service: No Current occupational status: unemployed Review of Systems Const Denies weakness ENT Denies dizziness Card Denies chest pain, Denies chest pain with activity, Denies syncope, Denies rapid heart rate, Denies pedal edema, Denies edema, Denies leg edema, Denies lightheadedness, Denies palpitations, Denies dyspnea, Denies dyspnea on exertion and Denies orthopnea Resp Denies cough, Denies dyspnea and Denies dyspnea on exertion GI Denies hematochezia and Denies change in stool character Musc Denies abnormal gait, Denies muscle cramps, Denies muscle weakness, Denies numbness, Denies radiating pain into limb and Denies tingling Neuro Denies abnormal gait, Denies dizziness, Denies syncope, Denies numbness, Denies tingling and Denies weakness Endo Denies palpitations Physical Exam Vital Signs: Last Vital Signs Pulse 82 05/25/23 13:08 BP 110/70 05/25/23 13:08 BMI result Body Mass Index 25.0 Const General: healthy appearing and no acute distress Orientation/consciousness: patient oriented x3 HEENT Head: Yes normal to inspection Eyes General: appearance normal, both eyes and all related structures Neck Neck: Yes normal visual inspection Chest Chest palpation & inspection: normal inspection of the chest Resp Effort & Inspection: normal respiratory effort Auscultation: clear to auscultation bilaterally Cardio Jugular venous distension: no JVD Palpation: normal PMI Rate: regular rate Rhythm: regular rhythm Heart sounds: S1 normal heart sound present, S2 normal heart sound present, no click, no gallops, no murmurs and no rubs GI Inspection: Yes normal to inspection Palpation (GI): Soft to palpation Skin General skin exam: no rashes or lesions noted Neuro General: patient oriented x3 Extrem General: Yes normal to inspection Psych Appearance: grossly normal Assessment & Plan Assessment & Plan (1) Afib: Code(s): I48.91 - Unspecified atrial fibrillation (2) Palpitations: Code(s): R00.2 - Palpitations Plan One episode atrial fibrillation about 9 hours while in the ICU. He received amiodarone while in the hospital then maintained on metoprolol succinate 50mg QD. No indication for anticoagulation. Sinus rhythm by auscultation. Will have him get holter to evalate rhythm and rate. Orders: Orders ECG 3 day holter monitor 05/25/23 I48.91 - Unspecified atrial fibrillation, R00.2 - Palpitations Coding Level of Care Code Est Pt Level 3 (93447) Diagnoses Afib I48.91 Palpitations R00.2
[2023-05-25 13:08] VITALS: BP 110/70; PULSE 82; BMI 25.0
== END 2023-05-25 13:47 | disposition home or self-care (01) ==
PROVIDERS: PCP Internal Medicine; Visit Provider Nurse Practitioner
DX: I48.91 Unspecified atrial fibrillation (principal); R00.2 Palpitations
CPT/HCPCS: 99213

== ENCOUNTER → 2023-05-25 13:05 | Outpatient (BNVA) | payer MEDICARE, MEDICAID, SELFPAY | PROVIDERS: PCP Internal Medicine; Visit Provider Nurse Practitioner | DX: I48.91 Unspecified atrial fibrillation (principal); R00.2 Palpitations | CPT/HCPCS: 99212 ==

== ENCOUNTER → 2023-06-02 12:50 | Outpatient (REF) | payer MEDICARE, MEDICAID, SELFPAY ==
--- NOTE | 2023-06-02 12:54 | HM_ITS ---
Conclusion: 1. Patient was monitored for total period of 3 days 2. Baseline was normal sinus rhythm with average heart of 78 beats per minute 3. No significant pauses or arrhythmias noted 4. Patient reported 1 symptom of heart racing correlated with sinus rhythm MTDD
== END ==
LOC: HO.CARD 12:50
PROVIDERS: PCP Internal Medicine; Visit Provider Nurse Practitioner
DX: R00.2 Palpitations (principal); I48.91 Unspecified atrial fibrillation
CPT/HCPCS: 93242

== ENCOUNTER → 2023-06-02 12:54 | Outpatient (BNV) | payer MEDICARE, MEDICAID, SELFPAY | PROVIDERS: PCP Internal Medicine; Visit Provider Internal Medicine Cardiovascular Disease | DX: I48.91 Unspecified atrial fibrillation (principal) | CPT/HCPCS: 93244 ==

== ENCOUNTER 2023-06-03 12:44 | Outpatient (AMB) | payer MEDICARE, MEDICAID, SELFPAY ==
--- NOTE | 2023-06-03 13:15 | MHC.OFFVIS ---
Intake Vital Signs 06/03/23 13:18 Height 5 ft 6 in Weight 165 lb 6 oz BMI 26.7 BP 105/52 L Blood Pressure Location Lt brachial Position Sitting Pulse 77 Intake Visit Reasons: 1 mth follow up S/P colectomy/colostomy Intake Note: Patient is seen in office for one month follow up visit, post colectomy/colostomy. 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 Accompanied by: Family/Other Allergies No Known Allergies Allergy (Verified 06/03/23 13:17) Medication List - Last Reconciled 06/03/23 by Walter Hanye MD allopurinol 1 tab PO DAILY atorvastatin 10 mg PO BEDTIME doxepin 50 mg PO BEDTIME ibuprofen 200 mg PO Q6H PRN lisinopril-hydrochlorothiazide 20-12.5 mg 1 tab PO DAILY metformin 1,000 mg PO BID metoprolol succinate ER 50 mg PO DAILY omeprazole 20 mg PO DAILY oseltamivir (Tamiflu) 75 mg PO Q12H HPI HPI Comments History of Present Illness Details 62-year-old male patient returning following recent hospitalization for perforated sigmoid diverticulitis. He underwent a John's procedure on 04/18/2023 and was noted to have a large abscess with surrounding phlegmon upon exploration. He returns today following discharge from the hospital for wound check, staple removal. He reports some pain in the upper abdomen. He denies nausea, vomiting, fever or chills. Ostomy is working well with no further bleeding. He does occasionally have loose stool per ostomy. He currently has a Holter monitor in place which will be removed later this week. [facility] Medical History Palpitations Diabetes mellitus Internal derangement of right knee Hx of polycythemia vera Surgical History H/O exploratory laparotomy (04/18/23) Family History Father History of head and neck cancer Mother Hx of cancer antigen 125 (CA-125) measurement Social History Household Members: Family Housing: House Are you a primary career and guidance counselor to a significant other at home: Yes Do you presently have visiting nurse or other home services: No Unable to assess alcohol history related to: Unable to respond Alcohol intake: never Patient Tobacco Use Status: Never used Tobacco service: No Current occupational status: unemployed Review of Systems Const All systems reviewed & are unremarkable except as noted in HPI and below Physical Exam Const General: no acute distress Nutritional Appearance: well nourished Orientation/consciousness: patient oriented x3 Limitations: no limitations HEENT Head: Yes normocephalic and Yes atraumatic Resp Effort & Inspection: normal respiratory effort, no audible wheezes, no cough and no respiratory distress GI Other: Soft, nondistended, nontender except the left lower quadrant without rebound, guarding or rigidity. Ostomy is pink and viable with stool in the bag. Midline incision is clean and intact without erythema. No hernia noted with Valsalva maneuvers. Abdomen image: 1. 2. Ostomy left lower quadrant Skin General skin exam: no rashes or lesions noted Neuro General: patient oriented x3 Assessment & Plan Assessment & Plan (1) Perforation of sigmoid colon due to diverticulitis: Code(s): K57.20 - Diverticulitis of large intestine with perforation and abscess without bleeding Plan 62-year-old male patient with a previous history of perforated sigmoid diverticulitis status post John procedure proximally 1 month ago. His wounds are well healed and he may resume normal activity. I recommended she return the office in 1 month. If he continues to improve, arrangements will be made for closure of colostomy after 07/19/2023. He expressed understanding and agrees with the plan. Coding Level of Care Code Global (81707) Diagnoses Perforation of sigmoid colon due to diverticulitis K57.20
[2023-06-03 13:18] VITALS: BP 105/52; PULSE 77; BMI 26.7
== END 2023-06-03 13:29 | disposition home or self-care (01) ==
PROVIDERS: PCP Internal Medicine; Visit Provider Surgery
DX: K57.20 Diverticulitis of large intestine with perforation and abscess without bleeding (principal)
CPT/HCPCS: 99024

== ENCOUNTER → 2023-06-03 12:44 | Outpatient (BNVA) | payer MEDICARE, MEDICAID, SELFPAY | PROVIDERS: PCP Internal Medicine; Visit Provider Surgery | DX: K57.20 Diverticulitis of large intestine with perforation and abscess without bleeding (principal) | CPT/HCPCS: 99212 ==

== ENCOUNTER 2023-06-17 15:51 | Outpatient (AMB) | payer MEDICARE, MEDICAID, SELFPAY ==
--- NOTE | 2023-06-17 15:53 | MHC.OFFVIS ---
Intake Vital Signs 06/17/23 15:57 Height 5 ft 6 in Weight 164 lb 2 oz BMI 26.5 BP 108/54 L Blood Pressure Location Lt brachial Position Sitting Pulse 83 Intake Visit Reasons: abdominal pain at incision 10/10 scale Intake Note: pain since last visit worse for the past 2 days, cramps, unable to eat, pain opening of the stomach, denies n/v/d/c Promotions Officer Required: No Accompanied by: Family/Other Allergies No Known Allergies Allergy (Verified 06/17/23 15:57) HPI HPI Comments History of Present Illness Details Patient reports cramping abdominal pain mainly in the upper abdomen and around the ostomy for the last 2 days. The previously reported similar pain but not as severe. He denied any nausea or vomiting. Bowels are moving into the colostomy but not as much as previously. He is afraid to eat for fear of increasing the abdominal pain. He denies any fever or chills. [facility] Medical History Palpitations Diabetes mellitus Internal derangement of right knee Hx of polycythemia vera Surgical History H/O exploratory laparotomy (04/18/23) Family History Father History of head and neck cancer Mother Hx of cancer antigen 125 (CA-125) measurement Social History Household Members: Family Housing: House Are you a primary health care / medical job titles to a significant other at home: Yes Do you presently have visiting nurse or other home services: No Unable to assess alcohol history related to: Unable to respond Alcohol intake: never Patient Tobacco Use Status: Never used Tobacco service: No Current occupational status: unemployed Physical Exam Const General: no acute distress Nutritional Appearance: well nourished Orientation/consciousness: patient oriented x3 Limitations: no limitations HEENT Head: Yes normocephalic and Yes atraumatic Resp Effort & Inspection: normal respiratory effort, no audible wheezes, no cough and no respiratory distress GI Other: Soft, nondistended, nontender except the left lower quadrant without rebound, guarding or rigidity. Ostomy is pink and viable with stool in the bag. Midline incision is clean and intact without erythema. No hernia noted in the midline incision with Valsalva maneuvers, however increased fullness is noted around the ostomy suggestive of a parastomal hernia. Skin General skin exam: no rashes or lesions noted Neuro General: patient oriented x3 Assessment & Plan Assessment & Plan (1) Abdominal pain: Code(s): R10.9 - Unspecified abdominal pain Qualifiers: Abdominal location: epigastric Qualified Code(s): R10.13 - Epigastric pain Plan 62-year-old male patient status post John procedure for perforated sigmoid diverticulitis with free air returning now with complaints of epigastric and parastomal abdominal pain/cramping. Examination does reveal no evidence of a parastomal hernia. No incisional hernias identified. I recommended further evaluation with CT abdomen and pelvis to further define the hernia and evaluate for evidence of obstruction. He expressed understanding and agrees with the plan. Orders: Orders CT abdomen pelvis wo IV con Today R10.9 - Unspecified abdominal pain Coding Level of Care Code Global (40668) Diagnoses Epigastric pain R10.13 Abdominal location: epigastric
[2023-06-17 15:57] VITALS: BP 108/54; PULSE 83; BMI 26.5
== END 2023-06-17 16:03 | disposition home or self-care (01) ==
LOC: HO.HGS 15:51
PROVIDERS: PCP Internal Medicine; Visit Provider Surgery
DX: R10.13 Epigastric pain (principal)
CPT/HCPCS: 99024

== ENCOUNTER → 2023-06-17 15:51 | Outpatient (BNVA) | payer MEDICARE, MEDICAID, SELFPAY | PROVIDERS: PCP Internal Medicine; Visit Provider Surgery | DX: R10.13 Epigastric pain (principal) | CPT/HCPCS: 99212 ==

== ENCOUNTER 2023-06-22 14:13 | Outpatient (REF) | payer MEDICARE, MEDICAID, SELFPAY ==
--- NOTE | ~2023-06-22 | CT_ITS ---
EXAMINATION: CT ABDOMEN AND PELVIS WITHOUT IV CONTRAST CLINICAL INFORMATION: History of perforated diverticulitis and John procedure. Increased abdominal pain. Palpable parastomal hernia. COMPARISON: CT abdomen and pelvis from 04/18/2023. TECHNIQUE: Multidetector volumetric imaging was performed from the superior aspect of the liver through the pubic symphysis. Sagittal and coronal reformatted images were obtained on the technologist's workstation. Oral contrast was given. This CT examination was performed using dose optimization techniques as appropriate, variously including the following: *Automated exposure control *Adjustment of mA and/or kV according to patient size (this includes techniques or standardized protocols for targeted exams where dose is matched to indication/reason for exam; i.e. extremities or head) *Use of iterative reconstruction technique DLP: 503 mGy-cm FINDINGS: LUNG BASES: No pulmonary consolidation or pleural effusion. There are old calcified granulomas within the visualized bases. There is atherosclerotic calcification of the left anterior descending coronary artery. HEPATOBILIARY: Liver has normal size, shape, and attenuation. Gallbladder has a normal appearance. No dilated bile ducts. PANCREAS: No edema, pancreatic ductal dilatation or mass. SPLEEN: Spleen is normal in size and has a few calcified granulomas. ADRENAL GLANDS: Normal. KIDNEYS AND URETERS: Kidneys have normal size and cortical thickness. No perinephric fluid collection, urolithiasis or hydroureteronephrosis. BLADDER: Normal. BOWEL AND PERITONEUM: No dilated loops of bowel. The appendix is normal. No edematous thickening of bowel gonzalez. No abdominal free fluid or free air. Multiple diverticula of the colon. There is a descending colostomy of the left abdominal wall and Nieto's pouch within the pelvis. ABDOMINAL WALL: The mild prominence of the fat within the subcutaneous compartment of the left abdominal wall at the site of descending colostomy likely represents minimal herniation of omental fat. There is no herniation of bowel into the ostomy site. The mild haziness of the fat around the colostomy could represent some residual haziness from the mesenteric inflammation seen on 04/18/2023. There is no parastomal fluid collection. VASCULATURE: Abdominal aorta is normal in caliber. LYMPH NODES: No pathologic sized lymph nodes in the abdomen or pelvis. No inguinal lymphadenopathy. PELVIC VISCERA: Prostate gland is unremarkable. No pelvic free fluid. MUSCULOSKELETAL: Chronic bilateral pars defects of L5, moderate disc degenerative change at L5-S1 and grade 1 [address]hesis at L5-S1. CT/CT abdomen pelvis wo IV con IMPRESSION: * No evidence of abdominal fluid collection, status post partial colectomy and Nieto's procedure. * The mild haziness of the fat in the abdominal wall at the site of the descending colostomy might represent some residual inflammation after surgery and/or from the prior inflammatory changes seen on 04/18/2023. There is no significant hernia or fluid collection at the ostomy site.
[2023-06-22] MEDS: Barium Sulfate Oral (Mocha) 450 ML ORAL.SUSP 900 ML PO (16:27)
== END 2023-06-22 14:14 | disposition home or self-care (01) ==
LOC: HO.CT 14:13
PROVIDERS: PCP Internal Medicine; Visit Provider Surgery
DX: R10.9 Unspecified abdominal pain (principal)
CPT/HCPCS: 74176

== ENCOUNTER 2023-06-25 10:23 | Outpatient (REF) | payer MEDICARE, SELFPAY ==
[2023-06-25 10:36] LABS: MANUAL DIFF FLAG NO
[2023-06-25 11:03] LABS: Basophils Absolute Auto 0.1 X10*3/uL (0.0-0.2); Basophils Percent Auto 0.7 % (0-2); Eosinophils Absolute Auto 0.3 X10*3/uL (0.0-0.4); Eosinophils Percent Auto 3.3 % (0-4); Hematocrit 44.3 % (42.0-52.0); Hemoglobin 14.7 g/dl (14.0-18.0); Imm Gran Abs Auto 0.05 X10*3/uL (0.00-0.03); Imm Gran Pct Auto 0.7 % (0.0-0.4); Lymphocytes Absolute Auto 2.3 X10*3/uL (1.2-4.9); Lymphocytes Percent Auto 30.6 % (20-40); Mean Corpuscular HGB Conc 33.2 g/dl (31.0-36.0); Mean Corpuscular Hemoglobin 28.9 pg (27.0-33.0); Mean Platelet Volume 11.8 fL (9.4-12.4); Monocytes Absolute Auto 0.7 X10*3/uL (0.1-1.2); Monocytes Percent Auto 8.8 % (2-11); Neutrophils Absolute Auto 4.2 x10*3/uL (2.0-8.3); Neutrophils Percent Auto 55.9 % (45-73); Platelet Count 219 X10*3/uL (160-400); Red Blood Count 5.09 X10*6/uL (4.60-5.80); Red Cell Distribution Width 17.5 % (11.0-16.0); White Blood Count 7.5 X10*3/uL (4.8-10.8)
[2023-06-25 12:06] LABS: Prostate Specific Antigen Scr 0.71 ng/mL (<0.05-4.0)
[2023-06-25 12:43] LABS: Alanine Aminotransferase 22 U/L (0-40); Albumin Level 3.8 g/dL (3.5-5.0); Alkaline Phosphatase 74 U/L (39-117); Anion Gap 15 (12-20); Aspartate Amino Transferase 22 U/L (5-37); Bilirubin Total 0.4 mg/dL (0.0-1.0); Blood Urea Nitrogen 11 mg/dL (9-16); Calcium 9.1 mg/dL (8.4-10.2); Carbon Dioxide 24 mmol/L (22-29); Chloride 106 mmol/L (96-108); Cholesterol 113 mg/dL (<200); Estimated Glomerular Filt Rate > 60; Glucose Random 99 mg/dL (60-115); HDL Cholesterol 40 mg/dL (>40); LDL Cholesterol Calculated 51 mg/dL (<100); Potassium 3.6 mmol/L (3.3-5.1); Sodium 141 mmol/L (135-145); Total Protein 7.9 g/dL (6.5-8.0); Triglycerides 114 mg/dL (<150)
[2023-06-25 13:03] LABS: Creatinine Urine 347.64 mg/dL; Microalbum/Creatinine Ratio Ur 5.7 ug/mg cr (<30)
== END 2023-06-25 10:24 | disposition home or self-care (01) ==
LOC: HO.LAB 10:23
PROVIDERS: PCP Internal Medicine; Visit Provider Internal Medicine
DX: E11.9 Type 2 diabetes mellitus without complications (principal); E78.00 Pure hypercholesterolemia, unspecified; K63.1 Perforation of intestine (nontraumatic); N17.9 Acute kidney failure, unspecified; N40.0 Benign prostatic hyperplasia without lower urinary tract symptoms; Z12.5 Encounter for screening for malignant neoplasm of prostate
CPT/HCPCS: 36415; 80053; 80061; 82043; 82570; 84153; 85025

== ENCOUNTER 2023-07-06 14:00 | Outpatient (AMB) | payer MEDICARE, MEDICAID, SELFPAY ==
--- NOTE | 2023-07-06 14:27 | A.OFFVIS_ITS ---
Vital Signs 07/06/23 14:29 Height 5 ft 6 in Weight 163 lb BMI 26.3 BP 104/68 Blood Pressure Location Lt brachial Position Sitting Pulse 78 Pulse Source Pulse Oximeter Pulse Oximetry (%) 99 Oxygen Delivery Method Room Air Intake Visit Reasons: 6 wk s/p holter Intake Note: 6 week after holter Allergies No Known Allergies Allergy (Verified 06/17/23 15:57) HPI Comments Details: 62-year-old male presents today for a follow-up. He was admitted into the hospital related to GI issues. He was found to be in atrial fibrillation with RVR. He denies chest pain, shortness of breath, or dizziness. He reports an occational palpitation. No chest pains, dizziness, shortness of breath, or edema. He has been getting some blood pressures at home with readings 88-110s systolic. [facility] Medical History Palpitations Diabetes mellitus Internal derangement of right knee Hx of polycythemia vera Surgical History H/O exploratory laparotomy (04/18/23) Family History Father History of head and neck cancer Mother Hx of cancer antigen 125 (CA-125) measurement Social History Household Members: Family Housing: House Are you a primary nursing care partner to a significant other at home: Yes Do you presently have visiting nurse or other home services: No Unable to assess alcohol history related to: Unable to respond Alcohol intake: never Patient Tobacco Use Status: Never used Tobacco service: No Current occupational status: unemployed Review of Systems Const Denies weakness ENT Denies dizziness Card Denies chest pain, Denies chest pain with activity, Denies syncope, Denies rapid heart rate, Denies pedal edema, Denies edema, Denies leg edema, Denies lightheadedness, Denies palpitations, Denies dyspnea, Denies dyspnea on exertion and Denies orthopnea Resp Denies cough, Denies dyspnea and Denies dyspnea on exertion GI Denies hematochezia and Denies change in stool character Musc Denies abnormal gait, Denies muscle cramps, Denies muscle weakness, Denies numbness, Denies radiating pain into limb and Denies tingling Neuro Denies abnormal gait, Denies dizziness, Denies syncope, Denies numbness, Denies tingling and Denies weakness Endo Denies palpitations Physical Exam Vital Signs: Last Vital Signs Pulse 78 07/06/23 14:29 BP 104/68 07/06/23 14:29 Pulse Ox 99 07/06/23 14:29 Oxygen Delivery Method Room Air 07/06/23 14:29 BMI result Body Mass Index 26.3 Const General: healthy appearing and no acute distress Orientation/consciousness: patient oriented x3 HEENT Head: Yes normal to inspection Eyes General: appearance normal, both eyes and all related structures Neck Neck: Yes normal visual inspection Chest Chest palpation & inspection: normal inspection of the chest Resp Effort & Inspection: normal respiratory effort Auscultation: clear to auscultation bilaterally Cardio Jugular venous distension: no JVD Palpation: normal PMI Rate: regular rate Rhythm: regular rhythm Heart sounds: S1 normal heart sound present, S2 normal heart sound present, no click, no gallops, no murmurs and no rubs GI Inspection: Yes normal to inspection Palpation (GI): Soft to palpation Skin General skin exam: no rashes or lesions noted Neuro General: patient oriented x3 Extrem General: Yes normal to inspection Psych Appearance: grossly normal Results Reviewed Results Reviewed: Holter Conclusion: 1. Patient was monitored for total period of 3 days 2. Baseline was normal sinus rhythm with average heart of 78 beats per minute 3. No significant pauses or arrhythmias noted 4. Patient reported 1 symptom of heart racing correlated with sinus rhythm Assessment & Plan Assessment & Plan (1) Afib: Code(s): I48.91 - Unspecified atrial fibrillation Category: Medical Plan One episode atrial fibrillation about 9 hours while in the ICU. He received amiodarone while in the hospital then maintained on metoprolol succinate 50mg QD. No indication for anticoagulation. Sinus rhythm by auscultation. Holter showed sinus rhythm. Will have him stop the combination antihypertnesive and try just lisinopril to assist with blood pressures. Asked to bring blood pressure cuff and log to next visit. Medications: New lisinopril 20 mg PO DAILY 30 tabs 1RF Coding Level of Care Code Est Pt Level 3 (69730) Diagnoses Afib I48.91
[2023-07-06 14:29] VITALS: BP 104/68; PULSE 78; O2SAT 99; BMI 26.3
== END 2023-07-06 15:06 | disposition home or self-care (01) ==
PROVIDERS: PCP Internal Medicine; Referring Provider Internal Medicine; Visit Provider Nurse Practitioner
DX: I48.91 Unspecified atrial fibrillation (principal)
CPT/HCPCS: 99213

== ENCOUNTER → 2023-07-06 14:00 | Outpatient (BNVA) | payer MEDICARE, MEDICAID, SELFPAY | PROVIDERS: PCP Internal Medicine; Visit Provider Nurse Practitioner | DX: I48.91 Unspecified atrial fibrillation (principal) | CPT/HCPCS: 99212 ==

== ENCOUNTER 2023-08-05 14:47 | Outpatient (AMB) | payer MEDICARE, MEDICAID, SELFPAY ==
--- NOTE | 2023-08-05 14:55 | A.OFFVIS_ITS ---
Vital Signs 08/05/23 14:59 Height 5 ft 6 in Weight 170 lb BMI 27.4 BP 116/71 Blood Pressure Location Rt brachial Position Sitting Pulse 88 Intake Visit Reasons: one month post colectomy/colostomy Intake Note: Patient is seen in office for one month follow up visit, post colectomy/colostomy. Reports incisions healing well. Pt c/o: Denies concerns. No VNA services at the moment. Recent change w/ lisinopril, just lower mg. 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 Accompanied by: spouse, daughter Allergies No Known Allergies Allergy (Verified 08/05/23 15:00) Medication List - Last Reconciled 08/05/23 by Walter Haney MD allopurinol 1 tab PO DAILY atorvastatin 10 mg PO BEDTIME doxepin 50 mg PO BEDTIME erythromycin 1 g (2 x 500 mg) PO TID ibuprofen 200 mg PO Q6H PRN lisinopril 20 mg PO DAILY metoprolol succinate ER 50 mg PO DAILY neomycin 1 g (2 x 500 mg) PO TID 3 doses omeprazole 20 mg PO DAILY oseltamivir (Tamiflu) 75 mg PO Q12H polyethylene glycol 3350 (Miralax) 17 grams PO DAILY HPI Comments Details: 62-year-old male patient returning following recent hospitalization for perforated sigmoid diverticulitis. He underwent a John's procedure on 04/18/2023 and was noted to have a large abscess with surrounding phlegmon upon exploration. Ostomy is working well with no further bleeding. He is eating well without nausea or vomiting and feels he is gained some weight since his last visit. He denies any abdominal pain. A recent CT abdomen and pelvis revealed no evidence of infection or parastomal hernia. He presents today to discuss closure of his colostomy. [facility] Medical History Palpitations Diabetes mellitus Internal derangement of right knee Hx of polycythemia vera Surgical History H/O exploratory laparotomy (04/18/23) Family History Father History of head and neck cancer Mother Hx of cancer antigen 125 (CA-125) measurement Social History Household Members: Family Housing: House Are you a primary personal care attendant to a significant other at home: Yes Do you presently have visiting nurse or other home services: No Unable to assess alcohol history related to: Unable to respond Alcohol intake: never Patient Tobacco Use Status: Never used Tobacco service: No Current occupational status: unemployed Review of Systems Const All systems reviewed & are unremarkable except as noted in HPI and below Physical Exam Vital Signs: Last Vital Signs Pulse 88 08/05/23 14:59 BP 116/71 08/05/23 14:59 BMI result Body Mass Index 27.4 Const General: no acute distress Nutritional Appearance: well nourished Orientation/consciousness: patient oriented x3 Limitations: no limitations HEENT Head: Yes normocephalic and Yes atraumatic Resp Effort & Inspection: normal respiratory effort, no audible wheezes, no cough and no respiratory distress GI Other: Soft, nondistended, nontender except the left lower quadrant without rebound, guarding or rigidity. Ostomy is pink and viable with stool in the bag. Midline incision is clean and intact without erythema. No hernia noted in the midline incision with Valsalva maneuvers Skin General skin exam: no rashes or lesions noted Neuro General: patient oriented x3 Assessment & Plan Assessment & Plan (1) Perforation of sigmoid colon due to diverticulitis: Code(s): K57.20 - Diverticulitis of large intestine with perforation and abscess without bleeding Category: Medical Plan 62-year-old male patient presenting with perforated sigmoid diverticulitis with abscess formation status post John procedure and sigmoid resection. He returns today to discuss closure of colostomy. On examination his abdomen is soft and nondistended with a well-healed midline incision. The ostomy is pink and functioning well. I recommended closure of the colostomy as a short-stay admit. We reviewed the procedure, risks, and alternatives and he consents to the closure of colostomy. He will need a bowel prep and oral antibiotics on the day prior to surgery. He should stay on clear liquids the day prior to surgery and then NPO after midnight. He expressed understanding and agrees with the plan. Medications: New polyethylene glycol 3350 (Miralax) Mixed 1/2 bottle polyethylene glycol with 2 bottles of Gatorade (not red colored). Drink 1 cup every 15 minutes starting at 09:00 day prior to surgery until either completed or when bowels are clear. 17 grams PO DAILY 238 grams 0RF neomycin administer at 1 PM, 2 PM, and 11 PM the day prior to surgery 1 g (2 x 500 mg) PO TID 6 tabs 0RF 3 doses erythromycin administer at 1 PM, 2 PM, and 11 PM the day prior to surgery 1 g (2 x 500 mg) PO TID 6 tabs 0RF Coding Level of Care Code Est Pt Level 4 (92466) Diagnoses Perforation of sigmoid colon due to diverticulitis K57.20
[2023-08-05 14:59] VITALS: BP 116/71; PULSE 88; BMI 27.4
== END 2023-08-05 15:15 | disposition home or self-care (01) ==
LOC: HO.HGS 14:47
PROVIDERS: PCP Internal Medicine; Visit Provider Surgery
DX: K57.20 Diverticulitis of large intestine with perforation and abscess without bleeding (principal); Z93.3 Colostomy status
CPT/HCPCS: 99214

== ENCOUNTER → 2023-08-05 14:47 | Outpatient (BNVA) | payer MEDICARE, MEDICAID, SELFPAY | PROVIDERS: PCP Internal Medicine; Visit Provider Surgery | DX: K57.20 Diverticulitis of large intestine with perforation and abscess without bleeding (principal); Z93.3 Colostomy status; Z90.49 Acquired absence of other specified parts of digestive tract | CPT/HCPCS: 99212 ==

== ENCOUNTER 2023-08-30 08:50 | Inpatient (IN) | payer MEDICARE, MEDICAID, SELFPAY ==
[2023-08-24 10:15] VITALS: BMI 28.2
[2023-08-30] VITALS (12 sets, daily range): BP systolic 87–126; BP diastolic 47–85; PULSE 75–120; RESP 9–18; TEMP 36.1–36.8; O2SAT 93–100
[2023-08-30] MEDS: Lactated Ringers 1,000 ML 100 ML IVCONT ×2 (08:55→13:31)
--- OUTSIDE RECORDS SUMMARY | 2023-08-30 08:58 | XMS_ITS | Patient Health Record ---
Author Organization [facility] Address [address] [place] [address] Care Team Providers Care [employer] Manager Name Role Phone Pia Avila Primary Care Provider Unavailab Olegario James Unavailable [phone] REASON FOR REFERRAL No Information MEDICATIONS Medication SIG (Take, Route, Fr equency, Duration) Notes Start Date End Date Status MoviPrep 100 GM as directed Orally 03/03/201103/2023 Active Tarka Active SOCIAL HISTORY Sex Assigned At : Social History Observation Description Sex Assigned At Unknown PROBLEMS Problem Type ICD Code Onset Dates Problem Status W/U Status Risk SNOMED Code Notes Problem Special screening for malignant neoplasms, colon (V76.51) Active confirmed Screening for malignant neoplasm of colon (948788957) PLAN OF TREATMENT Future Test Test Name Order Date COLONOSCOPY 03/03/2011 Insurance Providers Payer Name Payer Address Payer Phone Subscriber Number Group Number Insured Name Patient Relationship to Insured Coverage Start Date Coverage End Date MEDICARE OF [place] [address] [place] [id number] [id number] Rodrick Gaston Self - patient is the insured [facility] [address] [place] [address] [phone] [id number] Rodrick Gaston Self - patient is the insured MEDICAL (GENERAL) HISTORY Medical History History ICD Code hypertension Denies AL,DM,CVA,Lung disease,renal dise ase
[2023-08-30 09:05] LABS: Glucose, Whole Blood 95 mg/dL (60-115)
--- NOTE | 2023-08-30 09:46 | HO.ANESPROP2 ---
HPI - Anesthesia Eval Consult details Narrative: 62 yo M presenting for colostomy closure PMFSH Active Problems Active Problems: All Active Problems Abdominal pain (Acute) Atrial flutter with rapid ventricular response (Acute) Afib (Acute) History of arthroscopy of right knee (Acute) Polycythemia (Acute) Palpitations (Acute) Internal derangement of right knee (Acute) Diabetes mellitus (Acute) Past Medical History Medical History Hx of septic shock (~04/20/23) History of diverticulitis of colon (04/18/23) Hx of lymphadenopathy Pulmonary nodules Psoriasis of scalp CTS (carpal tunnel syndrome) Elevated cholesterol Gout Asthma HTN (hypertension) Palpitations Diabetes mellitus Internal derangement of right knee Hx of polycythemia vera Family History Family History Father History of head and neck cancer Mother Hx of cancer antigen 125 (CA-125) measurement Family history of problems with anesthesia: No Surgical History Surgical History Hx of arthroscopy of right knee H/O exploratory laparotomy (04/18/23) History of Problems with Anesthesia: No (PONV with knee surgeries but not subsequent surgeries) Social History Social History (Updated 08/24/23 @ 10:18 by Angelia Arce RN) Household Members: Spouse Housing: House Are you a primary healthcare consultant to a significant other at home: No Do you presently have visiting nurse or other home services: No Unable to assess alcohol history related to: Unable to respond Alcohol intake: never Patient Tobacco Use Status: Never used Tobacco Use of substances other than those prescribed or required for medical reasons: No Have you been hit, kicked, punched, or otherwise hurt by someone within the past year? If so, by whom?: No Are you DNR?: No Advance Directives: No Advance Directives Information Provided: Yes Advance Directives on File: No Recently lost weight without trying: No Nutrition Risks: No Nutritional Risk Poor oral hygiene: No service: No Current occupational status: unemployed Meds Allergies Allergy/AdvReac Type Severity Reaction Status Date / Time No Known Allergies Allergy Verified 08/30/23 08:43 Active Medications: Current Medications Lactated Ringer's (Lr) 1,000 mls @ 100 mls/hr IVCONT .Q10H SARITA Last Admin: 08/30/23 08:55 Dose: 100 mls/hr Home Medications ?Medication ?Instructions ?Recorded ?Confirmed ?Last Taken ?Type allopurinol 300 mg tablet 1 tab PO DAILY 05/14/20 08/23/23 Unknown History ibuprofen 200 mg tablet 200 mg PO Q6H PRN Pain 05/14/20 08/24/23 Unknown History atorvastatin 10 mg tablet 10 mg PO BEDTIME 01/19/23 08/23/23 Unknown History doxepin 50 mg capsule 50 mg PO BEDTIME 01/19/23 08/23/23 Unknown History metoprolol succinate 50 mg 50 mg PO DAILY 01/19/23 08/23/23 08/30/23 History tablet,extended release 24 hr omeprazole 20 mg capsule,delayed 20 mg PO DAILY 01/19/23 08/23/23 08/30/23 History release lisinopril 20 mg tablet 20 mg PO DAILY 08/05/23 08/24/23 Unknown History loratadine 10 mg tablet 10 mg PO DAILY 08/23/23 08/23/23 Unknown History Exam Exam Date and Time: August 30, 2023 0945 Height,Weight and Vital Signs: Height 5 ft 6 in Weight 79.379 kg Last Vital Signs Temp 98.2 F 08/30/23 08:55 Pulse 78 08/30/23 08:55 Resp 18 08/30/23 08:55 BP 122/85 08/30/23 08:55 Pulse Ox 96 08/30/23 08:55 O2 Del Method Room Air 08/30/23 08:55 Pertinent Lab Results Pertinent Lab Results: Laboratory Tests 08/30/23 08:52 POC Glucose 95 Airway Mallampati Class: II TM Dist: >3cm Neck ROM: Full Loose/Missing/Broken Teeth: No (patient denies any loose or broken teeth) Heart: S1S2 Lungs: CTAB Assessment and Plan Assessment Anesthesia Assessment: Anesthesia Plan Discussed and Chart Reviewed Final Anesthetic Review Family History of Problems with Anesthesia: No History of Problems with Anesthesia: No (PONV with knee surgeries but not subsequent surgeries) NPO: Yes ASA Class: II Final Preanesthetic Review: No Changes in Pt Med Stat, Meds/Allgs Chart Reviewed, Consent Obtained/Reviewed and Anes Risks/Benef Reviewed Patient Risk: Low Procedure Risk: Low Anesthetic Plan Anesthetic Plan: GA and Agree w/ Assess. and Plan Disposition: Standard PACU
--- NOTE | 2023-08-30 10:05 | MHC.SHP ---
Pre-Procedural Eval Section A - 24 Hr Update-Section A only Date of Service: 08/30/23 The patient is an INPATIENT: No Changes since office visit: Yes Patient answered all questions; No Cold of Flu in the past 2 weeks, No New Medical Problems and No Changes in Medication The patient has been examined within 24 hours of the surgical procedure. The History & Physical has been completed within 30 days and I have reviewed it.: Yes Section B - Complete if H&P > 30 days Chief Complaint: Diverticulitis Closure of Colostomy Details of Present Illness: no change since office visit Relevant Social History: None Present Medications: see Short Stay Collaborative assessment Medical History: No relevant PMH History of Previous Operations: Relevant previous surgery/procedure and date(s) Allergies: Allergies Allergy/AdvReac Type Severity Reaction Status Date / Time No Known Allergies Allergy Verified 08/30/23 08:43 Review of Systems Sugical H&P ROS: Negative: Constitution, Cardiovascular, Respiratory, Neurological, Psychiatric, Hem-Onc, Allergic/Immunologic, Gastrointestinal, Genitourinary, Musculoskeletal, Integumentary, Endocrine and Eyes/Ears/Nose/Throat Exam Surgical H&P Exam: Normal: HEENT, Normal: Heart, Normal: Lungs, Normal: Extremities, Normal: Abdomen, Normal: Skin and Normal: Neurological Plan Diagnosis/Plan: Unchanged I have reviewed the history and physical and performed a pertinent physical examination on my patient. No changes have occurred unless specified. Time Spent With Patient Time: Total time managing care of this patient today ____ minutes.
--- NOTE | 2023-08-30 11:55 | W.PM.OPN ---
Operative Note Operative Note Date of Service: 08/30/23 Narrative: Preoperative diagnosis: Perforated sigmoid diverticulitis, status post John procedure Postoperative diagnosis: Same Procedure: Closure of colostomy Surgeon: Walter Haney MD [employer]ovolta[employer] Installer: Sarah Bill PA-C Anesthesia: General LMA; TAP block Indications for procedure: 62-year-old male patient with a previous history of perforated sigmoid diverticulitis with abscess and free air, status post John procedure now returning for elective closure of colostomy Operative findings: Dense adhesions from prior surgery and infection. Specimen: Colostomy, donuts Estimated blood loss: 20 mL Complications: None Procedure details: Patient was brought to the OR placed in a supine position. After administering general anesthesia, the patient was placed in a lithotomy position. A Singleton catheter was placed. The patient's abdomen perineum were prepped and draped in a sterile fashion. Surgical time-out was called the consent confirmed. Patient received preoperative antibiotics and Venodyne boots were in place. Local anesthesia was infiltrated around the previous colostomy and midline incision. An elliptical incision was then created around the colostomy incision which was previously closed with a running Prolene suture. This was carried out through subcutaneous tissue up to the muscle fascia into the abdominal cavity. When this was fully mobilized attention was then directed to the midline incision which was opened in the lower abdomen below the umbilicus. The incision was carried down past the anterior rectus sheath and into the abdominal cavity. A Bookwalter retractor was then placed at this time. Small bowel was mobilized off of the pelvis using gentle dissection. This was then retracted up into the right upper quadrant and held in place with a Gallaway retractor. The rectal stump was then identified and mobilized using LigaSure. Good length was noted between the descending colon and rectal stump. Pursestring clamp was then placed on the descending colon stump and a Prolene pursestring suture placed. The descending colon was then dilated using EEA sizers. This was dilated up to a 25 mm but could not tolerate a 28 mm dilator. A 25 mm EEA stapler was then obtained. The anvil was then placed in the descending colon and the pursestring tied off. At this point rectum was dilated also to a 25. The dilator was able to easily be passed up to the rectal stump. The EEA stapler was then inserted and spike fired through the anterior surface of the rectal stump. This was connected to the anvil and the EEA stapler fired. Two good donuts were identified after removing the stapler. The anastomosis was then reinforced using 3-0 Surgilon sutures in a Lembert fashion. The anastomosis was tested for leak by instilling air into the rectum. No air leak could be identified. The abdomen was then thoroughly irrigated with saline solution and suctioned dry. Fascia was closed in the midline using a running 0 PDS looped suture. Subcutaneous tissue and dermis were reapproximated using interrupted 3-0 Polysorb sutures. Skin was closed using skin maximilian. Colostomy site was closed using running 0 Polysorb sutures. This was done in 2 layers followed by 3-0 Polysorb in the dermis. Skin was closed using skin maximilian. Sterile dressings were then applied. The patient tolerated the procedure well. Sponge, instrument, and needle counts reported as correct. The patient was transferred to PACU in stable condition.
[2023-08-30] MEDS: Haloperidol Lactate 5 MG/ML VIAL 1 MG IVPUSH (13:19)
[2023-08-30] MEDS: Lactated Ringers 500 ML 999 ML IV (13:33)
[2023-08-30] MEDS: Lactated Ringers 1,000 ML 125 ML IVCONT ×2 (14:19→22:17)
[2023-08-30 14:44] LABS: MANUAL DIFF FLAG NO
[2023-08-30 14:47] LABS: Basophils Percent Auto 0.1 % (0-2); Eosinophils Percent Auto 0.2 % (0-4); Hematocrit 42.6 % (42.0-52.0); Imm Gran Abs Auto 0.08 X10*3/uL (0.00-0.03); Imm Gran Pct Auto 0.5 % (0.0-0.4); Lymphocytes Absolute Auto 1.7 X10*3/uL (1.2-4.9); Lymphocytes Percent Auto 9.5 % (20-40); Mean Corpuscular HGB Conc 32.9 g/dl (31.0-36.0); Mean Corpuscular Hemoglobin 28.9 pg (27.0-33.0); Mean Platelet Volume 11.6 fL (9.4-12.4); Monocytes Absolute Auto 0.4 X10*3/uL (0.1-1.2); Monocytes Percent Auto 2.4 % (2-11); Neutrophils Absolute Auto 15.4 x10*3/uL (2.0-8.3); Neutrophils Percent Auto 87.3 % (45-73); Platelet Count 199 X10*3/uL (160-400); Red Blood Count 4.84 X10*6/uL (4.60-5.80); Red Cell Distribution Width 16.6 % (11.0-16.0); White Blood Count 17.7 X10*3/uL (4.8-10.8)
[2023-08-30 15:04] LABS: Creatinine Clr Calc Pharmacy 58.8; Estimated Glomerular Filt Rate 56
--- NOTE | 2023-08-30 15:38 | PHA.MEDREC ---
Pharmacy Consult ? Medication Reconciliation Pharmacy has completed the medication reconciliation. med rec done by Carmen. Patient is not on Januvia
[2023-08-30] MEDS: Acetaminophen 1,000 MG/100 ML PIGGYBACK 400 MG IV ×2 (16:27→22:29)
[2023-08-30] MEDS: ondansetron HCL 4 MG/2 ML VIAL IVPUSH (16:35)
[2023-08-30] MEDS: Doxepin HCl 25 MG CAPSULE 50 MG PO (20:55)
[2023-08-30] MEDS: Atorvastatin Calcium 10 MG TABLET PO (20:56)
[2023-08-30] MEDS: HYDROmorphone HCl 0.5 MG/0.5 ML SYRINGE IVPUSH (20:57)
[2023-08-31 03:53] VITALS: BP 106/59; PULSE 81; RESP 16; TEMP 36.3; O2SAT 94
[2023-08-31] MEDS: Acetaminophen 1,000 MG/100 ML PIGGYBACK 400 MG IV ×2 (04:52→10:52)
[2023-08-31 06:32] LABS: Anion Gap 10 (12-20); Blood Urea Nitrogen 10 mg/dL (9-16); Calcium 8.9 mg/dL (8.4-10.2); Carbon Dioxide 26 mmol/L (22-29); Chloride 109 mmol/L (96-108); Creatinine Clr Calc Pharmacy 91.4; Estimated Glomerular Filt Rate > 60; Glucose Random 123 mg/dL (60-115); Potassium 4.2 mmol/L (3.3-5.1); Sodium 141 mmol/L (135-145)
[2023-08-31] MEDS: Lactated Ringers 1,000 ML 125 ML IVCONT (06:42)
[2023-08-31 06:56] VITALS: BP 123/77; PULSE 74; RESP 18; TEMP 36.6; O2SAT 95
--- NOTE | 2023-08-31 07:27 | P.PNGS_ITS ---
Subjective Subjective Date of Service: 08/31/23 Interval history: Feels better this morning. Had severe pain yesterday and nausea/vomiting. Thinks he is passing flatus. Has not been OOB. Physical Exam 2 Vital Signs: Vital Signs: Last Vital Signs Temp 98 F 08/31/23 06:56 Pulse 74 08/31/23 06:56 Resp 18 08/31/23 06:56 BP 123/77 08/31/23 06:56 Pulse Ox 95 08/31/23 06:56 O2 Del Method Room Air 08/31/23 06:56 O2 Flow Rate 2 08/30/23 13:43 BMI result Body Mass Index 28.2 Const: General: comfortable, no acute distress and alert O rientation/consciousness: patient oriented x3 Resp: Effort & Inspection: normal respiratory effort GI: Inspection: No distended and Yes incision (dressings c/d/i) Palpation (GI): Soft to palpation and Tenderness to palpation present (GI) (incisional) Percussion: Yes normal to percussion Skin: General skin exam: no rashes or lesions noted Neuro: General: patient oriented x3 Objective Data Active Medications Atorvastatin Calcium (Atorvastatin Calcium 10 Mg Tablet) 10 mg PO BEDTIME [facility] Last Admin: 08/30/23 20:56 Dose: 10 mg Documented By: AUGUSTINE Doxepin HCl (Doxepin Hcl 25 Mg Capsule) 50 mg PO BEDTIME [facility] Last Admin: 08/30/23 20:55 Dose: 50 mg Documented By: AUGUSTINE Enoxaparin Sodium (Enoxaparin Sodium 40 Mg/0.4 Ml Syringe) 40 mg SUBCUT Q24H [facility] Hydromorphone HCl (Hydromorphone Hcl 0.5 Mg/0.5 Ml Syringe) 0.5 mg IVPUSH Q3H PRN; Protocol PRN Reason: Pain, Severe (Pain Scale 7-10) Last Admin: 08/30/23 20:57 Dose: 0.5 mg Documented By: AUGUSTINE Lactated Ringer's (Lr) 1,000 mls @ 125 mls/hr IVCONT .Q8H [facility] Last Admin: 08/31/23 06:42 Dose: 125 mls/hr Documented By: LAURENT Acetaminophen (Ofirmev) 1,000 mg in 100 mls @ 400 mls/hr IV Q6H [facility] Stop: 08/31/23 11:14 Last Infusion: 08/31/23 05:08 Dose: Infused Documented By: AUGUSTINE Lisinopril (Lisinopril 20 Mg Tablet) 20 mg PO DAILY SARITA; Protocol Loratadine (Loratadine 10 Mg Tablet) 10 mg PO DAILY [facility] Metoprolol Succinate (Metoprolol Succinate Er 50 Mg Tab.Er.24h) 50 mg PO DAILY SARITA; Protocol Omeprazole (Omeprazole 20 Mg Capsule.Dr) 20 mg PO DAILY SARITA Ondansetron HCl (Ondansetron Hcl 4 Mg/2 Ml Vial) 4 mg IVPUSH QID PRN PRN Reason: Nausea Last Admin: 08/30/23 16:35 Dose: 4 mg Documented By: FREDY Oxycodone HCl (Oxycodone Hcl Immed Release 5 Mg Tablet) 5 mg PO Q6H PRN PRN Reason: Pain, Moderate(Pain Scale 4-6) Zolpidem Tartrate (Zolpidem Tartrate 5 Mg Tablet) 5 mg PO BEDTIME PRN PRN Reason: Insomnia Labs 08/30/23 14:37 08/31/23 05:26 Labs: Laboratory Results - last 24 hr 08/30/23 08/30/23 08/31/23 08:52 14:37 05:26 MCV 88.0 MCH 28.9 MCHC 32.9 RDW 16.6 H Plt Count 199 MPV 11.6 Immature Gran % (Auto) 0.5 H Neut % (Auto) 87.3 H Lymph % (Auto) 9.5 L [place] % (Auto) 2.4 Eos % (Auto) 0.2 Baso % (Auto) 0.1 Lymph # (Auto) 1.7 [place] # (Auto) 0.4 Eos # (Auto) 0.0 Baso # (Auto) 0.0 Abs Immat Gran (auto) 0.08 H Absolute Neuts (auto) 15.4 H Absolute Nucleated RBC 0.000 Nucleated RBC % (auto) 0.0 Hold Purple Top SEE NOTE Anion Gap 10 L Estim Creat Clear Calc 58.8 91.4 Estimated GFR 56 > 60 POC Glucose 95 Random Glucose 123 H Calcium 8.9 Procedures Date of Service Date of Service: 08/31/23 Progress Note: A&P Assessment and plan (1) History of colostomy reversal: Status: Acute Plan POD #1 s/p colostomy closure for hx of perforated sigmoid diverticulitis, status post John procedure. Doing well post op. Abd benign with appropriate post op tenderness, dressings c/d/i. Will continue clears for now given nausea/vomiting yesterday. Pain control. Encouraged OOB/ambulation. Dc farrell. Patient comfortable with plan. Await return of GI function. Time Spent With Patient Time: Total time managing care of this patient today ____ minutes. Quality Stroke Does the patient have a stroke diagnosis?: No VTE Prior VTE?: No VTE Risk Level:: Surgical - high VTE Device Contraindication: N/A - Device Ordered VTE Drug Contraindication: N/A - Med Ordered
[2023-08-31] MEDS: Metoprolol Succinate ER 50 MG TAB.ER.24H PO (08:40)
[2023-08-31] MEDS: Loratadine 10 MG TABLET PO (08:40)
[2023-08-31] MEDS: Omeprazole 20 MG CAPSULE.DR PO (08:40)
[2023-08-31] MEDS: lisinopriL 20 MG TABLET PO (08:41)
--- NOTE | 2023-08-31 09:00 | HO.POSTANES ---
Post Anesthesia Evaluation Post Anesthesia Evaluation Date of Service: 08/30/23 Vital Signs: Vital Signs Temp Pulse Resp BP Pulse Ox O2 Del Method 08/31/23 06:56 98 F 74 18 123/77 95 Room Air 08/31/23 03:53 97.3 F 81 16 106/59 L 94 Room Air Anesthesia: General Mental Status: Awake Anesthesia-Related Issues: No Anes. Related Issues Comments: on clears for N/V . await return of GI function. + flatus.
[2023-08-31] MEDS: Enoxaparin Sodium 40 MG/0.4 ML SYRINGE SUBCUT (10:52)
--- NOTE | 2023-08-31 11:25 | MHC.CM.PN ---
IMM DELIVERED PT LIVES WITH SPOUSE. USES [facility] FOR MOBILITY. + HCP PCP DR. TODD DP: HOME, NO SERVICES IS THE GOAL. FAMILY WILL TRANSPORT CM WILL CONTINUE TO FOLLOW FOR ANY CHANGE TO DC PLAN/NEEDS.
[2023-08-31 15:13] VITALS: BP 127/60; PULSE 75; RESP 18; TEMP 36.1; O2SAT 97
[2023-08-31] MEDS: HYDROmorphone HCl 0.5 MG/0.5 ML SYRINGE IVPUSH ×2 (17:37→22:16)
[2023-08-31 19:19] VITALS: BP 128/76; PULSE 84; RESP 20; TEMP 36.1; O2SAT 98
[2023-08-31] MEDS: Lactated Ringers 1,000 ML 80 ML IVCONT (19:40)
[2023-08-31] MEDS: Doxepin HCl 25 MG CAPSULE 50 MG PO (22:14)
[2023-08-31] MEDS: Atorvastatin Calcium 10 MG TABLET PO (22:15)
[2023-09-01 03:25] VITALS: BP 116/70; PULSE 71; RESP 16; TEMP 36.4; O2SAT 97
[2023-09-01] MEDS: Lactated Ringers 1,000 ML 80 ML IVCONT (05:27)
[2023-09-01] MEDS: HYDROmorphone HCl 0.5 MG/0.5 ML SYRINGE IVPUSH (05:33)
[2023-09-01 07:05] VITALS: BP 132/79; PULSE 69; RESP 17; TEMP 36.6; O2SAT 98
[2023-09-01] MEDS: oxyCODONE HCl Immed Release 5 MG TABLET PO ×3 (07:13→20:08)
[2023-09-01] MEDS: Omeprazole 20 MG CAPSULE.DR PO (07:13)
[2023-09-01] MEDS: lisinopriL 20 MG TABLET PO (07:13)
[2023-09-01] MEDS: Loratadine 10 MG TABLET PO (07:14)
[2023-09-01] MEDS: Metoprolol Succinate ER 50 MG TAB.ER.24H PO (07:14)
--- NOTE | 2023-09-01 07:46 | PM.PNGS ---
Subjective Subjective Date of Service: 09/01/23 Patient reports: no new complaints, feels better and tolerating liquids well Physical Exam Vital Signs: Vital Signs: Last Vital Signs Temp 98 F 09/01/23 07:05 Pulse 69 09/01/23 07:05 Resp 17 09/01/23 07:05 BP 132/79 09/01/23 07:05 Pulse Ox 98 09/01/23 07:05 O2 Del Method Room Air 09/01/23 07:05 O2 Flow Rate 2 08/30/23 13:43 BMI result Body Mass Index 28.2 Const: General: comfortable Nutritional Appearance: well nourished Orientation/consciousness: patient oriented x3 Resp: Effort & Inspection: normal respiratory effort GI: Other: Incision, clean, dry and intact Inspection: Yes normal to inspection Palpation (GI): Soft to palpation Percussion: Yes normal to percussion Neuro: General: patient oriented x3 Extrem: Other: no edema Objective Data Active Medications Atorvastatin Calcium (Atorvastatin Calcium 10 Mg Tablet) 10 mg PO BEDTIME [facility] Last Admin: 08/31/23 22:15 Dose: 10 mg Documented By: RILEY Doxepin HCl (Doxepin Hcl 25 Mg Capsule) 50 mg PO BEDTIME [facility] Last Admin: 08/31/23 22:14 Dose: 50 mg Documented By: RILEY Enoxaparin Sodium (Enoxaparin Sodium 40 Mg/0.4 Ml Syringe) 40 mg SUBCUT Q24H [facility] Last Admin: 08/31/23 10:52 Dose: 40 mg Documented By: KUSH Hydromorphone HCl (Hydromorphone Hcl 0.5 Mg/0.5 Ml Syringe) 0.5 mg IVPUSH Q3H PRN; Protocol PRN Reason: Pain, Severe (Pain Scale 7-10) Last Admin: 09/01/23 05:33 Dose: 0.5 mg Documented By: KHRIS-RIVYOLANDA Lisinopril (Lisinopril 20 Mg Tablet) 20 mg PO DAILY [facility]; Protocol Last Admin: 09/01/23 07:13 Dose: 20 mg Documented By: AFRICA Loratadine (Loratadine 10 Mg Tablet) 10 mg PO DAILY [facility] Last Admin: 09/01/23 07:14 Dose: 10 mg Documented By: AFRICA Metoprolol Succinate (Metoprolol Succinate Er 50 Mg Tab.Er.24h) 50 mg PO DAILY [facility]; Protocol Last Admin: 09/01/23 07:14 Dose: 50 mg Documented By: AFRICA Omeprazole (Omeprazole 20 Mg Capsule.Dr) 20 mg PO DAILY [facility] Last Admin: 09/01/23 07:13 Dose: 20 mg Documented By: AFRICA Ondansetron HCl (Ondansetron Hcl 4 Mg/2 Ml Vial) 4 mg IVPUSH QID PRN PRN Reason: Nausea Last Admin: 08/30/23 16:35 Dose: 4 mg Documented By: FREDY Oxycodone HCl (Oxycodone Hcl Immed Release 5 Mg Tablet) 5 mg PO Q6H PRN PRN Reason: Pain, Moderate(Pain Scale 4-6) Last Admin: 09/01/23 07:13 Dose: 5 mg Documented By: AFRICA Zolpidem Tartrate (Zolpidem Tartrate 5 Mg Tablet) 5 mg PO BEDTIME PRN PRN Reason: Insomnia Labs 08/30/23 14:37 08/31/23 05:26 Procedures Date of Service Date of Service: 09/01/23 Progress Note: A&P Assessment and plan (1) History of colostomy reversal: Status: Acute Plan POD #2 s/p closure of colostomy. Patient Repor reports having several ball movements yesterday, some with blood T. This morning feels much improved with no abdominal pain. Will advance to regular diet this morning. Patient patient should continue ambulation and IS Time Spent With Patient Time: Total time managing care of this patient today ____ minutes. Quality Stroke Does the patient have a stroke diagnosis?: No VTE Prior VTE?: No VTE Risk Level:: Surgical - high VTE Device Contraindication: N/A - Device Ordered VTE Drug Contraindication: N/A - Med Ordered
[2023-09-01] MEDS: Enoxaparin Sodium 40 MG/0.4 ML SYRINGE SUBCUT (13:06)
[2023-09-01 15:18] VITALS: BP 118/70; PULSE 75; RESP 18; TEMP 36.4; O2SAT 96
--- NOTE | 2023-09-01 15:55 | MHC.CM.PN ---
EMR reviewed and per MD rounds, pt is not medically cleared for discharge due to management of post-op care.
[2023-09-01 19:04] VITALS: BP 131/74; PULSE 85; RESP 18; TEMP 36.6; O2SAT 95
[2023-09-01] MEDS: Atorvastatin Calcium 10 MG TABLET PO (20:08)
[2023-09-01] MEDS: Zolpidem Tartrate 5 MG TABLET PO (20:08)
[2023-09-01] MEDS: Doxepin HCl 25 MG CAPSULE 50 MG PO (20:08)
[2023-09-02 03:09] VITALS: BP 127/79; PULSE 87; RESP 18; TEMP 36.8; O2SAT 92
[2023-09-02 06:14] LABS: MANUAL DIFF FLAG NO
[2023-09-02 06:21] LABS: Basophils Percent Auto 0.3 % (0-2); Eosinophils Absolute Auto 0.2 X10*3/uL (0.0-0.4); Eosinophils Percent Auto 1.5 % (0-4); Hematocrit 39.1 % (42.0-52.0); Hemoglobin 13.3 g/dl (14.0-18.0); Imm Gran Abs Auto 0.07 X10*3/uL (0.00-0.03); Imm Gran Pct Auto 0.6 % (0.0-0.4); Lymphocytes Absolute Auto 3.1 X10*3/uL (1.2-4.9); Lymphocytes Percent Auto 24.1 % (20-40); Mean Corpuscular Hemoglobin 28.9 pg (27.0-33.0); Mean Platelet Volume 11.9 fL (9.4-12.4); Monocytes Absolute Auto 1.1 X10*3/uL (0.1-1.2); Monocytes Percent Auto 8.7 % (2-11); Neutrophils Absolute Auto 8.2 x10*3/uL (2.0-8.3); Neutrophils Percent Auto 64.8 % (45-73); Platelet Count 168 X10*3/uL (160-400); Red Cell Distribution Width 16.6 % (11.0-16.0); White Blood Count 12.7 X10*3/uL (4.8-10.8)
[2023-09-02 07:26] VITALS: BP 136/85; PULSE 83; RESP 16; TEMP 36.5; O2SAT 94
--- NOTE | 2023-09-02 07:42 | PM.PNGS ---
Subjective Subjective Date of Service: 09/02/23 <Sarah Bill PA-C - Last Filed: 09/02/23 07:45> 09/02/23 <Walter Haney MD - Last Filed: 09/02/23 07:47> Interval history: Tolerating solid diet. Reports more BMs, nonbloody. OOB and ambulating without difficulty. Would like to go home. <Sarah Bill PA-C - Last Filed: 09/02/23 07:45> Physical Exam Vital Signs: Vital Signs: Last Vital Signs Temp 97.7 F 09/02/23 07:26 Pulse 83 09/02/23 07:26 Resp 16 09/02/23 07:26 BP 136/85 09/02/23 07:26 Pulse Ox 94 09/02/23 07:26 O2 Del Method Room Air 09/02/23 07:26 O2 Flow Rate 2 08/30/23 13:43 BMI result Body Mass Index 28.2 <Sarah Bill PA-C - Last Filed: 09/02/23 07:45> Const: General: comfortable, no acute distress and alert <Sarah Bill PA-C - Last Filed: 09/02/23 07:45> Orientation/consciousness: patient oriented x3 <Sarah Bill PA-C - Last Filed: 09/02/23 07:45> GI: Inspection: No distended and Yes incision (clean, maximilian intact ) <Sarah Bill PA-C - Last Filed: 09/02/23 07:45> Palpation (GI): Soft to palpation, Tenderness to palpation present (GI) (mild incisional) and no guarding <Sarah Bill PA-C - Last Filed: 09/02/23 07:45> Skin: General skin exam: no rashes or lesions noted <LONNIE Martins Last Filed: 09/02/23 07:45> Neuro: General: patient oriented x3 <LONNIE Martins Last Filed: 09/02/23 07:45> Objective Data Active Medications Atorvastatin Calcium (Atorvastatin Calcium 10 Mg Tablet) 10 mg PO BEDTIME SARITA Last Admin: 09/01/23 20:08 Dose: 10 mg Documented By: JORGE Doxepin HCl (Doxepin Hcl 25 Mg Capsule) 50 mg PO BEDTIME [facility] Last Admin: 09/01/23 20:08 Dose: 50 mg Documented By: JORGE Enoxaparin Sodium (Enoxaparin Sodium 40 Mg/0.4 Ml Syringe) 40 mg SUBCUT Q24H SARITA Last Admin: 09/01/23 13:06 Dose: 40 mg Documented By: AFRICA Hydromorphone HCl (Hydromorphone Hcl 0.5 Mg/0.5 Ml Syringe) 0.5 mg IVPUSH Q3H PRN; Protocol PRN Reason: Pain, Severe (Pain Scale 7-10) Last Admin: 09/01/23 05:33 Dose: 0.5 mg Documented By: KHRIS-BERNARDO Lisinopril (Lisinopril 20 Mg Tablet) 20 mg PO DAILY [facility]; Protocol Last Admin: 09/01/23 07:13 Dose: 20 mg Documented By: AFRICA Loratadine (Loratadine 10 Mg Tablet) 10 mg PO DAILY [facility] Last Admin: 09/01/23 07:14 Dose: 10 mg Documented By: AFRICA Metoprolol Succinate (Metoprolol Succinate Er 50 Mg Tab.Er.24h) 50 mg PO DAILY [facility]; Protocol Last Admin: 09/01/23 07:14 Dose: 50 mg Documented By: AFRICA Omeprazole (Omeprazole 20 Mg Capsule.Dr) 20 mg PO DAILY [facility] Last Admin: 09/01/23 07:13 Dose: 20 mg Documented By: AFRICA Ondansetron HCl (Ondansetron Hcl 4 Mg/2 Ml Vial) 4 mg IVPUSH QID PRN PRN Reason: Nausea Last Admin: 08/30/23 16:35 Dose: 4 mg Documented By: FREDY Oxycodone HCl (Oxycodone Hcl Immed Release 5 Mg Tablet) 5 mg PO Q6H PRN PRN Reason: Pain, Moderate(Pain Scale 4-6) Last Admin: 09/01/23 20:08 Dose: 5 mg Documented By: JORGE Zolpidem Tartrate (Zolpidem Tartrate 5 Mg Tablet) 5 mg PO BEDTIME PRN PRN Reason: Insomnia Last Admin: 09/01/23 20:08 Dose: 5 mg Documented By: JORGE <Sarah Bill PA-C - Last Filed: 09/02/23 07:45> Labs CBC & Chem 7: 09/02/23 05:46 08/31/23 05:26 <LONNIE Martins Last Filed: 09/02/23 07:45> Labs: Laboratory Results - last 24 hr 09/02/23 05:46 MCV 85.0 MCH 28.9 MCHC 34.0 RDW 16.6 H Plt Count 168 MPV 11.9 Immature Gran % (Auto) 0.6 H Neut % (Auto) 64.8 Lymph % (Auto) 24.1 [place] % (Auto) 8.7 Eos % (Auto) 1.5 Baso % (Auto) 0.3 Lymph # (Auto) 3.1 [place] # (Auto) 1.1 Eos # (Auto) 0.2 Baso # (Auto) 0.0 Abs Immat Gran (auto) 0.07 H Absolute Neuts (auto) 8.2 Absolute Nucleated RBC 0.000 Nucleated RBC % (auto) 0.0 <Sarah Bill PA-C - Last Filed: 09/02/23 07:45> Procedures Date of Service Date of Service: 09/02/23 <Sarah Bill PA-C - Last Filed: 09/02/23 07:45> 09/02/23 <Walter Haney MD - Last Filed: 09/02/23 07:47> Progress Note: A&P Assessment and plan (1) History of colostomy reversal: Status: Acute <Sarah Bill PA-C - Last Filed: 09/02/23 07:45> Assessment and Plan: POD #3 s/p closure of colostomy. Tolerating solid diet. Continues with good GI function, BMs now nonbloody. VSS. Abd exam benign with clean incisions. CBC reviewed, H/H stable. Patient stable for dc to home today. F/u in office in 1 week. Comfortable with plan. <LONNIE Martins Last Filed: 09/02/23 07:45> POD #3 s/p closure of colostomy. Tolerating solid diet. Continues with good GI function, BMs now nonbloody. VSS. Abd exam benign with clean incisions. CBC reviewed, H/H stable. Patient stable for dc to home today. F/u in office in 1 week. Comfortable with plan. With the above assessment and plan. Patient doing well following closure of colostomy. He is tolerating regular diet without nausea or vomiting. Agree with discharge to home with follow-up in 1 week for staple removal. Patient understands and agrees with the plan. <Walter Haney MD - Last Filed: 09/02/23 07:47> Time Spent With Patient Time: Total time managing care of this patient today ____ minutes. <Sarah Bill PA-C - Last Filed: 09/02/23 07:45> Quality Stroke Does the patient have a stroke diagnosis?: No <Sarah Bill PA-C - Last Filed: 09/02/23 07:45> VTE Prior VTE?: No <Sarah Bill PA-C - Last Filed: 09/02/23 07:45> VTE Risk Level:: Surgical - high <Sarah Bill PA-C - Last Filed: 09/02/23 07:45> VTE Device Contraindication: N/A - Device Ordered <Sarah Bill PA-C - Last Filed: 09/02/23 07:45> VTE Drug Contraindication: N/A - Med Ordered <Sarah Bill PA-C - Last Filed: 09/02/23 07:45>
[2023-09-02 08:25] VITALS: BP 136/85
[2023-09-02] MEDS: Omeprazole 20 MG CAPSULE.DR PO (08:25)
[2023-09-02] MEDS: lisinopriL 20 MG TABLET PO (08:25)
[2023-09-02 08:26] VITALS: BP 136/85
[2023-09-02] MEDS: Loratadine 10 MG TABLET PO (08:26)
[2023-09-02] MEDS: Metoprolol Succinate ER 50 MG TAB.ER.24H PO (08:26)
--- NOTE | 2023-09-02 09:36 | MHC.CM.PN ---
PATIENT IS DC HOME - SELF CARE IMM 08/30 PREVIOUSLY COMPLETED.
--- NOTE | 2023-09-02 10:09 | P.DS_ITS ---
DS: Providers Provider Date of Service: 09/02/23 Date of admission: 08/30/23 08:50 Date of discharge: 09/02/23 Primary care physician: Pia Avila MD Attending physician on admission: Walter Haney Attending physician on discharge: Walter Haney DS: Diagnosis Discharge Diagnosis (1) History of colostomy reversal: Status: Acute DS: Summary Hospital Course Hospital Course: HPI AT ADMISSION: 62-year-old male patient with a previous history of perforated sigmoid diverticulitis with abscess and free air, status post Tyler procedure now returning for elective closure of colostomy. HOSPITAL COURSE: On 08/30/23, a closure of colostomy was performed by Dr. Haney without complication. He tolerated the procedure well and was admitted to the medical/surgical floor for observation following. He had an uncomplicated recovery course. On POD #1, he was tolerating a clear liquid diet. His pain was well controlled. His farrell catheter was removed. He was ambulated. He began to pass flatus and had a small liquid bowel movement. He was advanced to full liquids. The following day he was tolerating a his diet and he was advanced to solids. He noted a small amount of blood in his BM. Repeat CBC showed stable BM. He had no further bloody bowel movements. On POD #3, he was tolerating a solid diet without nausea or vomiting. His pain was well controlled on PO analgesics. He was ambulating without difficulty. He was discharged on 09/02/23 in stable condition. He is to follow up in the office in 1 week. Status at Discharge Functional status at discharge: independent ambulation Overall status at discharge: patient is progressing back to baseline Time Attestation Discharge Coordination Time (in mins): 35 Quality: Safe Use of Opioids Does Pt have an Active Cancer Diagnosis on the Problem List?: No Quality: Stroke Does the patient have a stroke diagnosis?: No Physical Exam Vital Signs: Vital Signs: Last Vital Signs Temp 97.7 F 09/02/23 07:26 Pulse 83 09/02/23 07:26 Resp 16 09/02/23 07:26 BP 136/85 09/02/23 08:26 Pulse Ox 94 09/02/23 07:26 O2 Del Method Room Air 09/02/23 07:26 O2 Flow Rate 2 08/30/23 13:43 BMI result Body Mass Index 28.2 Const: General: comfortable, no acute distress and alert Orientation/consciousness: patient oriented x3 Resp: Effort & Inspection: normal respiratory effort GI: Inspection: No distended and Yes incision (clean, maximilian intact) Palpation (GI): Soft to palpation, Tenderness to palpation present (GI) (mild incisional) and no guarding Skin: General skin exam: no rashes or lesions noted Neuro: General: patient oriented x3 DS: Data Data Completed and Pending Completed studies during hospitalization [Text1]: 08/30/23 11:37 Surgical [PTH] Routine A. Colostomy, takedown excision: Colocutaneous anastomosis with mild chronic inflammation, fibrosis and fat necrosis. B. Colon, EEA rings, excision: Two portions of annular colonic mucosa and wall within normal limits. Procedures Bypass Descending Colon to Cutaneous, Open Approach (04/18/23) Drainage of Peritoneal Cavity, Open Approach (04/18/23) Excision of Sigmoid Colon, Open Approach (04/18/23) Introduction of Anesthetic Agent into Peripheral Nerves and Plexi, Percutaneous Approach (04/18/23) Introduction of Vasopressor into Peripheral Vein, Percutaneous Approach (04/18/23) Labs on day of discharge: Laboratory Results - last 24 hr 09/02/23 05:46 WBC 12.7 H RBC 4.60 Hgb 13.3 L Hct 39.1 L MCV 85.0 MCH 28.9 MCHC 34.0 RDW 16.6 H Plt Count 168 MPV 11.9 Immature Gran % (Auto) 0.6 H Neut % (Auto) 64.8 Lymph % (Auto) 24.1 [place] % (Auto) 8.7 Eos % (Auto) 1.5 Baso % (Auto) 0.3 Lymph # (Auto) 3.1 [place] # (Auto) 1.1 Eos # (Auto) 0.2 Baso # (Auto) 0.0 Abs Immat Gran (auto) 0.07 H Absolute Neuts (auto) 8.2 Absolute Nucleated RBC 0.000 Nucleated RBC % (auto) 0.0 Discharge Plan Discharge Anticipated Discharge Date/Time: 09/02/23 07:37 Patient Disposition: Home, Self-Care Discharge Diagnosis: s/p colostomy closure Referrals: Pia Avila MD [Primary Care Provider] - 1 Week Walter Haney MD [Physician] - 1 Week Discharge Medications: New oxycodone 5 mg tablet 5 mg PO Q4H PRN (Reason: pain (scale score 7-10)) Qty: 30 0RF Rx Instructions: Partial Fill upon patient request. Continued ibuprofen 200 mg Tablet 200 mg PO DAILY PRN (Reason: Pain) allopurinol 300 mg tablet 1 tab PO DAILY doxepin 50 mg capsule 50 mg PO BEDTIME atorvastatin 10 mg tablet 10 mg PO BEDTIME metoprolol succinate 50 mg tablet extended release 24 hr 50 mg PO DAILY omeprazole 20 mg capsule,delayed release(DR/EC) 20 mg PO DAILY loratadine 10 mg Tablet 10 mg PO DAILY PRN (Reason: allergies) lisinopril 20 mg tablet 20 mg PO DAILY Discharge Orders: Discharge Order (Routine); Ordered 09/02/23 Ordered By: Walter Haney Diet: low residue Activity on Discharge: No heavy lifting Stand Alone Forms: Patient Portal Discharge page Print Language: Indonesian Activity Restrictions/Additional Instructions: If the incision area is tender, you may apply an ice pack for short intervals (No more than 20 minutes on, followed by at least 20 minutes off). Do not apply heat. Do not use creams, lotions, or topical antibiotics. These can cause infection or allergic reaction. Ok to shower. You have maximilian closing your incision and these will be removed approximately 10-14 days after surgery. NO HEAVY LIFTING (>10lbs) or strenuous activity. Follow up in office. ([phone]) Call Your Doctor If: -Your temperature exceeds 101.5? F -You experience excessive pain or swelling -You have an unexpected reaction to medication -You have excessive bleeding -You experience continued vomiting/nausea -Your incision begins to separate -Your incision shows signs of infection such as increased redness, swelling, excessive pain, drainage (light blood or clear fluid is normal) or heat Care Plan Goals: Return to baseline health and resume normal activities following recovery period. Health Concerns: hx of perforated diverticulitis, tyler procedure Plan of Treatment: s/p colostomy closure Pain control f/u in office in 1 week Assessment: Doing well post op.
== END 2023-09-02 10:43 | disposition home or self-care (01) | DRG 346 ==
LOC: HO.SSSA 08:56 → HO.S3 12:00
PROVIDERS: Admitting Provider Surgery; PCP Internal Medicine; Visit Provider Surgery
PROC: 0DSM0ZZ Reposition Descending Colon, Open Approach (ICD-10-PCS; CPT 44620; principal; 2023-08-30 09:50)
DX: Z43.3 Encounter for attention to colostomy (principal); G89.18 Other acute postprocedural pain; Z79.899 Other long term (current) drug therapy
CPT/HCPCS: 36415; 80048; 82565; 82947; 85025; 88304; 88305; C1758; J0131; J0171; J1100; J1170; J1630; J1650; J2250; J2371; J2405; J2704; J2795; J3010; J7120

== ENCOUNTER → 2023-08-30 08:50 | Outpatient (BNV) | payer MEDICARE, MEDICAID, SELFPAY | PROVIDERS: Admitting Provider Surgery; PCP Internal Medicine; Visit Provider Surgery | DX: Z98.890 Other specified postprocedural states (principal) | CPT/HCPCS: 44626; 99024 ==

== ENCOUNTER 2023-09-10 11:13 | Outpatient (AMB) | payer MEDICARE, MEDICAID, SELFPAY ==
--- NOTE | 2023-09-10 11:15 | MHC.OFFVIS ---
Vital Signs 09/10/23 11:23 Height 5 ft 6 in Weight 175 lb BMI 28.2 BP 110/20 L Blood Pressure Location Lt brachial Position Sitting Pulse 75 Intake Visit Reasons: S/P closure of colostomy Intake Note: Patient is seen in office for post op assessment post colostomy reversal. 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 He tolerated the procedure well and reports only minimal pain near the incision in the midline. He denies any fever, chills, nausea or vomiting. His bowels have been solid but frequent, sometimes passing 5 bowel movements per day. He denies any bleeding per rectum. [facility] Medical History Hx of septic shock (~04/20/23) History of diverticulitis of colon (04/18/23) Hx of lymphadenopathy Pulmonary nodules Psoriasis of scalp CTS (carpal tunnel syndrome) Elevated cholesterol Gout Asthma HTN (hypertension) Palpitations Diabetes mellitus Internal derangement of right knee Hx of polycythemia vera Surgical History History of colostomy reversal History of colostomy reversal (08/30/23) Hx of arthroscopy of right knee H/O exploratory laparotomy (04/18/23) Family History Father History of head and neck cancer Mother Hx of cancer antigen 125 (CA-125) measurement Social History Household Members: Spouse Housing: House Are you a primary critical care physician to a significant other at home: No Do you presently have visiting nurse or other home services: Yes Unable to assess alcohol history related to: Unable to respond Alcohol intake: never Comment: counts correct Patient Tobacco Use Status: Never used Tobacco service: No Current occupational status: unemployed Physical Exam Vital Signs: Last Vital Signs Pulse 75 09/10/23 11:23 BP 110/20 L 09/10/23 11:23 BMI result Body Mass Index 28.2 Const General: no acute distress Nutritional Appearance: well nourished Orientation/consciousness: patient oriented x3 Limitations: no limitations Resp Effort & Inspection: normal respiratory effort GI Other: Soft, nondistended, midline and left abdominal incisions are clean, dry, and intact without redness or discharge. [place] removed and Steri-Strips applied. Skin General skin exam: no rashes or lesions noted Neuro General: patient oriented x3 Assessment & Plan Assessment & Plan (1) Colostomy in place: Code(s): Z93.3 - Colostomy status Category: Medical Plan Patient returns 1 week following closure of colostomy. Tolerated the procedure well and his wounds are healing nicely. He is having frequent bowel movements which are solid. I therefore recommended adding fiber to his diet. He should continue to avoid lifting greater than 10 lb. He should return approximately 1 month for follow-up examination. He is welcome to call sooner for any new concerns. Coding Level of Care Code Global (84888) Diagnoses Colostomy in place Z93.3
[2023-09-10 11:23] VITALS: BP 110/20; PULSE 75; BMI 28.2
== END 2023-09-10 12:00 | disposition home or self-care (01) ==
PROVIDERS: PCP Internal Medicine; Visit Provider Surgery
DX: Z93.3 Colostomy status (principal)
CPT/HCPCS: 99024

== ENCOUNTER → 2023-09-10 11:13 | Outpatient (BNVA) | payer MEDICARE, MEDICAID, SELFPAY | PROVIDERS: PCP Internal Medicine; Visit Provider Surgery | DX: Z93.3 Colostomy status (principal) | CPT/HCPCS: 99212 ==

== ENCOUNTER 2023-09-20 10:07 | Outpatient (REF) | payer MEDICARE, MEDICAID, SELFPAY ==
[2023-09-20 11:19] LABS: Estimated Average Glucose 120 mg/dL; Hemoglobin A1C 152.5546 umol/L; Hemoglobin A1c % 5.8 % (<6.0)
[2023-09-20 11:41] LABS: Alanine Aminotransferase 32 U/L (0-40); Albumin Level 3.9 g/dL (3.5-5.0); Alkaline Phosphatase 85 U/L (39-117); Anion Gap 12 (12-20); Aspartate Amino Transferase 18 U/L (5-37); Bilirubin Total 0.4 mg/dL (0.0-1.0); Blood Urea Nitrogen 12 mg/dL (9-16); Calcium 9.1 mg/dL (8.4-10.2); Carbon Dioxide 26 mmol/L (22-29); Chloride 106 mmol/L (96-108); Estimated Glomerular Filt Rate > 60; Glucose Random 106 mg/dL (60-115); Potassium 3.9 mmol/L (3.3-5.1); Sodium 140 mmol/L (135-145); Total Protein 7.6 g/dL (6.5-8.0); Uric Acid 4.1 mg/dL (3.4-7.0)
== END 2023-09-20 10:08 | disposition home or self-care (01) ==
LOC: HO.LAB 10:07
PROVIDERS: PCP Internal Medicine; Visit Provider Internal Medicine
DX: E11.9 Type 2 diabetes mellitus without complications (principal); E78.00 Pure hypercholesterolemia, unspecified; I10 Essential (primary) hypertension; M10.9 Gout, unspecified; R10.9 Unspecified abdominal pain; Z93.3 Colostomy status
CPT/HCPCS: 36415; 80053; 83036; 84443; 84550

== ENCOUNTER 2023-09-23 14:00 | Outpatient (AMB) | payer MEDICARE, MEDICAID, SELFPAY ==
--- NOTE | 2023-09-23 14:38 | A.OFFVIS_ITS ---
Vital Signs 09/23/23 14:39 Height 5 ft 6 in Weight 169 lb 12.095 oz BMI 27.4 BP 116/70 Blood Pressure Location Lt brachial Position Sitting Pulse 88 Pulse Source Pulse Oximeter Intake Visit Reasons: 2 mnth f/up Allergies No Known Allergies Allergy (Verified 09/10/23 11:23) HPI Comments Details: 62-year-old male presents today for a follow-up. He was admitted into the [facility] related to GI issues. He was found to be in atrial fibrillation with RVR. Then after he was having some systolic blood pressure readings as low as 88 mmHg. He denies chest pain, palpitations shortness of breath, or dizziness. He reports his blood pressures have improved. [facility] Medical History (Updated 09/27/23 @ 14:12 by Juliana De La Torre NP) Hx of septic shock (~04/20/23) History of diverticulitis of colon (04/18/23) Hx of lymphadenopathy Pulmonary nodules Psoriasis of scalp CTS (carpal tunnel syndrome) Elevated cholesterol Gout Asthma HTN (hypertension) Palpitations Diabetes mellitus Internal derangement of right knee Hx of polycythemia vera Surgical History History of colostomy reversal History of colostomy reversal (08/30/23) Hx of arthroscopy of right knee H/O exploratory laparotomy (04/18/23) Family History Father History of head and neck cancer Mother Hx of cancer antigen 125 (CA-125) measurement Social History Household Members: Spouse Housing: House Are you a primary acute care occupational therapist to a significant other at home: No Do you presently have visiting nurse or other home services: Yes Unable to assess alcohol history related to: Unable to respond Alcohol intake: never Comment: counts correct Patient Tobacco Use Status: Never used Tobacco service: No Current occupational status: unemployed Review of Systems Const Denies weakness ENT Denies dizziness Card Denies chest pain, Denies chest pain with activity, Denies syncope, Denies rapid heart rate, Denies pedal edema, Denies edema, Denies leg edema, Denies lightheadedness, Denies palpitations, Denies dyspnea, Denies dyspnea on exertion and Denies orthopnea Resp Denies cough, Denies dyspnea and Denies dyspnea on exertion GI Denies hematochezia and Denies change in stool character Musc Denies abnormal gait, Denies muscle cramps, Denies muscle weakness, Denies numbness, Denies radiating pain into limb and Denies tingling Neuro Denies abnormal gait, Denies dizziness, Denies syncope, Denies numbness, Denies tingling and Denies weakness Endo Denies palpitations Physical Exam Vital Signs: Last Vital Signs Pulse 88 09/23/23 14:39 BP 116/70 09/23/23 14:39 BMI result Body Mass Index 27.4 Assessment & Plan Assessment & Plan (1) HTN (hypertension): Code(s): I10 - Essential (primary) hypertension Category: Medical Plan: Blood pressure well controlled now. (2) Afib: Code(s): I48.91 - Unspecified atrial fibrillation Category: Medical Plan: One episode post-op. No reports of palpitations. He received amiodarone while in the hospital then maintained on metoprolol succinate 50mg QD.No indication for anticoagulation. Coding Level of Care Code Est Pt Level 3 (21228) Diagnoses HTN (hypertension) I10 Afib I48.91
[2023-09-23 14:39] VITALS: BP 116/70; PULSE 88; BMI 27.4
== END 2023-09-23 14:55 | disposition home or self-care (01) ==
PROVIDERS: PCP Internal Medicine; Visit Provider Nurse Practitioner
DX: I10 Essential (primary) hypertension (principal); I48.91 Unspecified atrial fibrillation
CPT/HCPCS: 99213

== ENCOUNTER → 2023-09-23 14:00 | Outpatient (BNVA) | payer MEDICARE, MEDICAID, SELFPAY | PROVIDERS: PCP Internal Medicine; Visit Provider Nurse Practitioner | DX: I48.91 Unspecified atrial fibrillation (principal); I10 Essential (primary) hypertension | CPT/HCPCS: 99212 ==

== ENCOUNTER 2023-10-12 09:46 | Outpatient (AMB) | payer MEDICARE, MEDICAID, SELFPAY ==
--- NOTE | 2023-10-12 09:49 | MHC.OFFVIS ---
Vital Signs 10/12/23 09:50 Height 5 ft 6 in Weight 180 lb 5.41 oz BMI 29.1 BP 119/72 Blood Pressure Location Lt brachial Position Sitting Pulse 75 Intake Visit Reasons: 1 mth follow up S/P closure of colostomy Intake Note: Rodrick presents in the office as a 1 month follow up for closure of colostomy. CC: Still states he has the same pains in his stomach that feels like a needle is stabbing him. LRQ - States that it is also still swollen and has not gone down. Allergies No Known Allergies Allergy (Verified 10/12/23 09:50) HPI Comments Details: 62-year-old male returning 1 month following closure of colostomy. He tolerated the procedure well and reports only minimal pain near the incision in the midline, mainly to the right midline. He denies any fever, chills, nausea or vomiting. His bowels are improved and he denies any blood per rectum. [facility] Medical History Hx of septic shock (~04/20/23) History of diverticulitis of colon (04/18/23) Hx of lymphadenopathy Pulmonary nodules Psoriasis of scalp CTS (carpal tunnel syndrome) Elevated cholesterol Gout Asthma HTN (hypertension) Palpitations Diabetes mellitus Internal derangement of right knee Hx of polycythemia vera Surgical History History of colostomy reversal History of colostomy reversal (08/30/23) Hx of arthroscopy of right knee H/O exploratory laparotomy (04/18/23) Family History Father History of head and neck cancer Mother Hx of cancer antigen 125 (CA-125) measurement Social History Household Members: Spouse Housing: House Are you a primary rehab care assistant to a significant other at home: No Do you presently have visiting nurse or other home services: Yes Unable to assess alcohol history related to: Unable to respond Alcohol intake: never Comment: counts correct Patient Tobacco Use Status: Never used Tobacco service: No Current occupational status: unemployed Physical Exam Vital Signs: Last Vital Signs Pulse 75 10/12/23 09:50 BP 119/72 10/12/23 09:50 BMI result Body Mass Index 29.1 Const General: no acute distress Nutritional Appearance: well nourished Orientation/consciousness: patient oriented x3 Limitations: no limitations Resp Effort & Inspection: normal respiratory effort GI Other: Soft, nondistended, midline and left abdominal incisions are clean, dry, and intact without redness or discharge. No hernias palpable with Valsalva maneuvers. Skin General skin exam: no rashes or lesions noted Neuro General: patient oriented x3 Assessment & Plan Assessment & Plan (1) Colostomy in place: Code(s): Z93.3 - Colostomy status Category: Medical Plan 62-year-old male returning 1 month following closure of colostomy. His wounds are clean and intact without evidence of hernia or infection. I will provide him with some additional pain medication for occasional use for incisional pain. He should follow up as needed. Medications: Refilled oxycodone Partial Fill upon patient request. 5 mg PO Q4H PRN 15 tabs 0RF pain (scale score 7-10) Coding Level of Care Code Global (35880) Diagnoses Colostomy in place Z93.3
[2023-10-12 09:50] VITALS: BP 119/72; PULSE 75; BMI 29.1
== END 2023-10-12 10:30 | disposition home or self-care (01) ==
PROVIDERS: PCP Internal Medicine; Visit Provider Surgery
DX: Z93.3 Colostomy status (principal)
CPT/HCPCS: 99024

== ENCOUNTER → 2023-10-12 09:46 | Outpatient (BNVA) | payer MEDICARE, MEDICAID, SELFPAY | PROVIDERS: PCP Internal Medicine; Visit Provider Surgery | DX: Z43.3 Encounter for attention to colostomy (principal); R10.31 Right lower quadrant pain | CPT/HCPCS: 99212 ==

== ENCOUNTER 2023-12-28 09:58 | Outpatient (REF) | payer MEDICARE, MEDICAID, SELFPAY ==
[2023-12-28 10:30] LABS: MANUAL DIFF FLAG NO
[2023-12-28 10:56] LABS: Basophils Absolute Auto 0.1 X10*3/uL (0.0-0.2); Basophils Percent Auto 0.7 % (0-2); Eosinophils Absolute Auto 0.3 X10*3/uL (0.0-0.4); Eosinophils Percent Auto 3.3 % (0-4); Hematocrit 45.8 % (42.0-52.0); Hemoglobin 14.7 g/dl (14.0-18.0); Imm Gran Abs Auto 0.05 X10*3/uL (0.00-0.03); Imm Gran Pct Auto 0.7 % (0.0-0.4); Lymphocytes Absolute Auto 2.3 X10*3/uL (1.2-4.9); Lymphocytes Percent Auto 30.7 % (20-40); Mean Corpuscular HGB Conc 32.1 g/dl (31.0-36.0); Mean Corpuscular Hemoglobin 27.4 pg (27.0-33.0); Mean Corpuscular Volume 85.3 fL (80.0-98.0); Mean Platelet Volume 11.6 fL (9.4-12.4); Monocytes Absolute Auto 0.9 X10*3/uL (0.1-1.2); Monocytes Percent Auto 11.2 % (2-11); Neutrophils Percent Auto 53.4 % (45-73); Platelet Count 224 X10*3/uL (160-400); Red Blood Count 5.37 X10*6/uL (4.60-5.80); Red Cell Distribution Width 17.5 % (11.0-16.0); White Blood Count 7.6 X10*3/uL (4.8-10.8)
[2023-12-28 11:00] LABS: Estimated Average Glucose 128 mg/dL; Hemoglobin A1C 162.7597 umol/L; Hemoglobin A1c % 6.1 % (<6.0); Total Hemoglobin (HGBA1C) 3725.7632 umol/L
[2023-12-28 11:47] LABS: Alanine Aminotransferase 21 U/L (0-40); Albumin Level 3.8 g/dL (3.5-5.0); Alkaline Phosphatase 87 U/L (39-117); Anion Gap 10 (12-20); Aspartate Amino Transferase 18 U/L (5-37); Bilirubin Total 0.3 mg/dL (0.0-1.0); Blood Urea Nitrogen 14 mg/dL (9-16); Calcium 8.7 mg/dL (8.4-10.2); Carbon Dioxide 27 mmol/L (22-29); Chloride 109 mmol/L (96-108); Estimated Glomerular Filt Rate > 60; Glucose Random 115 mg/dL (60-115); Potassium 3.9 mmol/L (3.3-5.1); Sodium 142 mmol/L (135-145); Total Protein 7.1 g/dL (6.5-8.0)
== END 2023-12-28 09:59 | disposition home or self-care (01) ==
LOC: HO.LAB 09:58
PROVIDERS: PCP Internal Medicine; Visit Provider Internal Medicine
DX: D50.9 Iron deficiency anemia, unspecified (principal); E11.9 Type 2 diabetes mellitus without complications; I10 Essential (primary) hypertension; M10.9 Gout, unspecified
CPT/HCPCS: 36415; 80053; 83036; 85025

== ENCOUNTER 2024-03-22 14:02 | Outpatient (AMB) | payer MEDICARE, MEDICAID, SELFPAY ==
[2024-03-22 14:10] VITALS: BP 110/68; PULSE 96; BMI 31.0
--- NOTE | 2024-03-22 14:10 | MHC.OFFVIS ---
Vital Signs 03/22/24 14:10 Height 5 ft 6 in Weight 191 lb 12.835 oz BMI 31.0 BP 110/68 Blood Pressure Location Lt brachial Position Sitting Pulse 96 Pulse Source Monitor Intake Visit Reasons: 6m follow up Allergies No Known Allergies Allergy (Verified 02/22/24 10:35) Medication List - Last Reconciled 03/22/24 by Mika Lea MD allopurinol 1 tab PO DAILY atorvastatin 10 mg PO BEDTIME doxepin 50 mg PO BEDTIME ibuprofen 200 mg PO DAILY PRN lisinopril-hydrochlorothiazide 20-12.5 mg 1 tab PO DAILY loratadine 10 mg PO DAILY PRN metoprolol succinate ER 50 mg PO DAILY omeprazole 20 mg PO DAILY HPI Comments Details: Rodrick returns for follow-up. In 2023, he was hospitalized with perforated sigmoid diverticulitis. In that context, he had bacteremia, respiratory failure, renal failure among others. He then developed atrial flutter with rapid ventricular rate. After that, converted back to sinus rhythm. He has essentially remained in sinus rhythm. Patient himself does not have any cardiac complaints whatsoever. No angina or shortness of breath or palpitations or in fact anything cardiac sounding. States he feels fine. [facility] Medical History Hx of septic shock (~04/20/23) History of diverticulitis of colon (04/18/23) Hx of lymphadenopathy Pulmonary nodules Psoriasis of scalp CTS (carpal tunnel syndrome) Elevated cholesterol Gout Asthma HTN (hypertension) Palpitations Diabetes mellitus Internal derangement of right knee Hx of polycythemia vera Surgical History History of colostomy reversal History of colostomy reversal (08/30/23) Hx of arthroscopy of right knee H/O exploratory laparotomy (04/18/23) Family History Father History of head and neck cancer Mother Hx of cancer antigen 125 (CA-125) measurement Social History Household Members: Spouse Housing: House Are you a primary neurocritical care physician to a significant other at home: No Do you presently have visiting nurse or other home services: Yes Unable to assess alcohol history related to: Unable to respond Alcohol intake: never Comment: counts correct Patient Tobacco Use Status: Never used Tobacco service: No Current occupational status: unemployed Review of Systems Const Denies weakness ENT Denies dizziness Card Denies chest pain, Denies chest pain with activity, Denies syncope, Denies rapid heart rate, Denies pedal edema, Denies edema, Denies leg edema, Denies lightheadedness, Denies palpitations, Denies dyspnea, Denies dyspnea on exertion and Denies orthopnea Resp Denies cough, Denies dyspnea and Denies dyspnea on exertion GI Denies hematochezia and Denies change in stool character Musc Denies abnormal gait, Denies muscle cramps, Denies muscle weakness, Denies numbness, Denies radiating pain into limb and Denies tingling Neuro Denies abnormal gait, Denies dizziness, Denies syncope, Denies numbness, Denies tingling and Denies weakness Endo Denies palpitations Physical Exam Vital Signs: Last Vital Signs Pulse 96 03/22/24 14:10 BP 110/68 03/22/24 14:10 BMI result Body Mass Index 31.0 Const General: comfortable and no acute distress Orientation/consciousness: patient oriented x3 HEENT Other: Unremarkable Head: Yes normal to inspection Neck Neck: Yes normal visual inspection Chest Chest palpation & inspection: normal inspection of the chest Resp Auscultation: clear to auscultation bilaterally Cardio Palpation: normal PMI Heart sounds: S1 normal heart sound present, S2 normal heart sound present, no gallops, no murmurs and no rubs GI Palpation (GI): Soft to palpation Back/Spine/Pelvis Other: unremarkable Skin General skin exam: no rashes or lesions noted Neuro General: patient oriented x3 Extrem General: Yes normal to inspection Psych Mental Status: mental status grossly normal Office Procedures EKG Details: EKG with artifact and racing. Underlying sinus rhythm; 96/Min; nonspecific ST-T changes; [place] [id number]-[id number], Complete Assessment & Plan Assessment & Plan (1) Atrial flutter by electrocardiogram: Code(s): I48.92 - Unspecified atrial flutter Category: Medical Plan History of atrial flutter in setting of critical illness but since resolved. Holter from 06/02/2023 with underlying sinus rhythm at 78/Min. No significant pauses or other arrhythmias. Echocardiogram with LVEF of 66%. No wall motion abnormalities and otherwise unremarkable. He remains on beta-blockers and that can be continued. No need for anticoagulation unless any recurrent arrhythmias. Coding Level of Care Code Est Pt Level 3 (70802) Diagnoses Atrial flutter by electrocardiogram I48.92 CPT Codes EKG - CPT: 37334-[id number], Complete ([id number])
== END 2024-03-22 14:27 | disposition home or self-care (01) ==
PROVIDERS: PCP Internal Medicine; Visit Provider Internal Medicine
DX: I48.92 Unspecified atrial flutter (principal)
CPT/HCPCS: 93010; 99213

== ENCOUNTER → 2024-03-22 14:02 | Outpatient (BNVA) | payer MEDICARE, MEDICAID, SELFPAY | PROVIDERS: PCP Internal Medicine; Visit Provider Internal Medicine | DX: I48.92 Unspecified atrial flutter (principal) | CPT/HCPCS: 93005; 99212 ==

== ENCOUNTER 2024-05-29 09:33 | Outpatient (REF) | payer MEDICARE, MEDICAID, SELFPAY ==
--- NOTE | ~2024-05-29 | XR_ITS ---
EXAMINATION: XR KNEE 3 VIEWS RIGHT HISTORY: Z98.890 - Other specified postprocedural states COMPARISON: Comparison is made with the prior examination dated 02/08/2023. FINDINGS: Standing AP views of both knees and additional lateral and sunrise patellar views of the right knee are submitted. Osseous mineralization is normal. There is no fracture or dislocation. The joint spaces are preserved. The soft tissues are unremarkable. XR/XR knee RT 3V IMPRESSION: Unremarkable examination of the right knee. Electronically signed by: Olegario Robledo MD 05/29/2024 02:32 PM EDT
== END 2024-05-29 09:34 | disposition home or self-care (01) ==
LOC: HO.HOSX 09:33
PROVIDERS: Visit Provider Orthopaedic Surgery
DX: M25.561 Pain in right knee (principal)
CPT/HCPCS: 73562; 99212

== ENCOUNTER 2024-05-29 10:30 | Outpatient (AMB) | payer MEDICARE, MEDICAID, SELFPAY ==
[2024-05-29 10:45] VITALS: BMI 30.8
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
== END 2024-05-29 11:11 | disposition home or self-care (01) ==
LOC: HO.HOS 10:30
PROVIDERS: PCP Internal Medicine; Visit Provider Orthopaedic Surgery
DX: M17.11 Unilateral primary osteoarthritis, right knee (principal)
CPT/HCPCS: 99214

== ENCOUNTER → 2024-05-29 10:32 | Outpatient (BNV) | payer MEDICARE, MEDICAID, SELFPAY | PROVIDERS: Visit Provider Radiology Diagnostic Radiology | DX: M25.561 Pain in right knee (principal); Z98.890 Other specified postprocedural states | CPT/HCPCS: 73562 ==

== ENCOUNTER 2024-06-20 12:43 | Outpatient (REF) | payer MEDICARE, MEDICAID, SELFPAY ==
[2024-06-20 13:04] LABS: MANUAL DIFF FLAG NO
[2024-06-20 13:38] LABS: Basophils Absolute Auto 0.1 X10*3/uL (0.0-0.2); Basophils Percent Auto 0.8 % (0-2); Eosinophils Absolute Auto 0.3 X10*3/uL (0.0-0.4); Eosinophils Percent Auto 3.4 % (0-4); Hematocrit 46.1 % (42.0-52.0); Hemoglobin 15.6 g/dl (14.0-18.0); Imm Gran Abs Auto 0.06 X10*3/uL (0.00-0.03); Imm Gran Pct Auto 0.8 % (0.0-0.4); Lymphocytes Absolute Auto 2.7 X10*3/uL (1.2-4.9); Lymphocytes Percent Auto 34.4 % (20-40); Mean Corpuscular HGB Conc 33.8 g/dl (31.0-36.0); Mean Corpuscular Hemoglobin 29.7 pg (27.0-33.0); Mean Corpuscular Volume 87.8 fL (80.0-98.0); Mean Platelet Volume 11.8 fL (9.4-12.4); Monocytes Absolute Auto 0.8 X10*3/uL (0.1-1.2); Monocytes Percent Auto 9.7 % (2-11); Neutrophils Percent Auto 50.9 % (45-73); Platelet Count 219 X10*3/uL (160-400); Red Blood Count 5.25 X10*6/uL (4.60-5.80); Red Cell Distribution Width 18.2 % (11.0-16.0); White Blood Count 7.8 X10*3/uL (4.8-10.8)
[2024-06-20 13:52] LABS: Estimated Average Glucose 143 mg/dL; Hemoglobin A1c % 6.6 % (<6.0)
[2024-06-20 14:22] LABS: Creatinine Urine 355.73 mg/dL; Microalbum/Creatinine Ratio Ur 5.3 ug/mg cr (<30)
[2024-06-20 14:30] LABS: Prostate Specific Antigen Scr 0.72 ng/mL (<0.05-4.0)
[2024-06-20 14:43] LABS: Alanine Aminotransferase 30 U/L (0-40); Albumin Level 3.9 g/dL (3.5-5.0); Alkaline Phosphatase 83 U/L (39-117); Anion Gap 12 (12-20); Aspartate Amino Transferase 21 U/L (5-37); Bilirubin Total 0.5 mg/dL (0.0-1.0); Blood Urea Nitrogen 15 mg/dL (9-16); Calcium 8.9 mg/dL (8.4-10.2); Carbon Dioxide 25 mmol/L (22-29); Chloride 109 mmol/L (96-108); Cholesterol 135 mg/dL (<200); Estimated Glomerular Filt Rate > 60; Glucose Random 121 mg/dL (60-115); HDL Cholesterol 41 mg/dL (>40); LDL Cholesterol Calculated 60 mg/dL (<100); Potassium 3.7 mmol/L (3.3-5.1); Sodium 142 mmol/L (135-145); Total Protein 7.3 g/dL (6.5-8.0); Triglycerides 174 mg/dL (<150); Uric Acid 5.2 mg/dL (3.4-7.0)
--- OUTSIDE RECORDS SUMMARY | 2024-06-20 15:20 | XMS_ITS | Patient Health Record ---
Author Organization [facility] Address [address] [place] [address] Care Team Providers Care Product Support Technician Name Role Phone ThualexaPia Primary Care Provider Unavailab Olegario James Unavailable [phone] Reason For Referral No Information Medications Medication SIG (Take, Route, Fr equency, Duration) Notes Start Date End Date Status MoviPrep 100 GM as directed Orally 03/03/20110 03/2024 Active Tarka Active Problems Problem Type SNOMED Code ICD Code Onset Dates Problem Status W/U Status Risk Notes Problem Screening for malignant neoplasm of colon (639983776) Special screening for malignant neoplasms, colon (V76.51) Active confirmed Plan Of Treatment Future Test Test Name Order Date COLONOSCOPY 03/03/2011 Insurance Providers Payer Name Payer Address Payer Phone Subscriber Number Group Number Insured Name Patient Relationship to Insured Coverage Start Date Coverage End Date MEDICARE OF [place] [address] [place] [address] [id number] Rodrick Gaston Self - patient is the insured MEDICAID OF [employer] [address] [place] [address] [id number] Rodrick Gaston Self - patient is the insured Medical (General) History Medical History History ICD Code hypertension Denies [place],DM,CVA,Lung disease,renal dise ase
== END 2024-06-20 12:44 | disposition home or self-care (01) ==
LOC: HO.LAB 12:43
PROVIDERS: PCP Internal Medicine; Visit Provider Internal Medicine
DX: D45 Polycythemia vera (principal); E11.9 Type 2 diabetes mellitus without complications; I10 Essential (primary) hypertension; M10.9 Gout, unspecified; N40.0 Benign prostatic hyperplasia without lower urinary tract symptoms; Z12.5 Encounter for screening for malignant neoplasm of prostate
CPT/HCPCS: 36415; 80053; 80061; 82043; 82570; 83036; 84153; 84550; 85025

== ENCOUNTER → 2024-07-17 10:50 | Outpatient (BNVA) | payer MEDICARE, MEDICAID, SELFPAY | PROVIDERS: PCP Internal Medicine | DX: Z01.818 Encounter for other preprocedural examination (principal) ==

== ENCOUNTER → 2024-07-25 13:58 | Outpatient (BNV) | payer MEDICARE, MEDICAID, SELFPAY | PROVIDERS: PCP Internal Medicine; Visit Provider Internal Medicine Cardiovascular Disease | DX: R94.31 Abnormal electrocardiogram [ECG] [EKG] (principal); Z01.810 Encounter for preprocedural cardiovascular examination | CPT/HCPCS: 93010 ==

== ENCOUNTER 2024-08-17 08:23 | Outpatient (REF) | payer MEDICARE, MEDICAID, SELFPAY ==
--- NOTE | ~2024-08-17 | XR_ITS ---
CLINICAL HISTORY: M17.11 - Unilateral primary osteoarthritis, right knee 3 view right knee Comparison: None Findings: No fractures or dislocations. No significant loss of joint space, osteophytes, or erosions. No joint effusion. No radiopaque foreign body. IMPRESSION: 1. No acute findings. This document has been electronically signed by: Chu Wharton MD on 08/17/2024 18:09:59
--- OUTSIDE RECORDS SUMMARY | 2024-08-17 08:35 | XMS_ITS | Patient Health Record ---
Author Organization [facility] Address [address] [place] [address] Care Team Providers Care Coffee Maker Name Role Phone Pia Avila Primary Care Provider Unavailab Olegario James Unavailable [phone] Reason For Referral No Information Medications Medication SIG (Take, Route, Fr equency, Duration) Notes Start Date End Date Status MoviPrep 100 GM as directed Orally 03/03/2011/0 03/2024 Active Tarka Active Problems Problem Type SNOMED Code ICD Code Onset Dates Problem Status W/U Status Risk Notes Problem Screening for malignant neoplasm of colon (926412282) Special screening for malignant neoplasms, colon (V76.51) Active confirmed Plan Of Treatment Future Test Test Name Order Date COLONOSCOPY 03/03/2011 Next Appt Details Provider Name:Olegario Camilo , 10/25/2024 01:20:00 PM, [address], [address], [place], [address], Insurance Providers Payer Name Payer Address Payer Phone Subscriber Number Group Number Insured Name Patient Relationship to Insured Coverage Start Date Coverage End Date [facility] [address] [place] [address] [id number] Beltran Gastono Self - patient is the insured MEDICAID OF [facility] [address] [place] [phone] [id number] Rodrick Gaston Self - patient is the insured Medical (General) History Medical History History ICD Code hypertension Denies [place],DM,CVA,Lung disease,renal dise ase
== END 2024-08-17 08:24 | disposition home or self-care (01) ==
LOC: HO.HOSX 08:23
PROVIDERS: Visit Provider Physician Assistant
DX: M17.11 Unilateral primary osteoarthritis, right knee (principal)
CPT/HCPCS: 73562; 99212

== ENCOUNTER 2024-08-17 08:50 | Outpatient (AMB) | payer MEDICARE, MEDICAID, SELFPAY ==
--- NOTE | 2024-08-17 09:02 | MHC.OFFVIS ---
Vital Signs 08/17/24 09:13 Height 5 ft 6 in Weight 191 lb BMI 30.8 Intake Visit Reasons: Pre-Op: R TKA w/NE 08/22/24 Intake Note: Daren is a 63 year old male who presents today for a preoperative right TKA, DOS: 08/22/[address] Resendiz. Pain management agreement review and signed. Patient reports feeling ill, stating he feels SOB and has body aches for the past 4 days. Allergies No Known Allergies Allergy (Verified 08/17/24 09:13) Medication List - Last Reconciled 08/17/24 by Mandy Flores PA-C allopurinol 1 tab PO DAILY atorvastatin 10 mg PO BEDTIME doxepin 50 mg PO BEDTIME ibuprofen 200 mg PO DAILY PRN lisinopril-hydrochlorothiazide 20-12.5 mg 1 tab PO DAILY metoprolol succinate ER 50 mg PO DAILY omeprazole 20 mg PO DAILY sitagliptin phosphate (Januvia) 100 mg PO DAILY walker Folding Front wheeled walker DURATION 99 DAYS HPI HPI Pre-Op: R TKA w/NE 08/22/24: Details: Patient is scheduled for right total knee arthroplasty on 08/22/[address] Resendiz. He comes in today complaining of fevers chills weakness and shortness of breath/chest congestion. He has not yet seen his PCP. [facility] Medical History (Updated 07/25/24 @ 13:48 by Maggie Richards NP) Arthritis Hx of septic shock (~04/20/23) History of diverticulitis of colon (04/18/23) Hx of lymphadenopathy Pulmonary nodules Psoriasis of scalp CTS (carpal tunnel syndrome) Elevated cholesterol Gout HTN (hypertension) Palpitations Diabetes mellitus Internal derangement of right knee Hx of polycythemia vera Surgical History History of colostomy reversal (08/30/23) History of colostomy reversal Hx of arthroscopy of right knee H/O exploratory laparotomy (04/18/23) Family History Father History of head and neck cancer Mother Hx of cancer antigen 125 (CA-125) measurement Social History (Updated 07/25/24 @ 13:26 by Angelia Yazmin, RN) Household Members: Spouse Housing: House Are you a primary director of patient care to a significant other at home: No Do you presently have visiting nurse or other home services: Yes (TRIMMING CASER 2 hours daily M-F) 75 years or older and lives alone: No Unable to assess alcohol history related to: Unable to respond Alcohol intake: never Comment: counts correct Patient Tobacco Use Status: Never used Tobacco service: No Current occupational status: unemployed Physical Exam Vital Signs: BMI result Body Mass Index 30.8 Assessment & Plan Assessment & Plan (1) Osteoarthritis of right knee: Code(s): M17.11 - Unilateral primary osteoarthritis, right knee Category: Medical Plan: I discussed the patient's current condition with Dr. Resendiz in the plan is to postpone the patient's surgery until his symptoms resolve. I did stress the importance of seeing his PCP or urgent care for further workup. I did reach out to Farheen who will reach out to the patient to discuss rescheduling. Orders: Orders XR knee RT 3V Today M17.11 - Unilateral primary osteoarthritis, right knee Basic Metabolic Panel Today Z01.818 - Encounter for other preprocedural examination Complete Blood Count Auto Diff Today Z01.818 - Encounter for other preprocedural examination Type and Screen Today Z01.818 - Encounter for other preprocedural examination Coding Level of Care Code Est Pt Level 2 (23449) Complex EM visit Add On G2211 Diagnoses Osteoarthritis of right knee M17.11
[2024-08-17 09:13] VITALS: BMI 30.8
== END 2024-08-17 09:58 | disposition home or self-care (01) ==
LOC: HO.HOS 08:51
PROVIDERS: PCP Internal Medicine; Visit Provider Physician Assistant
DX: M17.11 Unilateral primary osteoarthritis, right knee (principal)
CPT/HCPCS: 99024

== ENCOUNTER → 2024-08-17 08:56 | Outpatient (BNV) | payer MEDICARE, MEDICAID, SELFPAY | PROVIDERS: Visit Provider Specialist | DX: M17.11 Unilateral primary osteoarthritis, right knee (principal) | CPT/HCPCS: 73562 ==

== ENCOUNTER 2024-08-31 09:54 | Outpatient (AMB) | payer MEDICARE, MEDICAID, SELFPAY ==
--- NOTE | 2024-08-31 10:02 | MHC.OFFVIS ---
Intake Visit Reasons: Pre-Op: R TKA w/NE 09/05/24 Intake Note: Rodrick is a 63 year old male who presents today for a pre operative visit for his scheduled right TKA w/NE DOS: 09/05/24. Pain management agreement was given to patient to be reviewed and signed. Allergies No Known Allergies Allergy (Verified 08/31/24 10:03) Medication List - Last Reconciled 08/31/24 by Mandy Flores PA-C allopurinol 1 tab PO DAILY atorvastatin 10 mg PO BEDTIME doxepin 50 mg PO BEDTIME ibuprofen 200 mg PO DAILY PRN lisinopril-hydrochlorothiazide 20-12.5 mg 1 tab PO DAILY metoprolol succinate ER 50 mg PO DAILY omeprazole 20 mg PO DAILY sitagliptin phosphate (Januvia) 100 mg PO DAILY walker Folding Front wheeled walker DURATION 99 DAYS HPI Comments Details: Mr Alek Gaston presents to the office today for preop visit. He is scheduled for right total knee arthroplasty with Dr. Resendiz. He continues to have ongoing pain and difficulty with ambulation in the right knee, which is affecting his quality of life; therefore, he has elected to move forward with surgery. He lives at home and plans to DC home with VNA Denies h/o smoking, DVt or cancer [facility] Medical History (Updated 07/25/24 @ 13:48 by Maggie Richards NP) Arthritis Hx of septic shock (~04/20/23) History of diverticulitis of colon (04/18/23) Hx of lymphadenopathy Pulmonary nodules Psoriasis of scalp CTS (carpal tunnel syndrome) Elevated cholesterol Gout HTN (hypertension) Palpitations Diabetes mellitus Internal derangement of right knee Hx of polycythemia vera Surgical History History of colostomy reversal (08/30/23) History of colostomy reversal Hx of arthroscopy of right knee H/O exploratory laparotomy (04/18/23) Family History Father History of head and neck cancer Mother Hx of cancer antigen 125 (CA-125) measurement Social History Household Members: Spouse Housing: House Are you a primary healthcare interpreter to a significant other at home: No Do you presently have visiting nurse or other home services: Yes (BRAILLE TRANSCRIBER 2 hours daily M-F) 75 years or older and lives alone: No Unable to assess alcohol history related to: Unable to respond Alcohol intake: never Comment: counts correct Patient Tobacco Use Status: Never used Tobacco service: No Current occupational status: unemployed Review of Systems Const All systems reviewed & are unremarkable except as noted in HPI and below Physical Exam Extrem Other: Right knee skin intact, no open wounds or abraisons. 5-135 degrees of motion right knee. Tenderness to palpation medial compartment. Joint line tenderness but no effusion. Positive gait antalgia. Assessment & Plan Assessment & Plan (1) Osteoarthritis of right knee: Code(s): M17.11 - Unilateral primary osteoarthritis, right knee Category: Medical Plan: I discussed in detail the procedure and what to expect pre and post operatively. We discussed the risks, benefits and alternatives to the surgery as well as the rehabilitation course. The risks; which include, but are not limited to infection, bleeding, nerve injury, ongoing pain, swelling, and stiffness, perioperative risk of injury to bones and soft tissues, and blood clots. I?ve answered all questions and with their understanding they have consented to move forward with Right total knee arthroplasty with Dr. Astrid Rodas h/o cancer, dvt and smoking: ASA 325mg tabs po bid His plan is to DC home with VNA and transition to outpatient PT-->order was placed and he will call to make an appt for after post op He was given an order for a walker as [facility] do not take his insurance. If [facility] is not able to provide him one, I did encourage him to check his local [facility] to rent one. Orders: Orders PT Evaluation and Treatment Today Z96.651 - Presence of right artificial knee joint Medications: Refilled walker Folding Front wheeled walker DURATION 99 DAYS 1 ea 0RF M17.11 - Unilateral primary osteoarthritis, right knee Coding Level of Care Code Est Pt Level 3 (17126) Complex EM visit Add On G2211 Diagnoses Osteoarthritis of right knee M17.11
--- OUTSIDE RECORDS SUMMARY | 2024-08-31 10:57 | XMS_ITS | Patient Health Record ---
Author Organization [facility] Address [address] [place] [address] Care Team Providers Care Spanner Operator Name Role Phone Pia Avila Primary Care Provider Unavailab Olegario James Unavailable [phone] Reason For Referral No Information Medications Medication SIG (Take, Route, Fr equency, Duration) Notes Start Date End Date Status MoviPrep 100 GM as directed Orally 03/03/2011/0 03/2024 Active Tarka Active Problems Problem Type SNOMED Code ICD Code Onset Dates Problem Status W/U Status Risk Notes Problem Screening for malignant neoplasm of colon (543509322) Special screening for malignant neoplasms, colon (V76.51) Active confirmed Plan Of Treatment Future Test Test Name Order Date COLONOSCOPY 03/03/2011 Next Appt Details Provider Name:Olegario Camilo , 10/25/2024 01:20:00 PM, [address], [address], [place], [address], Insurance Providers Payer Name Payer Address Payer Phone Subscriber Number Group Number Insured Name Patient Relationship to Insured Coverage Start Date Coverage End Date [facility] [address] [place] [id number] Beltran Gastono Self - patient is the insured MEDICAID OF [facility] [address] [place] [address] [id number] Rodrick Gaston Self - patient is the insured Medical (General) History Medical History History ICD Code hypertension Denies [place],DM,CVA,Lung disease,renal dise ase
== END 2024-08-31 13:29 | disposition home or self-care (01) ==
LOC: HO.HOS 09:55
PROVIDERS: PCP Internal Medicine; Visit Provider Physician Assistant
DX: M17.11 Unilateral primary osteoarthritis, right knee (principal)
CPT/HCPCS: 99024

== ENCOUNTER → 2024-08-31 09:54 | Outpatient (BNVA) | payer MEDICARE, MEDICAID, SELFPAY | PROVIDERS: PCP Internal Medicine; Visit Provider Physician Assistant | DX: M17.11 Unilateral primary osteoarthritis, right knee (principal) | CPT/HCPCS: 99212 ==

== ENCOUNTER 2024-09-05 09:24 | Day surgery (SDC) | payer MEDICARE, MEDICAID, SELFPAY ==
--- OUTSIDE RECORDS SUMMARY | 2024-06-28 09:29 | XMS_ITS | Patient Health Record ---
Author Organization [facility] Address [address] [place] [address] Care Team Providers Care Whip Sawyer Name Role Phone ThualexaPia Primary Care Provider Unavailab Olegario James Unavailable [phone] Reason For Referral No Information Medications Medication SIG (Take, Route, Fr equency, Duration) Notes Start Date End Date Status MoviPrep 100 GM as directed Orally 03/03/20110 03/2024 Active Tarka Active Problems Problem Type SNOMED Code ICD Code Onset Dates Problem Status W/U Status Risk Notes Problem Screening for malignant neoplasm of colon (839431049) Special screening for malignant neoplasms, colon (V76.51) Active confirmed Plan Of Treatment Future Test Test Name Order Date COLONOSCOPY 03/03/2011 Insurance Providers Payer Name Payer Address Payer Phone Subscriber Number Group Number Insured Name Patient Relationship to Insured Coverage Start Date Coverage End Date MEDICARE OF [place] [address] [place] [id number] Rodrick Gaston Self - patient is the insured MEDICAID OF [employer] [address] [place] [address] [id number] Rodrick Gaston Self - patient is the insured Medical (General) History Medical History History ICD Code hypertension Denies [place],DM,CVA,Lung disease,renal dise ase
--- NOTE | 2024-07-25 | ECG_ITS ---
Test Reason : PREOP Blood Pressure : */* mmHG Vent. Rate : 83 BPM Atrial Rate : 83 BPM P-R Int : 166 ms QRS Dur : 88 ms QT Int : 376 ms P-R-T Axes : 57 34 52 degrees QTcB Int : 441 ms Normal sinus rhythm Nonspecific ST and T wave abnormality Abnormal ECG When compared with ECG of 19-Apr-2023 13:01, Vent. rate has decreased by 66 bpm Borderline criteria for Inferior infarct are no longer Present Premature atrial complexes are no longer Present Referred By: Maggie Richards Electronically Signed By: KAROLINA ANN MD
[2024-07-25 13:10] VITALS: BP 129/83; PULSE 88; RESP 16; O2SAT 95; BMI 30.8
[2024-07-25 15:43] LABS: MRSA Nasal PCR NEGATIVE (Negative); SA Nasal PCR NEGATIVE (Negative)
[2024-08-31 11:07] LABS: MANUAL DIFF FLAG NO
[2024-08-31 11:48] LABS: Basophils Absolute Auto 0.1 X10*3/uL (0.0-0.2); Basophils Percent Auto 0.9 % (0-2); Eosinophils Absolute Auto 0.3 X10*3/uL (0.0-0.4); Eosinophils Percent Auto 3.2 % (0-4); Hematocrit 48.8 % (42.0-52.0); Hemoglobin 16.2 g/dl (14.0-18.0); Imm Gran Abs Auto 0.07 X10*3/uL (0.00-0.03); Imm Gran Pct Auto 0.9 % (0.0-0.4); Lymphocytes Absolute Auto 2.6 X10*3/uL (1.2-4.9); Lymphocytes Percent Auto 32.5 % (20-40); Mean Corpuscular HGB Conc 33.2 g/dl (31.0-36.0); Mean Corpuscular Hemoglobin 30.1 pg (27.0-33.0); Mean Corpuscular Volume 90.7 fL (80.0-98.0); Mean Platelet Volume 11.9 fL (9.4-12.4); Monocytes Absolute Auto 0.7 X10*3/uL (0.1-1.2); Monocytes Percent Auto 8.3 % (2-11); Neutrophils Absolute Auto 4.4 x10*3/uL (2.0-8.3); Neutrophils Percent Auto 54.2 % (45-73); Platelet Count 224 X10*3/uL (160-400); Red Blood Count 5.38 X10*6/uL (4.60-5.80); White Blood Count 8.1 X10*3/uL (4.8-10.8)
[2024-08-31 12:07] LABS: Anion Gap 11 (12-20); Blood Urea Nitrogen 10 mg/dL (9-16); Carbon Dioxide 27 mmol/L (22-29); Chloride 105 mmol/L (96-108); Creatinine Clr Calc Pharmacy 85.7; Estimated Glomerular Filt Rate > 60; Glucose Random 156 mg/dL (60-115); Potassium 3.9 mmol/L (3.3-5.1); Sodium 139 mmol/L (135-145)
[2024-09-05] VITALS (10 sets, daily range): BP systolic 102–140; BP diastolic 61–87; PULSE 78–119; RESP 16–22; TEMP 36–37.1; O2SAT 92–97; BMI 31.0; BMI 31.1
--- NOTE | ~2024-09-05 | XR_ITS ---
EXAMINATION: XR KNEE, RIGHT CLINICAL INFORMATION: s/p RTKA COMPARISON: August 17, 2024 TECHNIQUE: AP and lateral of the right knee. FINDINGS: Skin maximilian are now present anterior to the knee. There is soft tissue gas in the anterior knee and distal thigh. 3 Compartment arthroplasty has been performed. There is no periprosthetic fracture. There is anatomic alignment. XR/XR knee RT 2V IMPRESSION: Postop, total knee replacement. Electronically signed by: Joel Coleman MD 09/05/2024 04:10 PM EDT
[2024-09-05 09:57] LABS: Hematocrit 45.6 % (42.0-52.0); Hemoglobin 15.4 g/dl (14.0-18.0)
--- NOTE | 2024-09-05 10:01 | MHC.SHP ---
Pre-Procedural Eval Section A - 24 Hr Update-Section A only Date of Service: 09/05/24 The patient is an INPATIENT: No Changes since office visit: No Cold of Flu in the past 2 weeks, No New Medical Problems, No Changes in Medication and No Patient answered all questions The patient has been examined within 24 hours of the surgical procedure. The History & Physical has been completed within 30 days and I have reviewed it.: Yes Section B - Complete if H&P > 30 days Chief Complaint: Unilateral primary osteoarthritis, right knee Allergies: Allergies Allergy/AdvReac Type Severity Reaction Status Date / Time No Known Allergies Allergy Verified 08/31/24 10:03 Plan I have reviewed the history and physical and performed a pertinent physical examination on my patient. No changes have occurred unless specified. Time Spent With Patient Time: Total time managing care of this patient today ____ minutes.
[2024-09-05 10:11] LABS: Glucose, Whole Blood 158 mg/dL (60-115)
[2024-09-05] MEDS: Lactated Ringers 1,000 ML 100 ML IVCONT ×2 (10:12→15:24)
--- NOTE | 2024-09-05 10:25 | HO.ANESPROP2 ---
Documented by User: Maggie Richards NP 09/04/24 08:44 HPI - Anesthesia Eval Consult details Narrative: 63yo M for Right Knee Replacement Total, 09/05/24 No recent illness No CP/SOB within limits of knee pain Asthma: resolved years ago DM: A1C 6.6 PONV with knee arthoscopies only Afib/flutter x 1 with critically ill perforated divertic 2023 . Converted and no recurrence. [place]s [place] [facility]. Stable at 03/2024 office visit Moderate + StopBang Anesthesia Pre-Procedure Meds Is the patient on any of the following meds?: GLP1/DPP4 PMFSH Active Problems Active Problems: All Active Problems Osteoarthritis of right knee (Acute) Atrial flutter by electrocardiogram (Acute) Abdominal pain (Acute) Atrial flutter with rapid ventricular response (Acute) Afib (Acute) History of arthroscopy of right knee (Acute) Polycythemia (Acute) HTN (hypertension) (Acute) Palpitations (Acute) Internal derangement of right knee (Acute) Diabetes mellitus (Acute) Past Medical History Medical History (Updated 07/25/24 @ 13:48 by Maggie Richards NP) Arthritis Hx of septic shock (~04/20/23) History of diverticulitis of colon (04/18/23) Hx of lymphadenopathy Pulmonary nodules Psoriasis of scalp CTS (carpal tunnel syndrome) Elevated cholesterol Gout HTN (hypertension) Palpitations Diabetes mellitus Internal derangement of right knee Hx of polycythemia vera Family History Family History Father History of head and neck cancer Mother Hx of cancer antigen 125 (CA-125) measurement Family history of problems with anesthesia: No Surgical History Surgical History History of colostomy reversal (08/30/23) History of colostomy reversal Hx of arthroscopy of right knee H/O exploratory laparotomy (04/18/23) History of Problems with Anesthesia: No (PONV with knee surgeries but not subsequent surgeries) Social History Social History Household Members: Spouse Housing: House Are you a primary special needs child caregiver to a significant other at home: No Do you presently have visiting nurse or other home services: Yes Unable to assess alcohol history related to: Unable to respond Alcohol intake: never Comment: counts correct Patient Tobacco Use Status: Never used Tobacco Use of substances other than those prescribed or required for medical reasons: No Are you DNR?: No Advance Directives: No Advance Directives Information Provided: Yes Advance Directives on File: No Poor oral hygiene: No service: No Current occupational status: unemployed Meds Allergies Allergy/AdvReac Type Severity Reaction Status Date / Time No Known Allergies Allergy Verified 08/31/24 10:03 Home Medications ?Medication ?Instructions ?Recorded ?Confirmed ?Last Taken ?Type allopurinol 300 mg tablet 1 tab PO DAILY 05/14/20 08/31/24 08/29/23 History ibuprofen 200 mg tablet 200 mg PO DAILY PRN Pain 05/14/20 08/31/24 Unknown History atorvastatin 10 mg tablet 10 mg PO BEDTIME 01/19/23 08/31/24 08/29/23 History doxepin 50 mg capsule 50 mg PO BEDTIME 01/19/23 08/31/24 08/29/23 History metoprolol succinate 50 mg 50 mg PO DAILY 01/19/23 08/31/24 08/30/23 History tablet,extended release 24 hr omeprazole 20 mg capsule,delayed 20 mg PO DAILY 01/19/23 08/31/24 08/29/23 History release lisinopril 20 1 tab PO DAILY 10/12/23 08/31/24 Unknown History mg-hydrochlorothiazide 12.5 mg tablet sitagliptin phosphate 100 mg 100 mg PO DAILY 07/25/24 08/31/24 08/28/24 History tablet (Januvia) Exam Height,Weight and Vital Signs: Height 5 ft 6 in Weight 86.636 kg Last Vital Signs Pulse 88 07/25/24 13:10 Resp 16 07/25/24 13:10 BP 129/83 07/25/24 13:10 Pulse Ox 95 07/25/24 13:10 O2 Del Method Room Air 07/25/24 13:10 Pertinent Lab Results Pertinent Lab Results: Lab Results 07/25/24 08/31/24 Range/Units 13:45 11:01 WBC 8.1 (4.8-10.8) X10*3/uL RBC 5.38 (4.60-5.80) X10*6/uL Hgb 16.2 (14.0-18.0) g/dl Hct 48.8 (42.0-52.0) % MCV 90.7 (80.0-98.0) fL MCH 30.1 (27.0-33.0) pg MCHC 33.2 (31.0-36.0) g/dl RDW 17.0 H (11.0-16.0) % Plt Count 224 (160-400) X10*3/uL MPV 11.9 (9.4-12.4) fL Immature Gran % (Auto) 0.9 H (0.0-0.4) % Neut % (Auto) 54.2 (45-73) % Lymph % (Auto) 32.5 (20-40) % [place] % (Auto) 8.3 (2-11) % Eos % (Auto) 3.2 (0-4) % Baso % (Auto) 0.9 (0-2) % Lymph # (Auto) 2.6 (1.2-4.9) X10*3/uL [place] # (Auto) 0.7 (0.1-1.2) X10*3/uL Eos # (Auto) 0.3 (0.0-0.4) X10*3/uL Baso # (Auto) 0.1 (0.0-0.2) X10*3/uL Abs Immat Gran (auto) 0.07 H (0.00-0.03) X10*3/uL Absolute Neuts (auto) 4.4 (2.0-8.3) x10*3/uL Absolute Nucleated RBC 0.000 (0.0-0.012) X10*3/uL Nucleated RBC % (auto) 0.0 (0.0-0.2) /100WBC Sodium 139 (135-145) mmol/L Potassium 3.9 (3.3-5.1) mmol/L Chloride 105 (96-108) mmol/L Carbon Dioxide 27 (22-29) mmol/L Anion Gap 11 L (12-20) BUN 10 (9-16) mg/dL Creatinine 0.91 (0.5-1.4) mg/dL Estim Creat Clear Calc 85.7 Estimated GFR > 60 Random Glucose 156 H (60-115) mg/dL Calcium 9.0 (8.4-10.2) mg/dL Nasal Screen MRSA (PCR) NEGATIVE (Negative) Nasal S. aureus Screen NEGATIVE (Negative) Nasal MRSA/S.aureus Interp SEE NOTE Blood Type O Positive Antibody Screen NEGATIVE Laboratory Tests 06/20/24 13:02 Hemoglobin A1c % 6.6 H Narrative Narrative: EKG 07/2024 Vent. Rate : 83 BPM Atrial Rate : 83 BPM P-R Int : 166 ms QRS Dur : 88 ms QT Int : 376 ms P-R-T Axes : 57 34 52 degrees QTcB Int : 441 ms Normal sinus rhythm Nonspecific ST and T wave abnormality Abnormal ECG When compared with ECG of 19-Apr-2023 13:01, Vent. rate has decreased by 66 bpm Borderline criteria for Inferior infarct are no longer Present Premature atrial complexes are no longer Present Holter 05/2023 1. Patient was monitored for total period of 3 days 2. Baseline was normal sinus rhythm with average heart of 78 beats per minute 3. No significant pauses or arrhythmias noted 4. Patient reported 1 symptom of heart racing correlated with sinus rhythm ECHO 05/2023 Conclusions: - The left ventricular systolic function is normal. The calculated ejection fraction is 66% by biplane method. - No obvious valvular pathology seen on this study. Airway Mallampati Class: III TM Dist: >3cm Neck ROM: Full Loose/Missing/Broken Teeth: No (patient denies any loose or broken teeth) Heart: S1S2 Lungs: CTAB Assessment and Plan Assessment Anesthesia Assessment: Anesthesia Plan Discussed and PAT Visit Final Anesthetic Review Family History of Problems with Anesthesia: No History of Problems with Anesthesia: No (PONV with knee surgeries but not subsequent surgeries) Documented by User: Cassidy Alvarez DO 09/05/24 10:53 HPI - Anesthesia Eval Consult details Narrative: 63yo M for Right Knee Replacement Total, 09/05/24 No recent illness No CP/SOB within limits of knee pain Asthma: resolved years ago DM: A1C 6.6 PONV with knee arthoscopies only Afib/flutter x 1 with critically ill perforated divertic 2023 . Converted and no recurrence. Follows with [facility]. Stable at 03/2024 office visit Moderate + StopBang Anesthesia Pre-Procedure Meds Is the patient on any of the following meds?: GLP1/DPP4 PMFSH Past Medical History Medical History (Updated 07/25/24 @ 13:48 by Maggie Richards NP) Arthritis Hx of septic shock (~04/20/23) History of diverticulitis of colon (04/18/23) Hx of lymphadenopathy Pulmonary nodules Psoriasis of scalp CTS (carpal tunnel syndrome) Elevated cholesterol Gout HTN (hypertension) Palpitations Diabetes mellitus Internal derangement of right knee Hx of polycythemia vera Family History Family History Father History of head and neck cancer Mother Hx of cancer antigen 125 (CA-125) measurement Family history of problems with anesthesia: No Surgical History Surgical History History of colostomy reversal (08/30/23) History of colostomy reversal Hx of arthroscopy of right knee H/O exploratory laparotomy (04/18/23) History of Problems with Anesthesia: No (PONV with knee surgeries but not subsequent surgeries) Social History Social History Household Members: Spouse Housing: House Are you a primary special needs child caregiver to a significant other at home: No Do you presently have visiting nurse or other home services: Yes Unable to assess alcohol history related to: Unable to respond Alcohol intake: never Comment: counts correct Patient Tobacco Use Status: Never used Tobacco Use of substances other than those prescribed or required for medical reasons: No Are you DNR?: No Advance Directives: No Advance Directives Information Provided: Yes Advance Directives on File: No Poor oral hygiene: No service: No Current occupational status: unemployed Meds Allergies Allergy/AdvReac Type Severity Reaction Status Date / Time No Known Allergies Allergy Verified 08/31/24 10:03 Home Medications ?Medication ?Instructions ?Recorded ?Confirmed ?Last Taken ?Type allopurinol 300 mg tablet 1 tab PO DAILY 05/14/20 08/31/24 08/29/23 History ibuprofen 200 mg tablet 200 mg PO DAILY PRN Pain 05/14/20 08/31/24 Unknown History atorvastatin 10 mg tablet 10 mg PO BEDTIME 01/19/23 08/31/24 08/29/23 History doxepin 50 mg capsule 50 mg PO BEDTIME 01/19/23 08/31/24 08/29/23 History metoprolol succinate 50 mg 50 mg PO DAILY 01/19/23 08/31/24 08/30/23 History tablet,extended release 24 hr omeprazole 20 mg capsule,delayed 20 mg PO DAILY 01/19/23 08/31/24 08/29/23 History release lisinopril 20 1 tab PO DAILY 10/12/23 08/31/24 Unknown History mg-hydrochlorothiazide 12.5 mg tablet sitagliptin phosphate 100 mg 100 mg PO DAILY 07/25/24 08/31/24 08/28/24 History tablet (Januvia) Exam Exam Date and Time: 09/05/24 1025 Height,Weight and Vital Signs: Vital Signs Pulse Rate 88 07/25/24 13:10 Respiratory Rate 16 07/25/24 13:10 Blood Pressure 129/83 07/25/24 13:10 Pulse Oximetry 95 07/25/24 13:10 Oxygen Delivery Method Room Air 07/25/24 13:10 Temperature 97.1 F 09/05/24 10:10 Pulse Rate 78 09/05/24 10:10 Respiratory Rate 16 09/05/24 10:10 Blood Pressure 133/87 09/05/24 10:10 Pulse Oximetry 97 09/05/24 10:10 Oxygen Delivery Method Room Air 09/05/24 10:10 Height 5 ft 6 in Weight 86.636 kg Last Vital Signs Pulse 88 07/25/24 13:10 Resp 16 07/25/24 13:10 BP 129/83 07/25/24 13:10 Pulse Ox 95 07/25/24 13:10 O2 Del Method Room Air 07/25/24 13:10 Airway Mallampati Class: II TM Dist: >3cm Neck ROM: Full Loose/Missing/Broken Teeth: No (patient denies any loose or broken teeth) Assessment and Plan Assessment Anesthesia Assessment: Anesthesia Plan Discussed and Chart Reviewed Final Anesthetic Review Family History of Problems with Anesthesia: No History of Problems with Anesthesia: No (PONV with knee surgeries but not subsequent surgeries) NPO: Yes ASA Class: II Final Preanesthetic Review: No Changes in Pt Med Stat, Meds/Allgs Chart Reviewed, Consent Obtained/Reviewed and Anes Risks/Benef Reviewed Patient Risk: Low Procedure Risk: Intermediate Anesthetic Plan Anesthetic Plan: Spinal, Regional Block (right adductor canal block and right ipack block) and Agree w/ Assess. and Plan Disposition: Standard PACU
[2024-09-05] MEDS: ceFAZolin Sodium/Dextrose,Iso 2 GM/50 ML PIGGYBACK IV ×2 (11:49→17:29)
--- NOTE | 2024-09-05 12:58 | P.BOP_ITS ---
Brief Operative Note Date of Service: 09/05/24 Pre-op diagnosis: Right knee OA Post-op diagnosis: same Procedure: Right TKA Implants: [employer] Triathlon press fit cruciate retaining 05/17/31 Surgeon: Pedro Pablo Resendiz MD Anesthesia: regional and spinal Was an Metal Machine Operator used for this Procedure?: Yes Metal Machine Operator: Jessie Hernandez Estimated blood loss (mL): 50 IV fluids (mL): 750 Pathology: other Condition: stable Disposition: PACU
--- NOTE | 2024-09-05 13:04 | P.OP_ITS ---
Operative Note Operative Note Date of Service: 09/05/24 Narrative: Date of Service: 09/05/24 Pre-op diagnosis: Right knee OA Post-op diagnosis: same Procedure: Right TKA Implants: [employer] Triathlon press fit cruciate retaining 05/17/31 Surgeon: Pedro Pablo Resendiz MD Anesthesia: regional and spinal Was an Implementation Specialist used for this Procedure?: Yes Implementation Specialist: Jessie Hernandez Estimated blood loss (mL): 50 IV fluids (mL): 750 Pathology: other Condition: stable Disposition: PACU Procedure in detail: The patient was brought to the operating room and prepped and draped in standard sterile fashion. A time-out was called to identify proper site proper procedure proper surgeon and IV antibiotics were administered. 1 g of IV tranexamic acid was administered. I began by making a midline incision to the retinaculum and performed a medial parapatellar arthrotomy. The patella was translated laterally and the knee was flexed up. The medial femoral condyle was notable for focal G3 and 4 changes. . I performed a small medial peel and resected the infrapatellar fat pad. Davilla's line was then used to drill my intramedullary femoral guide and my distal femur cut of 10mm was made in 5 degrees of valgus while protecting the soft tissues. I then measured a # 3 femur and placed my cutting guide and made my anterior posterior and chamfer cuts protecting the soft tissues at all times. Once I was satisfied with my cuts I turned my attention to the tibia. I removed the meniscus medially and laterally and , using a 3 deg external cutting guide, in line with the tibial crest and the third ray, I made my distal tibial cut in 3 deg slope of while protecting the PCL the posterior soft tissues at all times. An extension block was used to confirm appropriate amount of bony resection. I then sized a #4tibia and once I was satisfied that there was complete tibial coverage I p laced my trial and with the trial femur in place took the knee through range of motion. I was satisfied with the extension and flexion as well as the stability and balance at 0, 30 and 90 degrees. I then turned my attention to the patella where I removed 1 cm from the undersurface of the patella and then trialed a 32A patellar button. Again the knee was taken through range of motion I was satis fied with the tracking. I then returned to the femur and drilled my femoral lug holes and prepared the tibia. A femoral bone plug was placed and the knee was irrigated copiously. I then press fit the patella, tibia and femur in standard fashion. I trialed different inserts until I selected a #9 insert. The final insert was placed and copious irrigation was performed. The knee was then closed with a running Quill suture, a 3 0 Vicryl and maximilian on the skin. Patient was then placed in sterile dressing and brought to recovery room in stable condition there were no known complications.
--- NOTE | 2024-09-05 14:32 | HO.PM.IMCN ---
History of Present Illness Data of Consult Service Date: 09/05/24 Primary Care Provider: Pia Avila MD HPI 63-year-old man admitted by Orthopedic surgery and is status post right total knee arthroplasty. Surgery was unremarkable. Patient is hemodynamically stable. Recent labs stable. Review of Systems Review of Systems: Denies any recent fever chills or decrease in appetite respiratory denies any shortness of breath or cough cardiovascular denied chest pain gastrointestinal denies any dysphagia abdominal pain nausea vomiting or diarrhea genitourinary denies any dysuria frequency or hematuria musculoskeletal no pain neuropsych denies any weakness or seizures all other systems reviewed are negative [facility] Medical History (Updated 07/25/24 @ 13:48 by Maggie Richards NP) Arthritis Hx of septic shock (~04/20/23) History of diverticulitis of colon (04/18/23) Hx of lymphadenopathy Pulmonary nodules Psoriasis of scalp CTS (carpal tunnel syndrome) Elevated cholesterol Gout HTN (hypertension) Palpitations Diabetes mellitus Internal derangement of right knee Hx of polycythemia vera Family History Father History of head and neck cancer Mother Hx of cancer antigen 125 (CA-125) measurement Surgical History History of colostomy reversal (08/30/23) History of colostomy reversal Hx of arthroscopy of right knee H/O exploratory laparotomy (04/18/23) Social History Household Members: Spouse and Family Housing: House Are you a primary respiratory care faculty to a significant other at home: No Do you presently have visiting nurse or other home services: Yes (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 2hrs/day) Unable to assess alcohol history related to: Unable to respond Alcohol intake: never Comment: counts correct Patient Tobacco Use Status: Never used Tobacco Use of substances other than those prescribed or required for medical reasons: No Do you feel safe in your current relationship?: Yes Spiritual Healthcare Practices: Christian Are you DNR?: No Advance Directives: No Advance Directives Information Provided: Yes Advance Directives on File: No Do you have a plan to hurt others: No Plan Recently lost weight without trying: No Poor oral hygiene: No service: No Current occupational status: unemployed Meds Allergies Allergy/AdvReac Type Severity Reaction Status Date / Time No Known Allergies Allergy Verified 08/31/24 10:03 Active Medications: Current Medications Acetaminophen (Acetaminophen 325 Mg Tablet) 650 mg PO Q6H PRN PRN Reason: Pain, Mild 1-3,fever,headache Allopurinol (Allopurinol 300 Mg Tablet) 300 mg PO DAILY [facility] Aspirin (Aspirin 325 Mg Tablet) 325 mg PO BID [facility] Atorvastatin Calcium (Atorvastatin Calcium 10 Mg Tablet) 10 mg PO BEDTIME [facility] Calcium Carbonate (Calcium Carbonate 750 Mg Tab.Chew) 750 mg PO Q4H PRN PRN Reason: Heartburn Celecoxib (Celecoxib 200 Mg Capsule) 200 mg PO BID [facility] Docusate Sodium (Docusate Sodium 100 Mg Capsule) 100 mg PO BID [facility] Hydromorphone HCl (Hydromorphone Hcl 0.5 Mg/0.5 Ml Syringe) 0.25 mg IVPUSH Q4H PRN; Protocol PRN Reason: Pain, Severe (Pain Scale 7-10) Lactated Ringer's (Lr) 1,000 mls @ 100 mls/hr IVCONT .Q10H [facility] Cefazolin Sodium/Dextrose (Ancef) 2 gm in 50 mls @ 100 mls/hr IV POSTOP ONE Stop: 09/05/24 18:29 Magnesium Hydroxide (Milk Of Magnesia 30 Ml Oral.Susp) 30 ml PO DAILY PRN PRN Reason: Constipation Melatonin (Melatonin 3 Mg Tablet) 6 mg PO BEDTIME PRN PRN Reason: Insomnia Metoprolol Succinate (Metoprolol Succinate Er 50 Mg Tab.Er.24h) 50 mg PO DAILY [facility]; Protocol Naloxone HCl (Naloxone Hcl 0.4 Mg/Ml Vial) 0.04 mg IVPUSH Q5M PRN PRN Reason: Excessive sedation or RR < 8 Non-Formulary Medication (Doxepin) 50 mg PO BEDTIME [facility] Non-Formulary Medication (Lisinopril-Hydrochlorothiazide) 1 tab PO DAILY [facility] Omeprazole (Omeprazole 20 Mg Capsule.Dr) 20 mg PO DAILY@0630 [facility] Ondansetron HCl (Ondansetron Hcl 4 Mg/2 Ml Vial) 4 mg IVPUSH Q8H PRN PRN Reason: Nausea and Vomiting Oxycodone HCl (Oxycodone Hcl Immed Release 5 Mg Tablet) 5 mg PO Q4H PRN PRN Reason: Pain, Moderate(Pain Scale 4-6) Oxycodone HCl (Oxycodone Hcl Er 10 Mg Tab.Er.12h) 10 mg PO BID [facility] Sitagliptin Phosphate (Sitagliptin Phosphate 100 Mg Tablet) 100 mg PO DAILY [facility] Sodium Chloride (0.9 % Sodium Chloride Flush 3 Ml Syringe) 3 ml IVFLUSH QSHIFT [facility] Home Medications ?Medication ?Instructions ?Recorded ?Confirmed ?Last Taken ?Type allopurinol 300 mg tablet 1 tab PO DAILY 05/14/20 08/31/24 08/29/23 History ibuprofen 200 mg tablet 200 mg PO DAILY PRN Pain 05/14/20 08/31/24 Unknown History atorvastatin 10 mg tablet 10 mg PO BEDTIME 01/19/23 08/31/24 08/29/23 History doxepin 50 mg capsule 50 mg PO BEDTIME 01/19/23 08/31/24 08/29/23 History metoprolol succinate 50 mg 50 mg PO DAILY 01/19/23 08/31/24 08/30/23 History tablet,extended release 24 hr omeprazole 20 mg capsule,delayed 20 mg PO DAILY 01/19/23 08/31/24 08/29/23 History release lisinopril 20 1 tab PO DAILY 10/12/23 08/31/24 Unknown History mg-hydrochlorothiazide 12.5 mg tablet sitagliptin phosphate 100 mg 100 mg PO DAILY 07/25/24 08/31/24 08/28/24 History tablet (Januvia) Physical Exam Vital Signs and Narrative: Vital Signs: Last Vital Signs Temp 97.9 F 09/05/24 14:00 Pulse 82 09/05/24 14:00 Resp 16 09/05/24 14:00 BP 111/64 09/05/24 14:00 Pulse Ox 92 09/05/24 14:00 O2 Del Method Room Air 09/05/24 14:00 BMI result Body Mass Index 31.0 Appearing in no acute distress head is normocephalic atraumatic eyes pupils are PERRLA sclera is anicteric mouth throat mucous membranes are intact and moist neck is supple no lymphadenopathy, no JVD noted lung sounds are clear to auscultation heart regular rate rhythm, clear S1, S2 positive bowel sounds, abdomen is soft, nontender neuro patient is alert x3, no focal deficits Surgical dressing intact, surgical incision not visualized Results Labs 09/05/24 09:45 06/19/25 11:01 Labs: Laboratory Results - last 24 hr 09/05/24 10:07 POC Glucose 158 H Assessment and Plan (1) HTN (hypertension): Status: Acute Plan 63-year-old man status post right total knee arthroplasty Right total knee arthroplasty Management as per surgical team Pain management Hypertension Stable blood pressure Continue lisinopril, hydrochlorothiazide, metoprolol Diabetes mellitus type 2 ADA diet Januvia Hyperlipidemia Continue statin GERD Continue PPI DVT prophylaxis with full-dose aspirin Full code
[2024-09-05 14:33] LABS: Glucose, Whole Blood 221 mg/dL (60-115)
[2024-09-05] MEDS: Docusate Sodium 100 MG CAPSULE PO ×2 (15:23→20:32)
[2024-09-05] MEDS: 0.9 % Sodium Chloride Flush 3 ML SYRINGE IVFLUSH ×2 (15:23→20:32)
[2024-09-05] MEDS: Celecoxib 200 MG CAPSULE PO ×2 (15:23→20:31)
[2024-09-05] MEDS: allopurinoL 300 MG TABLET PO (15:23)
[2024-09-05] MEDS: SITagliptin Phosphate 100 MG TABLET PO (15:23)
[2024-09-05 17:17] LABS: Glucose, Whole Blood 342 mg/dL (60-115)
[2024-09-05] MEDS: Insulin Lispro 100 UNIT/ML 3 ML VIAL SUBCUT ×2 (17:30→20:32)
--- NOTE | 2024-09-05 19:24 | P.DS_ITS ---
DS: Providers Provider Date of Service: 09/06/24 Date of discharge: 09/06/24 Primary care physician: Pia Avila MD Consults: 09/05/24 14:19 Consult to Hospitalist Routine Comment: Consulting Provider: [facility] Reason For Exam: Routine medical management DS: Diagnosis Discharge Diagnosis (1) HTN (hypertension): Status: Acute DS: Summary Hospital Course Hospital Course: The patient underwent a successful right total knee arthroplasty, they were transferred to PACU and then to the floor to recover. During their stay, their vitals were stable, afebrile at 97.8. Labs were unremarkable, H/H 12.9/38.2. POD 1 they were started on Aspirin 325mg po bid for DVT ppx, they also received Physical Therapy services. Prior to discharge, their dressing was clean dry and intact, and the plan was to be discharged home with VNA services. Time Attestation Discharge Coordination Time (in mins): 30 Quality: Safe Use of Opioids Does Pt have an Active Cancer Diagnosis on the Problem List?: No Quality: Stroke Does the patient have a stroke diagnosis?: No Physical Exam Vital Signs: Vital Signs: Last Vital Signs Temp 97.6 F 09/05/24 19:03 Pulse 113 H 09/05/24 19:03 Resp 18 09/05/24 19:03 BP 140/83 H 09/05/24 19:03 Pulse Ox 94 09/05/24 19:03 O2 Del Method Room Air 09/05/24 19:03 BMI result Body Mass Index 31.1 Const: General: cooperative, healthy appearing and no acute distress Resp: Effort & Inspection: normal respiratory effort and able to speak in complete sentences Cardio: Rate: regular rate Peripheral pulses: Peripheral pulses 2+ throughout GI: Palpation (GI): Soft to palpation Skin: Lesions: no lesions Rashes: no rashes Extrem: Other: right knee dressing is c/d/i. Able to dorsi/plantar flex. Calf is supple and nontender. Sensation intact. Pedal pulse intact. DS: Data Data Completed and Pending Completed studies during hospitalization [Text1]: Procedures Bypass Descending Colon to Cutaneous, Open Approach (04/18/23) Drainage of Peritoneal Cavity, Open Approach (04/18/23) Excision of Sigmoid Colon, Open Approach (04/18/23) Introduction of Anesthetic Agent into Peripheral Nerves and Plexi, Percutaneous Approach (08/30/23) Introduction of Vasopressor into Peripheral Vein, Percutaneous Approach (04/18/23) Reposition Descending Colon, Open Approach (08/30/23) Pending studies at discharge: Pending at discharge 09/05/24 12:50 Surgical [PTH] Routine Labs on day of discharge: Laboratory Results - last 24 hr 09/05/24 09/05/24 09/05/24 09:45 10:07 14:28 Hgb 15.4 Hct 45.6 POC Glucose 158 H 221 H 09/05/24 17:14 Hgb Hct POC Glucose 342 H Discharge Plan Discharge Patient Disposition: Home Health Service Referrals: Mandy Flores PA-C [Physician Radio Journalist, Orthopedics] - 09/21/24 10:15 am Discharge Medications: New acetaminophen 325 mg Tablet 650 mg PO Q6H PRN (Reason: Pain, Mild 1-3,Fever,Headache) 30 Days Qty: 240 0RF aspirin 325 mg Tablet 325 mg PO BID 42 Days Qty: 84 0RF celecoxib 200 mg Capsule 200 mg PO BID 30 Days Qty: 60 0RF docusate sodium 100 mg Capsule 100 mg PO BID 30 Days Qty: 60 0RF oxycodone 5 mg Tablet 5 mg PO Q4H PRN (Reason: Pain, Moderate(Pain Scale 4-6)) 7 Days Qty: 42 0RF Rx Instructions: Partial Fill upon patient request. Continued allopurinol 300 mg tablet 1 tab PO DAILY doxepin 50 mg capsule 50 mg PO BEDTIME atorvastatin 10 mg tablet 10 mg PO BEDTIME metoprolol succinate 50 mg tablet extended release 24 hr 50 mg PO DAILY omeprazole 20 mg capsule,delayed release(DR/EC) 20 mg PO DAILY Januvia 100 mg tablet 100 mg PO DAILY lisinopril-hydrochlorothiazide 20-12.5 mg tablet 1 tab PO DAILY (DME) walker Misc See Rx Instructions .MEDSUPPLY Qty: 1 0RF Rx Instructions: Folding Front wheeled walker DURATION 99 DAYS Discontinued ibuprofen 200 mg Tablet 200 mg PO DAILY PRN (Reason: Pain) Discharge Orders: Discharge Order (Routine); Ordered 09/06/24 Ordered By: Jessie Hernandez Diet: Advance to usual diet Activity on Discharge: Use cane or walker Activity Restrictions/Additional Instructions: Physical Therapy for ROM 0-120, quad strength, gait training. Use walker for ambulation Limit stair climbing, No shower, No tub bath, No driving Continue anticoagulant Aspirin x 6 weeks Keep Aquacel dressing clean, dry and intact. Follow up with orthopedics in 2 weeks Print Language: Luxembourgish
--- NOTE | 2024-09-05 19:25 | W.MHC.F2F ---
Service Date Service Date: 09/05/24 Encounter Date of encounter: 09/06/24 Reasons for Services Signs and symptoms assessed: s/p Right TKA Pt. is considered homebound due to recent surgery. Unable to drive, poor balance, poor gait mechanics. Reason for physical therapy: home safety and mobility, therapeutic exercises, restore joint function, gait/transfer training and ADL training Homebound: Leaving the home is medically contraindicated at this time without the asist of a device and/or another person due th the listed conditions above and below. Reason homebound: unsteady gait / fall risk, leg weakness, pain with ambulation, pain with transfers, poor balance / fall risk and unable to drive Certification: Based on the above findings, I certify that this patient is confined to the home and needs intermittent retirement care, physical therapy and/or speech therapy, or continues to need occupational therapy. The patient is under my care, and I have initiated the establishment of the plan of care. The patient will be followed by a physician who will periodically review the plan of care. Time Spent With Patient Time: Total time managing care of this patient today ____ minutes.
[2024-09-05 20:30] LABS: Glucose, Whole Blood 320 mg/dL (60-115)
[2024-09-05] MEDS: Doxepin HCl 25 MG CAPSULE 50 MG PO (20:30)
[2024-09-05] MEDS: oxyCODONE HCl ER 10 MG TAB.ER.12H PO (20:31)
[2024-09-05] MEDS: Atorvastatin Calcium 10 MG TABLET PO (20:32)
--- NOTE | 2024-09-06 00:40 | PC.NURSE ---
HR: 119, BP: 130/79, RR: 18, Temp: 97.8, pt denies CP/SOB, pain is 5/10, pt states it happens sometimes, elevated HR Dr Saucedo made aware, No new orders at this time
[2024-09-06] MEDS: Lactated Ringers 1,000 ML 100 ML IVCONT (01:25)
[2024-09-06] MEDS: Omeprazole 20 MG CAPSULE.DR PO (05:16)
[2024-09-06 06:12] LABS: MANUAL DIFF FLAG NO
[2024-09-06 06:22] LABS: Basophils Percent Auto 0.2 % (0-2); Hematocrit 38.2 % (42.0-52.0); Hemoglobin 12.9 g/dl (14.0-18.0); Imm Gran Abs Auto 0.12 X10*3/uL (0.00-0.03); Imm Gran Pct Auto 0.7 % (0.0-0.4); Lymphocytes Percent Auto 6.1 % (20-40); Mean Corpuscular HGB Conc 33.8 g/dl (31.0-36.0); Mean Corpuscular Hemoglobin 30.7 pg (27.0-33.0); Mean Platelet Volume 12.2 fL (9.4-12.4); Monocytes Absolute Auto 0.9 X10*3/uL (0.1-1.2); Monocytes Percent Auto 5.4 % (2-11); Neutrophils Absolute Auto 14.3 x10*3/uL (2.0-8.3); Neutrophils Percent Auto 87.6 % (45-73); Platelet Count 174 X10*3/uL (160-400); Red Cell Distribution Width 16.6 % (11.0-16.0); White Blood Count 16.3 X10*3/uL (4.8-10.8)
[2024-09-06 06:28] LABS: Anion Gap 13 (12-20); Blood Urea Nitrogen 11 mg/dL (9-16); Calcium 8.5 mg/dL (8.4-10.2); Carbon Dioxide 22 mmol/L (22-29); Chloride 107 mmol/L (96-108); Estimated Glomerular Filt Rate > 60; Glucose Fasting 269 mg/dL (60-99); Potassium 4.2 mmol/L (3.3-5.1); Sodium 138 mmol/L (135-145)
[2024-09-06 07:10] LABS: Estimated Average Glucose 160 mg/dL; Hemoglobin A1c % 7.2 % (<6.0); Total Hemoglobin (HGBA1C) 3377.7724 umol/L
[2024-09-06 07:16] VITALS: BP 123/62; PULSE 96; RESP 18; TEMP 36.9; O2SAT 96
[2024-09-06 07:24] LABS: Glucose, Whole Blood 271 mg/dL (60-115)
[2024-09-06] MEDS: Insulin Lispro 100 UNIT/ML 3 ML VIAL SUBCUT (07:35)
[2024-09-06] MEDS: Celecoxib 200 MG CAPSULE PO (07:35)
[2024-09-06] MEDS: oxyCODONE HCl Immed Release 5 MG TABLET PO (07:35)
[2024-09-06] MEDS: allopurinoL 300 MG TABLET PO (07:36)
[2024-09-06] MEDS: lisinopriL 20 MG TABLET PO (07:36)
[2024-09-06] MEDS: Metoprolol Succinate ER 50 MG TAB.ER.24H PO (07:36)
[2024-09-06] MEDS: SITagliptin Phosphate 100 MG TABLET PO (07:36)
[2024-09-06] MEDS: hydroCHLOROthiazide 12.5 MG TABLET PO (07:36)
[2024-09-06] MEDS: Docusate Sodium 100 MG CAPSULE PO (07:36)
[2024-09-06] MEDS: oxyCODONE HCl ER 10 MG TAB.ER.12H PO (07:37)
--- NOTE | 2024-09-06 09:10 | HO.POSTANES ---
Post Anesthesia Evaluation Post Anesthesia Evaluation Date of Service: 09/06/24 Vital Signs: Vital Signs Temp Pulse Resp BP Pulse Ox O2 Del Method 09/06/24 07:16 98.5 F 96 18 123/62 96 Room Air 09/05/24 23:17 97.8 F 119 H 18 130/79 95 Room Air Anesthesia: Spinal Mental Status: Awake Pain Control: Satisfactory Nausea/Vomiting: None Hydration: Adequate Anesthesia-Related Issues: No Anes. Related Issues
--- NOTE | 2024-09-06 09:11 | MHC.CM.PN ---
Patient lives in a home w/ and adult son. Independent w/ care. Ambulates w/ cane. Uses rollator PRN. PCP Pia Avila MD HCP on file and verified. [facility]CA is daughter Katelyn. DP: Medically cleared for dc home w/ new [facility] for PT services. Daughter Katelyn will transport. RN aware.
== END 2024-09-06 10:22 | disposition home health service (06) ==
LOC: HO.SSS 09:25 → HO.S3 13:34
PROVIDERS: Nurse Practitioner Acute Care; Physician Assistant; PCP Internal Medicine; Visit Provider Orthopaedic Surgery
PROC: (CPT 27447; principal; 2024-09-05 11:00)
DX: M17.11 Unilateral primary osteoarthritis, right knee (principal); I10 Essential (primary) hypertension; E78.00 Pure hypercholesterolemia, unspecified; M10.9 Gout, unspecified; E11.9 Type 2 diabetes mellitus without complications; R00.2 Palpitations; R91.8 Other nonspecific abnormal finding of lung field; Z86.61 Personal history of infections of the central nervous system; Z79.1 Long term (current) use of non-steroidal anti-inflammatories (NSAID); Z79.84 Long term (current) use of oral hypoglycemic drugs; Z79.899 Other long term (current) drug therapy; Z98.890 Other specified postprocedural states; Z56.0 Unemployment, unspecified
CPT/HCPCS: 27447; 36415; 73560; 80048; 82947; 83036; 85014; 85018; 85025; 86850; 86900; 86901; 87640; 87641; 88305; 88311; 93005; 97161; C1776; J0131; J0665; J0690; J1100; J2003; J2250; J7120

== ENCOUNTER → 2024-09-05 09:24 | Outpatient (BNV) | payer MEDICARE, MEDICAID, SELFPAY | PROVIDERS: PCP Internal Medicine; Visit Provider Nurse Practitioner Acute Care | DX: I10 Essential (primary) hypertension (principal) | CPT/HCPCS: 99223 ==

== ENCOUNTER → 2024-09-05 09:24 | Outpatient (BNV) | payer MEDICARE, MEDICAID, SELFPAY | PROVIDERS: PCP Internal Medicine; Visit Provider Orthopaedic Surgery | DX: Z47.1 Aftercare following joint replacement surgery (principal); Z96.651 Presence of right artificial knee joint | CPT/HCPCS: 27447; 99024; G0180 ==

== ENCOUNTER → 2024-09-05 16:00 | Outpatient (BNV) | payer MEDICARE, MEDICAID, SELFPAY | PROVIDERS: PCP Internal Medicine; Visit Provider Radiology Diagnostic Radiology | DX: Z47.1 Aftercare following joint replacement surgery (principal); Z96.651 Presence of right artificial knee joint | CPT/HCPCS: 73560 ==

== ENCOUNTER 2024-09-21 10:03 | Outpatient (AMB) | payer MEDICARE, MEDICAID, SELFPAY ==
--- NOTE | 2024-09-21 10:25 | A.OFFVIS_ITS ---
Vital Signs 09/21/24 10:30 Height 5 ft 6 in Weight 192 lb BMI 31.0 Intake Visit Reasons: 2WKPO: R TKA w/NE 09/05/24 Intake Note: Rodrick is a 63 year old male who presents today for his first post operative appointment s/p Right TKA NE 09/05/24. Patient states he is having mild pain in his knee. He finds it difficult to fully extend his knee. Allergies No Known Allergies Allergy (Verified 09/21/24 10:29) HPI HPI 2WKPO: R TKA w/NE 09/05/24: Details: 63-year-old gentleman returns to the office today status post right total knee arthroplasty with Dr. Resendiz on 09/05/2024. The patient states he is doing quite well overall he continues to work with therapy and transition to outpatient therapy tomorrow. He is taking oxycodone twice a day to help with his discomfort. [facility] Medical History (Updated 09/08/24 @ 00:03 by Una Jeffery) Osteoarthritis of right knee Atrial flutter by electrocardiogram Colostomy in place Abdominal pain Atrial flutter with rapid ventricular response Afib Polycythemia Arthritis Hx of septic shock (~04/20/23) History of diverticulitis of colon (04/18/23) Hx of lymphadenopathy Pulmonary nodules Psoriasis of scalp CTS (carpal tunnel syndrome) Elevated cholesterol Gout HTN (hypertension) Palpitations Diabetes mellitus Internal derangement of right knee Hx of polycythemia vera Surgical History History of colostomy reversal (08/30/23) History of colostomy reversal Hx of arthroscopy of right knee H/O exploratory laparotomy (04/18/23) Family History Father History of head and neck cancer Mother Hx of cancer antigen 125 (CA-125) measurement Social History Household Members: Spouse and Family Housing: House Are you a primary home health care coordinator to a significant other at home: No Do you presently have visiting nurse or other home services: 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 No erythema. He does have some residual ecchymosis in the thigh. He has good quad activation but difficulty with full extension. No palpable defect. Range of motion is lacking 10 degrees. He has 90 degrees of flexion. Calf is supple and nontender neurovascularly intact. Assessment & Plan Assessment & Plan (1) Status post total right knee replacement: Code(s): Z96.651 - Presence of right artificial knee joint Category: Surgical Plan: Jose removed today Steri-Strips applied. We did review exercises in the office to work on quad activation and flexion extension. He will continue working with physical therapy as he has an appointment for outpatient therapy tomorrow. No driving for another 4 weeks. His oxycodone was refilled and he will follow up as scheduled on October [address] Resendiz. Coding Level of Care Code Global (46367) Diagnoses Status post total right knee replacement Z96.651
[2024-09-21 10:30] VITALS: BMI 31.0
--- OUTSIDE RECORDS SUMMARY | 2024-09-21 10:42 | XMS_ITS | Patient Health Record ---
Author Organization [facility] Address [address] [place] [address] Care Team Providers Care Machine Dyer Name Role Phone Pia Avila Primary Care Provider Unavailab Olegario James Unavailable [phone] Reason For Referral No Information Medications Medication SIG (Take, Route, Fr equency, Duration) Notes Start Date End Date Status MoviPrep 100 GM as directed Orally 03/03/2011/0 03/2024 Active Tarka Active Problems Problem Type SNOMED Code ICD Code Onset Dates Problem Status W/U Status Risk Notes Problem Special screening for malignant neoplasms, colon (V76.51) Active confirmed Plan Of Treatment Future Test Test Name Order Date COLONOSCOPY 03/03/2011 Next Appt Details Provider Name:Olegario Camilo , 10/25/2024 01:20:00 PM, [address], [address], [place], [address], Insurance Providers Payer Name Payer Address Payer Phone Subscriber Number Group Number Insured Name Patient Relationship to Insured Coverage Start Date Coverage End Date [facility] [address] [place] [address] [id number] Beltran Gastono Self - patient is the insured [id number] [address] [place] [address] [id number] Rodrick Gaston Self - patient is the insured Medical (General) History Medical History History ICD Code hypertension Denies AL,DM,CVA,Lung disease,renal dise ase
== END 2024-09-21 11:27 | disposition home or self-care (01) ==
LOC: HO.HOS 10:03
PROVIDERS: PCP Internal Medicine; Visit Provider Physician Assistant
DX: Z96.651 Presence of right artificial knee joint (principal)
CPT/HCPCS: 99024

== ENCOUNTER → 2024-09-21 10:03 | Outpatient (BNVA) | payer MEDICARE, MEDICAID, SELFPAY | PROVIDERS: PCP Internal Medicine; Visit Provider Physician Assistant | DX: Z47.1 Aftercare following joint replacement surgery (principal); Z96.651 Presence of right artificial knee joint | CPT/HCPCS: 99212 ==

== ENCOUNTER 2024-10-02 13:07 | Outpatient (REF) | payer MEDICARE, MEDICAID, SELFPAY ==
[2024-10-02 13:47] LABS: Hemoglobin A1C 201.0519 umol/L; Total Hemoglobin (HGBA1C) 4016.6152 umol/L
--- OUTSIDE RECORDS SUMMARY | 2024-10-02 13:53 | XMS_ITS | Patient Health Record ---
Author Organization [facility] Address [address] [place] [address] Care Team Providers Care Bobbin Handler Name Role Phone Pia Avila Primary Care Provider Unavailab Olegario James Unavailable [phone] Reason For Referral No Information Medications Medication [...] Name:Olegario Camilo , 10/25/2024 01:20:00 PM, [address], [address], [place], [address], Insurance Providers Payer Name Payer Address Payer Phone Subscriber Number Group Number Insured Name Patient Relationship to Insured Coverage Start Date Coverage End Date [facility] [address] [place] [address] [id number] Beltran Gastono Self - patient is the insured MEDICAID OF [employer] [facility] [address] [place] [address] [id number] Rodrick Gaston Self - patient is the insured Medical (General) History Medical History History ICD Code hypertension Denies CT,DM,CVA,Lung disease,renal dise ase
[2024-10-02 14:00] LABS: Alanine Aminotransferase 33 U/L (0-40); Albumin Level 4.3 g/dL (3.5-5.0); Alkaline Phosphatase 134 U/L (39-117); Anion Gap 10 (12-20); Aspartate Amino Transferase 26 U/L (5-37); Blood Urea Nitrogen 17 mg/dL (9-16); Calcium 9.1 mg/dL (8.4-10.2); Carbon Dioxide 27 mmol/L (22-29); Chloride 108 mmol/L (96-108); Estimated Glomerular Filt Rate > 60; Potassium 4.2 mmol/L (3.3-5.1); Sodium 141 mmol/L (135-145); Total Protein 7.8 g/dL (6.5-8.0)
== END 2024-10-02 13:08 | disposition home or self-care (01) ==
LOC: HO.LAB 13:07
PROVIDERS: PCP Internal Medicine; Visit Provider Internal Medicine
DX: Z00.00 Encounter for general adult medical examination without abnormal findings (principal); M10.9 Gout, unspecified; D45 Polycythemia vera; E11.9 Type 2 diabetes mellitus without complications
CPT/HCPCS: 36415; 80053; 83036

== ENCOUNTER 2024-10-16 10:29 | Outpatient (AMB) | payer MEDICARE, MEDICAID, SELFPAY ==
[2024-10-16 10:41] VITALS: BMI 31.0
--- NOTE | 2024-10-16 10:41 | MHC.OFFVIS ---
Vital Signs 10/16/24 10:41 Height 5 ft 6 in Weight 192 lb BMI 31.0 Intake Visit Reasons: 6WKPO: R TKA w/NE 09/05/24 Intake Note: Rodrick is a 63 year old male who presents today for a post operative appointment s/p Right TKA NE 09/05/24. Patient reports that he is doing well he has some continued pain in the knee. Continues to ambulate with a cane Allergies No Known Allergies Allergy (Verified 09/21/24 10:29) HPI HPI 6WKPO: R TKA w/NE 09/05/24: Details: Rodrick is a 63 year old male who presents today for a post operative appointment s/p Right TKA NE 09/05/24. Patient reports that he is doing well he has some continued pain in the knee. Continues to ambulate with a cane. [facility] Medical History (Updated 09/08/24 @ 00:03 by Una Jeffery) Osteoarthritis of right knee Atrial flutter by electrocardiogram Colostomy in place Abdominal pain Atrial flutter with rapid ventricular response Afib Polycythemia Arthritis Hx of septic shock (~04/20/23) History of diverticulitis of colon (04/18/23) Hx of lymphadenopathy Pulmonary nodules Psoriasis of scalp CTS (carpal tunnel syndrome) Elevated cholesterol Gout HTN (hypertension) Palpitations Diabetes mellitus Internal derangement of right knee Hx of polycythemia vera Surgical History History of colostomy reversal (08/30/23) History of colostomy reversal Hx of arthroscopy of right knee H/O exploratory laparotomy (04/18/23) Family History Father History of head and neck cancer Mother Hx of cancer antigen 125 (CA-125) measurement Social History Household Members: Spouse and Family Housing: House Are you a primary dialysis patient care technician to a significant other at home: No Do you presently have visiting nurse or other home services: 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) 75 years or older and lives alone: No Unable to assess alcohol history related to: Unable to respond Alcohol intake: never Comment: counts correct Patient Tobacco Use Status: Never used Tobacco service: No Current occupational status: unemployed Physical Exam Vital Signs: BMI result Body Mass Index 31.0 Extrem Other: Incision clean, dry and intact 5-100 degrees of motion 2+ dorsalis pedis pulse Stable to varus and valgus stress Assessment & Plan Assessment & Plan (1) Status post total right knee replacement: Code(s): Z96.651 - Presence of right artificial knee joint Category: Surgical Plan: Status post knee replacement doing well. Continue strengthening and range of motion. May follow up in 6 weeks. May discontinue aspirin. Coding Level of Care Code Global (92398) Diagnoses Status post total right knee replacement Z96.651
--- OUTSIDE RECORDS SUMMARY | 2024-10-16 11:12 | XMS_ITS | Patient Health Record ---
Author Organization [facility] Address [address] [place] [address] Care Team Providers Care Podiatrist Name Role Phone Pia Avila Primary Care Provider Unavailab Olegario James Unavailable [phone] Reason For Referral No Information Medications Medication SIG (Take, Route, Fr equency, Duration) Notes Start Date End Date Status MoviPrep 100 GM as directed Orally 03/03/2011/0 03/2024 Active Tarka Active Problems Problem Type SNOMED Code ICD Code Onset Dates Problem Status W/U Status Risk Notes Problem Screening for malignant neoplasm of colon (716098616) Special screening for malignant neoplasms, colon (V76.51) Active confirmed Plan Of Treatment Future Test Test Name Order Date COLONOSCOPY 03/03/2011 Next Appt Details Provider Name:Olegario Camilo , 10/25/2024 01:20:00 PM, [address], [address], [place], [address], Insurance Providers Payer Name Payer Address Payer Phone Subscriber Number Group Number Insured Name Patient Relationship to Insured Coverage Start Date Coverage End Date [facility] [address] [place] [address] [id number] Beltran Gastono Self - patient is the insured MEDICAID OF [facility] [address] [place] [address] [phone] [id number] Rodrick Gaston Self - patient is the insured Medical (General) History Medical History History ICD Code hypertension Denies CT,DM,CVA,Lung disease,renal dise ase
== END 2024-10-16 11:03 | disposition home or self-care (01) ==
PROVIDERS: PCP Internal Medicine; Visit Provider Orthopaedic Surgery
DX: Z96.651 Presence of right artificial knee joint (principal)
CPT/HCPCS: 99024

== ENCOUNTER → 2024-10-16 10:29 | Outpatient (BNVA) | payer MEDICARE, MEDICAID, SELFPAY | PROVIDERS: PCP Internal Medicine; Visit Provider Ophthalmology | DX: Z47.1 Aftercare following joint replacement surgery (principal); Z96.651 Presence of right artificial knee joint | CPT/HCPCS: 99212 ==

== ENCOUNTER 2024-11-09 11:03 | Outpatient (RCR) | payer MEDICARE, MEDICAID, SELFPAY ==
--- NOTE | 2024-09-27 12:02 | MHC.PT.EP ---
[facility] [place] [facility] [place] Office [place] Office [address] Maia Rothman [address] [phone] F: [phone] F: [phone] F: [phone] F: [phone] Physical Therapy Plan of Care Date of Evaluation: 09/27/24 Date of Surgery: 09/05/24 Diagnosis: TKA w/ NE 09/05/24 (RL) Assessment: pt is a 63 y/o male presenting to physical therapy w/ referring diagnosis of R TKA 09/05/24. Impairments include pain, decreased range of motion, decreased strength, impaired functional mobility, impaired postural awareness, and altered ambulation mechanics. pt is a good candidate for skilled PT due to age, potential remediation of impairments, typical disease/condition progression and prognosis, comorbidities, and motivation. pt would benefit from skilled PT intervention to provide a tailored strengthening and stretching exercise program, functional training, gait training, postural re-training, neuromuscular re-education, modalities as needed for pain, equipment safety demonstration. Frequency and Duration: The patient will be seen 2x/wk for 10 wks Short Term Goals: pt will be I w/ HEP to promote self-management of condition. pt will increase R knee extension strength by 1 MMT grade to promote ease in sit<>stand transfer. pt will improve R knee flexion AROM by at least 15* to promote ease in squatting to brick picker objects from floor. Dental Service Chief Goals: pt will report a statistically significant improvement in self-reported outcome measure, LEFI, to promote return to PLOF. pt will be mod I w/ ADLs to reduce caregiver burden for washing/dressing. pt will navigate 12 stairs mod I level w/ railing to promote ease in accessing primary living spaces. Treatment Plan: Modalities to reduce pain, spasms and effusion. Manual therapy to restore motion and function. Therapeutic exercise to improve strength and flexibility. Neuromuscular re-education for posture and balance. Therapeutic activities to return to functional activities of daily living. Electronically signed by: Marie Leon PT, DPT Please sign and return to therapist. Thank you for your referral.
--- NOTE | 2024-11-21 11:23 | MHC.PT.DC ---
[facility] [place] [facility] [place] Office [place] Office [address] Camryn Rothman [address] [facility] [phone] F: [phone] F: [phone] F: [phone] F: [phone] Physical Therapy Discharge Report Diagnosis: TKA w/ NE 09/05/24 (RL) Date of Surgery: 09/05/24 Date of Evaluation: 09/27/24 Date of Discharge: 11/21/24 Treatments to Date: 8 Cancellations to Date: 2 No Shows to Date: 5 Discharge Status: Discharge Summary: The patient has failed to comply with [facility] attendance policy. At the time of his last attended appointment he was able to perform an 8 step up and achieve 120* of active knee flexion with his post-operative leg. He is discharged at this time. Electronically signed by: Marie Leon PT, DPT Please sign and return to therapist. Thank you for your referral.
== END 2024-11-21 11:24 | disposition home or self-care (01) ==
LOC: HO.PT 11:03
PROVIDERS: PCP Internal Medicine; Visit Provider Physician Assistant
DX: Z47.1 Aftercare following joint replacement surgery (principal); Z96.651 Presence of right artificial knee joint
CPT/HCPCS: 97110; 97162; 97530

== ENCOUNTER 2024-11-27 08:25 | Outpatient (REF) | payer MEDICARE, MEDICAID, SELFPAY ==
--- OUTSIDE RECORDS SUMMARY | 2024-10-25 09:20 | XMS_ITS ---
Author Organization [facility] Address [address] [place] [address] Care Team Providers Care Water Hauler Name Role Phone Pia Avila Primary Care Provider Unavailab Olegario James [phone] REASON FOR VISIT Patient presents today for a COLON SCREENING Encounters Encounter Location Date Provider Diagnosis [facility] [address] [place] [address] 10/25/2024 Olegario Camilo Plan Of Treatment Next Appt Details Provider Name:Olegario Camilo , 02/20/2025 02:00:00 PM, [address], [address], [place], [address], Progress Notes * Nati GASTONOB:1960 (64 yo M)Acc No.[id number]:10/25/2024 Progress Notes Patient: Rodrick CHILDS Provider: Arelis Camilo MD :1960 A ge:63 Y S ex:Male Date:10/25/2024 Address:[address] [place], [place] [id number] Pcp:Pia Avila Subjective: * Chief Complaints: * 1 . Patient presents today for a COLON SCREENING. * Medical History: Objective: * Vitals: Assessment: Plan: * Treatment: * * The named appointment provid er may or may not be the originator of this progress note, and it is not deemed complete until electronically signed by the appointment provider. Sign off status: Pending * Provider: Arelis Camilo MD Date: 0 10/25/2024 Generated for Landen parekh/Lora/eTransmitting on: 0 2024 09:56 AM EDT
--- OUTSIDE RECORDS SUMMARY | 2024-11-28 09:56 | XMS_ITS | Patient Health Record ---
Author Organization [facility] Address [address] [place] [address] Care Team Providers Care Diamond Powder Mixer Name Role Phone Winter Avilama Primary Care Provider Unavailab Olegario James Unavailable [phone] Reason For Referral No Information Medications Medication SIG (Take, Route, Fr equency, Duration) Notes Start Date End Date Status MoviPrep 100 GM as directed Orally 03/03/2011/0 03/2024 Active Tarka Active Problems Problem Type SNOMED Code ICD Code Onset Dates Problem Status W/U Status Risk Notes Problem Screening for malignant neoplasm of colon (860687240) Special screening for malignant neoplasms, colon (V76.51) Active confirmed Encounters Encounter Location Date Provider Diagnosis [facility] [address] [place] [address] 10/24/2024 Olegario Camilo Plan Of Treatment Future Test Test Name Order Date COLONOSCOPY 03/03/2011 Next Appt Details Provider Name:Olegario Camilo , 02/20/2025 02:00:00 PM, [address], [address], [place], [address], Insurance Providers Payer Name Payer Address Payer Phone Subscriber Number Group Number Insured Name Patient Relationship to Insured Coverage Start Date Coverage End Date [facility] [address] [place] [address] [phone] [id number] Rodrick Gaston Self - patient is the insured MEDICAID OF [employer] [address] [place] [phone] [id number] Rodrick Gaston Self - patient is the insured Medical (General) History Medical History History ICD Code hypertension Denies [place],DM,CVA,Lung disease,renal dise ase
== END 2024-11-27 08:26 | disposition home or self-care (01) ==
LOC: HO.HOSX 08:25
PROVIDERS: Visit Provider Physician Assistant
DX: Z13.89 Encounter for screening for other disorder (principal)